=== PATIENT | female | born 1965 | race Caucasian/White ===

== ENCOUNTER 2019-07-21 16:19 | Emergency (ER) | payer OTHER, SELFPAY ==
[2019-07-21] VITALS (9 sets, daily range): BP systolic 136–174; BP diastolic 80–106; PULSE 54–82; RESP 11–20; TEMP 36.3–36.8; O2SAT 97–100
--- NOTE | ~2019-07-21 | XR_ITS ---
EXAMINATION: XR chest 2V DATE: 07/21/2019 17:07 INDICATION: Upper chest pain TECHNIQUE: PA and lateral views of the chest are obtained. COMPARISON: None available FINDINGS: The lungs are free of acute opacities. There is no pleural effusion or pneumothorax. The ca rdiomediastinal silhouette is normal. There is moderate thoracic spondylosis. IMPRESSION: 1. No acute cardiopulmonary abnormality. Reviewed, dictated and finalized at location A. 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
--- NOTE | 2019-07-21 16:31 | ECG_ITS ---
Measurements Intervals [place] Rate: 53 P: 49 IA: 144 QRS: 45 QRSD: 102 T: 66 QT: 411 QTc: 389 Interpretive Statements SINUS BRADYCARDIA WITH SINUS ARRHYTHMIA BASELINE ARTIFACT- I, II, III, AVR BORDERLINE ECG Electronically Signed On 07-21-2019 16:32:15 INDEPENDENT VIDEO PRODUCER by Colt Alvarez D.O.
--- NOTE | 2019-07-21 16:57 | ED.CHESTPAIN ---
HPI - Chest Pain General Chief Complaint: Chest Pain Stated Complaint: Chest pain, bilateral arm pain Time Seen by Provider: 07/21/19 16:26 Source: patient and RN notes reviewed Mode of arrival: ambulatory Limitations: no limitations History of Present Illness HPI narrative: Pt is a 54 y/o female who presents to the ED with c/o constant chest pain which began 2 weeks ago. Pt reports the pain feels like a pressure. She states her pain is aggravated after exertion. She states she has tried using her inhaler without relief of her symptoms. Pt reports BUE pain which began today which prompted her to come to the ED to be evaluated. She reports a productive cough and RLE edema, but denies diaphoresis, chills, or nausea. She reports she has been producing a black phlegm when she coughs. She denies a PMHx of an [place]. complaint: chest pain Onset (ago): week(s) (2 weeks ago) Timing of current episode: constant Prior episodes: No Pain location: other (diffuse) Pain radiation: none Quality: other (pressure) Relieving factors: nothing Exacerbating factors: exertion Associated symptoms: cough (productive), leg swelling (RLE) and other (BUE pain) Related Data Home Medications Medication Instructions Recorded Confirmed aripiprazole [Abilify] 5 mg PO DAILY 07/21/19 bupropion HCl 300 mg PO QAM 07/21/19 clonazepam 1 mg PO TID 07/21/19 hydroxyzine HCl 25 mg PO TID 07/21/19 losartan 25 mg PO DAILY 07/21/19 mirtazapine 45 mg PO DAILY 07/21/19 oxybutynin chloride 5 mg PO BID 07/21/19 Allergies Allergy/AdvReac Type Severity Reaction Status Date / Time Sulfa (Sulfonamide Allergy Hives Verified 07/21/19 16:32 Antibiotics) Review of Systems Review of Systems: All systems reviewed & are unremarkable except as noted in HPI and below Constitutional: Constitutional: Denies chills and Denies fever(s) Cardiovascular: Cardiovascular: Reports chest pain and Reports leg edema (RLE edema) Respiratory: Respiratory: Reports cough (productive) Gastrointestinal: Gastrointestinal: Denies nausea Musculoskeletal: Musculoskeletal: Reports other (BUE pain) [facility] Past Medical History Medical History (Updated 07/21/19 @ 19:12 by Humble Sharma MD) Anxiety Surgical History Surgical History (Updated 07/21/19 @ 17:02 by Mariana Stiles) Hx of cholecystectomy Social History Social History (Updated 07/21/19 @ 17:02 by Mariana Stiles) Smoking status: Former smoker Tobacco type: cigarettes Exam Narrative: Exam Narrative: GENERAL: Anxious-appearing, well-nourished, and in no acute distress. HEAD: Normocephalic, atraumatic. ENT: Mucous membranes moist. CHEST: Clear to auscultation. No respiratory distress. Very tender to palpation to anterior chest wall with light palpation. HEART: Regular rate and rhythm. Normal peripheral pulses. ABDOMEN: Soft, nontender, nondistended. EXTREMITIES: Normal range of motion. No edema. SKIN: Warm, dry, no rash. NEURO: Alert and oriented x3. Course Course Emergency Course: Patient informed of results. Pain improved with Toradol. Discharge home. Vital Signs Vital signs: Vital Signs Temperature 97.4 F L 07/21/19 16:27 Pulse Rate 62 07/21/19 16:27 Respiratory Rate 18 07/21/19 16:27 Blood Pressure 168/100 H 07/21/19 16:27 Pulse Oximetry 100 07/21/19 16:27 Temperature 97.4 F L 07/21/19 16:27 Pulse Rate 72 07/21/19 17:02 Respiratory Rate 12 07/21/19 17:02 Blood Pressure 146/106 H 07/21/19 17:01 Pulse Oximetry 97 07/21/19 17:02 MDM - Chest Pain Lab Data Result diagrams: 07/21/19 16:54 07/21/19 16:54 Labs: Lab Results 07/21/19 07/21/19 07/21/19 Range/Units 16:54 16:54 16:54 WBC 4.7 (4.5-10.0) K/mm3 RBC 4.67 (4.2-5.4) M/mm3 Hgb 11.4 L (12.0-15.0) g/dL Hct 36.8 L (37.0-47.0) % MCV 78.8 L (80-100) fl MCH 24.4 L (26-34) pg MCHC 31.0 L (32-36) g/dl RDW 16.8 H (11.5-14.
[2019-07-21 16:59] LABS: Basophils Absolute Auto 0.1 K/mm3 (0.0-0.1); Basophils Percent Auto 1.3 % (0.2-1.2); Eosinophils Absolute Auto 0.2 K/mm3 (0-0.3); Eosinophils Percent Auto 3.7 % (0-4.4); Hematocrit 36.8 % (37.0-47.0); Hemoglobin 11.4 g/dL (12.0-15.0); Immature Granulocyte Absolute 0.02 K/mm3 (0.00-0.031); Immature Granulocyte Percent A 0.4 % (0-0.5); Lymphocytes Absolute Auto 1.13 K/mm3 (0.9-3.2); Lymphocytes Percent Auto 24.3 % (18.3-44.2); Mean Corpuscular Hemoglobin 24.4 pg (26-34); Mean Corpuscular Volume 78.8 fl (80-100); Mean Platelet Volume 10.8 fl (7.4-10.4); Monocytes Absolute Auto 0.4 K/mm3 (0.1-0.6); Monocytes Percent Auto 8.8 % (2.6-8.5); Neutrophils Absolute Auto 2.9 K/mm3 (1.3-6.7); Neutrophils Percent Auto 61.5 % (45.5-73.1); Platelet Count Result 164 k/mm3 (150-375); Red Blood Count 4.67 M/mm3 (4.2-5.4); Red Cell Distribution Width 16.8 % (11.5-14.5); White Blood Count 4.7 K/mm3 (4.5-10.0)
[2019-07-21 17:11] LABS: Blood Urea Nitrogen 9 mg/dL (7-17); Calcium 9.4 mg/dL (8.4-10.2); Carbon Dioxide 24 mmol/L (22-30); Chloride 110 mmol/L (98-107); Estimated CRCL calculation 64 ml/min; Estimated Glomerular Filt Rate > 60; Glucose 90 mg/dL (65-105); INR 0.9; Potassium 3.8 mmol/L (3.4-5.0); Prothrombin Time 12.2 Seconds (11.1-14.7); Sodium 141 mmol/L (137-145)
[2019-07-21] MEDS: ASPIRIN 81 MG CHEWABLE TABLET 324 MG PO (17:11)
[2019-07-21 17:12] LABS: Partial Thromboplastin Time 35.7 SECONDS (22.3-36.8)
[2019-07-21 17:22] LABS: Troponin I < 0.012 ng/mL (0.000-0.034)
[2019-07-21] MEDS: KETOROLAC 30 MG/ML VIAL (*BKC) IV PUSH (18:50)
== END 2019-07-21 20:17 | disposition home or self-care (01) ==
PROVIDERS: Emergency Provider Emergency Medicine; PCP Emergency Medicine
DX: R07.89 Other chest pain (principal); F41.9 Anxiety disorder, unspecified; Z87.891 Personal history of nicotine dependence; R00.1 Bradycardia, unspecified
CPT/HCPCS: 36415; 71046; 80048; 84484; 85025; 85610; 85730; 93005; 96374; 99284; A9270; J1885

== ENCOUNTER 2020-08-11 09:12 | Outpatient (CLI) | payer OTHER, SELFPAY ==
--- NOTE | 2020-08-11 09:36 | EST_ITS ---
Patient Info Name: Radha Latham Age: 55 years : 1965 Gender: Female Ht: 63 in Wt: 141 lbs BSA: 1.70 m2 Exam Date: 08/11/2020 9:44 AM Exam Location: [facility] Stress Patient Status: Outpatient Admit Date: 08/11/2020 Staff Ordering Physician: Colt Alvarez DO Attending Provider: Colt Alvarez DO Exercise Technologist: Gayla Owusu RDCS Exercise Physician: Colt Alvarez DO Exam Type: CA stress test treadmill Study Info Indications R06.00 - Dyspnea, unspecified A treadmill exercise stress test was performed. Summary 1. 1. Negative Greg exercise stress test for ischemic ST changes by ECG criteria. 2. 2. Poor functional capacity, achieving 4 METs of workload. 3. 3. Baseline hypertension. 4. 4. Rapid HR response to exercise. 5. 5. Appropriate HR recovery at 1 minute post exercise. 6. 6. No imaging with stress testing. 7. 7. Patient informed of the above results. Protocol: Greg Stress ECG Details Stage: REST Duration (min): 5 min : 55 sec Speed (mph): 0.0 Grade (%): 0 HR (bpm): 69 SBP (mmHg): 170 DBP (mmHg): 105 METS: --- Stage: REST Duration (min): 16 min : 6 sec Speed (mph): 0.0 Grade (%): 0 HR (bpm): 68 SBP (mmHg): 161 DBP (mmHg): 93 METS: --- Stage: STAGE 1 Duration (min): 1 min : 0 sec Speed (mph): 1.7 Grade (%): 10 HR (bpm): 106 SBP (mmHg): 161 DBP (mmHg): 93 METS: --- Stage: STAGE 1 Duration (min): 2 min : 0 sec Speed (mph): 1.7 Grade (%): 10 HR (bpm): 126 SBP (mmHg): 161 DBP (mmHg): 93 METS: --- Stage: STAGE 1 Duration (min): 2 min : 24 sec Speed (mph): 1.7 Grade (%): 10 HR (bpm): 138 SBP (mmHg): 161 DBP (mmHg): 93 METS: --- Stage: RECOVERY Duration (min): 0 min : 35 sec Speed (mph): 0.0 Grade (%): 0 HR (bpm): 137 SBP (mmHg): 202 DBP (mmHg): 120 METS: --- Stage: RECOVERY Duration (min): 1 min : 35 sec Speed (mph): 0.0 Grade (%): 0 HR (bpm): 111 SBP (mmHg): 202 DBP (mmHg): 120 METS: --- Stage: RECOVERY Duration (min): 2 min : 35 sec Speed (mph): 0.0 Grade (%): 0 HR (bpm): 88 SBP (mmHg): 202 DBP (mmHg): 120 METS: --- Stage: RECOVERY Duration (min): 3 min : 35 sec Speed (mph): 0.0 Grade (%): 0 HR (bpm): 83 SBP (mmHg): 200 DBP (mmHg): 117 METS: --- Stage: RECOVERY Duration (min): 4 min : 35 sec Speed (mph): 0.0 Grade (%): 0 HR (bpm): 81 SBP (mmHg): 200 DBP (mmHg): 117 METS: --- Stage: RECOVERY Duration (min): 5 min : 35 sec Speed (mph): 0.0 Grade (%): 0 HR (bpm): 77 SBP (mmHg): 168 DBP (mmHg): 110 METS: --- Stage: RECOVERY Duration (min): 6 min : 35 sec Speed (mph): 0.0 Grade (%): 0 HR (bpm): 75 SBP (mmHg): 168 DBP (mmHg): 110 METS: --- Stage: RECOVERY Duration (min):
== END 2020-08-11 09:13 | disposition home or self-care (01) ==
PROVIDERS: PCP Emergency Medicine; Visit Provider Internal Medicine Cardiovascular Disease
DX: R06.00 Dyspnea, unspecified (principal)
CPT/HCPCS: 93017

== ENCOUNTER 2021-02-20 10:30 | Outpatient (CLI) | payer OTHER, SELFPAY ==
--- NOTE | 2021-02-20 10:41 | ECHO_ITS ---
Patient Info Name: Radha Latham Age: 55 years : 1965 Gender: Female Ht: 64 in Wt: 126 lbs BSA: 1.61 m2 BP: 128 / 91 mmHg Heart Rhythm: Sinus Rhythm Exam Date: 02/20/2021 10:54 AM Exam Location: [facility] Pulmonary Patient Status: Outpatient Admit Date: 02/20/2021 Staff Ordering Physician: Colt Alvarez DO Resource Analyst: Susan Marley CT Attending Provider: Colt Alvarez DO Referring Physician: Antonio GORMAN; Exam Type: CA echo doppler color flow Study Info Indications R06.00 - Dyspnea, unspecified Complete two-dimensional, color flow and Doppler transthoracic echocardiogram is performed. Summary 1. Complete two-dimensional, color flow and Doppler transthoracic echocardiogram is performed. 2. Left ventricular chamber dimension is normal. 3. Left ventricular systolic function is normal, estimated at 60-65%. 4. The left ventricular diastolic function is grade I diastolic dysfunction. 5. E/e' 10 is mildly elevated. 6. Global longitudinal strain is normal at -18.0%. Left Ventricle E/e' 10 is mildly elevated. Global longitudinal strain is normal at -18.0%. Left ventricular chamber dimension is normal. Left ventricular systolic function is normal, estimated at 60-65%. The left ventricular diastolic function is grade I diastolic dysfunction. Right Ventricle Right ventricular chamber dimension is normal. Right ventricular systolic function is normal. Left Atria Left atrial chamber dimension is normal. Right Atria Right atrial chamber dimension is normal. Aortic Valve The aortic valve is trileaflet. There is no aortic valve stenosis. There is no aortic valve regurgitation. Pulmonic Valve There is no pulmonic regurgitation. Mitral Valve There is no mitral valve stenosis. There is no mitral valve regurgitation. Tricuspid Valve There is no tricuspid valve regurgitation. Pericardium/Pleural There is no pericardial effusion. Inferior Vena Cava Normal inferior vena cava with >50% collapse upon inspiration consistent with normal right atrial pressure, 5 mmHg. Aorta The aortic root size at the sinus of Valsalva is normal. Left Ventricular Outflow Tract Name Value Normal LVOT 2D LVOT Diameter 2.2 cm LVOT Doppler LVOT Peak Gradient 3 mmHg LVOT Mean Gradient 2 mmHg LVOT VTI 18 cm LVOT VTI/AV VTI Ratio 0.8 LVOT Stroke Volume 69 ml LVOT CO 13.9 l/min LVOT CI 8.7 l/min/m2 Mitral Valve Name Value Normal MV Doppler MV Decel [place] 312 cm/s2 MV PHT 58 ms MV Area (PHT) 3.8 cm2 4.0-5.0 MV Diastolic Function
== END 2021-02-20 10:31 | disposition home or self-care (01) ==
PROVIDERS: PCP Emergency Medicine; Visit Provider Internal Medicine Cardiovascular Disease
DX: R06.00 Dyspnea, unspecified (principal)
CPT/HCPCS: 93306

== ENCOUNTER 2021-03-23 09:27 | Outpatient (CLI) | payer OTHER, SELFPAY ==
--- NOTE | ~2021-03-23 | CT_ITS ---
EXAMINATION: CT abdomen pelvis w con DATE: 03/23/2021 10:02 INDICATION: Abnormal weight loss. TECHNIQUE: Computed tomography (CT) of the abdomen and pelvis was performed with 100 mL Omnipaque 350 intravenous contrast. Automated exposure control and iterative reconstruction technique were employe d. The dose-length product was 222.48 mGy-cm. COMPARISON: CT abdomen and pelvis 07/13/2018 FINDINGS: The visualized portions of the lung bases demonstrate mild atelectasis. No pleural effusion . The heart size is normal. No pericardial effusion. There are cysts in the liver measuring up to 14 mm. There are changes of cholecystectomy. The spleen, pancreas, adrenal glands, and right kidney are normal. There is cortical thinning of left kidney. There is diverticulosis of the colon without evide nce of diverticulitis. There are no dilated loops of bowel. The appendix is normal. There are no path ologically enlarged lymph nodes. There is no free intraperitoneal fluid. There is moderate thoracic s pondylosis and mild lumbar spondylosis. IMPRESSION: 1. No etiology for weight loss. Reviewed, dictated and finalized at location A.
[2021-03-23 09:57] LABS: Estimated Glomerular Filt Rate > 60
== END 2021-03-23 09:28 | disposition home or self-care (01) ==
LOC: ANHIMG 09:32
PROVIDERS: PCP Emergency Medicine; Visit Provider Emergency Medicine
DX: R63.4 Abnormal weight loss (principal)
CPT/HCPCS: 74177; Q9967

== ENCOUNTER 2021-11-22 07:25 | Outpatient (CLI) | payer OTHER, SELFPAY ==
--- NOTE | ~2021-11-22 | XR_ITS ---
EXAMINATION: XR_ENEMABAC_CR DATE: 11/22/2021 08:19 INDICATION: Abdominal pain and bloating. Diarrhea. TECHNIQUE: A [employer] scout radiograph was obtained. A catheter was inserted into the patient's rectum. Contra st was infused by gravity. Fluoroscopic spot images and conventional radiographs were obtained. Fluor oscopy exposure time was 0.7 minutes. The total number of images was 32. COMPARISON: CT abdomen and pelvis 03/23/2021 FINDINGS: There is no mass or stricture. There are scattered diverticula in the colon. Stool in the p roximal colon decreases sensitivity and specificity. IMPRESSION: 1. Diverticulosis of the colon. Reviewed, dictated and finalized at location A.
== END 2021-11-22 07:26 | disposition home or self-care (01) ==
LOC: ANHIMG 07:30
PROVIDERS: PCP Emergency Medicine; Visit Provider Internal Medicine Gastroenterology
DX: R10.84 Generalized abdominal pain (principal); K57.30 Diverticulosis of large intestine without perforation or abscess without bleeding
CPT/HCPCS: 74280

== ENCOUNTER 2024-02-21 09:58 | Outpatient (CLI) | payer OTHER, SELFPAY ==
--- NOTE | ~2024-02-21 | CT_ITS ---
EXAMINATION: CT diagnostic chest wo con DATE: 02/21/2024 10:22 INDICATION: Pulmonary nodule TECHNIQUE: Computed tomography (CT) of the chest was performed without intravenous contrast. Automate d exposure control and iterative reconstruction technique were employed. Exam dose: 93.81 mGy-cm tot al exam DLP. COMPARISON: 07/21/2021 view chest 03/23/2021 CT abdomen pelvis FINDINGS: There is mild atelectasis at the bases of the lower lobes. No pulmonary infiltrate or consolidation. Peripheral 2.6 mm middle lobe pulmonary nodule (series 4 image 70). No suspicious pulmonary mass lesi on is noted. Normal heart size. No pericardial or pleural effusion. No thoracic aortic aneurysm. No hilar or mediastinal mass lesion or lymphadenopathy. Small sliding hiatal hernia. Probable cholecystectomy, gallbladder fossa surgical clips partially included in the lower most axial image. Normal morphology of the adrenal glands. 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 Degenerative spurring of the thoracic and included upper lumbar spine. No suspicious osteolytic or osteoblastic lesion. IMPRESSION: Mild discoid atelectasis/or scarring at the bases of the lower lobes 2.6 mm peripheral middle lobe nodular opacity, not likely of clinical significance. If there are any risk factors for lung cancer, consider [address] chest follow-up Reviewed, dictated and finalized at Location A. Reviewed, dictated and finalized at location A. IMPRESSION: Mild discoid atelectasis/or scarring at the bases of the lower lob es 2.6 mm peripheral middle lobe nodular opacity, not likely of clinical significa nce. If there are any risk factors for lung cancer, consider [address] chest follow-up
== END 2024-02-21 09:59 | disposition home or self-care (01) ==
PROVIDERS: PCP Emergency Medicine; Visit Provider Emergency Medicine
DX: R91.8 Other nonspecific abnormal finding of lung field (principal); R91.1 Solitary pulmonary nodule
CPT/HCPCS: 71250

== ENCOUNTER 2024-08-06 02:42 | Day surgery (SDC) | payer OTHER, SELFPAY ==
[2024-07-26 14:09] VITALS: BMI 28.3
--- OUTSIDE RECORDS SUMMARY | 2024-08-06 02:44 | XMS_ITS | Referral Summary ---
Author Organization [facility] Address [address] [place] [address] Care Team Providers Care First Leveler Name Role Phone Santos Montenegro MD Primary Care Provider [phone] Source Comments [facility],non-owned Affiliates and Associated Physician Practices is amultiple site organization consisting of ambulatory clinics and hospital sitesin [place], [place], [place]. This disclosure is being madepursuant to the Care Everywhere program and may not contain all information available regarding this patient. Last updated 18.[facility] [employer] Allergies Active Allergy Reactions Criticality Noted Date Comments Penicillins Urticaria,Swelling,Unknown Medium 07/26/19 17 Sulfa Drugs Unknown 07/26/2016 Medications * Be aware that medications may not be up to date on this document. Alwaysverify current medications with the patient. Medication Sig Dispensed Refills Start Date End Date Status WIXELA INHUB 250-50 MCG/DOSE inhaler Take 2 puffs by mouth 2 times daily 08/07/2019 Active buPROPion XL 24hr (WELLBUTRIN-XL) 300 MG tablet Take 1 tablet by mouth once daily 07/26/2016 Active ARIPiprazole (ABILIFY) 10 MG tablet Take 1 tablet by mouth once daily 12/01/2019 Active aspirin EC (Ecotrin) 81 MG tablet Take 1 tablet by mouth once daily Active famotidine (PEPCID) 40 MG tablet Take 1 (one) tablet by mouth once daily 09/09/2019 Active clonazePAM (KLONOPIN) 1 MG tablet Take 1 (one) tablet by mouth 2 times daily 07/26/2016 Active mirtazapine (REMERON) 45 MG tablet Take 1 tablet by mouth once daily 07/26/2016 Active DULERA 200-5 MCG/ACT inhaler Take 2 puffs by mouth once daily 12/05/2019 Active Multiple Vitamins-Minerals (WOMENS MULTIVITAMIN PLUS PO) Take 2 capsules by mouth once daily Active buPROPion XL 24hr (WELLBUTRIN-XL) 150 MG tablet 200 mg 01/03/2020 Active albuterol HFA (PROVENTIL;VENTOLIN ;PROAIR) 108 (90 Base) MCG/ACT inhaler INL 2 PFS PO Q 4 TO 6 H PRN 03/24/2020 Active hydrOXYzine HCl (Atarax) 25 MG tablet TAKE 1 TABLET BY MOUTH THREE TIMES DAILY 270 tablet 2 01/09/2022 Active Spiriva HandiHaler 18 MCG inhalation capsule INHALE THE CONTENTS OF 1 CAPSULE VIA INHALATION DEVICE EVERY DAY DIRECTED 12/31/2021 Active sertraline (Zoloft) 100 MG tablet 2 (two) tablets 07/04/2022 Active Rexulti 3 MG tablet 4 mg 07/04/2022 Activ e oxyBUTYnin CR 24hr (Ditropan XL) 15 MG tablet TAKE 1 TABLET BY MOUTH EVERY DAY 90 tablet 2 01/13/2023 Active amitriptyline (Elavil) 25 MG tablet TAKE 1 TABLET BY MOUTH EVERY DAY FOR CHRONIC BLADDER WALL INFLAMMATION 90 tablet 5 12/05/2023 Active Social History Tobacco Use Types Packs/Day Years Used Date Smoking Tobacco: Former Cigarettes Smokeless Tobacco: Never Comments:Occ. still working towardsquitting Alcohol Use Standard Drinks/Week Comments Never 0 (1 standard drink = 0.6 oz pur e alcohol) AUDIT-C Answer Date Recorded Q1: How often do you have a drink containing alc ohol? Never 12/17/2019 Average Number of Drinks Not on file 020 Frequency of Binge Drinking Not on file 11/30 Sex and Gender Information Value Date Recorded Sex Assigned at Not on file Gender Identity Not on file Sexual Orientation Not on file Last Filed Vital Signs Vital Sign Reading Time Taken Comments Blood Pressure 124/75 08/31/2020 9:22 AM CDT Pulse 78 08/31/2020 9:22 AM CDT Temperature 36.2 C (97.1 F) 08/31/2020 9:22 AM CDT Respiratory Rate 20 08/31/2020 9:22 AM CDT Oxygen Saturation 95% 08/31/2020 9:22 AM CDT Inhaled Oxygen Concentration - - Weight 62.3 kg (137 lb 4.8 oz) 08/31/2020 9:22 A M CDT Height 160 cm (5' 3 ) 08/31/2020 9:22 AM CDT Body Mass Index 24.32 08/31/2020 9:22 AM CDT Plan of Treatment Not on file Care Teams First Leveler Relationship Specialty Start Date End Date Santos Montenegro MD PCP - General 11/29/19
--- OUTSIDE RECORDS SUMMARY | 2024-08-06 02:44 | XMS_ITS | Patient Health Summary ---
Author Organization [facility] Address [address] [place] [address] Care Team Providers Care Heel Shaper Name Role Phone Santos Montenegro MD Primary Care Provider [phone] Note from [facility][note 3],non-owned Affiliates and Associated Physician Practices is amultiple site organization consisting of ambulatory clinics and hospital sitesin [place], [place], [place] and [place]. This disclosure is being madepursuant to the Care Everywhere program and may not contain all information available regarding this patient. Last updated 18.[facility] Allergies * Penicillins(Urticaria,Swelling,Unknown) -Medium Criticality * Sulfa Drugs(Unknown) Medications * Be aware that medications may not be up to date on this document. Alwaysverify current medications with the patient. * WIXELA INHUB 250-50 MCG/DOSE inhaler(Started 08/07/2019) Take 2 puffs by mouth 2 times daily * buPROPion XL 24hr (WELLBUTRIN-XL) 300 MG tablet(Started 07/26/2016) Take 1 tablet by mouth once daily * ARIPiprazole (ABILIFY) 10 MG tablet(Started 12/01/2019) Take 1 tablet by mouth once daily * aspirin EC (Ecotrin) 81 MG tablet Take 1 tablet by mouth once daily * famotidine (PEPCID) 40 MG tablet(Started 09/09/2019) Take 1 (one) tablet by mouth once daily * clonazePAM (KLONOPIN) 1 MG tablet(Started 07/26/2016) Take 1 (one) tablet by mouth 2 times daily * mirtazapine (REMERON) 45 MG tablet(Started 07/26/2016) Take 1 tablet by mouth once daily * DULERA 200-5 MCG/ACT inhaler(Started 12/05/2019) Take 2 puffs by mouth once daily * Multiple Vitamins-Minerals (WOMENS MULTIVITAMIN PLUS PO) Take 2 capsules by mouth once daily * buPROPion XL 24hr (WELLBUTRIN-XL) 150 MG tablet(Started 01/03/2020) 200 mg * albuterol HFA (PROVENTIL;VENTOLIN;PROAIR) 108 (90 Base) MCG/ACT inhaler (Started 03/24/2020) INL 2 PFS PO Q 4 TO 6 H PRN * hydrOXYzine HCl (Atarax) 25 MG tablet(Started 01/09/2022) TAKE 1 TABLET BY MOUTH THREE TIMES DAILY 2 refills by 01/09/2023 * Spiriva HandiHaler 18 MCG inhalation capsule(Started 12/31/2021) INHALE THE CONTENTS OF 1 CAPSULE VIA INHALATION DEVICE EVERY DAY DIRECTED * sertraline (Zoloft) 100 MG tablet(Started 07/04/2022) 2 (two) tablets * Rexulti 3 MG tablet(Started 07/04/2022) 4 mg * oxyBUTYnin CR 24hr (Ditropan XL) 15 MG tablet(Started 01/13/2023) TAKE 1 TABLET BY MOUTH EVERY DAY 2 refills by 01/13/2024 * amitriptyline (Elavil) 25 MG tablet(Started 12/05/2023) TAKE 1 TABLET BY MOUTH EVERY DAY FOR CHRONIC BLADDER WALL INFLAMMATION 5 refills by 12/04/2024 Social History Tobacco Use Types Packs/Day Years [...] Mass Index 24.32 08/31/2020 9:22 AM CDT Procedures * SARS-COV-2 (COVID-19) IN HOUSE(Performed 08/31/2020) Performed for Chronic interstitial cystitis, Pre-op testing * CBC W/O DIFFERENTIAL(Performed 08/31/2020) Performed for Iron deficiency anemia, unspecified iron deficiency anemia type * EKG 12-LEAD(Performed 08/31/2020) Performed for Iron deficiency anemia, unspecified iron deficiency anemia type * URINALYSIS NO MICROSCOPIC NO CULTURE(Performed 08/21/2020) * CULTURE URINE(Performed 08/21/2020) * TX MSR PVR U&/BLADD CAPCTY US NON(Performed 05/05/2020) Performed for Urinary frequency * URINALYSIS AUTO - POINT OF CARE (AMB) [facility](Performed 05/05/2020) Performed for Urinary frequency * TX CYSTOSCOPY,REMV CALCULUS,SIMPLE(Performed 01/11/2020) Performed for Chronic interstitial cystitis * URINALYSIS AUTO - POINT OF CARE (AMB) [facility](Performed 01/11/2020) Performed for Chronic interstitial cystitis * CULTURE URINE(Performed 12/17/2019) Performed for Urinary frequency * TX MSR PVR U&/BLADD CAPCTY US NON(Performed 12/17/2019) Performed for Urinary frequency, Chronic interstitial cystitis * URINALYSIS AUTO - POINT OF CARE (AMB) [facility](Performed 12/17/2019) Performed for Urinary frequency, Chronic interstitial cystitis Results * SARS-COV-2 (COVID-19) PRE-SURICAL/PROCEDURE (08/31/2020 12:15 PM CDT) COVID-19 PCR Not detected Not detected 08/31/2020 4:[address] [facility] Microbiology SPECIMEN FROM NASOPHARYNGEAL STRUCTURE / Unknown Collection / Unknown 08/31/2020 12:15 PM CDT 08/31/2020 12:15 PM CDT Narrative [facility] - 08/31/2020 4:51 PM CDT This nucleic acid amplification assay performance was validated by [facility]. This test has been authorized by the Food and Drug administration (FDA)under an Emergency Use Authorization (EUA). This test has been validated in accordance with the FDA's guidance document Policy for Diagnostic Testing in Laboratories Certified to perform High Complexity Testing under CLIA prior to Emergency Use Authorization for Coronavirus Disease-2019 during the Public Health Emergency issued on July 31, 2019. FDA independent review of this validation is pending. This test is only authorized for the duration of time the declaration that circumstances exist justifying the authorization of emergency use of in vitro diagnostic tests for detection of SARS-CoV-2 virus and/or diagnosis of COVID-19 infection under section 564(b)(1) of the Act, 21 U.S.C 360bbb-3 (b)(1), unless the authorization is terminated or revoked sooner. Fact Sheets for this EUA assay are available upon request. Derrick Gallego MD LAB - MICROBIOLOGY ORDERABLES [facility] [address] [place] [address], [facility] [phone] * (ABNORMAL) CBC W/O DIFFERENTIAL (08/31/2020 10:35 AM CDT) WBC 5.0 3.5 - 10.5 10 3/uL 08/31/2020 11:26 AM CDT [facility] RBC 5.12(H) 3.90 - 5.00 10 6/uL 08/31/2020 11:26 AM [facility] Hemoglobin 11.7(L) 12.0 - 15.5 g/dL 08/31/2020 11:26 AM T [facility] Hematocrit 39.0 35.0 - 45.0 % 08/31/2020 11:26 AM [facility] MCV 76.2(L) 81.0 - 97.0 fL 08/31/2020 11:26 AM [facility] MCH 22.9(L) 28.0 - 34.0 pg 08/31/2020 11:26 AM [facility] MCHC 30.0(L) 32.0 - 36.0 g/dL 08/31/2020 11:26 AM [facility] Platelet Count 200 150 - 400 10 3/uL 08/31/2020 11:26 AM [facility] RDW-SD 64.7(H) 36.0 - 50.0 fL 08/31/2020 11:26 AM [facility] RDW-CV 24.2(H) 11.2 - 14.8 % 08/31/2020 11:26 AM [facility] MPV 10.1 9.3 - 12.8 fL 08/31/2020 11:26 AM [facility] nRBC Absolute 0.00 0 10 3/uL 08/31/2020 11:26 AM [facility] nRBC Auto 0.0 0 /100 WBC 08/31/2020 11:26 AM [facility] Blood BLOOD SPECIMEN / Unknown Lab Venipuncture / Unknown 08/31/2020 10:35 AM CDT 08/31/2020 11:20 AM CDT Derrick Gallego MD LAB - HEMATOLOGY O RDERABLES Performing Organization Address City/State/[facility] Co de Phone Number [facility] [address] [place] [phone], [facility] [phone] * EKG 12-LEAD (08/31/2020 10:13 AM CDT) Ventricular Rate 61 BPM [facility] Atrial Rate 61 BPM [facility] P-R Interval 158 ms [facility] QRS Duration ms 92 ms [facility] Q-T Interval ms 406 ms [facility] QTC Calculation (Bezet) 408 ms [facility] Calculated P [place] 65 degrees [facility] Calculated R [place] 68 degrees [facility] Calculated T [place] 76 degrees [facility] Interpretation EKG NORMAL SINUS RHYTHM NORMAL ECG NO PREVIOUS ECGS AVAILABLE Confirmed by Tone Briceño ([id number]) on 09/01/2020 3:50:33 PM [facility] 08/31/2020 10:1 3 AM CDT 09/01/2020 3:50 PM CDT Derrick Gallego MD ECG ORDERABLES Performing Organization Address [facility] Co de Phone Number [facility] * (ABNORMAL) URINALYSIS NO MICROSCOPIC NO CULTURE (08/21/2020 1:40 PM CDT) Color UA DARK YELLOW YELLOW [facility] Appearance CLOUDY(A) CLEAR [facility] Specific [place] UA 1.021 1.001 - 1.035 [facility] pH UA 5.5 5.0 - 8.0 [facility] Glucose UA NEGATIVE NEGATIVE [facility] Bilirubin UA NEGATIVE NEGATIVE [facility] Ketone UA NEGATIVE NEGATIVE [facility] Blood UA NEGATIVE NEGATIVE [facility] Protein UA NEGATIVE NEGATIVE [facility] Nitrite UA NEGATIVE NEGATIVE [facility] Leukocyte UA 1+(A) NEGATIVE [facility] Comment: Test Performed at: [facility] [address] [place] [address] JOHN GUTIERREZ DO,MPH 08/21/2020 1:40 PM CDT 08/21/2020 1:41 PM CDT Derrick Gallego MD LAB - URINALYSIS O RDERABLES Performing Organization Address [facility] Co de Phone Number [facility] [address] [place] [phone] * CULTURE URINE (08/21/2020 1:40 PM CDT) Only the most recent of2 resultswithin the time period is included. Culture [facility] Comment: CULTURE, URINE, ROUTINE Micro Number: [id number] Test Status: Final Specimen Source: URINE Specimen Quality: Adequate Result: No Growth REPORT COMMENT: FASTING:NO Test Performed at: [facility] [id number] DARLIN SZYMANSKI MD 08/21/2020 1:40 PM CDT 08/21/2020 1:41 PM CDT Derrick Gallego MD LAB - MICROBIOLOGY ORDERABLES [facility] [id number] [place] [address] * TX MSR PVR U&/BLADD CAPCTY US NON (05/05/2020 9:12 AM HEMATOLOGY TECHNOLOGIST) Narrative Andree Cha LPN - 05/05/2020 9:12 AM HEMATOLOGY TECHNOLOGIST Andree Cha LPN 05/07/2020 12:52 PM Bladder scan performed PVR, 27mL Natalya SIMMONS PROCEDURE/MIN OR SURGICAL ORDERABLES * URINALYSIS AUTO - POINT OF CARE (AMB) [facility] (05/05/2020) Only the most recent of3 resultswithin the time period is included. Glucose UA neg Bilirubin UA POCT neg Ketones UA POCT neg Specific [place] UA 1.005 Blood Urine POCT neg pH UA 6.5 Protein UA neg Urobilinogen UA 0.2mg/dl Nitrite UA neg WBC UA neg Urine URINE / Unknown 05/05/2020 Natalya SIMMONS LAB - POINT O F CARE ORDERABLES * TX CYSTOSCOPY,REMV CALCULUS,SIMPLE (01/11/2020 12:46 PM CDT) Narrative Natalya Kemp APRN-CNP - 01/11/2020 12:46 PM CDT Natalya Kemp APRN-CNP 01/11/2020 12:55 PM Cystoscopy procedure note Indication for Procedure: chronic bladder pain Description: Pt placed on the procedure table in the supine/lithotomy position. she was prepped/draped in standard fashion. Pt correctly identified and time out performed. A flexible cystoscope was introduced per urethra with the following findings. Urethra: Normal caliber, no stricture. No masses. Urethral sphincter with good coaptation Bladder neck patent without contracture Trigone - UO's orthotopic bilaterally. Clear efflux seen from both ureteral orifices. Mucosa normal without lesion Bladder - normal mucosa without tumor/stone/erythema. No FB present. No trabeculation. No cellules or diverticula. No fistula. Scope was retroflexed to assess entire surface of bladder. IMPRESSION: Normal exam of the bladder PLAN: follow up 3 months, check on coverage of [place] Natalya M Justo, COIN BOX INSPECTOR-YARDER OPERATOR Natalya Kemp COIN BOX INSPECTOR-YARDER OPERATOR PROCEDURE/MIN OR SURGICAL ORDERABLES * TX MSR PVR U&/BLADD CAPCTY US NON (12/17/2019 9:01 AM CDT) Narrative Kala Strauss LPN - 12/17/2019 9:01 AM CDT Kala Strauss LPN 12/19/2019 4:20 PM Bladder scan completed PVR 111 ml noted Natalya Kemp APRN-YARDER OPERATOR PROCEDURE/MIN OR SURGICAL ORDERABLES Care Teams Heel Shaper Relationship Specialty Start Date End Date Santos Montenegro MD PCP - General 11/29/19
--- OUTSIDE RECORDS SUMMARY | 2024-08-06 02:44 | XMS_ITS | Data Portability ---
Author Organization [facility], [place] Address [address] [place] [address] Assessment Encounter Date Assessment Date Assessment LastModified by Organization Details LastModified Time 07/28/2020 07/28/2020 Annual gynecological exam performed. Patient will come back in a year unless there are new symptoms. Not available 07/27/2020 17:30:28 Plan of Treatment Reminders Order Date Submit Date Provider Last Modified By Organization Details Last Modified Time Details Appointments None recorded. Lab None recorded. Referral None recorded. Procedures None recorded. Surgeries None recorded. Imaging None recorded. Medication Orders Flagyl 500 mg tablet 2020 021 [id number], [address] [place], [place], [id number], 3 09:26:16 Diflucan 200 mg tablet 2020 021 [facility] #[id number], [address], [place], [phone], 1 11:57:33 Patient TargetsNo targets recorded. Patient InstructionsNo instructions recorded. Reason for Referral None Reported. Results Created Date Observation Date Name Description Value Unit Range Abnormal Flag Note LastModifiedBy Organization Detail LastModifiedTime Result Notes None recorded. Problems Name Problem SNOMED Code Status Onset Date Resolution Date Notes Provider Name and Address Organization Details Recorded Time Screening for malignant neoplasm of cervix Active 2016 Screening for cervical cancer;Rec orded Elsewhere: No Locatio n: [facility]: EHR Chroni c: N Practice ID: [id number] Billa ble Time: 08:30:00 AM Not Available [facility] 0 21:32:[address] Concept Active 2016 Encntr for gizzard peeler exam (general) (routine) w/o abn findings;R ecorded Elsewhere: No Locatio n: [facility] rce: EHR Chroni c: N Practice ID: [id number] Billa ble Time: 08:30:00 AM Not Available [facility] 0 21:32:56 Pelvic and perineal pain 075986756 Active 2018 Pelvic and perineal pain;Recor ded Elsewhere: No Locatio n: [facility] rce: EHR Chroni c: N Practice ID: 0001 Billa ble Time: 03:30:00 PM Not Available [facility] 0 21:32:57 Micturiti on finding Active 2018 Unspecifie d urinary incontinen ce;Recorde d Elsewhere: No Locatio n: [facility] rce: EHR Chroni c: N Practice ID: 0001 Billa ble Time: 03:30:00 PM Not Available [facility] 0 21:32:57 Syphilis test finding 483786986 Active 2016 Encntr screen for infections w sexl mode of transmiss; Recorded Elsewhere: No Locatio n: [facility] rce: EHR Chroni c: N Practice ID: 0001 Billa ble Time: 08:30:00 AM Not Available [facility] 0 21:32:[address] Concept Active 2018 Encntr for general adult medical exam w/o abnormal findings;R ecorded Elsewhere: No Locatio n: [facility] rce: EHR Chroni c: N Practice ID: 0001 Billa ble Time: 10:45:00 AM Not Available [facility] 0 21:32:57 Infection screening Active 2016 Encounter for screening for oth infec/para stc diseases;R ecorded Elsewhere: No Locatio n: [facility] rce: EHR Chroni c: N Practice ID: [id number] Billa ble Time: 08:30:00 AM Not Available [facility] 0 21:32:57 Urinary tract infectiou s disease 43760792 Active 2016 Urinary tract infection, site not specified; Recorded Elsewhere: No Locatio n: [facility] rce: EHR Chroni c: N Practice ID: 0001 Billa ble Time: 08:30:00 AM Not Available [facility] 0 21:32:57 Screening for malignant neoplasm of rectum Active 2018 Screening for malignant neoplasms of the rectum;Rec orded Elsewhere: No Locatio n: [facility] rce: EHR Chroni c: N Practice ID: 0001 Billa ble Time: 10:45:00 AM Not Available [facility] 0 21:32:57 Finding of urine substance level Active 2018 Proteinuri a, unspecifie d;Practice ID: 0001 Not Available [facility] 0 21:32:[address] Concept Active 2018 Encounter for general adult medical exam w abnormal findings;P ractice ID: 0001 Not Available [facility] 0 21:32:58 Problem Notes None recorded. Procedures Surgical History Date Name Laterality Status Provider Name and Address Organization Details Recorded Time 07/28/19 21 Date of Last Pap Smear completed Aminata Altman [facility] 08/01/2022 09:25:47 Cholecystectomy completed Noa Perez [facility] 07/27/2020 17:32:19 Imaging Results None recorded. Procedure Notes None recorded. Medical Equipment None Reported. Allergies Allergen ID Allergen Name Allergen Category Reaction Reaction Severity Criticality Documentation Date Start Date Code Code System Note Provider Name and Address Organization Details Recorded Time 9713 Product containin g penicilli n (product) medicatio n Not available Not available Not available 05/19/2020 40840 8001 SNOMED Comme nt: [facility]; Not Available [facility] 0 14:14:43 9717 Substance with sulfonami de structure and antibacte rial mechanism of action (substanc e) medicatio n Not available Not available Not available 05/19/2020 95416 8003 SNOMED Comme nt: [facility]at [facility]: [facility]; Not Available [facility] 0 14:14:43 Medications Name Sig Start Date Stop Date Status Note LastModified by Organization Details LastModified Time losartan 50 mg tablet take 1 tablet by oral route every day active Prescrib ed Elsewher e: Yes Loca tion: Melisa vern [facility] odify By: [email or web address] Encount er DateTime : 07/03/19 19 10:45:00 AM Not Available Not Available Not Available cyclobenz aprine 10 mg tablet TAKE 1 TABLET BY MOUTH TWICE DAILY NEEDED active Not Available Not Available No t Available oxybutyni n chloride ER 15 mg tablet,ex tended release 24 hr TAKE 1 TABLET BY MOUTH EVERY DAY active Not Available Not Available No t Available trazodone 50 mg tablet take 1 tablet by oral route 3 times every day after meals 07/03 completed Prescrib ed Elsewher e: Yes Loca tion: [facility] odify By: [email or web address] Encount er DateTime : 03/27/20 17 08:30:00 AM Not Available Not Available Not Available ibuprofen 800 mg tablet active Not Available Not Available Not Available famotidin e 40 mg tablet TAKE 1 TABLET BY MOUTH EVERY DAY active Not Available Not Available No t Available sertralin e 100 mg tablet active Not Available Not Available Not Available quetiapin e 200 mg tablet take 1 tablet by oral route 2 times every day 07/28 completed Prescrib ed Elsewher e: Yes Loca tion: [facility] odify By: Encount er DateTime : 07/03/19 19 10:45:00 AM Not Available Not Available Not Available clonazepa m 1 mg tablet active Not Available Not Available Not Available diphenoxy late-atro pine 2.5 mg-0.025 mg tablet active Not Available Not Available No t Available Advair Diskus 100 mcg-50 mcg/dose powder for inhalatio n inhale 1 puff by inhalati on route 2 times every day in the morning and evening approxim ately 12 hours apart 07/03 completed Prescrib ed Elsewher e: Yes Loca tion: [facility] odify By: [email or web address] Encount er DateTime : 03/27/20 17 08:30:00 AM Not Available Not Available Not Available amlodipin e 2.5 mg tablet take 1 tablet by oral route every day 07/03 completed Prescrib ed Elsewher e: Yes Loca tion: [facility] odify By: [email or web address] Encount er DateTime : 03/27/20 17 08:30:00 AM Not Available Not Available Not Available ciproflox acin 500 mg tablet TAKE 1 TABLET BY MOUTH EVERY 12 HOURS active Not Available Not Available No t Available peg-elect rolyte solution 420 gram oral solution TAKE DIRECTED BY OFFICE active Not Available Not Available No t Available omeprazol e 40 mg capsule,d elayed release TAKE 1 CAPSULE BY MOUTH EVERY DAY BEFORE A MEAL active Not Available Not Available No t Available lamotrigi ne 25 mg tablet take 2 tablet by oral route 2 times every day 07/03 completed Prescrib ed Elsewher e: Yes Loca tion: [facility] odify By: [email or web address] Encount er DateTime : 03/27/20 17 08:30:00 AM Not Available Not Available Not Available pantopraz ole 20 mg tablet,de layed release take 2 tablet by oral route every day 07/28 completed Prescrib ed Elsewher e: Yes Loca tion: [facility] odify By: [email or web address] Encount er DateTime : 07/03/19 19 10:45:00 AM Not Available Not Available Not Available bupropion HCl 100 mg tablet active Not Available Not Available No t Available amitripty line 25 mg tablet TAKE 1 TABLET BY MOUTH EVERY DAY FOR CHRONIC BLADDER WALL INFLAMMA TION active Not Available Not Available No t Available Flagyl 500 mg tablet Take 1 tablet twice a day by oral route for 7 days. 08/01 completed Not Available Not Available Not Available pantopraz ole 40 mg tablet,de layed release active Not Available Not Available Not Available clonazepa m 2 mg tablet take 1 tablet by oral route 3 times every day active Prescrib ed Elsewher e: Yes Loca tion: [facility] odify By: [email or web address] Encount er DateTime : 07/03/19 19 10:45:00 AM Not Available Not Available Not Available promethaz ine 25 mg tablet TAKE 1/2 TABLET BY MOUTH EVERY 6 HOURS NEEDED active Not Available Not Available No t Available Advair Diskus 250 mcg-50 mcg/dose powder for inhalatio n inhale 1 puff by inhalati on route 2 times every day in the morning and evening approxim ately 12 hours apart 07/28 completed Prescrib ed Elsewher e: Yes Loca tion: All salgado [facility] odify By: [email or web address] Encount er DateTime : 07/03/19 19 10:45:00 AM Not Available Not Available Not Available bupropion HCl 75 mg tablet take 1 tablet by oral route 3 times every day active Prescrib ed Elsewher e: Yes [facility]: Encount er DateTime : 07/03/19 19 10:45:00 AM Not Available Not Available Not Available omeprazol e 20 mg capsule,d elayed release TAKE 1 CAPSULE BY MOUTH EVERY DAY BEFORE A MEAL active Not Available Not Available No t Available hydroxyzi ne HCl 25 mg tablet TAKE 1 TABLET BY MOUTH THREE TIMES DAILY active Not Available Not Available No t Available irbesarta n 150 mg tablet TAKE 1 TABLET BY MOUTH EVERY DAY active Not Available Not Available No t Available lorazepam 1 mg tablet take 1 tablet by oral route 3 times every day as needed 07/03 completed Prescrib ed Elsewher e: Yes Loca tion: Melisa vern [facility] odify By: [email or web address] Encount er DateTime : 03/27/20 17 08:30:00 AM Not Available Not Available Not Available Aspir-81 mg tablet,de layed release take 1 tablet by oral route every day active Prescrib ed Elsewher e: Yes Loca tion: [facility] odify By: [email or web address] Encoun ter DateTime : 03/27/20 17 08:30:00 AM Not Available Not Available Not Available oxybutyni n chloride 5 mg tablet take 1 tablet by oral route 2 times every day active Prescrib ed Elsewher e: Yes [facility]oca [facility]ion: [facility]ify By: [email or web address] Encount er DateTime : 07/03/19 19 10:45:00 AM Not Available Not Available Not Available ondansetr on 4 mg disintegr ating tablet DISSOLVE ONE TABLET ON TOP OF THE TONGUE FOUR TIMES DAILY NEEDED FOR NAUSEA active Not Available Not Available No t Available Diflucan 200 mg tablet Take 1 tablet every day by oral route for 1 day. 2020 active Not Available Not Available Not Avai lable dicyclomi ne 10 mg capsule active Not Available Not Available Not Available irbesarta n 300 mg tablet active Not Available Not Available Not Available Ventolin HFA 90 mcg/actua tion aerosol inhaler inhale 2 puff by inhalati on route every 4 - 6 hours as needed 07/28 completed Prescrib ed Elsewher e: Yes Loca tion: [facility] odify By: [email or web address] Encount er DateTime : 07/03/19 19 10:45:00 AM Not Available Not Available Not Available aripipraz ole 10 mg tablet active Not Available Not Available Not Available cyclobenz aprine 5 mg tablet take 1 tablet by oral route 3 times every day active Prescrib ed Elsewher e: Yes Loca tion: [facility] odify By: [email or web address] Encount er DateTime : 07/03/19 19 10:45:00 AM Not Available Not Available Not Available aripipraz ole 5 mg tablet take 1 tablet by oral route every day active Prescrib ed Elsewher e: Yes Loca tion: [facility] odify By: [email or web address] Encount er DateTime : 07/03/19 19 10:45:00 AM Not Available Not Available Not Available Spiriva with [employer] r 18 mcg and inhalatio n capsules INHALE THE CONTENTS OF 1 CAPSULE VIA INHALATI ON DEVICE EVERY DAY DIRECTED active Not Available Not Available No t Available mirtazapi ne 7.5 mg tablet take 2 tablet by oral route every day at bedtime active Prescrib ed Elsewher e: Yes Loca tion: [facility] odify By: [email or web address] Encoun ter DateTime : 03/27/20 17 08:30:00 AM Not Available Not Available Not Available hydroxyzi ne HCl 08/01 completed Not Available Not Available Not Available peg 3350-elec trolytes 236 gram-22.7 4 gram-6.74 gram-5.86 gram solution TAKE BY MOUTH DIRECTED BY OFFICE active Not Available Not Available No t Available diclofena c 1 % topical gel active Not Available Not Available Not Available inhaler, assist devices, accessori es active Not Available Not Available Not Available Rexulti 3 mg tablet active Not Available Not Available No t Available Rexulti 1 mg tablet active Not Available Not Available No t Available Rexulti 2 mg tablet active Not Available Not Available No t Available Vitals Date Recorded Body height Body mass index (BMI) Body weight Systolic blood pressure Diastolic blood pressure Provider Name and Address Organization Details Last Updated DateTime 07/28/2020 160.02 cm 24.6 kg/m2 50540.34 g 140 mm[Hg] 82 mm[Hg] Noa Perez [facility] 11:25:32 Social History None recorded. Functional Status None recorded. Mental Status None recorded. Family History Relationship Description Onset Age of this Age Resolved Age Notes LastModified by Organization Details LastModified Time Mother Heart disease [email or web address] Not available 2020 17:31:38 Mother Tuberculosis Not availa ble 07/27/2020 17:31:46 Father Diabetes mellitus [email or web address] Not available 2020 17:31:54 Father Carcinoma in situ of lung [email or web address] Not available 17:32:02 Sister Carcinoma in situ of breast [email or web address] Not available 2020 17:32:12 Notes:Father: Diabetes melli tus, Cancer, lung Mother: Tuberculosis, Heart disease Sister: Cancer, breast Medical History Condition Response Anxiety Disorder Y Asthma Y Depression/ depression Y Hypertension Y Gynecological History Statement/Question Response Date of Last Pap Smear 07/28/2020 Current Control Method None Desired Control Method Unknown Obstetrics History GPAL:G 2 P 2 0 0 0 Type Value Full Term 2 Total 2 Past Encounters Encounter ID Performer Location Encounter Start Date Encounter Closed Date Diagnosis/Indication Diagnosis SNOMED-CT Code Diagnosis ICD10 Code Diagnosis Note [id number] Josefa Snow , [facility] [address] [address] 07/28/2020 11:09:01 07/28/2020 12:47:22 Gynecologic examination 97899443 Z01.419 Take Calcium with Vitamin D 12-1500mg daily. Do monthly self breast exams. It is advised to get annual flu shot in the fall and she could obtain at [facility] or [facility] clinic. If you haven't received the Tdap vaccine in the last 10 years you should obtain one as well. Have mammogram yearly, bone density every 2-3 years and colonoscop y every 5-10 years depending on findings and history. Engage in daily exercise of low impact aerobic exercise 45-60 minutes 4-5 times weekly. Avoid tobacco and illicit drugs as well as using moderation with alcohol intake less than 1-2 8 oz beverages daily. This lifestyle behavior pattern will lead to less health conditions and longer life span. If BMI greater than 25 weight watchers or dietary consult advised. Questions have been answered. Patient appears to understand instructio ns, but if you have any further questions call or respond to this email Not SA x 5yrs Colon PCP managed Menopause x 5yrs Vaginitis [id number] N76.0 Suspect BV. Sent yeast prevention AGreed to flagyl/dif janie Elevated blood-pressure reading without diagnosis of hypertension [id number] R03.0 going to see PCP next week for updated visit & BP check Patient is to contact office or go to nearest ED/Urgent care if fever >/= 100.1, pain, excessive bleeding, unusual drainage or swelling in area of concern; or experienci ng worsening sx's or new onset of concerning sx's. Understand ing verbalized . All questions answered to patient satisfacti on. Health Concerns Section Related Observation LastModified by Organization Detai ls LastModified Time None Recorded Concern Status LastModified by Organization Details LastModified Time None Recorded Advance Directives Directive None Recorded Payers Encounter Date Sequence Insurance Name Policy Number Policy Toro Covered Member ID Toro Member ID Guarantor Name 07/28/2020 1 [facility] (MEDICAID HMO) [id number] Radha Latham [id number] Radha Latham Notes Date Note Type Note Provider Name and Address Organization Details Recorded Time 07/28/2020 text/html Annual GYNReport ed bypatient.Menstrua l cycle:postmenpause Urinary symptoms:No hematuria; No incontinence Vulva:No genital lesion Vagina:Normal vaginal discharge Breast:No breast pain; No breast lump; No nipple discharge Current Contraception:Not sexually active Sexual complaints:No sexual complaints; No pain during intercourse; Normal libido Menopausal Symptoms:No menopausal symptoms; Normal vaginal lubrication Psychological symptoms:No depression; No anxiety; No PMDD Preventive measures:Encourage self breast examination; Encourage regular exercise; Encourage no tobacco use; Encourage regular mammograms starting age 40; Followed with Q3 year pap smear and high risk HPV typing; Needs to schedule mammogram; Up to date on colonoscopy screening Josefa Snow [facility]- [address], [place], [address], [facility] 07/28/2020 11:59:34 OBGyn Episode Ob Episode Information Episode Created Date Number of Fetuses Patient Bloodtype Patient rh Status Prepregnancy Weight lbs Domestic Partner Domestic Partner Phone Father Name Science Analyst Status 07/27/19 21 1 CLOSED Fetus Data First Name Last Name Admitted to NICU Weight (g) Sex Living Outcome Pediatric Complications Fetus ID Race Codes Race Delivery Type Full Term [id number] Vaginal Delivery Ramesh Calculation Initial Ramesh Date Initial Exam Date Initial Exam Provider Initial Ultrasound Date Last Menstrual Period Date Ultra Sound Weeks Gestation 0 Eighteen To Twenty Week Ramesh Update Ultra Sound Date Fundal Height At Umbil Quickening Date Ultra Sound Latest Weeks Gestation Final Ramesh Confirmed By Final Ramesh Confirmed Date Final Ramesh Date Ultra Sound Latest Days Gestation 0 0 Menstrual History Last Menstrual Date Menses Monthly On Bcp Conception Prior Menses Frequency Hcg Plus Date Menarche Onset Age Delivery Information Delivery Date Delivery Type Labor Anesthesia Weeks Gestation Incision Type Labor Labor Length Hrs Delivered By Post Complications Tubal Sterilization Discharge Date Comments 8 Discharge Information Feeding Method Contraceptive Method Maternal HG B and HCT Levels Ob Episode Information Episode Created Date Number of Fetuses Patient Bloodtype Patient rh Status Prepregnancy Weight lbs Domestic Partner Domestic Partner Phone Father Name Science Analyst Status 07/27/19 21 1 CLOSED Fetus Data First Name Last Name Admitted to NICU Weight (g) Sex Living Outcome Pediatric Complications Fetus ID Race Codes Race Delivery Type Full Term 8144 Primary Ramesh Calculation Initial Ramesh Date Initial Exam Date Initial Exam Provider Initial Ultrasound Date Last Menstrual Period Date Ultra Sound Weeks Gestation 0 Eighteen To Twenty Week Ramesh Update Ultra Sound Date Fundal Height At Umbil Quickening Date Ultra Sound Latest Weeks Gestation Final Ramesh Confirmed By Final Ramesh Confirmed Date Final Ramesh Date Ultra Sound Latest Days Gestation 0 0 Menstrual History Last Menstrual Date Menses Monthly On Bcp Conception Prior Menses Frequency Hcg Plus Date Menarche Onset Age Delivery Information Delivery Date Delivery Type Labor Anesthesia Weeks Gestation Incision Type Labor Labor Length Hrs Delivered By Post Complications Tubal Sterilization Discharge Date Comments 8 Discharge Information Feeding Method Contraceptive Method Maternal HG B and HCT Levels
--- OUTSIDE RECORDS SUMMARY | 2024-08-06 02:44 | XMS_ITS | Clinical Summary ---
Author Organization [facility] Address [address] [place] [id number] Care Team Providers Care Process Control Programmer Name Role Phone Aminta Sorto MD Unavailable [phone] Santos Montenegro MD Primary Care Provider [phone] Social History Tobacco Use Types Packs/Day Years Used Date Smoking Tobacco: Never Assessed Comments Unknown Sex and Gender Information Value Date Recorded Sex Assigned at Not on file Legal Sex Female 8:12 PM CDT Gender Identity Not on file Sexual Orientation Not on file Last Filed Vital Signs Vital Sign Reading Time Taken Comments Blood Pressure 134/84 11/03/2017 10:24 AM CDT Pulse 75 03/18/2017 9:09 AM CDT Temperature - - Respiratory Rate - - Oxygen Saturation - - Inhaled Oxygen Concentration - - Weight 61.7 kg (136 lb) 11/03/2017 10:24 AM CDT Height 165.1 cm (5' 5 ) 11/03/2017 10:24 AM CDT Body Mass Index 22.63 11/03/2017 10:24 AM CDT Plan of Treatment Health Maintenance Due Date Last Done Comments Cervical Cancer Screening Pa p Smear (Age 30 to 64) Every 3 Years 1963 Annual Physical 1966 DTaP, Tdap and Td Vaccines ( 1 - Tdap) 1982 Cervical Cancer Screening Pa p with HPV Testing (Age 30 to 64) Every 5 Years 1993 Cervical Cancer Screening wi th HPV 1993 Mammogram Screening 2003 Colorectal Cancer Screening Colonoscopy (10 Years) 04/07/2012 04/07/2002 Zoster Vaccines (1 of 2) 2013 COVID-19 Vaccine (2023-2 5 season) 2024 Influenza Adult (#1) 2024 RSV Immunization or 60+ Years (1 - 1-dose 75+ series) 2038 Hepatitis C Completed 10/16/2017, 10/02/2017 Meningococcal B Vaccine Aged Out No l onger eligible based on patient's age to complete this topic Meningococcal Vaccine Aged Out No lion nellie eligible based on patient's age to complete this topic Pneumococcal Vaccine: Pediatrics (0 to 5 Years) and At-Risk Patients (6 to 64 Years) Aged Out No longer eligible b ased on patient's age to complete this topic RSV Immunizations Under 20 Months Aged Out No longer eligible b ased on patient's age to complete this topic Procedures Procedure Name Priority Date/Time Associated Diagnosis Comments COLONOSCOPY GENERIC (SCAN ORDER) 04/07/2002 from Last 3 Months or Most Recently Relevant to Health Maintenance Results * COLONOSCOPY GENERIC (04/07/2002) 04/07/2002 [facility] Scanned SCANNING Final Resu lt from Last 3 Months or Most Recently Relevant to Health Maintenance Insurance [employer] Care Teams Process Control Programmer Relationship Specialty Start Date End Date Santos Montenegro MD [address] [place] [id number] PCP - General 10/07/23 Aminta Sorto MD [facility] [address] [place] [address] [employer] CARDIOVASCULAR DISEASE 03/20/17
--- OUTSIDE RECORDS SUMMARY | 2024-08-06 02:44 | XMS_ITS | Clinical Summary ---
Author Organization [facility] Address [address] [place] [address] Care Team Providers Care Urology Physician Name Role Phone Santos Montenegro MD Primary Care Provider [phone] Source Comments [facility],non-owned Affiliates and Associated Physician Practices is amultiple site organization consisting of ambulatory clinics and hospital sitesin [place], [place], [place] and [place]. This disclosure is being madepursuant to the Care Everywhere program and may not contain all information available regarding this patient. Last updated 18.[facility] Allergies Active Allergy Reactions Criticality Noted Date [...] WALL INFLAMMATION 90 tablet 5 12/05/2023 Active Family History Medical History Relation Name Comments Arthritis - Rheumatoid Father Diabetes - Type 2 Father Hypertension Father Osteoporosis Father Alcohol abuse Mother Anxiety Disorder Mother Arthritis - Rheumatoid Mother CAD (Coronary Artery Disease) Mother Relation Name Status Comments Father Mother Social History Tobacco Use Types Packs/Day Years [...] 08/31/2020 9:22 AM CDT Plan of Treatment Health Maintenance Due Date Last Done Comments COLOGUARD (AGES 45-75) - COL ON CA SCREENING 1963 COLON MONITORING 1963 COLONOSCOPY - COLON CA SCREENING 1963 CT COLONOGRAPHY - COLON CA SCREENING 1963 Colorectal Cancer Screening 1963 FIT - COLON CA SCREENING 1963 FLEX SIG - COLON CA SCREENING 1963 LIPID TESTING 1963 MAMMOGRAM 1963 PAP SMEAR 1963 HIV SCREENING 1978 HEPATITIS C SCREENING 03/15/1981 DTAP/TDAP/TD VACCINES (1 - Tdap) 1982 PNEUMOCOCCAL VACCINE 50+ (1 of 1 - PCV) 2013 ZOSTER VACCINE (1 of 2) 2013 COVID-19 VACCINE ( - 2023-2 5 season) 2024 INFLUENZA VACCINE (#1) 2024 03/08/2019 DEPRESSION SCREENING 06/02/2024 Respiratory Syncytial Virus (RSV) Vaccine Pt: or over 60 yrs (1 - 1-dose 75+ series) 2038 HEPATITIS B VACCINE Aged Out No longe r eligible based on patient's age to complete this topic HIB VACCINE Aged Out No longer eligi ble based on patient's age to complete this topic HPV VACCINE Aged Out No longer eligi ble based on patient's age to complete this topic MENINGOCOCCAL (Group B) VACCINE Aged Out No longer eligible based on patient's age to complete this topic MENINGOCOCCAL VACCINE Aged Out No lion nellie eligible based on patient's age to complete this topic PNEUMOCOCCAL VACCINE Aged Out No long er eligible based on patient's age to complete this topic Care Teams Urology Physician Relationship Specialty Start Date End Date Santos Montenegro MD PCP - General 11/29/19
--- OUTSIDE RECORDS SUMMARY | 2024-08-06 02:44 | XMS_ITS | Continuity of Care Document ---
Author Organization [facility] Address [address] [place] [address] [place] [address] Phone Care Team Providers Care [employer] Name Role Phone Santos Montenegro MD Unavailable Unavailable Allergies, Adverse Reactions, Alerts Substance Reaction Status Criticality Sulfa (Sulfonamide Antibiotics) Active No Information Penicillins Active No Information Medications Medication Instructions Dosage Effective Dates (start - stop) Status Comments cyclobenzaprine 10 mg tablet take 1 tablet by oral route 3 times every day as needed 10 MG - Active PRN for pain , avoid driving or operate machines irbesartan 300 mg tablet take 1 tablet by oral route every day 300 MG - Active Lyrica 75 mg capsule take 1 capsule by oral route 2 times every day 75 MG - Active avoid driving or operate machines Pepcid 40 mg tablet take 1 tablet by oral route every day 40 MG - Active omeprazole 20 mg capsule,delayed release take 1 capsule by oral route every day before a meal 20 MG - Active oxybutynin chloride ER 15 mg tablet,extended release 24 hr take 1 tablet by oral route every day 15 MG - Active aspirin 81 mg chewable tablet chew 1 tablet by oral route every day 81 MG - Active hydroxyzine HCl 25 mg tablet take 1 tablet by oral route 3 times every day 25 MG - Active amitriptyline 25 mg tablet take 1 tablet by oral route every day at bedtime 25 MG - Active Abilify 5 mg tablet take 1 tablet by oral route every day 5 MG - Active Ventolin HFA 90 mcg/actuation aerosol inhaler inhale 2 puff by inhalation route every 4 - 6 hours as needed - Active Remeron 45 mg tablet take 1 tablet by oral route every day before bedtime - Active Wellbutrin XL 300 mg 24 hr tablet, extended release take 1 tablet by oral route every morning 300 MG - Active Klonopin 1 mg tablet take 1 tablet by oral route 3 times every day 1 MG - Active Procedures Procedure Date OFFICE/OUTPATIENT VISIT, EST OFFICE/OUTPATIENT VISIT, EST OFFICE/OUTPATIENT VISIT, EST OFFICE/OUTPATIENT VISIT, EST OFFICE/OUTPATIENT VISIT, EST OFFICE/OUTPATIENT VISIT, EST OFFICE/OUTPATIENT VISIT, EST OFFICE/OUTPATIENT VISIT, EST OFFICE/OUTPATIENT VISIT, EST OFFICE/OUTPATIENT VISIT, EST OFFICE/OUTPATIENT VISIT, EST PREV VISIT, EST, AGE 40-64 OFFICE/OUTPATIENT VISIT, EST OFFICE/OUTPATIENT VISIT, EST OFFICE/OUTPATIENT VISIT, EST OFFICE/OUTPATIENT VISIT, EST OFFICE/OUTPATIENT VISIT, EST OFFICE/OUTPATIENT VISIT, EST OFFICE/OUTPATIENT VISIT, EST OFFICE/OUTPATIENT VISIT, EST PREV VISIT, EST, AGE 40-64 OFFICE/OUTPATIENT VISIT, EST OFFICE/OUTPATIENT VISIT, EST OFFICE/OUTPATIENT VISIT, EST OFFICE/OUTPATIENT VISIT, EST OFFICE/OUTPATIENT VISIT, EST OFFICE/OUTPATIENT VISIT, EST OFFICE/OUTPATIENT VISIT, EST PREV VISIT, EST, AGE 40-64 OFFICE/OUTPATIENT VISIT, EST OFFICE/OUTPATIENT VISIT, EST PREV VISIT, EST, AGE 40-64 OFFICE/OUTPATIENT VISIT, EST OFFICE/OUTPATIENT VISIT, EST OFFICE/OUTPATIENT VISIT, EST OFFICE/OUTPATIENT VISIT, EST OFFICE/OUTPATIENT VISIT, EST OFFICE/OUTPATIENT VISIT, EST OFFICE/OUTPATIENT VISIT, EST PREV VISIT, EST, AGE 40-64 OFFICE/OUTPATIENT VISIT, EST OFFICE/OUTPATIENT VISIT, EST OFFICE/OUTPATIENT VISIT, EST OFFICE/OUTPATIENT VISIT, EST OFFICE/OUTPATIENT VISIT, EST PREV VISIT, NEW, AGE 40-64 Advance Directives Directive Yes / No Effective Date File Name No Information Encounters Encounter Description Practice Location Reason(s) For Visit Diagnoses Date Provider Providers Copied on Encounter OFFICE/OUTPA TIENT VISIT, [facility], [address] [place], [address], tel:[phone] pain1 (chief complaint) GERD1 (chief complaint) GERD w/o esophagitisFibromya lgia 5 Lan Rodriguez [address] [place], [address] , [place]. [phone] OFFICE/OUTPA TIENT VISIT, [facility], [address] [place], [address], [place] tel:[phone] [facility] GERD1 (chief complaint) fibromyalg ia1 (chief complaint) HTN (chief complaint) FibromyalgiaEssenti al (primary) hypertensionGERD w/o esophagitis 4 Lan Rodriguez [address] [place], [address] , [place]. tel:[phone] OFFICE/OUTPA TIENT VISIT, [facility], [address] [place], [address], [place] tel:[phone] fibromyalg ia` (chief complaint) cough1 (chief complaint) Acute bronchitisFibromyal jeffery 4 Lan Santos. [address], [place], [place], [address] , [place]. tel:[phone] OFFICE/OUTPA TIENT VISIT, [facility], [address], [place], [place], [address], [place] tel:[phone] lung nodule1 (chief complaint) GERD1 (chief complaint) IC (chief complaint) pain (chief complaint) Solitary lung noduleFibromyalgiaG ERD w/o esophagitisIntersti tial cystitis (chronic) with hematuria 4 Lan Santos. [address], [place], [place], [address] , [place]. [phone] OFFICE/OUTPA TIENT VISIT, [facility], [address], [place], [place], [address], [place] tel:[phone] osteopenia 1 (chief complaint) IC (chief complaint) iron deficiency 1 (chief complaint) pain (chief complaint) GERD1 (chief complaint) Encntr screen mammogram for malignant neoplasm of breastIron deficiency anemia, unspecifiedIntersti tial cystitis (chronic) with hematuriaOther specified disorder of bone densitySolitary lung noduleFibromyalgiaG ERD w/o esophagitis 4 Lan Santos. [address], [place], [place], [address] , [place]. tel:[phone] OFFICE/OUTPA TIENT VISIT, [facility], [address], [place], [place], [address], [place] tel:[phone] pain (chief complaint) tobacco (chief complaint) bone1 (chief complaint) Solitary lung nodulePain in left kneeOther specified disorder of bone density 4 Lan Santos. [address], [place], [place], [address] , [place]. tel:[phone] OFFICE/OUTPA TIENT VISIT, [facility], [address], [place], [place], [address], [place] tel:[phone] toothache1 (chief complaint) Atypical facial painSolitary lung nodule 4 Lan Graham. [address], [place], [place], [address] , [place]. tel:[phone] OFFICE/OUTPA TIENT VISIT, [facility], [address], [place], [place], [address], [place] tel:[phone] pain (chief complaint) Chronic pain syndrome 4 Lan Graham. [address], [address], [place], [place], [address] , [place]. tel:[phone] OFFICE/OUTPA TIENT VISIT, [facility], [address], [place], [place], [address], [place] tel:[phone] pain (chief complaint) Chronic pain syndrome 4 Lan Graham. [address], [place], [place], [address] , [place]. tel:[phone] OFFICE/OUTPA TIENT VISIT, [facility], [address], [place], [place], [address], [place] tel:[phone] pain (chief complaint) HTN (chief complaint) COPD1 (chief complaint) sleep apnea1 (chief complaint) Solitary lung noduleOther specified disorder of bone densityObstructive sleep apnea (adult) (pediatric)Centrilo bular emphysemaChronic pain syndromeEssential (primary) hypertension 4 Lan Graham. [address], [place], [place], [address] , [place]. tel:[phone] OFFICE/OUTPA TIENT VISIT, [facility], [address], [place], [place], [address], [place] tel:[phone] knee pain1 (chief complaint) Chronic pain syndrome 3 Lan Graham. [address], [place], [place], [address] , [place]. [phone] PREV VISIT, EST, AGE 40-64 [facility], [address], [place], [place], [address], [place] tel:[phone] physical (chief complaint) Encounter for general adult medical examination without abnormal findings 3 Lan Graham. [address], [place], [place], [address] , [place]. [phone] OFFICE/OUTPA TIENT VISIT, [facility], [address], [place], [place], [address], [place] tel:[phone] mammo (chief complaint) Inconclusive mammogram 3 Lan Graham. [address], [place], [place], [address] , [place]. tel:[phone] OFFICE/OUTPA TIENT VISIT, [facility], [address], [place], [place], [address], [place] tel:[phone] thyroid1 (chief complaint) knee pain1 (chief complaint) HTN (chief complaint) mammo (chief complaint) Disorder of thyroid, unspecifiedInconclu sive mammogramEssential (primary) hypertensionPain in left kneeOther specified disorder of bone density 3 Lan Graham. [address], [place], [place], [address] , [place]. tel:[phone] OFFICE/OUTPA TIENT VISIT, EST [facility], [address], [place], [place], [address], [place] tel:[phone] HLP (chief complaint) glucose1 (chief complaint) thyroid1 (chief complaint) low D1 (chief complaint) Other specified disorder of bone densityHyperglycemi aMixed hyperlipidemiaDisor melvin of thyroid, unspecifiedSolitary lung nodulePain in unspecified joint 3 Lan Graham. [address], [place], [place], [address] , [place]. tel:[phone] OFFICE/OUTPA TIENT VISIT, [facility], [address], [place], [place], [address], [place] tel:[phone] toothache1 (chief complaint) pain (chief complaint) Pain in unspecified jointAtypical facial pain 3 Montenegro Santos. [address], [place], [place], [address] , [place]. [phone] OFFICE/OUTPA TIENT VISIT, [facility], [address], [place], [place], [address], [place] tel:[phone] HTN (chief complaint) joint pain1 (chief complaint) IBSD (chief complaint) Pain in jointIrritable bowel syndrome with diarrheaEssential (primary) hypertension 3 Montenegro Santos. [address], [place], [place], [address] , [place]. [phone] OFFICE/OUTPA TIENT VISIT, [facility], [address], [place], [place], [address], [place] tel:[phone] GI (chief complaint) HTN (chief complaint) OAB (chief complaint) Essential (primary) hypertensionIrritab le bowel syndrome with diarrheaOveractive bladder 3 Montenegro Santos. [address], [place], [place], [address] , [place]. [phone] OFFICE/OUTPA TIENT VISIT, [facility], [address], [place], [place], [address], [place] tel:[phone] HTN (chief complaint) left knee 1 (chief complaint) colon polyp1 (chief complaint) toothache1 (chief complaint) Essential (primary) hypertensionPain in left kneePolyp of colonAtypical facial pain 2 Montenegro Santos. [address], [place], [place], [address] , [place]. [phone] OFFICE/OUTPA TIENT VISIT, [facility], [address], [place], [place], [address], [place] tel:[phone] knee pain1 (chief complaint) lung nodule1 (chief complaint) iron deficiency 1 (chief complaint) HTN (chief complaint) Essential (primary) hypertensionIron deficiency anemiaPain in left kneeSolitary lung nodule 2 Lan Graham. [address], [place], [place], [address] , [place]. tel:[phone] PREV VISIT, EST, AGE 40-64 [facility], [address], [place], [place], [address], [place] tel:[phone] physical (chief complaint) Encounter for general adult medical examination without abnormal findings 2 Lan Graham. [address], [place], [place], [address] , [place]. tel:[phone] OFFICE/OUTPA TIENT VISIT, [facility], [address], [place], [place], [address], [place] tel:[phone] HTN (chief complaint) IC (chief complaint) shoulder pain1 (chief complaint) anemia1 (chief complaint) Essential (primary) hypertensionPain in right shoulderIron deficiency anemiaInterstitial cystitis without hematuria 2 Lan Graham. [address], [place], [place], [address] , [place]. tel:[phone] OFFICE/OUTPA TIENT VISIT, [facility], [address], [place], [place], [address], [place] tel:[phone] GERD1 (chief complaint) anxitey1 (chief complaint) weight loss1 (chief complaint) Abnormal weight lossGERD w/o esophagitisGenerali zed Anxiety DisorderIron deficiency anemia 1 Lan Graham. [address], [place], [place], [address] , [place]. tel:[phone] OFFICE/OUTPA TIENT VISIT, [facility], [address], [place], [place], [address], [place] tel:[phone] HTN (chief complaint) anemia1 (chief complaint) weight loss1 (chief complaint) GERD w/o esophagitisEssentia l (primary) hypertensionAnemiaA bnormal weight loss Sep-2 1 Lan Rodriguez [address], [place], [place], [address] , [place]. tel:[phone] OFFICE/OUTPA TIENT VISIT, [facility], [address], [place], [place], [address], [place] tel:[phone] GERD (chief complaint) GERD1 (chief complaint) HTN (chief complaint) OAB (chief complaint) anemia1 (chief complaint) Overactive bladderIron deficiency anemiaEssential (primary) hypertensionGERD w/o esophagitis Nov- 1 Lan Rodriguez [address], [place], [place], [address] , [place]. tel:[phone] OFFICE/OUTPA TIENT VISIT, [facility], [address], [place], [place], [address], [place] tel:[phone] HTN (chief complaint) anemia1 (chief complaint) OAB1 (chief complaint) Essential (primary) hypertensionIron deficiency anemiaOveractive bladder Aug- 1 Lan Rodriguez [address], [place], [place], [address] , [place]. tel:[phone] OFFICE/OUTPA TIENT VISIT, [facility], [address], [place], [place], [address], [place] tel:[phone] anemia1 (chief complaint) Iron deficiency anemiaFatigue 1 Lan Rodriguez [address], [place], [place], [address] , [place]. tel:[phone] OFFICE/OUTPA TIENT VISIT, [facility], [address], [place], [place], [address], [place] tel:[phone] HLP (chief complaint) anemia1 (chief complaint) vitamin D1 (chief complaint) GERD1 (chief complaint) AnemiaHyperlipidemi aVitamin D deficiency, unspecifiedGERD w/o esophagitis 1 Lan Rodriguez [address], [place], [place], [address] , [place]. tel: [phone] PREV VISIT, EST, AGE 40-62 [facility], [address], [place], [place], [address], [place] tel:[phone] [facility] physical (chief complaint) Encounter for general adult medical examination without abnormal findings Oct-2 0- 0 Lan Rodriguez [address], [place], [place], [address] , [place]. tel: [phone] OFFICE/OUTPA TIENT VISIT, EST [facility], [address], [place], [place], [address], [place] tel:[phone] IC1 (chief complaint) GERD1 (chief complaint) Interstitial cystitis without hematuriaGERD w/o esophagitis Apr-3 0- 0 Lan Rodriguez [address], [place], [place], [address] , [place]. tel: [phone] OFFICE/OUTPA TIENT VISIT, EST [facility], [address] [place] [place], [address], [place] tel:[phone] chest pain1 (chief complaint) IC (chief complaint) anemia1 (chief complaint) Chest painGERD w/o esophagitisAnemiaIn terstitial cystitis without hematuria Apr-0 9-202 0 Lan Rodriguez [address], [place], [place], [address] , [place]. tel: [phone] PREV VISIT, EST, AGE 40-62 [facility], [address], [place], [place], [address], [place] tel:[phone] [facility] physical (chief complaint) Encntr for general adult medical exam w/o abnormal findings Jan- 9 Lan Graham. [address], [place], [place], [address] , [place]. [phone] Referring Provider: Haider Leslie [address], [place], [place], [address]. tel:[phone] OFFICE/OUTPA TIENT VISIT, [facility], [address], [place], [place], [address], [place] tel:[phone] hematuria1 (chief complaint) weight loss1 (chief complaint) neck pain1 (chief complaint) HTN (chief complaint) HematuriaOveractive bladderEmphysemaEss ential (primary) hypertensionOther spondylosis, cervical regionAbnormal weight loss 9 Lan Rodriguez [address], [place], [place], [address] , [place]. [phone] Referring Provider: Haider [address], [place], [place], [address]. tel:[phone] OFFICE/OUTPA TIENT VISIT, [facility], [address], [place], [place], [address], [place] tel:[phone] HTN (chief complaint) OAB (chief complaint) neck pain1 (chief complaint) Essential (primary) hypertensionOther spondylosis, cervical regionOveractive bladderEmphysema 8 Lan Mal[address], [place], [place], [address] , [place]. tel:[phone] OFFICE/OUTPA TIENT VISIT, [facility], [address], [place], [place], [address], [place] tel:[phone] UTI1 (chief complaint) neck pain1 (chief complaint) HTn (chief complaint) Essential (primary) hypertensionOveract reyes bladderOther spondylosis, cervical region Dec-0 9 8 Lan Rodriguez [address], [place], [place], [address] , [place]. [phone] Referring Provider: [address], [place], [place], [address]. tel:[phone] OFFICE/OUTPA TIENT VISIT, [facility], [address], [place], [place], [address], [place] tel:[phone] GERD1 (chief complaint) neck pain1 (chief complaint) emphysema1 (chief complaint) UTI1 (chief complaint) knee pain1 (chief complaint) Other spondylosis, cervical regionEmphysemaGERD w/o esophagitisUrinary tract infectionPain in right knee 8 Lan Rodriguez [address], [place], [place], [address] , [place]. tel:[phone] Referring Provider: Haider Leslie [address], [place], [place], [address]. tel:[phone] OFFICE/OUTPA TIENT VISIT, [facility], [address], [place], [place], [address], [place] tel:[phone] neck pain1 (chief complaint) knee pain1 (chief complaint) COPD1 (chief complaint) GERD1 (chief complaint) EmphysemaOther spondylosis, cervical regionPain in right kneeGERD w/o esophagitis 8 Lan Mal[address], [place], [place], [address] , [place]. tel:[phone] Referring Provider: Haider Leslie [address], [place], [place], [address]. tel:[phone] OFFICE/OUTPA TIENT VISIT, [facility], [address], [place], [place], [address], [place] tel:[phone] Hep c (chief complaint) bone1 (chief complaint) pain1 (chief complaint) nausea1 (chief complaint) Hepatitis CChronic pain syndromeGERD w/o esophagitisUnspecif ied lump in right breast, subareolar 8 Lan Mal[address], [place], [place], [address] , [place]. tel:[phone] Referring Provider: Santos Montenegro, [address], [place], [place], [address]. tel:[phone] OFFICE/OUTPA TIENT VISIT, [facility], [address], [place], [place], [address], [place] [phone] chronic pain1 (chief complaint) hep C (chief complaint) Chronic pain syndromeHepatitis C 8 Lan Graham. [address], [place], [place], [address] , [place]. tel:[phone] Referring Provider: Haider Leslie [address], [place], [place], [address]. tel:[phone] PREV VISIT, EST, AGE [age] [facility], [address], [place], [place], [address], [place] tel:[phone] PHysical (chief complaint) Encntr for general adult medical exam w/o abnormal findings 8 Lan Graham. [address], [place], [place], [address] , [place]. [phone] Referring Provider: Haider Leslie [address], [place], [place], [address]. tel:[phone] OFFICE/OUTPA TIENT VISIT, [facility], [address], [place], [place], [address], [place] tel:[phone] joint pain1 (chief complaint) UTi1 (chief complaint) COPD1 (chief complaint) HTN (chief complaint) Urinary tract infectionHepatitis CEmphysemaEssential (primary) hypertension 8 Lan Graham. [address], [place], [place], [address] , [place]. [phone] Referring Provider: Haider Leslie [address], [place], [place], [address]. tel:[phone], [address], [place], [place], [address], [place] tel:[phone] Mastodynia 8 Lan Graham. [address], [place], [place], [address] , [place]. [phone] OFFICE/OUTPA TIENT VISIT, [facility], [address], [place], [place], [address], [place] tel:[phone] joint pain1 (chief complaint) low D (chief complaint) low iron1 (chief complaint) hep C (chief complaint) Vitamin D deficiency, unspecifiedDisorder of iron metabolism, unspecifiedHepatiti s CPain in unspecified joint 7 Lan Rodriguez [address], [place], [place], [address] , [place]. [phone] OFFICE/OUTPA TIENT VISIT, [facility], [address], [place], [place], [address], [place] tel:[phone] emphysema1 (chief complaint) breast nodule1 (chief complaint) diffuse pain1 (chief complaint) EmphysemaChronic pain syndromeUnspecified lump in right breast, subareolar 7 Lan Rodriguez [address], [place], [place], [address] , [place]. [phone] Referring Provider: Santos Montenegro [address], [place], [place], [address]. tel:[phone] OFFICE/OUTPA TIENT VISIT, [facility], [address], [place], [place], [address], [place] tel:[phone] HTN (chief complaint) COPD1 (chief complaint) polycyther mia1 (chief complaint) breast pain1 (chief complaint) EmphysemaEssential (primary) hypertensionUnspeci fied lump in right breast, subareolarSecondary polycythemia 7 Lan Rodriguez [address], [place], [place], [address] , [place]. tel:[phone] Referring Provider: Haider Leslie [facility] [address], [place], [place], [address]. tel:[phone] OFFICE/OUTPA TIENT VISIT, EST [facility], [address], [place], [place], [address], [place] tel:[phone] HTN (chief complaint) polycyther mia1 (chief complaint) chronic pain1 (chief complaint) COPD1 (chief complaint) Essential (primary) hypertensionSeconda ry polycythemiaCOPDChr onic pain syndrome 7 Lan Graham. [address] [facility] [address], [place], [place], [address] , [place]. tel:[phone] Referring Provider: Haider Leslie [facility], [place], [place], [address]. tel:[phone] PREV VISIT, NEW, AGE [age] [facility], [address] [place], [place] [address], [place], [place], [id number], [place] tel:[phone] [facility] PHysical (chief complaint) Encntr for general adult medical exam w/o abnormal findings [address] [facility] [address], [place], [place], [id number] , [place]. [phone] Referring Provider: Haider Leslie [facility], [place], [place], [id number]. tel:[phone] Family History Family Member Type Diagnosis Age At Onset Mother Problem (finding) lung CA Brother Problem (finding) Alive and well Problem (finding) Family history of of unknown CA of age 70 Mother Problem (finding) Father Problem (finding) Payers Payer name Insurance type Covered alliance party ID Latasha urban(s) [facility] [id number] Social History Type Description Quantity Date Captured Comments Alcohol Use Details No Caffeine Use Details Unknown Tobacco Use Status Ex-cigarette smoker 025 Smoking Status Former smoker Sex Female Vital Signs Date / Time: Height Weight BMI Pulse Rate Blood Pressure Temperature Respiratory Rate Body Surface Area Head Circumference BMI percentile Pulse Ox Inhaled Ox 5:47 PM 63.00 in 154.80 lbs 27.4 2 kg/m eter (2) 85 /min 126/86 mm[Hg] 98.0 F 16 /min Chief Complaint And Reason For Visit From encounter dated '07/19/2024 17:27'. pain1 (chief complaint). Description: Pt has diffuse joint pain and back pain due to fibromyalgia. Pt takes flexeril and lyrica and doing ok. Pt needs flexeril refilled . GERD1 (chief complaint). Description: Pt has chronic GERD. Pt doing ok with omeprazole and pepcid pt is seeing GI and will do egd soon Plan Of Treatment Date Type Action Status Goal Tobacco cessation counseling completed Referral Ordered: Naeem Ray -[facility] : Internal Medicine : Gastroenterology (related to GERD w/o esophagitis) ordered Referral Ordered: MATT MERAZ -[facility] : Obstetrics & Gynecology (related to Encounter for general adult medical examination without abnormal findings) ordered Referral Ordered: CT THORAX W/O DYE ordered Referral Referred To: MATT MERAZ [address] [place], [place], [id number] Ordered: Referrals: [facility] : Obstetrics & Gynecology. MATT MERAZ. Evaluate and treat ordered Referral Ordered: Naeem Ray -[facility] : Internal Medicine : Gastroenterology (related to Irritable bowel syndrome with diarrhea) ordered Referral Referred To: Naeem Ray [address], [place], [phone] Ordered: Referrals: [facility] : Internal Medicine : Gastroenterology. Naeem Ray. Evaluate and treat ordered Referral Referred To: Parisa GARCIA, Dung Dillard [address] [facility]
[facility] [address] [place], [place], [id number] Ordered: Referrals: Dung Mccauley MD. Evaluate and treat ordered Referral Ordered: UPPER GI AIR CONTRASTW/ SMALL BOWEL SERIES ordered Referral Ordered: Hematology (related to Iron deficiency anemia) ordered Referral Ordered: Referrals: Hematology. Evaluate and treat ordered Referral Ordered: Desmond De Paz -[facility] : Urology (related to Interstitial cystitis without hematuria) ordered Referral Referred To: Desmond De Paz [address] [facility]
[place] [address] [place], [place], [phone] Ordered: Referrals: [facility] : Urology. Desmond De Paz. Evaluate and treat ordered Referral Ordered: Cardiology (related to Chest pain) ordered Referral Ordered: Referrals: Cardiology. Evaluate and treat ordered Referral Ordered: CT ABDOMEN&PELVIS W/CONTRAST ordered Referral Ordered: Roque Rose -[facility] : Neurological Surgery (related to Other spondylosis, cervical region) ordered Referral Ordered: ROSETTE NICHOLSON -[facility] : Surgery (related to Overactive bladder) ordered Referral Referred To: ROSETTE NICHOLSON [address] [place], [place], [phone] Ordered: Referrals: [facility] : Surgery. ROSETTE NICHOLSON. Evaluate and treat ordered Referral Ordered: SENSE NERVE CONDUCTION TEST ordered Referral Ordered: Roque Rose -[facility] : Neurological Surgery (related to Other spondylosis, cervical region) ordered Referral Referred To: Roque Rose [address] [place], [phone] Ordered: Referrals: [facility] Phys[facility] : Neurological Surgery. Roque Rose. Evaluate and treat ordered Referral Ordered: Emil Gutierrez -[facility] : Orthopaedic Surgery (related to Pain in right knee) ordered Referral Ordered: Pulmonology (related to Emphysema) ordered Referral Referred To: Emil Gutierrez [address] [facility] [address] [place] [address] [facility] [address] [place], [place] [id number] Ordered: Referrals: [facility]opathic Physicians : Orthopaedic Surgery. Emil Gutierrez. Evaluate and treat ordered Referral Referred To: [address] [place] [address] [address] [place] [address] [facility] [address] [place], [place] [id number] Ordered: Referrals: Pulmonology. Evaluate and treat ordered Referral Ordered: US EXAM, ABDOM, COMPLETE ordered Referral Ordered: Physical Therapy (related to Encntr for general adult medical exam w/o abnormal findings) ordered Referral Referred To: Physical Therapy Ordered: Referrals: Physical Therapy. Evaluate and treat ordered Referral Ordered: DXA BONE DENSITY, AXIAL ordered Referral Ordered: MAMMOGRAM, SCREENING ordered Referral Ordered: MRI NECK SPINE W/O DYE ordered Referral Ordered: MAMMOGRAM, BOTH BREASTS ordered Referral Ordered: Sondra York MD (related to Pain in unspecified joint) ordered Referral Referred To: Sondra York MD [address] [facility]
[address] [place], [place], [id number] Ordered: Referrals: Sondra York MD. Evaluate and treat ordered Referral Ordered: LUMBAR XRAY AP AND LAT ONLY ordered Referral Ordered: Cindy Traylor (related to Emphysema) ordered Referral Referred To: Cindy Traylor [address] [place] [address] [place], [place], [phone] Ordered: Referrals: Cindy Traylor. Evaluate and treat ordered Referral Ordered: MAMMOGRAM, ONE BREAST ordered History Of Present Illness Encounter Date Complaint History Of Prese nt Illness pain1 Pt has diffuse j oint pain and back pain due to fibromyalgia. Pt takes flexeril and lyrica and doing ok. Pt needs flexeril refilled . GERD1 Pt has chronic G ERD. Pt doing ok with omeprazole and pepcid pt is seeing GI and will do egd soon GERD1 Pt has chronic G ERd Pt is on pepcid .Pt is seeing GI and she will do EGD soon fibromyalgia1 Pt has diffuse j oint pain and back pain due to fibromyalgia. Pt states that flexeril is not helping much anymore. Pt states that lyrica is helping her pain very much HTN Pt has HTN Pt ta kes irbesartan and her bp is ok pt denies any chest pain or headache fibromyalgia` Pt has diffuse j oint pain and back pain due to fibromyalgia. Pt states that flexeril is not helping much anymore. Pt states that lyrica is helping her pain very much cough1 Pt c/o acute ons et of productive cough with green phlegm for two days Pt denies any sinus or sore throat or sob or fever, chills lung nodule1 Pt has history o f lung nodule Pt had another CT of chest done which showed benign nodule GERD1 Pt has chronic G ERD Pt is on pepcid Pt saw GI doctor and she will do EGD soon. Pt also will do chest, abdominal and pelvic CT. Pt denies any abd pain IC Pt has IC Pt is seeing urology and she told me she had another treatment with cysto recently pt doing better . pain Pt has diffuse j oint pain and back pain due to fibromyalgia. Pt states that flexeril is not helping much anymore. osteopenia1 Pt had bone dens ity done recently which showed osteopenia IC Pt has interstit ial cystitis with hematuria. Pt is seeing urology at [facility] and she will do cystoscope soon. iron deficiency1 Pt has iron def iciency anemia and she sees hematology and she received iron infusion recently Pt denies any blood loss. pain Pt has diffuse j oint pain and back pain due to fibromyalgia Pt is on flexeril which does help Pt denies any worsening pain GERD1 Pt has chronic G ERD mixed IBS symptoms Pt had negative EGD and colonoscopy 2021. pt states that her GI doctor no longer takes her insurance and she needs referral to new GI doctor pain Pt c/o chronic l eft knee pain Pt needs refill of flexeril. Pt denies any knee redness or warmth Pt denies any knee swelling Pt denies any injury. Pt states that her ortho told her that her knee pain is due to underlying issue but she is not sure what the underlying issue is. Pt wants referral to different ortho. tobacco Pt has 30 pack y ear tobacco history with lung nodule Pt still has not done lung CT yet Pt denies any hemoptysis, cough bone1 Pt takes calcium and vitamin d Pt still has not done bone density yet toothache1 Pt c/o right upp er and lower toothache and she also has some left side toothache for several months Pt notice some right facial swelling sometimes Pt denies any fever, chill Pt has yodit with dentist but not until November. pain Pt c/o chronic l eft knee pain She saw ortho who recommended a knee injection and PT for now. She started the PT but she has not started the injection yet. Pt needs refill of flexeril. Pt denies any knee redness or warmth Pt denies any knee swelling Pt denies any injury pain Pt c/o chronic l eft knee pain She saw ortho who recommended a knee injection and PT for now. She started the PT but she has not started the injection yet. Pt needs refill of flexeril. Pt denies any knee redness or warmth Pt denies any knee swelling Pt denies any injury COPD1 Pt has COPD. Pt has not seen pulmonary for more than one year Pt is off spiriva Pt states that she only feels sob 1-2 per months Pt denies any hemoptysis. pt has not done chest CT yet. She only uses albuterol PRn now. 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 Pt t akes irbesartan and her bp is ok Pt needs irbesartan refilled pain Pt c/o chronic l eft knee pain She saw ortho who recommended a knee injection and PT for now. She started the PT but she has not started the injection yet. Pt needs refill of flexeril knee pain1 Pt c/o chronic l eft knee pain She saw ortho who recommended a knee injection and PT for now. She started the PT but she has not started the injection yet. She wants MRI of left knee. Pt also wants refill of flexeril. She denies any knee redness or warmth. Pt has normal ROM left knee physical Pt needs annual physical. Pt has anxiety and depression and she takes wellbutrin, remeron and abilify and hydroxyzine and klonopin PRn. Pt sees psychiatrist. Pt denies any suicidal or homicidal thought. Pt denies any crying spells. Pt has COPD Pt uses spiriva, and she uses albuterol several times per month Pt denies any hemoptysis, worsening sob or cough. Pt sees pulmonary. Pt has HTn. she takes irbesartan and her bp is stable. Pt has chronic GERD Pt takes pepcid and doing ok. mammo Pt had mammo don e and she wants a diagnostic mammo with ultrasound. Pt denies any breast issue. her mammo was actually normal. Pt denies any palpable breast nodule or mass. Pt denies any breast discoloration or any nipple discharge. thyroid1 Pt has history o f high thyroid. Pt denies any dysphagia or neck pain .Pt had repeat thyroid done which were all normal knee pain1 Pt has chronic l eft knee pain. Pt denies any knee swelling or redness or warmth Pt just saw ortho for left knee pain and she was told that she has some underlying condition but she does not know exactly what it means. HTN Pt has HTN Pt ta kes irbesartan and her bp is borderline high Pt denies any chest pain or headache Pt states that she is in pain mammo Pt denies any br east issue Pt told me she had mammo done and she think it is abnormal HLP Pt has HLP, Pt i s working on diet glucose1 Pt has mildly hi gh glucose Pt denies any polyuria, polydipsia . thyroid1 Pt has slightly suppressed TSH. her T4 is normal. Pt denies any dysphagia or neck pain. low D1 Pt has low D Pt denies any fracture toothache1 Pt c/o recurrent wisdom teeth infection and pain Pt has yodit with dentist soon. she started to have toothache since one month ago Pt denies any facial swelling, redness or warmth. Pt currently has left side lower wisdom tooth pain for several days Pt denies any fever, or headache. pain Pt has diffuse j oint pain including knee and hip Pt is seeing ortho She wants flexeril refilled . HTN Pt has HTN pt ta kes irbesartan 300 mg and her bp is ok Pt denies any chest pain or headache joint pain1 Pt has diffuse j oint pain including knee, hip, shoulder, elbow, etc. Pt sees ortho for knee pain. Pt IBSD Pt has IBS-D Pt was referred to Dr. Jacobs but he does not take patient for 2nd opinion Pt denies any abd pain OAB Pt has OAB ,Pt i s on oxybutynin but not working Pt has urinary urgency and frequency. Pt sees urology GI Pt has chronic G ERD and nausea, poor appetite, early satiety. pt also has incomplete bowel emptying. Pt had multiple normal EGD and colonoscopy. her last normal EGD and colonoscopy was last year .Pt has intermittent non-bloody diarrhea. Pt takes pepcid. Pt also takes dicyclomine as well but none helps. Pt wants 2nd opinion from another GI. Pt also intermittent left side abdominal pain as well HTN Pt has HTN, ,Pt takes irbesartan and her bp is still high Pt is in a lot of stress Pt denies any chest pain or headache. HTN Pt has HTN Pt ta kes irbesartan and her bp is borderline high today Pt denies any chest pain or headache Pt feels stressed today . left knee 1 Pt has chronic l eft knee pain. Pt is seeing ortho and was referred to PT but she could not find a PT place that takes her insurance Pt tried to call her ortho without any answer colon polyp1 Pt had colonosco py early this year and she had to do several times due to poor cleaning and she was told that she has polyp by GI doctor but when she followed up with [employer], she was told no polyps. pt is very concerned about it. Pt denies any GI bleeding. Pt has chronic IBS_D toothache1 Pt has right upp er molar toothache with broken tooth for several weeks. Pt has yodit with dentist next week Pt c/o pain and mild swelling around the tooth Pt denies any fever, chill. knee pain1 Pt c/o chronic l eft knee pain with intermittent swelling. Pt denies any injury. Pt denies any redness or warmth. Pt has been using diclofenac topical PRn which helps. Pt wants to see ortho lung nodule1 Pt has lung nodu le. Pt denies any hemoptysis, or cough.. Pt had chest Ct done by pulmonary recently which was normal per patient. Pt no longer smoking iron deficiency1 Pt has iron def iciency anemia. Pt denies any GI bleeding Pt denies any vaginal bleeding .Pt denies any dizziness, sob or chest pain .Pt had benign EGD and she will do colonoscopy next week HTN Pt has HTN. Pt t akes irbesartan and her bp is stable. physical Pt needs annual physical. Pt has anxiety and depression and she takes wellbutrin, remeron and abilify and hydroxyzine and klonopin PRn. Pt sees psychiatrist. Pt denies any suicidal or homicidal thought. Pt denies any crying spells. Pt has COPD Pt uses spiriva, and she uses albuterol several times per month Pt denies any hemoptysis, worsening sob or cough. Pt sees pulmonary. Pt has history of iron deficiency anemia. Pt denies any bleeding Pt is seeing hematology for iron infusion. Pt has chronic right shoulder pain. Pt has been using diclofenac topical which helps .Pt wants a script for it. IC Pt has interstit ial cystitis. Pt has frequent dysuria and frequency. pt is seeing urology. Pt is on oxybutynin and hydroxyzine as well as amitriptyline. Pt states that her symptoms are doing ok currently. shoulder pain1 Pt c/o chronic r ight shoulder pain for several years. Pt denies any injury Pt denies any swelling or deformity or redness or warmth Pt denies any radiculopathy or right arm weakness or numbness. Pt states that movement of the shoulder seems make the pain worse. Pt tried diclofenac topical from her daughter which did help anemia1 Pt has iron defi ciency anemia and she gets iron infusion from hematology regularly. 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 Pt needs irbesartan refilled. Pt denies any headache or chest pain GERD1 Pt has chronic G ERD Pt had EGD done recently which showed HH. Pt denies any abd pain .Pt doing ok with pepcid. Pt is off omeprazole. Pt needs pepcid refilled. Pt did not do gastric empty study anxitey1 Pt has chronic a nxiety and depression Pt sees psychiatrist .Pt states that her previous psychiatrist left and new psychiatrist wants to wean her off klonopin. pt is on remeron, abilify and also wellbutrin. Pt denies any suicidal or homicidal thought Pt denies any crying spells. Pt states that she has been taking klonopin for long time and she does not want to stop klonopin .Pt wants me to prescribe klonopin for her. 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 Pt notices midepigastric abdominal pain all the time regardless of eating or not. Pt denies any type of food causing Gi issue Pt notices occasional vomiting after food. Pt has been losing weight due to above. pt also feels less appetite. weight loss1 Pt has been losi ng weight .Pt states that she has poor appetite and she feels nausea with vomiting after food. Pt does not have gallbladder. Pt will do EGD soon pt takes pepcid which helps but she still feels GERD with nausea, vomiting, lashell HTN Pt has HTN. pt h as not been taking irbesartan and his bp is ok today. Pt never checks his bp at home Pt denies any chest pain or headache GERD GERD1 Pt has chronic G ERD. Pt takes pepcid which works well. Pt denies any GERD or abd pain while on pepcid Pt denies any GI bleeding HTN Pt has been taki ng irbesartan and her bp is around 130/70 at home per pt. She denies any dry cough or any urinary symptoms Pt denies any dizziness. OAB Pt has OAB pt se es urology and she is on oxybutynin 15 mg ER daily now and doing ok. Pt did not do cysto yet. Pt denies any UTI symptoms or blood in urine anemia1 Pt has iron defi ciency anemia. Pt got iron infusion and she feels much more energy and overall better. Pt has not set up colonoscopy yet. Pt denies any vaginal bleeding OAB1 Pt has OAB and i ntersitial cystitis. Pt is on oxybutynin and amitriptyline and she is seeing urology. Pt supposes to do cysto with bladder wash bt she has not done that yet. Pt denies any blood in urine. Pt has urinary frequency and urgency HTN Pt has HTN pt de nies any chest pain or headache. pt used to take losartan but she stopped taking it on her own. Her BP was 158/85 recently at hematology office . anemia1 Pt is seeing hem atology and she got iron infusions Pt was referred to colonoscopy again by hematology but she has not heard from GI yet. Pt denies any lower GI issue or bleeding anemia1 Pt has anemia wi th low MCV and also low iron Pt wil any blood loss Pt denies any GI blood loss. Pt wil any vaginal bleeding Pt feels weakness in general. Pt denies any worsening sob HLP Pt has borderlin e HLP Pt is not on any diet anemia1 Pt has mild anem ia with low MCV. Pt denies any blood loss Pt denies any fatigue vitamin D1 Pt has low vitam in D Pt takes multivitamins / GERD1 Pt has mild GERD . Pt had benign EGD. pt takes pepcid and doing ok physical Pt needs annual physical, Pt has COPD. Pt takes Wixela and dulera and albuterol PRN ,Pt sees pulmonary PT denies any hemoptysis ,Pt has chronic GERD. Pt takes pepcid and doing ok Pt denies any abd pain. Pt has OAB with IC ,Pt is seeing urology at [facility] Pt is on oxybutynin. Pt will do cysto soon PT denies any active urinary symptoms. Pt has anxiety and depression Pt sees psychiatrist ,Pt takes remeron and wellbutrin and Klonopin PRN. Pt denies any suicidal or homicidal thought, PT denies any other complaints IC1 Pt has chronic I C. Pt states that she feels like chronic UTI with dysuria, urgency and frequency. Pt denies any flank pain Pt notices mild low pelvic pain sometimes Pt takes amitriptyline, hydroxyzine and oxybutynin and doing ok, Pt never had cystoscope pt denies any blood in urine. Her urologist quit GERD1 Pt has chronic G ERD Pt takes pepcid an doing ok. pt denies any nausea, vomiting chest pain1 Pt went to ER re cently due to chest pain. Pt c/o acute onset of diffuse chest pressure with radiation to both arm since early July but got worse on 07/21/19. Pt states that she has chronic chest pain but not as bad which promoted her to ER on 07/21/19. Pt does have COPD Pt thinks that she has some exertional chest pain which she thinks is due to COPD. Pt had negative EKG and benign lab. Pt currently still has some chest pain but without radiation to her arms. Pt states that she feels chest pain when she pushes her chest wall area. Pt feels dull pain. Pt denies any acute chest pain now. Pt also had some lab done which showed anemia and low MCV. Pt denies any active bleeding Pt denies any blood in stool. Pt does feel fatigue chronically. Pt denies any trigger factor. Pt denies any diaphoresis IC Pt has IC Pt is on oxybutynin Pt sees urology. Pt denies any urinary symptoms now anemia1 Pt has mild anem ic. pt has low MCV. Pt does have chronic GERD. Pt had benign EGD and colonoscopy with negative double contrast barium study recently Pt denies any abd pain physical pt needs annual physical. pt has anxiety and depression and bipolar pt takes abilify, wellbutrin, remeron and klonopin Pt sees psychiatrist pt doing ok tp denies any suicidal ro homicidal thought. pt tovar chronic hematuria .Pt just was diagnosed with IC by urology. Pt was prescribed meds but she is not sure the name of the pill. Pt is off oxybutynin. pt has HTn, Pt takes losartan PRn? Not sure what she means. Her bp is ok today. Pt has not taken losartan for several days. hematuria1 Pt c/o acute hem aturia since last night. pt denies any vaginal bleeding. pt has OAB Pt states that she is having worsening urgency and frequency and she canot hold her urine. Pt denies any flank pain Pt denies any fever, chill. weight loss1 Pt has lost 20 p ounds recently Pt has chronic nausea, without vomiting. Pt has chronic GERD. pt is on omeprazole Pt told me she had EGD last year but not sure what it showed Pt was told that she has stomach infection neck pain1 Pt has chronic n choco pain Pt has radiculopathy. Pt still has not see neurosurgery yet. Pt supposes to do NCS but she never did. HTN Pt has HTn. Pt s tates that losartan 50 mg makes he dizzy. pt has been cutting it to half and taking 25 mg daily. Her BP is ok today HTN Pt has HTN. Pt s tates that norvasc gave her headache Pt stopped norvasc and her headache resolved. Her BP is high today. Pt denies any chest pain OAB Pt has urinary u rgency and frequency. Pt denies any dysuria. Pt had normal UA. Pt denies any flank pian Pt states that oxybutynin really helped her. Pt went to see urology but she did not like dr. Parker Pt states that he smells of alcohol and he wants to do surgery which she is not ready for. Pt also told me urology started her on imipramine but insurance does not cover it. Pt is content with oxybutynin. Pt denies any incontinence. neck pain1 Pt has chronic n choco pain Pt has bilateral radiculopathy and some hand weakness, [facility] will not see her unless she has NCS done. Pt does have neck pain daily UTI1 Pt c/o urinary b urning, bladder pain, frequency and urgency for several months. Pt denies any flank pain pt denies any fever, chill Pt took abx last month but did not help Pt actually had UA done before abx which was negative for any UTI neck pain1 Pt has chronic n choco pain. pt has rather severe DDD with bilateral radiculopathy and also bilateral arm and hand numbness and tingling and weakness, worse on right side. Pt sometimes wakes up at night with the symptoms. pt needs to see neurosurgery but neurosurgery wants her to have NCS before they will schedule her for appointment Pt denies any neck injury Pt takes flexeril PRN for pain HTn Pt takes norvasc for HTN and her BP is stable. UTI1 Pt c/o burning, dysuria, frequency, urgency for 2 weeks. Pt denies any acute flank pain. Pt denies any fever, chill. Pt has some low pelvic pressure GERD1 Pt has GERD. Pt has EGD done which showed mild gastritis Pt was told to continue omeprazole Pt does have GERD daily. Pt denies any GERD symptoms while on omeprazole neck pain1 Pt has chronic n choco pain with bilateral radiculopathy and she feels bilateral arm weakness sometimes. Pt feels some numbness on both hand as well chronically. Her MRi showed disc disease with stenosis. emphysema1 Pt has COPD Pt i s on advair and proair PRn. Pt has yodit with pulmonary next week. Pt denies any acute sob knee pain1 PT has chronic r ight knee pain. Pt seen ortho recently and was told she has arthritis and told to take glucosamine. neck pain1 Pt has chronic n choco pain with radiculopathy to both arm. Pt has above symptoms for years Pt had MRi done which showed C5-6 herniation and also DDD. Pt does not want physical therapy. Pt states that she suffers from daily pain her MRI just got approved from insurance knee pain1 Pt c/o chronic b ilateral knee pain, which is getting worse Pt c/o right knee pain with swelling. Pt denies any injury. Pt took some OTC NSAID but not helping. Pt denies any redness or warmth. Pt c/o 7/10 pain right knee COPD1 Pt has COPD. Pt uses oxygen at night Pt uses advair and albuterol PRN Pt uses albuterol multiple times per day. pt denies any acute sob. Pt still smoking GERD1 Pt has GERD. Pt just had EGD. result pending. Pt is on omeprazole and doing ok Hep c Pt has history o f hep c but is not active. pt had benign ultrasound. pt denies any abd pain bone1 Pt has normal [place] density. Pt denies any history of fracture pain1 Pt has chronic n choco and back and knee pain. Pt has arthritis Pt states that her pain is severe and she is applying disability now nausea1 pt has frequent nausea and she feels GERD sometimes. Pt denies any abd pain chronic pain1 Pt has chronic l ow back, neck, hip and knee pain due to arthritis Pt needs something for pain. Pt failed NSAID. Pt states that she could not get out of bed in the morning. Pt has not started PT yet. hep C Pt has history o f exposure to hep C. pt denies any abd pain. Pt draper not have active hep C PHysical Pt needs annual physical. pt has mild COPD on chest Ct.. Pt does not have any lung nodule. Pt sees lung specialist. Pt is on oxygen. Pt uses advair, ventolin PRN. Pt has chronic neck pain and low back and hip pain. Pt has mild right radiculopathy with right hand numbness and tingling Pt does have DDD on C spine xray with possible nerve impingement. Pt denies any other complaints joint pain1 Pt has low back and neck and hip pain. pt has not done xray yet pt takes flexeril PRN and doing ok UTi1 Pt c/o urinary f requency and urgency and burning for 2-3 days. Pt denie any flank pain, fever, chilll COPD1 Pt is seeing pul carmenza. Pt told me she just had another chest CT recently. Pt uses advair, albuterol and she uses oxygen at night only Pt kai doing ok HTN Pt has HTN. Pt t lauren membreno. Her BP is borderline today. Pt denies any chest pain or headche joint pain1 Pt has diffuse j oint pain all over body. Pt has diffuse muscle pain. Pt has knee, ankle, arm and just all over joint. pt had lab done which showed no active CTD Pt states that she has diffuse pain without any injury Pt has constant sharp pain all over joint. low D Pt has low D. low iron1 Pt has low iron but she is not anemic. Pt denies any GI bleedig. hep C Pt has positive hep C exposure but she does not have active hep C. Pt never used IV drug. Pt never had blood transfusion emphysema1 Pt has emphysema . Pt sees pulmonary. Pt takes advair and she uses venotlin PRN. Pt has pulmonary nodule and she had another chest CT with contrast per pt from pulmonary and was told the nodule is smaller and benign per patient breast nodule1 Pt feels subject reyes right breast nodule. Pt denies any breast pain. Pt had benign breast exam. Ptalso seen [employer] and had normal manual breast exam last month. Pt never did the mammogram from her last visit. Pt denies any change in her breast diffuse pain1 Pt states that s he has diffuse pain all over her body including every single bone and every single muscle. Pt not sure why she hurts. Pt denies any injury. Pt states that she has pain for years. HTN Pt has HTn. Pt t [facility] and her BP is stable COPD1 Pt has COPD. Pt recenlty had CT done which showed emphysema. Pt has some ateletctasis and need to rule out neoplastic processs. Pt is seeing pulmaorny`. Pt told me she supposes to do bronchoscopy but insurance denied it. Pt is very upset and she does not know what to do. Pt even wrote letter to her insurance company about the denial. Pt is on advair now. Pt uses venotlin daily polycythermia1 Pt has polycther sonia. Pt is seeing hematology and was told it is due to hypoxemia. pt is noncompliant with nocturnal oxygen. breast pain1 Pt c/o vague rig ht breast pain for several weeks. Pt denies any nipple discharge or any breast discoloration. Pt denies any breast nodule chronic pain1 Pt has diffuse m uscle pain all over body. Pt needs flexeril refilled. Pt states that she has arthritis COPD1 Pt has COPD and she uses advair and venotlin PRN. Pt uses oxygen at night only. Pt had sleep study done recenty and also chest CT by pulmonary but she does not know the results yet. Pt denies any acute SOB .Pt took two rounds of abx including levaquin for bronchitis but she still c/o mild dry cough. Pt denies any fever NO chest pain HTN Pt has HTN. Pt i s out of [facility] for a while. Pt states that she has been having chornic tension headache from posteior neck radiating to rest of scalp Pt denies any worsening hedache. Pt denies any head injury Pt denies waking up at night with headache polycythermia1 Pt has pocytyerh sonia. Pt just seen pumonary. Pt told me she had sleep study done but she does not know the result Pt is on adviair and venotlin for COPD. Pt also had chest CT done recenlty per [facility]. pt states that she has chronic coughing and she just had a round of levaquin but she ist still coughing up phlegm, etc PHysical Pt needs annual physical. Pt has COPD and she is on 2 L oxygen at night and she takes advair and proair Pt sees lung specialist in [place]. PT has HTN. Pt takes norvasc and her BP is stable. Pt has manic depressive and she takes klonpin, lamictal, wellbutrin, trazodone and remeron and she sees psychiatrist. Pt also told me she has polycythermia?? Pt takes ASA daily. Pt was told she was diagnosed with hemochromotosis back in [place] last year but she never seen a town clerk here. Instructions Date Instruction Additional Infor magali Perform monthly self breast examinations. Related to Encntr for general adult medical exam w/o abnormal findings Increase activity. Related to En cntr for general adult medical exam w/o abnormal findings Stop smoking. Related to Essen tial (primary) hypertension Increase activity. Related to Es sential (primary) hypertension Stop smoking. Related to Essen tial (primary) hypertension Follow a low sodium diet. Relate d to Essential (primary) hypertension Stop smoking. Related to Essen tial (primary) hypertension Quit smoking Related to Other spondylosis, cervical region Quit smoking Related to Emphy sema Quit smoking Related to Hepat itis C Quit smoking Related to Chron ic pain syndrome Quit smoking. Related to Encnt r for general adult medical exam w/o abnormal findings Prescribed Activity and Exercise Education Related to Dietary Surveillance and Counseling Prescribed Diet Educ ation/Lifestyle Education Regarding Diet Related to Dietary Surveillance and Counseling Quit smoking Related to Urina ry tract infection Quit smoking Related to Vitam in D deficiency, unspecified Increase physical activity Relat ed to Emphysema Quit smoking Related to Emphy sema Increase physical activity Relat ed to Emphysema Quit smoking Related to Emphy sema Assessments Type Assessment Date assessment GERD w/o esophagitis assessment Fibromyalgia Mental Status Date Cognitive Assessment Orientation - Notrees ed to time, place, person, situation.
--- OUTSIDE RECORDS SUMMARY | 2024-08-06 02:45 | XMS_ITS ---
Author Organization Formerly [facility] Address [address] [place] [address] Care Team Providers Care Social Welfare Clerk Name Role Phone Jonas Tello Primary Care Provider [phone] Hortensia RUDOLPH Unavailable Unavailable Allergies Allergen (clinical drug ingredient) Drug/Non Drug Allergy documented on EMR Reaction Allergy Type Onset Date Status Penicillin Unknown Drug Allergy Active Substance with sulfonamide structure and antibacterial mechanism of action (substance) Sulfa Antibiotics Unknown Drug Allergy Active REASON FOR VISIT 4 week F/U Medications Medication SIG (Take, Route, Frequency, Duration) Notes Start Date End Date Status traZODone HCl 300 MG 0.5 - 1 tablet at bedtime as needed Orally Once a day for 30 days 10/15/2023 Active Ondansetron 4 MG 1 tablet on the tong ue and allow to dissolve Orally Once a day for 30 day(s) Active buPROPion HCl ER (XL) 300 MG 1 tablet in the morning Orally Once a day for 30 days Active Spiriva HandiHaler 18 MCG 1 capsule by i nhaling the contents of the capsule using the HandiHaler device Inhalation Once a day Active Diphenoxylate-Atropine 2.5-0.025 MG 1 tablet as needed Orally Four times a day Active Zoloft 100 MG two tablets Orally a t night for 30 days Active KlonoPIN 1 MG 0.5 tablet Orally Th ree times a day as needed for severe anxiety. for 30 days 06/09/2024 Active Rexulti 4 MG 1 tablet Orally at n ight for 30 days Active Pantoprazole Sodium 40 MG 1 tablet Orall y Once a day GI 04/02/2023 Active Hyoscyamine Sulfate 0.125 MG 1 tablet as needed Orally every 4 hrs GI Active Irbesartan 300 MG 1 tablet Orally Once a day Active Famotidine 40 MG 1 tablet at bedtime Orally Once a day for 30 day(s) Active hydrOXYzine HCl 25 MG 1 tablet as needed Orally every 8 hrs for 30 day(s) Active Amitriptyline HCl 25 MG 1 tablet at bedt teagan Orally Once a day for 30 day(s) Active oxyBUTYnin Chloride 15 MG 1 tablet Orall y Once a day Active Dicyclomine HCl 10 MG 1 capsule Orally F our times a day Active Social History Sex Assigned At : Social History Observation Description Sex Assigned At Female Encounters Encounter Location Date Provider Diagnosis [address] [place] [address] 06/09/2024 Jonas Tello Major depression with psychotic features F32.3 ; Generalized anxiety disorder F41.1 and Chronic post-traumatic stress disorder (PTSD) F43.12 Assessments Encounter Date Diagnosis (ICD Code) Assessment Notes Treatment Notes Treatment Clinical Notes Section Notes 06/09/2024 Major depression with psychotic features (ICD-10 - F32.3) r/o dysthymic disorder versus bipolar disorder with psychotic features. Past history of visual hallucinations BSDS score 23 correlating with high probability for bipolar disorder. 06/09/2024 Generalized anxiety disorder (ICD-10 - F41.1) 06/09/2024 Chronic post-traumatic stress disorder (PTSD) (ICD-10 - F43.12) PCL-5 66 10/25/20 06[place] issues noted. Client is on pregabalin for recently dx fibromyaglia via Dr. Santos Montenegro and flexeril for pain control. Has been advised to stagger dosing times with clonazepam for safety to limit respiratory depression risk. Client verbalizes understanding. Discussed sleep hygiene and caffeine intake with encouragement to limit electronic devices an hour before bed and to limit caffeine after 3:00pm. Exercise benefits for mood and health discussed. Psychoeducation regarding psychiatric illness provided. Client was educated about risks and benefits of medication, alternatives to medication, off label uses of medication, suicidal ideation with SSRIs, self-administration and compliance with medication along with how to safely store medication. Verbal informed consent obtained. Client agrees to return sooner if symptoms worsen or if suicidal or homicidal ideations occur. Client has the phone number to the 24-hour crisis line at [facility]. Questions addressed. Client verbalized understanding of all information and is agreeable to treatment plan. Plan Of Treatment Medication Medication Name Sig Start Date Stop Date Notes traZODone HCl 300 MG 0.5 - 1 tablet at b edtime as needed Orally Once a day for 30 days 10/15/2023 buPROPion HCl ER (XL) 300 MG 1 tablet in the morning Orally Once a day for 30 days Zoloft 100 MG two tablets Orally a t night for 30 days KlonoPIN 1 MG 0.5 tablet Orally Th ree times a day as needed for severe anxiety. for 30 days 06/09/2024 Rexulti 4 MG 1 tablet Orally at n ight for 30 days Treatment Notes Assessment Notes [place] issues noted. Client is on pregabalin for recently dx fibromyaglia via Dr. Santos Montenegro and flexeril for pain control. Has been advised to stagger dosing times with clonazepam for safety to limit respiratory depression risk. Client verbalizes understanding. Discussed sleep hygiene and caffeine intake with encouragement to limit electronic devices an hour before bed and to limit caffeine after 3:00pm. Exercise benefits for mood and health discussed. Psychoeducation regarding psychiatric illness provided. Client was educated about risks and benefits of medication, alternatives to medication, off label uses of medication, suicidal ideation with SSRIs, self-administration and compliance with medication along with how to safely store medication. Verbal informed consent obtained. Client agrees to return sooner if symptoms worsen or if suicidal or homicidal ideations occur. Client has the phone number to the 24-hour crisis line at [facility]. Questions addressed. Client verbalized understanding of all information and is agreeable to treatment plan. Next Appt Details Follow Up: 4 Weeks, Reason: Medication management - can be telehealth appt. or in office appt. Provider Name:Jonas montes, 08/09/2024 11:00:00 AM, [address] [facility] [address] [address], [place], [address], Progress Notes * Radha FAIRDOB: 3 (59 yo F)Acc No.[id number]:06/09/2024 Patient: Radha OMER Provider: Hortensia Tello DNP, PMHNP-BC :1965 A ge:59 Y S ex:Female Date:06/09/2024 Address:[address] Subjective: * Chief Complaints: * 4 week F/U * HPI: D epression Screening: PHQ-9 L ittle interest or pleasure in doing things S everal days, F eeling down, depressed, or hopeless M ore than half the days, T rouble falling or staying asleep, or sleeping too much N ot at all, F eeling tired or having little energy S everal days, P oor appetite or overeating S everal , F eeling bad about yourself or that you are a failure, or have let yourself or your family down S everal , T rouble concentrating on things, such as reading the newspaper or watching television S ever, M oving or speaking so slowly that other people could have noticed; or the opposite, being so fidgety or restless that you have been moving around a lot more than usual S everal days, T houghts that you would be better off or of hurting yourself in some way N ot at all, T otal Score 8 , I nterpretation M ild Depression. I ntervention D epression Screening Findings P ositive, F ollow-Up for Depression N o Referral necessary, patient involved in behavioral health treatment .. D o Not Use CSSRS Interpretation and Follow Up Plan: CSSRS Interpretation and Follow Up Plan. CSSRS Interpretation and Follow Up Plan M oderate or High risk requires selection of a follow up plan C SSRS No/Low: intervention not needed at this time.? S creening: [place] Suicide Severity Rating Scale (LF) D o you want to initiate with S creener form, 1 . Wish to be : Have you wished you were or wished you could go to sleep and not wake up? N o, 2 . Suicidal Thoughts: Have you actually had any thoughts of killing yourself? N o, 6 . Suicide Behaviour: Have you ever done anything,started to do anything, or prepared to end your life? N o, I nterpretation: L ow Risk. S laya: Session conducted telephonically with client's consent. Client is pleasant and conversational. Client states she has had a good Ken a s she was able to continue contact with her son and granddaughters. That she was able to watch them open their gifts Ken morning. That she is trying to think of low cost activities for them to do. She continues to have issues with swallowing due to a growth (goiter she states she thinks her doctor told her) and has upcoming endoscopy to tx this. Her dog Kaylee has been biting ppl and she is trying to deal with her behaviors. Client states she is sleeping really well at night, but does not feel groggy in am (on 300 mg trazodone). States she misses her sister but knows this is normal given the time of year. Feels her treatment plan is effective currently. Less paranoia than in past on 4 mg of Rexulti. The client has reconnected with her estranged son and granddaughters and this has brought great messi. S he has been considering joining a group or finding a hobby to help cope with her feelings of sadness and isolation. She takes her dog Kaylee out for walks when the grief gets overwhelming. She has lost over half of her siblings and is the yougest of the remaining siblings. She has two brothers left out of the original 11 siblings. Daughter doesn't have children, son has 3 girls. HISTORICAL BACKGROUND: States she can't see her granddaughters now because her son is mad at her for not paying his electric bill 6 months. (7 and 9 yo granddaughters) Strained relationship with son. States talks to daughter daily. Prior PSYCHOTROPIC Trials: Abilify, Wellbutrin XL- hallucinations, lamictal, Remeron, abiliy, Seroquel. LABWORK: Per PCP, October 2022 - lipids slightly high, TSH showed some evidence of slight hyperthyroidism. Goals: Feel better and get my health problems taken care of. Coping strategies: Has emotional support dog. She is a feisty, non-stop barking dog and I have to use a special collar for her. I love her very much. She is rescue. She is part terrier and Australian gunderson. 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 Takes Kaylee for walks all throughout the day. Likes to do crafts and used to do crafts with granddaughters. Likes to swim at [facility]. Has let membership lapse due to injury when walking dog. Caffeine use: 4 cups of coffee per day I drink it when I'm bored. I'm trying to not drink it after 3pm now after we talked about it at the last appointment. Drugs/ETOH: Denies current drug use, denies current alcohol use. Cig/Vape use: Denies. Quit smoking 3 years. Smoked heavily for 30 years. (was dx with COPD then quit). LMP/BC: Menopausal Therapy: Amrita kept pushing me into therapy, but I don't have time. Medications effective: Yes Medications adherence: Good per self-report Medication side effects: Denies Sleep: Good - improved after starting trazodone Appetite: decreased lately due to swallowing issues Depression: Fair Anxiety: Fair Anger/Irritability: Fair Hallucinations/Paranoia: In the past, not currently. I would see something move sometimes. Suicidal ideation: Denies Homicidal ideation: Denies Medical concerns or hospitalizations: Multiple ongoing chronic issues (see HPI) Any new medications from other providers: Denies Doctors: Santos Montenegro MD in [place]. * ROS: A ll Other Systems: Review of Systems (ROS) A ll others negative except those mentioned in HPI. * PSYCH ROS2: Elevated mood symptoms D enies. m ood swings D enies. T houghts of self harm D enies. D enies H omicidal thoughts. D ifficulty concentrating A dmits. A dmits A nxiety. D enies A uditory/visual hallucinations. Denies D elusions. A dmits D epressed mood. D enies D ifficulty sleeping.?Loss of appetite A dmits. A dmits S tressors, h ealth,relationships , financial.?Denies S ubstance abuse. D enies S uicidal thoughts. * Medical History: * Surgical History: c holecystectomy 01/2016 * Hospitalization/Major Diagno stic Procedure: S I and depression 2015 * Family History: D mook(s): alive, daughter- diabetic. F ather: , father- age 71 cancer. M other: , mother- age 59 cancer, alcoholic. S iblings: sister- bipolar, anxiety. 2 brother(s) , 1 sister(s) . 1 son(s) , 1 daughter(s) . . Brother-old age. * Social History: P rimary Social History: L iving Arrangement L iving Arrangement: D ependent Living, L iving with: Indy navarrete. A lcohol Use A lcohol Use Frequency: N ever. I llicit Substance Usage I llicit Substance Usage: N o. E mployment Status E mployment Status: O n Disability. * Medications: T akingHyoscyamine Sulfate 0.125 MG Tablet 1 tablet as needed Orally every 4 hrs , Notes to Pharmacist: GIPantoprazole Sodium 40 MG Tablet Delayed Release 1 tablet Orally Once a day , Notes to Pharmacist: GIDiphenoxylate-Atropine 2.5-0.025 MG Tablet 1 tablet as needed Orally Four times a day Spiriva HandiHaler 18 MCG Capsule 1 capsule by inhaling the contents of the capsule using the HandiHaler device Inhalation Once a day Ondansetron 4 MG Tablet Disintegrating 1 tablet on the tongue and allow to dissolve Orally Once a day Dicyclomine HCl 10 MG Capsule 1 capsule Orally Four times a day Irbesartan 300 MG Tablet 1 tablet Orally Once a day oxyBUTYnin Chloride 15 MG Tablet Extended Release 1 tablet Orally Once a day Amitriptyline HCl 25 MG Tablet 1 tablet at bedtime Orally Once a day hydrOXYzine HCl 25 MG Tablet 1 tablet as needed Orally every 8 hrs Famotidine 40 MG Tablet 1 tablet at bedtime Orally Once a day Rexulti 4 MG Tablet 1 tablet Orally at night KlonoPIN 1 MG Tablet 0.5 tablet Orally Three times a day as needed for severe anxiety. Zoloft 100 MG Tablet two tablets Orally at night traZODone HCl 300 MG Tablet 0.5 - 1 tablet at bedtime as needed Orally Once a day buPROPion HCl ER (XL) 300 MG Tablet Extended Release 24 Hour 1 tablet in the morning Orally Once a day Taking Hyoscyamine Sulfate 0.125 MG Tablet 1 tablet as needed Orally every 4 hrs , Notes to Pharmacist: GITaking Pantoprazole Sodium 40 MG Tablet Delayed Release 1 tablet Orally Once a day , Notes to Pharmacist: GITaking Diphenoxylate-Atropine 2.5-0.025 MG Tablet 1 tablet as needed Orally Four times a day Taking Spiriva HandiHaler 18 MCG Capsule 1 capsule by inhaling the contents of the capsule using the HandiHaler device Inhalation Once a day Taking Ondansetron 4 MG Tablet Disintegrating 1 tablet on the tongue and allow to dissolve Orally Once a day Taking Dicyclomine HCl 10 MG Capsule 1 capsule Orally Four times a day Taking Irbesartan 300 MG Tablet 1 tablet Orally Once a day Taking oxyBUTYnin Chloride 15 MG Tablet Extended Release 1 tablet Orally Once a day Taking Amitriptyline HCl 25 MG Tablet 1 tablet at bedtime Orally Once a day Taking hydrOXYzine HCl 25 MG Tablet 1 tablet as needed Orally every 8 hrs Taking Famotidine 40 MG Tablet 1 tablet at bedtime Orally Once a day Taking Rexulti 4 MG Tablet 1 tablet Orally at night Taking KlonoPIN 1 MG Tablet 0.5 tablet Orally Three times a day as needed for severe anxiety. Taking Zoloft 100 MG Tablet two tablets Orally at night Taking traZODone HCl 300 MG Tablet 0.5 - 1 tablet at bedtime as needed Orally Once a day Taking buPROPion HCl ER (XL) 300 MG Tablet Extended Release 24 Hour 1 tablet in the morning Orally Once a day * Allergies: P enicillin: AllergySulfa Antibiotics: Allergyno[Allergies Verified] Objective: * Vitals: * Examination: P sychiatry: APPEARANCE: U TA due to telephone encounter. ATTENTION: g ood. ORIENTATION: y es , person, place and time. ATTITUDE: c ooperative , pleasant . AFFECT: a ppropriate, full range. MOOD: d epressed, anxious (varying). SPEECH: c lear , normal/R/V/R. PSYCHOMOTOR ACTIVITY: U TA. ABNORMAL BODY MOVEMENTS: U TA. CURRENT HOMICIDALITY: n one. CURRENT SUICIDALITY: n ot presently. THOUGHT PROCESS: i ntact. THOUGHT CONTENT: u nremarkable. PERCEPTUAL DISORDERS: n o perceptual disorder noted (hx of VH/AH in past). INSIGHT: f air. JUDGEMENT: f air. Assessment: * Assessment: 1. M ajor depression with psychotic features - F32.3 (Primary) N otes :r/o dysthymic disorder versus bipolar disorder with psychotic features. Past history of visual hallucinationsBSDS score 23 correlating with high probability for bipolar disorder. 2 . G eneralized anxiety disorder - F41.1 3 . C hronic post-traumatic stress disorder (PTSD) - F43.12 N otes :PCL-5 66 10/25/20 Plan: * Treatment: 2. G eneralized anxiety disorder Refill Zoloft Tablet, 100 MG, two tablets, Orally, at night, 30 days, 60, Refills 1. 3. C hronic post-traumatic stress disorder (PTSD) Refill KlonoPIN Tablet, 1 MG, 0.5 tablet, Orally, Three times a day as needed for severe anxiety., 30 days, 45, Refills 1. 4. O thers Notes: [place]. Client is on pregabalin for recently dx fibromyaglia via Dr. Santos Montenegro and flexeril for pain control. Has been advised to stagger dosing times with clonazepam for safety to limit respiratory depression risk. Client verbalizes understanding. Discussed sleep hygiene and caffeine intake with encouragement to limit electronic devices an hour before bed and to limit caffeine after 3:00pm. Exercise benefits for mood and health discussed. Psychoeducation regarding psychiatric illness provided. Client was educated about risks and benefits of medication, alternatives to medication, off label uses of medication, suicidal ideation with SSRIs, self-administration and compliance with medication along with how to safely store medication. Verbal informed consent obtained. Client agrees to return sooner if symptoms worsen or if suicidal or homicidal ideations occur. Client has the phone number to the 24-hour crisis line at [facility]. Questions addressed. Client verbalized understanding of all information and is agreeable to treatment plan. * Procedure Codes: * Follow Up: 4 Weeks (Reason: Medication management - can be telehealth appt. or in office appt.) * * NER AND TRIMMER Sign off status: Completed true * Provider: Hortensia Tello DNP, PMHNP- Date: 0 06/09/2024 Generated for Marquita garrido/Alicia/Carmel on: 0 08/06/2024 02:44 AM CLEANER [employer] TRIMMER History and Physical Notes * HPI (History of Present Illness) Category Sub-Category Detail Notes Category Not es Depression Screening PHQ-9 Little inte rest or pleasure in doing things: Several days Feeling down, depressed, or hopeless: Mo re than half the days Trouble falling or staying asleep, or sl eeping too much: Not at all Feeling tired or having little energy: S everal days Poor appetite or overeating: Several day s Feeling bad about yourself o r that you are a failure, or have let yourself or your family down: Several days Trouble concentrating on thi ngs, such as reading the newspaper or watching television: Several days Moving or speaking so slowly that other people could have noticed; or the opposite, being so fidgety or restless that you have been moving around a lot more than usual: Several days Thoughts that you would be b aracely off or of hurting yourself in some way: Not at all Total Score: 8 Interpretation: Mild Depression Intervention Depression Screening Findings: P ositive Follow-Up for Depression: No Referral necessary, patient involved in behavioral health treatment . Screening [place] Suicide Sev erity Rating Scale (LF) Do you want to initiate with: Screener form 1. Wish to be : Have you wished you were or wished you could go to sleep and not wake up?: No 2. Suicidal Thoughts: Have you actually had any thoughts of killing yourself?: No 6. Suicide Behavior Question: Have you ever done anything,started to do anything, or prepared to end your life?: No Interpretation:: Low Risk Do Not Use CSSRS Interpretation and Follow Up Plan CSSRS Interpretation and Follow Up Plan Moderate or High risk requires selection of a follow up plan: CSSRS No/Low: intervention not needed at this time Examination Category Sub-Category Detail Notes Category Not es Psychiatry APPEARANCE: ELIN due to telephone encount er ATTITUDE: cooperative , pleasa nt PSYCHOMOTOR ACTIVITY: ELIN ABNORMAL BODY MOVEMENTS: ELIN ATTENTION: good ORIENTATION: yes , person, place and time AFFECT: appropriate, full ra nge MOOD: depressed, anxious ( varying) SPEECH: clear , normal/R/V/R INSIGHT: fair JUDGEMENT: fair THOUGHT PROCESS: intact THOUGHT CONTENT: unremarkable PERCEPTUAL DISORDERS: no perceptual diso rder noted (hx of VH/AH in past) CURRENT SUICIDALITY: not presently CURRENT HOMICIDALITY: none
--- OUTSIDE RECORDS SUMMARY | 2024-08-06 02:45 | XMS_ITS | Data Portability ---
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 Plan of Treatment Reminders Order Date Submit Date Provider Last Modified By Organization Details Last Modified Time Details Appointments None recorded. Lab bacterial vaginosis + vaginitis panel, vaginal 2023 024 [facility], [address] [place], [address], 4 10:37:07 HPV E6+E7 mRNA, qualitative PCR, cervix 2023 024 [facility], [address] [place], [address], 4 17:25:03 pap, LB 2023 024 [facility], [address] [facility], [place], [address], 4 09:58:59 Referral urologist referral 2023 024 [facility] [place], [address], [place], [address], 4 15:16:[address] referral 2023 024 [facility], [address], [place], [address], 15:15:08 Procedures None recorded. Surgeries None recorded. Imaging None recorded. Medication Orders estradiol 0.01% (0.1 mg/gram) vaginal cream 2023 [facility], [address], [place], [id number], 14:35:05 amitriptyli ne 50 mg tablet 2023 [facility] #82124, [address], [place], [id number], 14:35:09 oxybutynin chloride ER 15 mg tablet,exte nded release 24 hr 2023 [facility]32773, [address], [place], [id number], 14:35:04 Patient TargetsNo targets recorded. 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 Referral for M elanocytic nevus of skin Referring Physician: Santana Flores, DIET CONSULTANT, Encounter Date: 07/09/2023 Urologist Referral for Chron ic interstitial cystitis Referring Physician: Santana Flores DIET CONSULTANT, Encounter Date: 07/09/2023 Results Created Date Observation Date Name Description Value Unit Range Abnormal Flag Note LastModifiedBy Organization Detail LastModifiedTime 07/09/19 24 07/10/2023 HPV HIGH RISK HPV high risk Negati ve negati ve normal The HPV High Risk assay is inten ded for use as co-te sting with cytol ogy and not as a subst itute for regul ar cervi arleen cytol ogy scree chavo. This assay is not inten ded for use as a scree chavo devic e for women under age 30 with deena l cervi arleen cytol ogy. Not Available [facility] [address] [place] [address], [address], 07/10/2023 17:25:03 07/09/19 24 07/10/2023 VAGIN ITIS PANEL bacterial vaginosis BV neg negati ve normal Not Available [address], [address], 07/11/2023 10:37:07 07/09/19 24 07/10/2023 VAGIN ITIS PANEL kathy species C. spp neg negati ve normal Not Available [facility] [address] [place] [address], [address], 07/11/2023 10:37:07 07/09/19 24 07/10/2023 VAGIN ITIS PANEL kathy glabrata C. gla neg negati ve normal Not Available [facility] [address] [place] [address], [address], 07/11/2023 10:37:07 07/09/19 24 07/10/2023 VAGIN ITIS PANEL trichomonas vaginalis CV/TV TRICH neg negati ve normal Not Available [facility] [employer] [address] [place] [address], [address], 07/11/2023 10:37:07 07/09/19 24 07/12/2023 THINP REP TIS PAP clinical information: normal None given Not Available [facility] [address] [place], [address], 07/12/2023 09:58:59 02/07/20 24 07/12/2023 THINP REP TIS PAP LMP: normal NONE GIVEN Not Available [address], [address], 07/12/2023 09:58:59 07/09/19 24 07/12/2023 THINP REP TIS PAP prev. Pap: normal NONE GIVEN Not Available [address], [address], 07/12/2023 09:58:59 07/09/19 24 07/12/2023 THINP REP TIS PAP prev. BX: normal NONE GIVEN Not Available [address], [address], 07/12/2023 09:58:59 07/09/19 24 07/12/2023 THINP REP TIS PAP source: normal Cervi x ON BOTTL E Not Available [address] [place], [address], 07/12/2023 09:58:59 07/09/19 24 07/12/2023 THINP REP TIS PAP statement of adequacy: normal Satis facto ry for evalu ation . Endoc ervic al/tr ansfo rmati on zone compo nent prese nt. Not Available [address], [address], 07/12/2023 09:58:59 07/09/19 24 07/12/2023 THINP REP TIS PAP interpretati on/result: normal Cytol ogy Resul ts: Negat reyes for intra epith elial lesio n or malig todd . Not Available [address], [address], 07/12/2023 09:58:59 07/09/19 24 07/12/2023 THINP REP TIS PAP comment: normal This Pap test has been evalu ated with compu ter patrice celina techn ology . Not Available [address] [place], [address], 07/12/2023 09:58:59 07/09/19 24 07/12/2023 THINP REP TIS PAP cytotechnolo gist: normal LMT, CT( CP) CT scree chavo locat ion: [place] [address] [place] [address] Not Available [place] [address] [place], [address], 07/12/2023 09:58:59 07/09/19 24 07/12/2023 THINP REP TIS PAP comment EXPLA NATOR Y NOTE: The Pap is a scree chavo test for cervi arleen cance r. It is not a diagn ostic test and is subje ct to false negat reyes and false posit reyes resul ts. It is most relia ble when a satis facto ry sampl e, regul tunde obtai gracy, is submi tted with relev ant clini arleen findi ngs and histo ry, and when the Pap resul t is evalu ated along with histo vaishnavi and curre nt clini arleen infor matio n. Not Available [place] [address] [place], [address], 07/12/2023 09:58:59 Result Notes None recorded. Problems Name Problem SNOMED Code Status Onset Date Resolution Date Notes Provider Name and Address Organization Details Recorded Time Vaginal odor 393535384 Active 2023 DAVIN Salazar [address] [place], [address], [facility] 4 14:28:33 Mixed urinary incontinence 271902582 Active 2023 DAVIN Salazar [address] [place], [address], [facility] [employer] [facility] 4 14:28:49 Atrophic vaginitis 06968067 Active 2023 DAVIN Salazar [address] [place], [address], [facility] [employer] [facility] 4 14:29:08 Chronic interstitial cystitis 406011274 Active 2023 Santana Flores [place] [address] [place], [address], [facility] [employer] [facility] 4 14:30:38 Melanocytic nevus of skin 726344835 Active 2023 Santana Flores [place] [address] [place], [address], [facility] [employer] [facility] 4 13:57:40 Problem Notes None recorded. Procedures Surgical History Date Name Laterality Status Provider Name and Address Organization Details Recorded Time 3 Most Recent Mammogram completed [facility] 07/09/2023 13:24:02 1 Date of Last Pap Smear completed [facility] 07/09/2023 13:24:02 1 Most Recent Bone Density completed [facility] 07/09/2023 13:30:46 1 Date of Last Colonoscopy completed [facility] 07/09/2023 13:33:45 Colonoscopy completed [facility] 07/09/2023 13:24:03 Gall bladder completed [facility] 07/09/2023 13:24:03 C Section completed [facility] 07/09/2023 13:24:03 Imaging Results None recorded. Procedure Notes None recorded. Medical Equipment None Reported. Allergies Allergen ID Allergen Name Allergen Category Reaction Reaction Severity Criticality Documentation Date Start Date Code Code System Note Provider Name and Address Organization Details Recorded Time 997352 Product containin g penicilli n (product) medicatio n Not available Not available Not available 07/09/2023 16562 8001 SNOMED Not Available Not Available Not Available 844670 Substance with sulfonami de structure and antibacte rial mechanism of action (substanc e) medicatio n Not available Not available Not available 07/09/2023 80812 8003 SNOMED Not Available Not Available Not Available 298109 house dust allergeni c extract environme nt,medica tion Not available Not available Not available 07/09/2023 65827 9 RxNorm Not Available Not Available Not Available 431251 mold extract environme nt Not available Not available Not available 07/09/2023 78769 8 RxNorm Not Available Not Available Not Available 071553 cigarette smoke environme nt Not available Not available Not available 07/09/2023 74308 UNK Not Available Not Available Not Available Medications Name Sig Start Date Stop Date Status Note LastModified by Organization Details LastModified Time cyclobenzap rine 10 mg tablet TAKE 1 TABLET BY MOUTH THREE TIMES DAILY NEEDED active Not Available Not Available No t Available oxybutynin chloride ER 15 mg tablet,exte nded release 24 hr TAKE 2 TABLETS BY MOUTH EVERY DAY active Not Available Not Available No t Available trazodone 50 mg tablet active Not Available Not Available Not Available oxybutynin chloride ER 10 mg tablet,exte nded release 24 hr active Not Available Not Available Not Available ibuprofen 800 mg tablet active Not Available Not Available Not Available fluconazole 150 mg tablet TAKE 1 TABLET BY MOUTH EVERY DAY active Not Available Not Available No t Available hydrocodone 5 mg-acetamin ophen 325 mg tablet TAKE 1 TABLET BY MOUTH EVERY 6 HOURS NEEDED FOR PAIN active Not Available Not Available No t Available famotidine 40 mg tablet active Not Available Not Available Not Available sertraline 100 mg tablet active Not Available Not Available Not Available clonazepam 1 mg tablet active Not Available Not Available Not Available ciprofloxac in 500 mg tablet TAKE 1 TABLET BY MOUTH EVERY 12 HOURS active Not Available Not Available No t Available omeprazole 40 mg capsule,del ayed release TAKE 1 CAPSULE BY MOUTH DAILY active Not Available Not Available No t Available amitriptyli ne 50 mg tablet TAKE 1 TABLET BY MOUTH EVERY DAY active Not Available Not Available No t Available bupropion HCl 100 mg tablet 07/09 completed Not Available Not Available Not Available amitriptyli ne 25 mg tablet TAKE 1 TABLET BY MOUTH EVERY DAY FOR CHRONIC BLADDER WALL INFLAMMAT ION active Not Available Not Available No t Available pantoprazol e 40 mg tablet,paris yed release active Not Available Not Available Not Available hyoscyamine sulfate 0.125 mg tablet active Not Available Not Available Not Available trazodone 150 mg tablet active Not Available Not Available Not Available promethazin e 25 mg tablet 07/09 completed Not Available Not Available Not Available ibuprofen 200 mg tablet 07/09 completed Not Available Not Available Not Available buspirone 7.5 mg tablet 07/09 completed Not Available Not Available Not Available hydroxyzine HCl 25 mg tablet TAKE 1 TABLET BY MOUTH THREE TIMES DAILY active Not Available Not Available No t Available estradiol 0.01% (0.1 mg/gram) vaginal cream INSERT 1 GRAM VAGINALLY 2 TIMES A WEEK active Not Available Not Available No t Available ondansetron 4 mg disintegrat ing tablet active Not Available Not Available N ot Available dicyclomine 10 mg capsule TAKE ONE CAPSULE BY MOUTH FOUR TIMES DAILY NEEDED FOR ABDOMINAL PAIN active Not Available Not Available No t Available irbesartan 300 mg tablet TAKE 1 TABLET BY MOUTH EVERY DAY active Not Available Not Available No t Available bupropion HCl XL 300 mg 24 hr tablet, extended release active Not Available Not Available Not Available pregabalin 75 mg capsule TAKE 1 CAPSULE BY MOUTH TWICE DAILY active Not Available Not Available No t Available GaviLyte-G 236 gram-22.74 gram-6.74 gram-5.86 gram oral solution 07/09 completed Not Available Not Available Not Available Anoro Ellipta 62.5 mcg-25 mcg/actuati on powder for inhalation INHALE 1 PUFF BY MOUTH EVERY DAY DIRECTED 07/09 completed Not Available Not Available Not Available Rexulti 3 mg tablet 07/09 completed Not Available Not Available Not Available Rexulti 4 mg tablet active Not Available Not Available No t Available Rexulti 1 mg tablet 07/09 completed Not Available Not Available Not Available Vitals Date Recorded Body weight Body mass index (BMI) Body height Body temperature Systolic blood pressure Diastolic blood pressure Provider Name and Address Organization Details Last Updated DateTime 4 20420.1 1 g 26.3 kg/m2 160.02 cm 97.4 [degF] 136 mm[Hg] 86 mm[Hg] Gabrielle [facility] 13:38:16 Social History Question Answer Notes LastModified by Organizat ion Details LastModified Time Tobacco Smoking Status Never Smoker Gabrielle nash, [facility] 07/09/2023 13:31:41 Are You Blind Or Do You Have Difficulty Seeing? Yes Information not available 07/09/2023 Are You Currently Employed? No Information not available 07/09/2023 Are You Deaf Or Do You Have Serious Difficulty Hearing? No Information not available 07/09/2023 What Type Of Diet Are You Following? REGULAR Information not available 07/09/2023 How Many Children Do You Have? 2 Information not available 07/09/2023 What Is Your Relationship Status? Single Information not available 07/09/2023 Are You Sexually Active? No Information not available 07/09/2023 Do You Use Any Illicit Or Recreational Drugs? No Information not available 07/09/2023 Do You Or Have You Ever Used Any Other Forms Of Tobacco Or Nicotine? No Information not available 07/09/2023 Sex: Unknown Functional Status Question Answer Note LastModified by [employer] Details LastModified Time What is your exercise level? Occasional Information not available 07/09/2023 Mental Status None recorded. Family History Relationship Description Onset Age of this Age Resolved Age Notes LastModified by Organization Details LastModified Time Mother Depressive disorder [email or web address] Not available 2023 13:24:02 Mother Malignant neoplastic disease kbritsch Not available 2023 13:24:02 Brother Malignant neoplastic disease kbritsch Not available 2023 13:24:02 Brother Malignant tumor of lung kbritsch Not available 2023 13:24:02 Sister Malignant tumor of breast kbritsch Not available 2023 13:24:02 Sister Depressive disorder kbritsch Not available 2023 13:24:02 Sister Malignant neoplastic disease kbritsch Not available 2023 13:24:02 Sister Hypertensive disorder kbritsch Not available 2023 13:24:02 Sister Osteoporosis kbritsch Not avail able 07/09/2023 13:24:02 Father Malignant neoplastic disease kbritsch Not available 2023 13:24:02 Father Malignant tumor of lung kbritsch Not available 2023 13:24:02 Father Hypertensive disorder kbritsch Not available 2023 13:24:02 Father Osteoporosis kbritsch Not avail able 07/09/2023 13:24:02 Medical History Condition Response Anxiety Disorder Y High Blood Pressure Y Arthritis Y Asthma Y Depression Y COPD/Emphysema Y Blood Clotting Disorder Y Anemia Y IBS (Irritable Bowel Syndrome) Y Bipolar Disorder Y Osteoporosis Y Gynecological History Statement/Question Response Flow Heavy Date of last HPV 2021 Date of LMP HPV Vaccine N Duration of Flow (days) 10 Most Recent Mammogram 2023 Current Control Method Menopause Age at Menarche 10 Date of Last Colonoscopy 06/02/2020 Most Recent Bone Density 06/02/2020 Frequency of Cycle (Q days) 28 Date of Last Pap Smear 2021 Obstetrics History GPAL:G 3 P 2 0 1 2 Type Value Full Term 2 Spontaneous 1 Living 2 Total 3 Past Encounters Encounter ID Performer Location Encounter Start Date Encounter Closed Date Diagnosis/Indication Diagnosis SNOMED-CT Code Diagnosis ICD10 Code Diagnosis Note [id number] DAVIN Salazar [facility] [address] [place] [address] 07/09/2023 13:02:21 07/09/2023 19:05:29 Gynecologic examination 02926430 Z01.419 WWE completedP ap with HPV obtained. Cervical cancer screening guidelines reviewedCB E nml. Breast self-aware ness and screening guidelines reviewedCa rdiovascul mn health: discussed healthy diet and regular exercise. Routine labs by [facility]- recommend daily Ca++ with Vitamin D. Screening for malignant neoplasm of cervix 416922388 Z12.4 Cervical cancer screening is used to find abnormal changes in the cells of the cervix that could lead to cancer. Screening includes the Pap test and, for some women, testing for a virus called human papillomav irus (HPV). The main cause of cervical cancer is infection with HPV. Screening for malignant neoplasm of breast 618805343 Z12.31 Depression screening 171 970098 Z13.31 Score: 6 Vaginal odor 011073122 N 89.8 Mixed urin eli incontinence 660001320 N39.46 Discussed bulkamid for ARI; pamphlet givenincre asing oxybutynin to 30 mg Atrophic vaginitis 79816 000 N95.2 Discussed vaginal moisturize rs, lubricants during intercours e, and vaginal estrogen as most effectivet x.Explaine d minimal systemic absorption and available data shows no increased risks for uterine orbreast cancer, coronary heart disease, stroke, or DVT.decide d for vaginal estrogen therapy.Rx sent. Chronic in terstitial cystitis 630902790 N30.10 increasing dosage of amitriptyl ineBridget requests a referral to urology Melanocyti c nevus of skin 971086759 D22.9 Health Concerns Section Related Observation LastModified by Organization Detai ls LastModified Time None Recorded Concern Status LastModified by Organization Details LastModified Time None Recorded Advance Directives Directive None Recorded Payers Encounter Date Sequence Insurance Name Policy Number Policy Toro Covered Member ID Toro Member ID Guarantor Name 07/09/2023 1 [facility] (MEDICAID HMO) [id number] Radha Latham [id number] Radha Latham Notes Date Note Type Note Provider Name and Address Organization Details Recorded Time 07/09/2023 text/html Annual GYNReport ed bypatient.Urinary symptoms:No hematuria;Stress incontinence;Urge incontinence Vulva:No genital lesion Vagina:Normal vaginal discharge Breast:No breast pain; No breast lump; No nipple discharge Sexual complaints:No sexual complaints Menopausal Symptoms:No menopausal symptoms Psychological symptoms:No depression; No anxiety; No PMDD Radha presents for her annual WWE.She explains that she was diagnosed with IC. She is taking amitriptyline; states symptoms have returned. She has been taking 25 mg for two years. She is taking oxybutynin for OAB and needs refills. Reports a vaginal odor that is fishy, denies discharge.Last pap 2020 and normal per patient. DAVIN Salazar [address] [facility], [place], [address], [facility] 07/10/2023 14:03:30 OBGyn Episode No OBEpisode recorded.
--- OUTSIDE RECORDS SUMMARY | 2024-08-06 02:45 | XMS_ITS | CONTINUITY OF CARE DOCUMENT ---
Author Name candido rey Address Unknown Organization [facility] Address [address] [facility] [address] [place] [address] Phone [phone] Care Team Providers Care Apple Turner Name Role Phone michelle reyeucameron Unavailable Unavailable INSURANCE PROVIDERS Payer name Policy type / Coverage type [place] red constitution party ID [facility] PL[facility] Medicaid [id number]
--- OUTSIDE RECORDS SUMMARY | 2024-08-06 02:45 | XMS_ITS ---
Author Organization [facility] Address [address] [place] [address] Care Team Providers Care Apprentice Cook Name Role Phone Jonas Tello Primary Care Provider Hortensia RUDOLPH Unavailable Unavailable Allergies Allergen (clinical drug ingredient) Drug/Non Drug Allergy documented on EMR Reaction Allergy Type Onset Date Status Penicillin Unknown Drug Allergy Active Substance with sulfonamide structure and antibacterial mechanism of action (substance) Sulfa Antibiotics Unknown Drug Allergy Active REASON FOR VISIT 1 Month Psych F/U & Med Refill Medications Medication SIG (Take, Route, Frequency, Duration) Notes Start Date End Date Status hydrOXYzine HCl 25 MG 1 tablet as needed Orally every 8 hrs for 30 day(s) Active Famotidine 40 MG 1 tablet at bedtime Orally Once a day for 30 day(s) Active Irbesartan 300 MG 1 tablet Orally Once a day Active oxyBUTYnin Chloride 15 MG 1 tablet Orall y Once a day Active Amitriptyline HCl 25 MG 1 tablet at bedt teagan Orally Once a day for 30 day(s) Active Diphenoxylate-Atropine 2.5-0.025 MG 1 tablet as needed Orally Four times a day Active Spiriva HandiHaler 18 MCG 1 capsule by i nhaling the contents of the capsule using the HandiHaler device Inhalation Once a day Active Ondansetron 4 MG 1 tablet on the tong ue and allow to dissolve Orally Once a day for 30 day(s) Active Dicyclomine HCl 10 MG 1 capsule Orally F our times a day Active Rexulti 4 MG 1 tablet Orally at n ight for 30 days Active Zoloft 100 MG two tablets Orally a t night for 30 days Active Hyoscyamine Sulfate 0.125 MG 1 tablet as needed Orally every 4 hrs GI Active Pantoprazole Sodium 40 MG 1 tablet Orall y Once a day GI 04/02/2023 Active traZODone HCl 300 MG 0.5 - 1 tablet at bedtime as needed Orally Once a day for 30 days 10/15/2023 Active buPROPion HCl ER (XL) 300 MG 1 tablet in the morning Orally Once a day for 30 days Active KlonoPIN 1 MG 0.5 tablet Orally Th ree times a day as needed for severe anxiety. for 30 days 07/13/2024 Active Social History Sex Assigned At : Social History Observation Description Sex Assigned At Female Encounters Encounter Location Date Provider Diagnosis [address] [address] 07/13/2024 Jonas Tello Major depression with psychotic features F32.3 ; Generalized anxiety disorder F41.1 and Chronic post-traumatic stress disorder (PTSD) F43.12 Assessments Encounter Date Diagnosis (ICD Code) Assessment Notes Treatment Notes Treatment Clinical Notes Section Notes 07/13/2024 Major depression with psychotic features (ICD-10 - F32.3) r/o dysthymic disorder versus bipolar disorder with psychotic features. Past history of visual hallucinations BSDS score 23 correlating with high probability for bipolar disorder. 07/13/2024 Generalized anxiety disorder (ICD-10 - F41.1) 07/13/2024 Chronic post-traumatic stress disorder (PTSD) (ICD-10 - F43.12) PCL-5 66 10/25/20 [place]. Discussed sleep hygiene and caffeine intake with [...] to the 24-hour crisis line at [facility]. Questions addressed. Client verbalized understanding of all information and is agreeable to treatment plan. Plan Of Treatment Medication Medication Name Sig Start Date Stop Date Notes Rexulti 4 MG 1 tablet Orally at n ight for 30 days Zoloft 100 MG two tablets Orally a t night for 30 days traZODone HCl 300 MG 0.5 - 1 tablet at b edtime as needed Orally Once a day for 30 days 10/15/2023 buPROPion HCl ER (XL) 300 MG 1 tablet in the morning Orally Once a day for 30 days KlonoPIN 1 MG 0.5 tablet Orally Th ree times a day as needed for severe anxiety. for 30 days 07/13/2024 Treatment Notes Assessment Notes [place] issues [place]. Discussed sleep hygiene and caffeine intake with [...] to the 24-hour crisis line at [facility]. Questions addressed. Client verbalized understanding of all information and is agreeable to treatment plan. Next Appt Details Follow Up: 4 Weeks, Reason: Medication management - can be telehealth appt. or in office appt. Provider Name:Jonas Damon , 08/09/2024 11:00:00 AM, [address] [facility], [place], [address], Progress Notes * Radha FAIRDOB: 3 (59 yo F)Acc No.[id number]:07/13/2024 Patient: Radha OMER Provider: Hortensia Tello DNP, PMHNP- :1965 A ge:59 Y S ex:Female Date:07/13/2024 Address:[address] [place], [place] [id number] Subjective: * Chief Complaints: * 1 Month Psych F/U & Med Refill * HPI: D epression Screening: PHQ-9 L ittle interest or pleasure in doing things M ore than half the days, F eeling down, depressed, or hopeless M ore than half the days, T rouble falling or staying asleep, or sleeping too much N ot at all, F eeling tired or having little energy S everal days, P oor appetite or overeating S everal days, F eeling bad about yourself or that you are a failure, or have let yourself or your family down S everal days, T rouble concentrating on things, such as reading the newspaper or watching television S everal , M oving or speaking so slowly that other people could have noticed; or the opposite, being so fidgety or restless that you have been moving around a lot more than usual S everal , T houghts that you would be better off or of hurting yourself in some way N ot at all, T otal Score 9 , I nterpretation M ild Depression. I [...] not needed at this time.? S creening: [place] Suicide Severity Rating Scale (LF) D o you want to initiate with S creener form, 1 . Wish to be : Have you wished you were or wished you could go to sleep and not wake up? N o, 2 . Suicidal Thoughts: Have you actually had any thoughts of killing yourself? N o, 6 . Suicide Behavior Question: Have you ever done anything,started to do anything, or prepared to end your life? N o, I nterpretation: L ow Risk. S ummary: Session conducted telephonically with client's consent. Client is pleasant and conversational. Radha Fair is a 59-year-old female who reports chronic back pain due to arthritis in her spine. She uses a heating pad for relief, especially by the end of the day when her knees and back hurt the most. Radha has been trying to manage her weight, which she believes may help alleviate some of her symptoms. She is scheduled for a procedure with her can line examiner on August 06 and a bladder treatment on August 19. Radha mentioned a previous appointment she missed due to dental issues, which has now been rescheduled. Radha also discussed her history of polycythemia, a blood condition that has caused her issues related to her lungs, and low iron levels. She has been on iron supplements. Radha expressed frustration with the process of obtaining her iron levels and the need for stronger supplements due to her low iron count. Additionally, Radha shared concerns about her family dynamics. She mentioned that her son and daughter have not been in contact with her, which has been distressing. Her daughter, who has type 1 diabetes and uses an insulin pump, is reportedly struggling with alcohol use. Radha is worried about her family's well-being and her ability to see her grandchildren. She is spending time with her dog Kaylee to cope. She has lost over half of her [...] is rescue. 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 Takes Kaylee for walks all throughout the day. Likes to do crafts and used to do crafts with granddaughters. Likes to swim at [facility]. Has let membership lapse due to [...] providers: Denies Doctors: Santos Montenegro MD in [place]. * ROS: A ll Other Systems: Review [...] and depression 2015 * Family History: D aughter(s): alive, daughter- diabetic. F ather: , father- age 71 cancer. M other: , mother- age 59 cancer, alcoholic. S iblings: sister- bipolar, anxiety. 2 brother(s) , 1 sister(s) . 1 son(s) , 1 daughter(s) . . Brother-old age. * Social History: [facility] Social History: L iving Arrangement L iving Arrangement: D ependent Living, L iving with: Indy navarrete. Inez lcohol Use A lcohol Use Frequency: N [...] Notes[place]. Discussed sleep hygiene and caffeine intake with [...] to the 24-hour crisis line at [facility]. Questions addressed. Client verbalized understanding of all information and is agreeable to treatment plan. * Procedure Codes: * Follow Up: 4 Weeks (Reason: Medication management - can be telehealth appt. or in office appt.) * * [employer] MANAGER Sign off status: Completed true * Provider: Hortensia Tello DNP, PMHNP- Date: 0 07/13/2024 Generated for Marquita garrido/Alicia/Carmel on: 0 08/06/2024 02:45 AM [employer] MANAGER History and Physical Notes * HPI (History of Present Illness) Category Sub-Category Detail Notes Category Not es Depression Screening PHQ-9 Little inte rest or pleasure in doing things: More than half the days Feeling down, depressed, or hopeless: Mo [...] some way: Not at all Total Score: 9 Interpretation: Mild Depression Intervention Depression Screening Findings: P ositive Follow-Up for Depression: No Referral necessary, patient involved in behavioral health treatment . Screening [place] Suicide Sev erity Rating Scale (LF) Do [...]
--- OUTSIDE RECORDS SUMMARY | 2024-08-06 02:45 | XMS_ITS | Referral Summary ---
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 Name Role Phone Santos Montenegro MD Primary Care Provider Encounters Date Type Department Care Team Description 06/11/2024 Telephone [facility] Surgery [address] [place] [address] Claudia Khan 06/09/2024 Telephone [facility] - [facility] Urology [address] [facility] [address] [place] [address] [place] [address] Meghna Valerio from Last 3 Months Allergies Active Allergy Reactions Criticality Noted Date Comments Penicillins Unknown,Hives,Swelli ng,Urticaria Medium 07/26/2016 Other reaction(s): Unknown, Unknown, Urticaria Sulfa Hives,Swelling Medium 09/20/2016 Sulfa (Sulfonamide Antibiotics) Unknown 07/26/2016 Other reaction(s): Unknown Other reaction(s): Unknown Sulfur Dioxide Rash Medium 10/15/2022 Sulfur Iodide Hives,Swelling Medium 09/20/2016 Medications acetaminophen-cod eine (TYLENOL with CODEINE #3) 300-30 mg per tablet TK ONE T PO Q SIX H PRN 0 10/22/19 18 Active aspirin 81 mg chewable tablet Take 1 tablet by mouth daily. 05/08/20 17 Active clonazePAM (KlonoPIN) 1 mg tablet 0 12/03/19 18 Active cyclobenzaprine (FLEXERIL) 10 mg tablet Take 1 tablet by mouth every 12 hours. 09/13/19 18 Active lamoTRIgine (LaMICtal) 100 mg tablet Take 1 tablet by mouth every 12 hours. 07/26/19 17 Active amLODIPine (NORVASC) 10 mg tablet Take 1 tablet by mouth daily. 03/14/20 17 Active mirtazapine (REMERON) 45 mg tablet Take 1 tablet by mouth daily. 07/26/19 17 Active traZODone (DESYREL) 50 mg tablet Take 1 tablet by mouth. 07/26/19 17 Active buPROPion XL (WELLBUTRIN XL) 300 mg 24 hr tablet Take 1 tablet by mouth. 07/26/19 17 Active VENTOLIN HFA 90 mcg/actuation inhaler 12/02/19 18 Active ARIPiprazole (ABILIFY) 5 mg tablet 12/11/19 18 Active ARIPiprazole (ABILIFY) 2 mg tablet 09/06/19 18 Active fluticasone-salme terol 232-14 mcg/actuation aerosol powdr breath activated 12/02/[address] (PROTONIX) 40 mg EC tablet 12/02/19 18 Active QUEtiapine (SEROquel) 25 mg tablet 12/11/19 18 Active traZODone (DESYREL) 100 mg tablet 10/02/19 18 Active nicotine (NICODERM CQ) [address] on the skin. 11/22/19 17 Active cilostazol (PLETAL) 100 mg tabletIndications :Intermittent Claudication Take 100 mg by mouth. Active oxygenIndications :Dyspnea by Does not apply route. Use as directed Indications: 2 L at night only Active multivitamin with minerals (Multiple Vitamin-Minerals) tablet Take 2 capsules by mouth daily Active cyclobenzap-irrit ant cntr irr2 10 mg kit cyclobenzaprine Acti ve multivit with minerals/lutein (MULTIVITAMIN 50 PLUS ORAL) Multivitamin Active buPROPion SR (Wellbutrin SR) 100 mg 12 hr tablet every 12 hours Activ e tiotropium (Spiriva with HandiHaler) 18 mcg per inhalation capsule Spiriva HandiHaler A ctive beclomethasone dipropionate (Qvar RediHaler) 80 mcg/actuation inhaler 1 puff every 12 hours Active albuterol (Proair Digihaler) 90 mcg/actuation inhaler every 4 hours Active amitriptyline (ELAVIL) 25 mg tablet daily 05/05/20 20 Active brexpiprazole (Rexulti) 2 mg tablet Take 1.5 tablets (3 mg total) by mouth Active diclofenac sodium (VOLTAREN) 1 % gel 03/26/20 22 Active dicyclomine (BENTYL) 20 mg tablet Take 1 tablet (20 mg total) by mouth Active diphenoxylate-atr opine (LOMOTIL) 2.5-0.025 mg per tablet every 6 hours Active famotidine (PEPCID) 40 mg tablet 09/26/19 23 Active hydrOXYzine (ATARAX) 25 mg tablet every 8 hours 11/13/19 19 Active imipramine (TOFRANIL) 25 mg tablet every 12 hours 11/13/19 19 Active irbesartan (AVAPRO) 150 mg tablet Take 1 tablet (150 mg total) by mouth daily 09/27/19 21 Active LORazepam (ATIVAN) 1 mg tablet lorazepam 1 mg tablet Active mometasone-formot hari (Dulera) 200-5 mcg/actuation inhaler every 12 hours 12/05/19 20 Active omeprazole (PriLOSEC) 20 mg capsule Take by mouth daily before breakfast 02/23/20 21 Active ondansetron ODT (ZOFRAN-ODT) 4 mg disintegrating tablet daily Active promethazine (PHENERGAN) 25 mg tablet TAKE 1/2 TABLET BY MOUTH EVERY 6 HOURS NEEDED 03/18/20 22 Active sertraline (Zoloft) 100 mg tablet two tablets Orally at night for 30 days 07/04/19 23 Active tiotropium (Spiriva with HandiHaler) 18 mcg per inhalation capsule daily 12/28/19 21 Active Anoro Ellipta 62.5-25 mcg/actuation blister with device 10/04/19 23 Active ibuprofen (ADVIL,MOTRIN) 800 mg tabletIndications :Primary osteoarthritis of left knee TAKE 1 TABLET BY MOUTH EVERY SIX HOURS NEEDED FOR PAIN 60 tablet 02/05/20 23 Active solifenacin (VESIcare) 10 mg tabletIndications :Urinary frequency,Urgency of urination,Mixed incontinence urge and stress Take 1 tablet (10 mg total) by mouth daily 30 tablet 5 02/09/20 24 025 Active trospium XR (SANCTURA XR) 60 mg capsule,extended release 24hrIndications:O AB (overactive bladder) Take 1 capsule (60 mg total) by mouth daily 30 capsule 2 02/19/20 24 Active oxyBUTYnin XL (DITROPAN-XL) 10 mg 24 hr tabletIndications :OAB (overactive bladder) Take 1 tablet (10 mg total) by mouth daily 30 tablet 11 07/02/19 25 026 Active Active Problems Problem Noted Date Diagnosed Date Abnormal finding on mammography 10/15/2022 10/15/2022 Menopause 10/15/2022 10/15/2022 Asthma 10/15/2022 10/15/2022 Chronic obstructive pulmonary disease 10/15/2022 10/15/2022 Pulmonary emphysema 10/15/2022 10/15/2022 Pulmonary emphysema 10/15/2022 10/15/2022 Chronic pain syndrome 10/15/2022 10/15/2022 Depressive disorder 10/15/2022 10/15/2022 Disorder of gallbladder 10/15/2022 10/16/19 Encntr for general adult medical exam w/o abnorm al findings 10/15/2022 10/15/2022 Enlarged uterus 10/15/2022 10/15/2022 Gastro-esophageal reflux disease without esophag itis 10/15/2022 10/15/2022 Hepatitis C 10/15/2022 10/15/2022 Mastodynia 10/15/2022 10/15/2022 Osteoporosis 10/15/2022 10/15/2022 Other spondylosis, cervical region 10/15/2022 10/15/2022 Pain in right knee 10/15/2022 10/15/2022 Pain in unspecified joint 10/15/20222022 Tobacco dependence syndrome 10/15/202209/30 Unspecified lump in right breast, subareolar 10/15/2022 Urinary tract infection 10/15/2022 10/16/19 23 Venous stasis 10/15/2022 10/15/2022 Vitamin D deficiency, unspecified 10/15/2022 10/15/2022 Primary osteoarthritis of left knee 04/23/2022 Chronic obstructive pulmonary disease, unspecifi ed 04/03/2022 10/15/2022 Overview (10/15/2022): Last Assessment & Plan: Condition: stable Reviewed trigger avoidance and reviewed proper use of inhalers and rescue medications. Reviewed concerning signs/symptoms and ER precautions. Follow up in: three months Generalized anxiety disorder 04/03/2022 Overview (10/15/2022): Last Assessment & Plan: Condition: stable Radha encouraged on medication compliance, routine exercise, and low caffeine intake. Follow up: tomorrow 04/04/22 w/ [facility] T[facility]OR as scheduled Left knee pain 04/03/2022 10/15/2022 Overview (10/15/2022): Last Assessment & Plan: Condition: stable Member recently referred to Ortho for further management. Follow up in: one month Sedative, hypnotic or anxiolytic dependence, unc omplicated 04/03/2022 10/15/2022 Overview (10/15/2022): Last Assessment & Plan: Condition: Stable Education: Treatment usually includes medicines, group therapy, one or more types of counseling, and education. Medicines may be used to help you quit. They may help to control cravings, ease withdrawal symptoms, and prevent relapse. This treatment is called medication-assisted treatment, or MAT. Treatment focuses on more than substance use. It helps you cope with the feelings that often happen when people try to stop using substances. Reason for use: Anxiety (member not interested in stopping Clonazepam - mental health provider is encouraging member to wean). Duration of use: [facility] Narcan Available: Narcan Yes/No: N/A (non-opioid use) Previous interventions: Interventions: None Are you ready to quit? No Resources reviewed: Provider Online Directory - counseling/rehab/mental health Follow up Provider: Other Follow up: tomorrow 04/04/22 w/ [facility] T[facility]OR as scheduled GERD (gastroesophageal reflux disease) 10/15/2022 Overview (10/15/2022): Last Assessment & Plan: Condition: stable Reviewed use of antacid medication and/or diet modifications of decreasing caffeine, spicy foods, chocolate, and avoiding alcohol, tobacco, NSAIDs, and reducing citrus acids. Follow up in: three months PTSD (post-traumatic stress disorder) 10/05/2020 10/15/2022 Overview (10/15/2022): Last Assessment & Plan: Condition: stable Follow up: tomorrow 04/04/22 w/ [facility] T[facility]OR as scheduled Hypertension 10/05/2020 10/15/2022 Overview (10/15/2022): Last Assessment & Plan: Condition: stable Radha educated on behavior modifications to include DASH diet, increasing intake of vegetables, water and whole foods as well as increasing level of exercise weekly to 3- 4 times after medical clearance from your PCP. Discussed with member, the need to reduce intake of foods high in salt, sugar, fat and preservatives. Member encouraged to stay compliant with medication regimen and behavior modification recommendations in order to achieve a healthier lifestyle and reduce their risks and advised to keep all scheduled appointments. Follow up in: three months Major depressive disorder, recurrent 10/05/2020 10/15/2022 Overview (10/15/2022): Last Assessment & Plan: Condition: stable Last mental health visit six weeks ago Medications: Taking medications as prescribed If taking medications, do not stop treatment without consulting healthcare provider. If symptoms worsen or do not improve/stabilize, notify health care provider right away. If thoughts of harming self or others notify health care provider immediately &/or seek urgent/emergent care including calling Suicide Hotline (694 or ) or 251. Follow up: tomorrow 04/04/22 w/ [facility] T[facility]OR as scheduled Iron deficiency anemia 08/10/2020 Overview (10/15/2022): Last Assessment & Plan: Condition: stable Continue with infusions as scheduled. Follow up in: three months Interstitial cystitis (chronic) without hematuri a 11/16/2018 10/15/2022 Overview (10/15/2022): Last Assessment & Plan: Condition: stable Take related medication as prescribed, alert MD to increase in symptoms or overall worsening of condition. Follow up in: three months Polycythemia 09/20/2016 10/15/2022 Social History Tobacco Use Types Packs/Day Years Used Date Smoking Tobacco: Every Day Smokeless Tobacco: Never Tobacco Cessation:Ready to Q uit: Not Asked; Counseling Given: Not Answered Alcohol Use Standard Drinks/Week Comments No 0 (1 standard drink = 0.6 oz pur e alcohol) Personal Safety Answer Date Recorded Getting School Help Needed Not on file 06/13 Comments Unknown Sex and Gender Information Value Date Recorded Sex Assigned at Not on file Legal Sex Female 2:46 PM CDT Gender Identity Not on file Sexual Orientation Not on file Last Filed Vital Signs Vital Sign Reading Time Taken Comments Blood Pressure 141/90 12/11/2017 10:52 AM CDT Pulse 63 12/11/2017 10:52 AM CDT Temperature - - Respiratory Rate - - Oxygen Saturation - - Inhaled Oxygen Concentration - - Weight 62.6 kg (138 lb) 10/15/2022 2:18 PM CDT Height 157.5 cm (5' 2 ) 10/15/2022 2:18 PM CDT Body Mass Index 25.24 10/15/2022 2:18 PM CDT Plan of Treatment Not on file Insurance [facility] MEDICAID [facility] Care Teams Hot Plate [employer]wood Press 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
--- OUTSIDE RECORDS SUMMARY | 2024-08-06 02:45 | XMS_ITS | Clinical Summary ---
Author Organization [facility] Address [address], [address] [place] [address] Phone Care Team Providers Care Heel Boom Operator Name Role Phone Lna Santos Primary Care Provider [phone] Bernadine Gill MD Unavailable [phone] Buddy Franz MD Unavailable [phone] Allergies Active Allergy Reactions Criticality Noted Date Comments Elemental Sulfur Hives,Swelling 09/20/2016 Penicillins Hives,Swelling 09/20/2016 Sulfa Antibiotics Rash 07/26/2016 Medications buPROPion (WELLBUTRIN) 300 MG TABLET SR 24 HR XL tablet Take 300 mg by mouth every morning. Active albuterol 108 (90 Base) MCG/ACT Aerosol Solution take 2 Puffs by inhalation every 4 hours as needed for Wheezing. Active hydrOXYzine (ATARAX) 25 MG Tablet hydroxyzine HCl 25 mg tablet 1 Active clonazePAM (KlonoPIN) 1 MG Tablet Take 1 mg by mouth 3 times daily. Active sertraline (ZOLOFT) 100 MG Tablet Take 200 mg by mouth daily. Active cyclobenzaprine (FLEXERIL) 10 MG Tablet TAKE 1 TABLET BY MOUTH TWICE DAILY NEEDED 2 Active Diclofenac Sodium (VOLTAREN) 1 % Gel 2 Active dicyclomine (BENTYL) 10 MG Capsule 1 capsule Active Multivitamin-Mi nerals Tablet Take 2 Capsules by mouth. Active promethazine (PHENERGAN) 25 MG Tablet 2 Active Brexpiprazole (Rexulti) 4 MG Tablet 1 tablet Orally at night for 30 days Active irbesartan (AVAPRO) 300 MG Tablet Take 300 mg by mouth daily. 3 Active ibuprofen (MOTRIN) 800 MG Tablet Take 800 mg by mouth. 3 Active oxybutynin (DITROPAN XL) 15 MG TABLET SR 24 HR Take 1 Tablet by mouth daily. 1 Active PEG-3350/Electr olytes (polyethylene glycol) 236 g Recon Soln TAKE BY MOUTH DIRECTED BY OFFICE Active ondansetron (ZOFRAN-ODT) 4 MG TABLET DISPERSIBLE 3 Active hyoscyamine (ANASPAZ, LEVSIN) 0.125 MG Tablet 1 tablet as needed Orally every 4 hrs Active famotidine (PEPCID) 40 MG Tablet Take 1 Tablet by mouth daily. Active pregabalin (LYRICA) 75 MG Capsule Take 75 mg by mouth 2 times daily. 4 Active amitriptyline (ELAVIL) 75 MG Tablet Take 50 mg by mouth daily. Active tiotropium (SPIRIVA) 18 MCG Capsule take 1 Puff by inhalation daily. 4 Active omeprazole (PriLOSEC) 40 MG CAPSULE DELAYED RELEASE 5 Active traZODone (DESYREL) 150 MG Tablet 5 Active omeprazole (PriLOSEC) 20 MG CAPSULE DELAYED RELEASEIndicati ons:Iron deficiency anemia, unspecified iron deficiency anemia type,Polycythem ia TAKE 1 CAPSULE BY MOUTH EVERY DAY BEFORE A MEAL 1 025 Discontin ued(Med List Clean Up) pantoprazole (PROTONIX) 40 MG Tablet Delayed Response 1 tablet Orally Once a day 3 025 Discontin ued(Med List Clean Up) traZODone HCl 300 MG Tablet Take 150 mg by mouth nightly. 4 025 Discontin ued(Med List Clean Up) Active Problems Problem Noted Date Diagnosed Date Nicotine dependence with nicotine-induced disord er 10/30/2022 Pulmonary nodules 10/30/2022 Vitamin D deficiency 10/21/2022 Screening mammogram, encounter for 10/21/2022 Weakness 10/21/2022 Iron deficiency anemia 08/10/2020 Polycythemia 09/20/2016 Hypertension Encounters Date Type Department Care Team Description 07/28/2024 9:30 AM [employer] Office Visit [facility] [address] [phone] Rosa Miranda, EARLY CHILDHOOD DIRECTOR, EYEWEAR MANUFACTURING TECH Iron deficiency anemia, unspecified iron deficiency anemia type (Primary Dx); Secondary polycythemia; Weakness 07/28/2024 9:15 AM [employer] Lab [facility] [address] [phone] [facility] Iron deficiency anemia, unspecified iron deficiency anemia type; Polycythemia; Weakness 07/28/2024 Travel from Last 3 Months Family History Medical History Relation Name Comments Cancer Brother lung Clotting Disorder Brother Cancer Father lung Diabetes Father Osteoarthritis Father Cancer Mother lung Tuberculosis Mother Cancer Sister uterine Clotting Disorder Sister Heart Disease Sister Osteoarthritis Sister Relation Name Status Comments Brother Father Mother Sister Social History Tobacco Use Types Packs/Day Years Used Date Smoking Tobacco: Former Cigarettes 1 43.2 S tarted: 1982 Smokeless Tobacco: Never Tobacco Cessation:Counseling Given: Not Answered Alcohol Use Standard Drinks/Week Comments No 0 (1 standard drink = 0.6 oz pur e alcohol) PHQ-2 Answer Date Recorded Total Score - Questions 1-9 0 09/30 Comments No Sex and Gender Information Value Date Recorded Sex Assigned at Not on file Legal Sex Female 3:39 PM CDT Gender Identity Not on file Sexual Orientation Not on file Last Filed Vital Signs Vital Sign Reading Time Taken Comments Blood Pressure 144/98 07/28/2024 9:28 AM [employer] Pulse 80 07/28/2024 9:28 AM [employer] Temperature 36.7 C (98 F) 07/28/2024 9:28 AM [employer] Respiratory Rate 18 07/28/2024 9:28 AM [employer] Oxygen Saturation 95% 07/28/2024 9:28 AM [employer] Inhaled Oxygen Concentration - - Weight 69.4 kg (153 lb) 07/28/2024 9:28 AM [employer] Height 157.5 cm (5' 2 ) 07/28/2024 9:28 AM [employer] Body Mass Index 27.98 07/28/2024 9:28 AM [employer] Plan of Treatment Upcoming Encounters Date Type Department Care Team (Late st Contact Info) Description 11/24/2024 9:15 AM CDT Lab [facility] [address] [phone] Lab, Cc [facility] 11/24/2024 9:30 AM CDT Office Visit [facility] [address] [address] Buddy Franz MD [address] [place] [phone] Health Maintenance Due Date Last Done Comments Hepatitis C Virus (HCV) Screening 1965 Mammogram 1963 Pap Smear 1984 Cervical Cancer Screening (CCS) 1993 HPV/Cotest 1993 Colonoscopy 2008 Colorectal Cancer Screening 2008 Cologuard 2013 Immunochemical Fecal Occult Blood 2013 Pneumococcal Immunization (5 0+ years) (1 of 1 - PCV) 2013 Zoster Immunization (1 of 2) 2013 Influenza Immunization (#1) 2024 SARS-COV-2 Immunization ( - season) 2024 Respiratory Syncytial Virus (RSV) Immunization (Adult) (1 - 1-dose 75+ series) 2038 DTaP/Tdap/Td Immunization Discontinued 02/22/2016 TdaP Immunization Completed 02/22/2016 Hepatitis B Immunization Aged Out No longer eligible based on patient's age to complete this topic Meningococcal Immunization (ACWY) Aged Out No longer eligible based on patient's age to complete this topic Rotavirus Immunization Aged Out No lo nger eligible based on patient's age to complete this topic Procedures Procedure Name Priority Date/Time Associated Diagnosis Comments CBC WITH AUTO DIFF [place] Routine 07/28/2024 9:01 AM [employer] VITAMIN B12 [id number] [place] Routine 07/28/2024 9:01 AM [employer] IRON AND TIBC [id number] [place] Routine 07/28/2024 9:01 AM [employer] FOLATE [id number] [place] Routine 07/28/2024 9:01 AM [employer] FERRITIN [id number] [place] Routine 07/28/2024 9: 01 AM [employer] CMP (COMPREHENSIVE METABOLIC PANEL) Routine 07/28/2024 9:01 AM [employer] Iron deficiency anemia, unspecified iron deficiency anemia type Polycythemia Weakness from Last 3 Months Results * VITAMIN B12 [id number] [place] (07/28/2024 9:01 AM [employer]) VITAMIN B12 481 232 - 1,245 pg/mL [facility] 07/28/2024 9:01 AM [employer] Narrative [facility] - 07/29/2024 7:08 AM [employer] Testing performed at: [] [facility] [address], [address], , Body Recall Instructor: Claudy Orourke, PhD Chayo Loza APRN, CNP LAB SEND OUTS Fin al Result [facility] [place] [address], * (ABNORMAL) IRON AND TIBC [id number] [place] (07/28/2024 9:01 AM [employer]) Iron Bind.Cap.(TIBC) 243(L) 250 - 450 ug/dL [facility] UIBC 187 118 - 369 ug/dL [facility] Iron, Serum 56 27 - 139 ug/dL [facility] Iron Saturation 23 15 - 55 % [facility] 07/28/2024 9:01 AM [employer] Narrative [facility] - 07/29/2024 7:08 AM [employer] Testing performed at: [] [facility], [address] [place], [address], , Body Recall Instructor: Claudy Orourke, PhD Chayo Loza APRN, GRACE LAB SEND OUTS Fin al Result Performing Organization Address [facility] Co de Phone Number [facility] [address] [place] [address], * FOLATE [id number] [place] (07/28/2024 9:01 AM [employer]) Folate (Folic Acid), Serum 9.9 >3.0 ng/mL [facility] Comment: A serum folate concentration of less than 3.1 ng/mL is considered to represent clinical deficiency. 07/28/2024 9:01 AM [place] Kam [facility] - 07/29/2024 7:08 AM [employer] Testing performed at: [] [facility], [address] [place] [address], [phone], , Body Recall Instructor: Claudy rOourke, PhD Chayo Loza APRN, EYEWEAR MANUFACTURING TECH LAB SEND OUTS Fin al Result Performing Organization Address [facility] Co de Phone Number [facility] [address] [place] [address], * FERRITIN [id number] [place] (07/28/2024 9:01 AM [employer]) Ferritin, Serum 83 15 - 150 ng/mL [facility] 07/28/2024 9:01 AM [employer] [facility] - 07/29/2024 1:08 PM [employer] Testing performed at: [] [facility], [address] [place] [address], [id number], , Body Recall Instructor: Vincent Ricchiuti, PhD us Chayo Loza EARLY CHILDHOOD DIRECTOR, EYEWEAR MANUFACTURING TECH LAB SEND OUTS Fin al Result [facility] D[facility] [address], [place] [phone] * (ABNORMAL) CBC WITH AUTO DIFF [place] (07/28/2024 9:01 AM [employer]) WBC 4.5 4.0 - 10.0 10*3/uL [facility] HGB 14.2 11.2 - 15.7 g/dL [facility] HCT 42.9 34.1 - 44.9 % [facility] PLT 156(L) 163 - 369 10*3/uL [facility] MPV 9.2(L) 9.4 - 12.4 fL [facility] RBC 4.89 3.93 - 5.22 10*6/uL [facility] MCV 88 79 - 95 fL [facility] MCH 29.0 25.6 - 32.2 pg [facility] MCHC 33.1 32.2 - 36.5 g/dL [facility] RDW 13.0 11.6 - 14.4 % [facility] Neutrophils % 58.0 36.0 - 66.0 % [facility] Lymphocytes % 30.7 19.0 - 40.0 % [facility] Monocytes % 7.8 4.1 - 12.1 % [facility] Eosinophils % 2.2 0.0 - 3.5 % [facility] Basophils % 1.1(H) 0.0 - 1.0 % [facility] Absolute Neutrophils 2.6 1.4 - 6.6 10*3/uL [facility] Absolute Lymphocytes 1.4 0.8 - 4.0 10*3/uL [facility] Absolute Monocytes 0.4 0.2 - 1.2 10*3/uL [facility] Absolute Eosinophils 0.1 0.0 - 0.4 10*3/uL [facility] Absolute Basophils 0.1 0.0 - 0.1 10*3/uL [facility] 07/28/2024 9:01 AM [employer] Chayo Loza APRN, EYEWEAR MANUFACTURING TECH LAB SEND OUTS Fin al Result [facility] [address] [place] [address], * (ABNORMAL) CMP (COMPREHENSIVE METABOLIC PANEL) (07/28/2024 9:01 AM [employer]) Glucose 101 70 - 105 mg/dL [facility] Blood Urea Nitrogen 9 7 - 25 mg/dL [facility] Creatinine 1.0 0.6 - 1.2 mg/dL [facility] Sodium 139 136 - 145 mEq/L [facility] Potassium 3.6 3.5 - 5.1 mEq/L [facility] Chloride 102 98 - 107 mEq/L [facility] Bicarbonate 28 21 - 31 mEq/L [facility] Total Bilirubin 0.6 0.3 - 1.0 mg/dL [facility] Alk. Phosphatase 70 34 - 104 U/L [facility] Aspartate Aminotransferase 16 13 - 39 U/L [facility] Alanine Aminotransferase 15 7 - 52 U/L [facility] Total Protein 6.4 6.4 - 8.9 g/dL [facility] Albumin 4.5 3.5 - 5.7 g/dL [facility] Calcium 9.4 8.6 - 10.3 mg/dL [facility] Anion Gap 12.6 7.0 - 15.0 mEq/L [facility] Globulin 1.9(L) 2.0 - 3.5 g/dL [facility] EGFR 64 >60 ml/min/1. 73m2 [facility] Comment: This eGFR is calculated using 2020 CKD-EPI Creatinine equation without race modifier based on the NKF-ASN task force recommendations Blood 07/28/2024 9:01 AM [employer] Narrative [facility] - 07/28/2024 9:58 AM [employer] Release to patient->Immediate IS THE PATIENT REQUIRED TO BE FASTING FOR 8 HOURS?->No Chayo Loza APRN, GRACE CHEMISTRY ORDERABLE S Final Result [facility] [place] [address], from Last 3 Months Insurance MEDICAID [place] Care Teams Heel Boom Operator Relationship Specialty Start Date End Date Santos Montenegro [address] [place] [address] PCP - General Family Medicine 09/20/16 Bernadine Gill MD [address] [place] [address] Internal Medicine 09/20/16 Buddy Franz MD [address] [place] [address] Consulting Physician Oncology 07/28/24
--- OUTSIDE RECORDS SUMMARY | 2024-08-06 02:45 | XMS_ITS | Encounter Summary ---
Author Organization [facility] Address [address] [place] [address] Phone Care Team Providers Care Molding Utility Worker Name Role Phone Santos Montenegro Primary Care Provider Bernadine Gill MD Unavailable [phone] Uriah Florentino MD Unavailable Buddy Franz MD Unavailable [phone] Encounter Details Date Type Department Care Team (Late st Contact Info) Description 04/16/2022 Telephone [facility] [place] [address] [place] [address] Buddy Franz MD [address] [place] [address] Social History Tobacco Use Types Packs/Day Years Used Date Smoking Tobacco: Every Day Cigarettes 0.5 32.9 Started: 09/21/1991 Smokeless Tobacco: Never Alcohol Use Standard Drinks/Week Comments No 0 (1 standard drink = 0.6 oz pur e alcohol) PHQ-2 Answer Date Recorded Total Score - Questions 1-9 0 09/30 Comments No Sex and Gender Information Value Date Recorded Sex Assigned at Not on file Legal Sex Female 3:39 PM CDT Gender Identity Not on file Sexual Orientation Not on file documented as of this encounter Miscellaneous Notes * Telephone Encounter - Cheri Hinojosa - 04/16/2022 8:51 AM CST PT CALLED TO YURIDIA HER NO SHOW APPT FROM 04/15. PT HAS NO SHOW, OR CANCEL MOST OF HER APPT R HELPER documented in this encounter Plan of Treatment Upcoming Encounters Date Type Department Care Team (Late st Contact Info) Description 11/24/2024 9:15 AM CDT Lab [facility] [address] [phone] Lab, Cc [facility] 11/24/2024 9:30 AM CDT Office Visit [facility] [address] [phone] Buddy Franz MD [address] [place] [phone] documented as of this encounter Visit Diagnoses Not on filedocumented in this encounter Additional Health Concerns Assessment Noted Time PHQ-9 Depression Total Score: 1 02/27/20 21 1:19 PM CDT documented as of this encounter Care Teams Molding Utility Worker Relationship Specialty Start Date End Date Santos Montenegro [address] [place] [address] PCP - General Family Medicine 09/20/16 Bernadine Gill MD [address] [place] [address] Internal Medicine 09/20/16 Uriah Florentino MD [address] [place] [phone] Consulting Physician Oncology 12/05/23 07/27/24 Buddy Franz MD [address] [place] [phone] Consulting Physician Oncology 07/28/24 documented as of this encounter
--- OUTSIDE RECORDS SUMMARY | 2024-08-06 02:45 | XMS_ITS | Clinical Summary ---
Author Organization [facility] Address [address] [place] [address] Care Team Providers Care Strategic Planning Specialist Name Role Phone Santos Montenegro MD Primary Care Provider Allergies Active Allergy Reactions Criticality Noted Date [...] 10/15/2022 10/15/2022 Disorder of gallbladder 10/15/2022 10/16/19 23 Encntr for general adult medical exam w/o [...] caffeine intake. Follow up: tomorrow 04/04/22 w/ ANIMAL CARE SERVICE WORKER as scheduled Left knee pain 04/03/2022 10/15/2022 [...] encouraging member to wean). 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 No Resources reviewed: Provider Online Directory - counseling/rehab/mental health Follow up Provider: Other Follow up: tomorrow 04/04/22 w/ ANIMAL CARE SERVICE WORKER as scheduled GERD (gastroesophageal reflux disease) 10/15/2022 Overview (10/15/2022): Last Assessment & Plan: Condition: stable Reviewed use of antacid medication and/or diet modifications of decreasing caffeine, spicy foods, chocolate, and avoiding alcohol, tobacco, NSAIDs, and reducing citrus acids. Follow up in: three months PTSD (post-traumatic stress disorder) 10/05/2020 10/15/2022 Overview (10/15/2022): Last Assessment & Plan: Condition: stable Follow up: tomorrow 04/04/22 w/ ANIMAL CARE SERVICE WORKER as scheduled Hypertension 10/05/2020 10/15/2022 Overview (10/15/2022): [...] seek urgent/emergent care including calling Suicide Hotline (056 or ) or 923. Follow up: tomorrow 04/04/22 w/ ANIMAL CARE SERVICE WORKER as scheduled Iron deficiency anemia 08/10/2020 Overview [...] up in: three months Polycythemia 09/20/2016 10/15/2022 Encounters Date Type Department Care Team Description 06/11/2024 Telephone [facility] Surgery [address] [place] [address] Claudia Khan 06/09/2024 [address] [facility] Urology [address] [facility] 11[address] [place] [address] [place] [address] Meghna Valerio from Last 3 Months Surgical History Surgery Date Site/Laterality Comments CHOLECYSTECTOMY 01/02/2016 Medical History Medical History Date Comments Hypertension Poor circulation Asthma Emphysema of lung (HCC) Osteoporosis Infectious viral hepatitis Bleeding disorder Depression Family History Medical History Relation Name Comments Alcohol abuse Other Arthritis Other Cancer Other Heart disease Other Hypertension Other Lung disease Other Relation Name Status Comments Other Social History Tobacco Use Types Packs/Day Years [...] on file Sexual Orientation Not on file Obstetrics History Last Filed Vital Signs Vital Sign Reading [...] 10/15/2022 2:18 PM CDT Plan of Treatment Health Maintenance Due Date Last Done Comments Breast Cancer Screening-Mammogram 1965 Cervical Cancer Screening 1963 Colon Cancer Screening-Colonoscopy 1963 Depression Screening 1963 Hepatitis B Screening 1981 Regular Well Visit/Exam 18-64 1981 Pneumococcal vaccine <65 (1 of 2 - PCV) 1982 Zoster Vaccine (1 of 2) 2013 Influenza Vaccine (#1) 2024 DTaP/Tdap/Td Vaccine (2 - Td or Tdap) 02/21/2026 Hepatitis C Screening Completed 10/15/2022 Insurance [facility] MEDICAID [facility] Care Teams Strategic Planning Specialist Relationship Specialty Start Date End Date Santos Montenegro MD [address] [place] [address] PCP - General Family Medicine 04/23/22
--- OUTSIDE RECORDS SUMMARY | 2024-08-06 02:46 | XMS_ITS | Encounter Summary ---
Author Organization [facility] Address [address] [place] [address] Phone Care Team Providers Care Tool And Die Repair Name Role Phone Santos Montenegro Primary Care Provider Bernadine Gill MD Unavailable Uriah Florentino MD Unavailable [phone] Buddy Franz MD Unavailable Encounter Details Date Type Department Care Team (Late st Contact Info) Description 11/13/2020 Telephone [facility] [address] [place] [address] Buddy Franz MD [address] [place] [address] Social History Tobacco Use Types Packs/Day Years Used Date Smoking Tobacco: Every Day Cigarettes 0.5 32.9 Started: 09/21/1991 Smokeless Tobacco: Never Alcohol Use Standard Drinks/Week Comments No 0 (1 standard drink = 0.6 oz pur e alcohol) PHQ-2 Answer Date Recorded Total Score - Questions 1-9 1 10/31 Comments No Sex and Gender Information Value Date Recorded Sex Assigned at Not on file Legal Sex Female 3:39 PM CDT Gender Identity Not on file Sexual Orientation Not on file documented as of this encounter Miscellaneous Notes * Telephone Encounter - Angela Iverson - 11/13/2020 8:18 AM CDT PATIENT CALLED AND HAD FORGOTTEN ABOUT HER APPT THIS WED SO SHE MADE ANOTHER APPT AT THAT TIME. PT RESCHEDULED TO Friday MORNING. documented in this encounter Plan of Treatment Upcoming Encounters Date Type Department Care Team (Late st Contact Info) Description 11/24/2024 9:15 AM CDT Lab [facility] [address] [address] Lab, [facility] 11/24/2024 9:30 AM CDT Office Visit [facility] [address] [phone] Buddy Franz MD [address] [place] [phone] documented as of this encounter Visit Diagnoses Not on filedocumented in this encounter Additional Health Concerns Assessment Noted Time PHQ-9 Depression Total Score: 0 09/26/19 21 2:05 PM CDT documented as of this encounter Care Teams Tool And Die Repair Relationship Specialty Start Date End Date Santos Montenegro [address] [place] [place] [address] PCP - General Family Medicine 09/20/16 Bernadine Gill MD [address] [facility] [address] Internal Medicine 09/20/16 Uriah Florentino MD [address] [place] [phone] Consulting Physician Oncology 12/05/23 07/27/24 Buddy Franz MD [address] [place] [phone] Consulting Physician Oncology 07/28/24 documented as of this encounter
--- OUTSIDE RECORDS SUMMARY | 2024-08-06 02:46 | XMS_ITS | Encounter Summary ---
Author Organization [facility] Address [address] [place] [address] Phone Care Team Providers Care Frame Maker Name Role Phone Santos Montenegro Primary Care Provider [phone] Bernadine Gill MD Unavailable Uriah Florentino MD Unavailable [phone] Buddy Franz MD Unavailable [phone] Encounter Details Date Type Department Care Team (Late st Contact Info) Description 11/06/2020 Telephone [facility] [address] [place] [address] Buddy Franz MD [address] [place] [address] Social History Tobacco Use Types Packs/Day Years Used Date Smoking Tobacco: Every Day Cigarettes 0.5 32.9 Started: 09/21/1991 Smokeless Tobacco: Never Alcohol Use Standard Drinks/Week Comments No 0 (1 standard drink = 0.6 oz pur e alcohol) PHQ-2 Answer Date Recorded Total Score - Questions 1-9 0 09/01 Comments No Sex and Gender Information Value Date Recorded Sex Assigned at Not on file Legal Sex Female 3:39 PM CDT Gender Identity Not on file Sexual Orientation Not on file documented as of this encounter Miscellaneous Notes * Telephone Encounter - Radha Gomez RMA - 11/07/2020 8:12 AM CDT Images from the original note were not included. Buddy Franz MD Fieker, Elizabeth A; [facility] 16 hours ago (4:06 PM) MW Call when she is able not much I can do thanks Message text * Telephone Encounter - Angela Iverson - 11/06/2020 3:49 PM CDT I CALLED AND SPOKE TO THE PT AND SHE SAYS THE REASON SHE HAS NOT MAKE AN APPT WITH DR CHEUNG IS BC SHE HAS NO ONE THAT CAN GIVE HER A RIDE THERE. THE PATIENT SAYS SHE RELYS ON HER DAUGHTER AND SHE JUST GOT A NEW JOB AND CAN NOT TAKE OFF RIGHT NOW TO TAKE HER PLACES. WHAT WOULD YOU RECOMMEND? documented in this encounter Plan of Treatment Upcoming Encounters Date Type Department Care Team (Late st Contact Info) Description 11/24/2024 9:15 AM CDT Lab [facility] [address] [phone] Lab, Gaby [facility] 11/24/2024 9:30 AM CDT Office Visit [facility] [address] [phone] Buddy Franz MD [address] [place] [phone] documented as of this encounter Visit Diagnoses Not on filedocumented in this encounter Additional Health Concerns Assessment Noted Time PHQ-9 Depression Total Score: 0 09/26/19 2:05 PM CDT documented as of this encounter Care Teams Frame Maker Relationship Specialty Start Date End Date Santos Montenegro [address] [place] [address] PCP - General Family Medicine 09/20/16 Bernadine Gill MD [address] [place] [address] Internal Medicine 09/20/16 Uriah Florentino MD [address] [place] [address] Consulting Physician Oncology 12/05/23 07/27/24 Buddy Franz MD [address] [place] [address] Consulting Physician Oncology 07/28/24 documented as of this encounter
--- OUTSIDE RECORDS SUMMARY | 2024-08-06 02:46 | XMS_ITS | Encounter Summary ---
Author Organization [facility] Address [address] [place] [address] Phone Care Team Providers Care Personnel Representative Name Role Phone Santos Montenegro Primary Care Provider [phone] Bernadine Gill MD Unavailable Uriah Florentino MD Unavailable [phone] Buddy Franz MD Unavailable Encounter Details Date Type Department Care Team (Late st Contact Info) Description 10/17/2020 Telephone [facility] [address] [place] [address] Buddy Franz MD [address] [place] [phone] Social History Tobacco Use Types [...] on file Sexual Orientation Not on file COVID-19 Exposure Response Date Recorded In the last month, have you been in contact with someone who was confirmed or suspected to have Coronavirus / COVID-19? No / Unsure 09/25/2020 1:41 PM CDT documented as of this encounter Miscellaneous Notes * Telephone Encounter - Angela Iverson - 10/17/2020 3:29 PM CDT SHIN FROM DR CONNORS OFFICE CALLED AND THEY HAVE TRIED MULTIPLE TIMES TO REACH THE PT AND NO RETURNCALL HAS BEEN RECEIVED FROM THE PT. THEY HAVE ALSO MAILED A LETTER TO THE PATIENT WITH NO RESPONSE.WHAT WOULD YOU LIKE TO DO WITH THIS REFERRAL? documented in this encounter Plan of Treatment Upcoming Encounters Date Type Department Care Team (Late st Contact Info) Description 11/24/2024 9:15 AM CDT Lab [facility] [address] [phone] Lab, [facility] 11/24/2024 9:30 AM CDT Office Visit [facility] [address] [phone] Buddy Franz MD [address] [place] [phone] documented as of this encounter Visit Diagnoses Not on filedocumented in this encounter Additional Health Concerns Assessment Noted Time PHQ-9 Depression Total Score: 0 09/26/19 21 2:05 PM CDT documented as of this encounter Care Teams Personnel Representative Relationship Specialty Start Date End Date Santos Montenegro [address] [place] [address] PCP - General Family Medicine 09/20/16 Bernadine Gill MD [address] [place] [address] Internal Medicine 09/20/16 Uriah Florentino MD [address] [place] [phone] Consulting Physician Oncology 12/05/23 07/27/24 Buddy Franz MD [address] [place] [phone] Consulting Physician Oncology 07/28/24 documented as of this encounter
--- OUTSIDE RECORDS SUMMARY | 2024-08-06 02:46 | XMS_ITS | Data Portability ---
Author Organization [facility] Address [address] [facility] [place] [address] Care Team Providers Care Security And Compliance Analyst Name Role Phone ЕКАТЕРИНА GILL Computer Systems Hardware Analyst Assessment Encounter Date Assessment Date Assessment LastModified by Organization Details LastModified Time 12/27/2015 12/27/2015 Petra Latham is a 50 y/o postmenopausal female who presents for annual well woman exam. Patient complains of right breast tenderness with h/o abnormal mammogram in July 2014. No breast masses appreciated on physical exam, although patient endorsed tenderness of right breast. Bimanual exam revealed enlarged uterus with tenderness. 1. Annual Voice Over Announcer exam: pelvic exam, pap smear performed 2. Right breast tenderness, abnormal mammogram: Mammogram ordered. Refer to breast surgeon 3. Enlarged Uterus: US transabdominal, transvaginal ordered 4. H/o Osteoporosis: Bone Density scan ordered Not available 12/27/2015 11:54:09 04/12/2016 04/12/2016 Discussed result s of ultrasound of the pelvis and screening bone densty test. Both negative. Not available 04/12/2016 11:43:26 Plan of Treatment Reminders Order Date Submit Date Provider Last Modified By Organization Details Last Modified Time Details Appointments None recorded. Lab urinalysis, dipstick 2015 016 In-Office Order, Internal Use Only DO Not Attach Compendium DO Not Attach Compendium, Do Not Delete/merge, [id number] 6 11:54:09 pap, IG + HPV, cervical 2015 016 [facility], [address] [place] [address], [address], [place], [address], 6 06:05:48 Referral vascular surgeon referral 2015 016 [email or web address] Jos eA Velásquez MD, [address] [facility], [facility] [address], [place], [address], 7 09:27:[address] referral - Please contact patient to schedule 2015 016 NURIS Gill MD, [address] [place], [address], 6 13:12:12 Procedures None recorded. Surgeries None recorded. Imaging bone density 2015 016 [facility] ([facility]), [address] [place], [address], 6 15:54:23 US, doppler, venous 2015 016 [facility] ([facility]), [address] [place], [address], 6 13:27:40 MAMMO, diagnostic, digital, bilateral 2015 [facility]16 [facility] ([facility]), [address] [place], [address], 6 14:04:27 US, pelvis, transabdomi nal + transvagina l 2015 016 [facility] ([facility]), [address] [place], [address], 6 11:54:08 MAMMO, diagnostic, digital, bilateral 2015 016 [email or web address] Not available 6 09:47:41 US, pelvis, transabdomi nal + transvagina l 2015 016 [facility] (Im[facility]), [address] [facility] [address] [place] [address], [address], 6 12:32:10 Medication Orders amlodipine 10 mg tablet 2015 016 [facility], [address] [place] [address] , [address], [place], [place], [id number], 6 04:29:32 aspirin 81 mg tablet,paris yed release 2015 016 [facility], [address] [place] [address] , [address], [place], [place], [id number], 6 04:29:29 Patient TargetsNo targets recorded. Patient Instructions Encounter Date Encounter Id Patient Instructions Last Modified By Organization Details Last Modified Time 12/27/2015 [id number] mammogram: about this test Not available 12/27/2015 11:54:09 02/20/2016 [id number] Patient declined flu vaccine Will give patient orders for mammogram and pelvic US to be completed at [facility] and then will send to Dr. Mejia Discussed with patient that she needs to let us know when she is having issues - that we cannot help her when she does not tell us that her feet feel heavy and she is having issues walking - patient v/u Will send for pulmonology notes Once patient has imaging completed and see vascular surgery she will RTC eewig Not available 02/20/2016 18:45:09 03/19/2016 [id number] Patient states that she never received the Tdap vaccine at the last visit - however it is in her chart [email or web address] Not available 03/19/2016 14:10:34 Reason for Referral Computer Systems Hardware Analyst Referral for P ulmonary emphysema Please contact patient to schedule Referring Physician: [facility], Encounter Date: 12/29/2015 Vascular Surgeon Referral fo r Venous stasis Referring Physician: [facility], Encounter Date: 02/20/2016 Results Created Date Observation Date Name Description Value Unit Range Abnormal Flag Note LastModifiedBy Organization Detail LastModifiedTime 12/27/19 16 12/27/2015 urina lysis , dipst ick Leukocytes Not Available In-Offi ce Order Internal Use Only DO Not Attach Compendium DO Not Attach Compendium, Do Not Delete/merge, 12/27/2015 10:34:12/27/19 16 12/27/2015 urina lysis , dipst ick Leukocytes Negati ve Not Available In-Office Order Internal Use Only DO Not Attach Compendium DO Not Attach Compendium, Do Not Delete/merge, 12/27/2015 10:34:12/27/19 16 12/27/2015 urina lysis , dipst ick Nitrite Not Available In-Office Order Internal Use Only DO Not Attach Compendium DO Not Attach Compendium, Do Not Delete/merge, 12/27/2015 10:34:12/27/1912/27/2015 urina lysis , dipst ick Nitrite negati ve Not Available In-Office Order Internal Use Only DO Not Attach Compendium DO Not Attach Compendium, Do Not Delete/merge, 12/27/2015 10:34:12/27/1912/27/2015 urina lysis , dipst ick Urobilinogen Not Available In-Of fice Order Internal Use Only DO Not Attach Compendium DO Not Attach Compendium, Do Not Delete/merge, 12/27/2015 10:34:12/27/1912/27/2015 urina lysis , dipst ick Urobilinogen .2 Not Available In-Of fice Order Internal Use Only DO Not Attach Compendium DO Not Attach Compendium, Do Not Delete/merge, 12/27/2015 10:34:12/27/1912/27/2015 urina lysis , dipst ick Protein Not Available In-Office Order Internal Use Only DO Not Attach Compendium DO Not Attach Compendium, Do Not Delete/merge, 12/27/2015 10:34:12/27/1912/27/2015 urina lysis , dipst ick Protein Negati ve Not Available In-Office Order Internal Use Only DO Not Attach Compendium DO Not Attach Compendium, Do Not Delete/merge, 12/27/2015 10:34:12/27/1912/27/2015 urina lysis , dipst ick pH Not Available In-Office Order Internal Use Only DO Not Attach Compendium DO Not Attach Compendium, Do Not Delete/merge, 12/27/2015 10:34:12/27/19 16 12/27/2015 urina lysis , dipst ick pH 6.5 Not Available In-Office Order Internal Use Only DO Not Attach Compendium DO Not Attach Compendium, Do Not Delete/merge, 12/27/2015 10:34:12/27/1912/27/2015 urina lysis , dipst ick Blood Not Available In-Office Order Internal Use Only DO Not Attach Compendium DO Not Attach Compendium, Do Not Delete/merge, 12/27/2015 10:34:12/27/19 16 12/27/2015 urina lysis , dipst ick Blood Negati ve Not Available In-Office Order Internal Use Only DO Not Attach Compendium DO Not Attach Compendium, Do Not Delete/merge, 12/27/2015 10:34:12/27/1912/27/2015 urina lysis , dipst ick Specific [place] Not Available In-Off ice Order Internal Use Only DO Not Attach Compendium DO Not Attach Compendium, Do Not Delete/merge, 12/27/2015 10:34:12/27/1912/27/2015 urina lysis , dipst ick Specific [place] 1.010 Not Available In-Off ice Order Internal Use Only DO Not Attach Compendium DO Not Attach Compendium, Do Not Delete/merge, 12/27/2015 10:34:12/27/1912/27/2015 urina lysis , dipst ick Ketone Not Available In-Office Order Internal Use Only DO Not Attach Compendium DO Not Attach Compendium, Do Not Delete/merge, 12/27/2015 10:34:12/27/19 16 12/27/2015 urina lysis , dipst ick Ketone Negati ve Not Available In-Office Order Internal Use Only DO Not Attach Compendium DO Not Attach Compendium, Do Not Delete/merge, 12/27/2015 10:34:19 12/27/19 16 12/27/2015 urina lysis , dipst ick Bilirubin Not Available In-Offic e Order Internal Use Only DO Not Attach Compendium DO Not Attach Compendium, Do Not Delete/merge, 12/27/2015 10:34:19 12/27/19 16 12/27/2015 urina lysis , dipst ick Bilirubin Negati ve Not Available In-Office Order Internal Use Only DO Not Attach Compendium DO Not Attach Compendium, Do Not Delete/merge, 12/27/2015 10:34:19 12/27/19 16 12/27/2015 urina lysis , dipst ick Glucose Not Available In-Office Order Internal Use Only DO Not Attach Compendium DO Not Attach Compendium, Do Not Delete/merge, 12/27/2015 10:34:19 12/27/19 16 12/27/2015 urina lysis , dipst ick Glucose Negati ve Not Available In-Office Order Internal Use Only DO Not Attach Compendium DO Not Attach Compendium, Do Not Delete/merge, 12/27/2015 10:34:19 12/27/19 16 12/27/2015 urina lysis , dipst ick Appearance Not Available In-Offi ce Order Internal Use Only DO Not Attach Compendium DO Not Attach Compendium, Do Not Delete/merge, 12/27/2015 10:34:19 12/27/19 16 12/27/2015 urina lysis , dipst ick Color Not Available In-Office Order Internal Use Only DO Not Attach Compendium DO Not Attach Compendium, Do Not Delete/merge, 12/27/2015 10:34:19 12/05/19 16 12/06/2015 CBC WBC 6.7 x10e3 /uL 3.4-10 .8 Not Available [facility] ([facility]) [address] [place], [address], 12/06/2015 06:13:05 12/05/19 16 12/06/2015 CBC RBC 4.51 x10e6 /uL 3.77-5 .28 Not Available [facility] ([facility]) [address] [facility] [place], [id number], 12/06/2015 06:13:05 12/05/19 16 12/06/2015 CBC hemoglobin 12.9 g/dL 11.1-1 5.9 Not Available [facility] ([facility]) [address] [place], [address], 12/06/2015 06:13:05 12/05/19 16 12/06/2015 CBC hematocrit 39.7 % 34.0-4 6.6 Not Available [facility] ([facility]) [address] [place], [address], 12/06/2015 06:13:05 12/05/19 16 12/06/2015 CBC MCV 88 fL 79-97 Not Available [facility] ([facility]) [address] [facility] [place], [id number], 12/06/2015 06:13:05 12/05/19 16 12/06/2015 CBC MCH 28.6 pg 26.6-3 3.0 Not Available [facility] ([facility]) [address] [place], [address], 12/06/2015 06:13:05 12/05/19 16 12/06/2015 CBC MCHC 32.5 g/dL 31.5-3 5.7 Not Available [facility] ([facility]) [address] [place], [address], 12/06/2015 06:13:05 12/05/19 16 12/06/2015 CBC RDW 16.1 % 12.3-1 5.4 above high normal Not Available [facility] ([facility]) [address] [place], [id number], 12/06/2015 06:13:05 12/05/19 16 12/06/2015 CBC platelets 233 x10e3 /uL 150-37 9 Not Available [facility] ([facility]) [address] [place], [id number], 12/06/2015 06:13:05 12/05/19 16 12/06/2015 CBC neutrophils 52 % Not Avai lable [facility] ([facility]) [address] [place], [address], 12/06/2015 06:13:05 12/05/19 16 12/06/2015 CBC lymphs 35 % Not Available [facility] ([facility]) [address] [place], [address], 12/06/2015 06:13:05 12/05/19 16 12/06/2015 CBC monocytes 7 % Not Availa ble [facility] ([facility]) [address] [place], [address], 12/06/2015 06:13:05 12/05/19 16 12/06/2015 CBC eos 5 % Not Available [facility] ([facility]) [address] [place], [address], 12/06/2015 06:13:05 12/05/19 16 12/06/2015 CBC basos 1 % Not Available [facility] ([facility]) [address] [place], [address], 12/06/2015 06:13:05 12/05/19 16 12/06/2015 CBC immature cells HEATER HELPER FORGE Not Available [facility] ([facility]) [address] [place], [address], 12/06/2015 06:13:05 12/05/19 16 12/06/2015 CBC neutrophils (absolute) 3.4 x10e3 /uL 1.4-7. 0 Not Available [facility] ([facility]) [address] [place], [address], 12/06/2015 06:13:05 12/05/19 16 12/06/2015 CBC lymphs (absolute) 2.3 x10e3 /uL 0.7-3. 1 Not Available [facility] ([facility]) [address] [facility], [place], [id number], 12/06/2015 06:13:05 12/05/19 16 12/06/2015 CBC monocytes(ab solute) 0.5 x10e3 /uL 0.1-0. 9 Not Available [facility] ([facility]) [address] [facility], [place], [address], 12/06/2015 06:13:05 12/05/19 16 12/06/2015 CBC eos (absolute) 0.3 x10e3 /uL 0.0-0. 4 Not Available [facility] ([facility]) [address] [facility], [place], [address], 12/06/2015 06:13:05 12/05/19 16 12/06/2015 CBC baso (absolute) 0.1 x10e3 /uL 0.0-0. 2 Not Available [facility] ([facility]) [address] [facility], [place], [address], 12/06/2015 06:13:05 12/05/19 16 12/06/2015 CBC immature granulocytes 0 % Not Available [facility] ([facility]) [address] [facility], [place], [address], 12/06/2015 06:13:05 12/05/19 16 12/06/2015 CBC immature grans (abs) 0.0 x10e3 /uL 0.0-0. 1 Not Available [facility] ([facility]) [address] [facility], [place], [address], 12/06/2015 06:13:05 12/05/19 16 12/06/2015 CBC NRBC HEATER HELPER FORGE Not Available [facility] ([facility]) [address] [facility], [place], [address], 12/06/2015 06:13:05 12/05/19 16 12/06/2015 CBC hematology comments: HEATER HELPER FORGE Not Available [facility] ([facility]) [address] [facility] [place], [address], 12/06/2015 06:13:05 12/05/19 16 12/06/2015 CMP, serum or plasm a glucose, serum 86 mg/dL 65-99 Not Available [facility] ([facility]) [address] [facility] [place], [address], 12/06/2015 06:13:06 12/05/19 16 12/06/2015 CMP, serum or plasm a BUN 12 mg/dL 6-24 Not Available [facility] ([facility]) [address] [facility] [place], [address], 12/06/2015 06:13:06 12/05/1912/06/2015 CMP, serum or plasm a creatinine, serum 0.67 mg/dL 0.57-1 .00 Not Available [facility] ([facility]) [address] [place], [address], 12/06/2015 06:13:06 12/05/19 16 12/06/2015 CMP, serum or plasm a eGFR if nonafricn AM 101 mL/mi n/1.7 3 >59 Not Available [facility] ([facility]) [address] [place], [address], 12/06/2015 06:13:06 12/05/19 16 12/06/2015 CMP, serum or plasm a eGFR if africn AM 117 mL/mi n/1.7 3 >59 Not Available [facility] ([facility]) [address] [place], [address], 12/06/2015 06:13:06 12/05/19 16 12/06/2015 CMP, serum or plasm a BUN/creatini ne ratio 18 9-23 Not Available [facility] ([facility]) [address] [place] [address] [place], [address], 12/06/2015 06:13:06 12/05/19 16 12/06/2015 CMP, serum or plasm a sodium, serum 147 mmol/ L 134-14 4 above high normal Not Available [facility] ([facility]) [address] [place], [address], 12/06/2015 06:13:06 12/05/19 16 12/06/2015 CMP, serum or plasm a potassium, serum 4.6 mmol/ L 3.5-5. 2 Not Available [facility] ([facility]) [address] [place], [address], 12/06/2015 06:13:06 12/05/19 16 12/06/2015 CMP, serum or plasm a chloride, serum 107 mmol/ L 97-108 Not Available [facility] ([facility]) [address] [place], [address], 12/06/2015 06:13:06 12/05/1912/06/2015 CMP, serum or plasm a carbon dioxide, total 23 mmol/ L 18-29 Not Available [facility] ([facility]) [address] [place] [address], [address], 12/06/2015 06:13:12/05/1912/06/2015 CMP, serum or plasm a calcium, serum 9.5 mg/dL 8.7-10 .2 Not Available [facility] ([facility]) [address] [place] [address], [address], 12/06/2015 06:13:06 12/05/1912/06/2015 CMP, serum or plasm a protein, total, serum 7.1 g/dL 6.0-8. 5 Not Available [facility] ([facility]) [address] [place], [address], 12/06/2015 06:13:06 12/05/1912/06/2015 CMP, serum or plasm a albumin, serum 4.4 g/dL 3.5-5. 5 Not Available [facility] ([facility]) [address] [place], [address], 12/06/2015 06:13:06 12/05/19 16 12/06/2015 CMP, serum or plasm a globulin, total 2.7 g/dL 1.5-4. 5 Not Available [facility] ([facility]) [address] [place], [address], 12/06/2015 06:13:06 12/05/19 16 12/06/2015 CMP, serum or plasm a A/G ratio 1.6 1.1-2. 5 Not Available [facility] ([facility]) [address] [place], [address], 12/06/2015 06:13:06 12/05/19 16 12/06/2015 CMP, serum or plasm a bilirubin, total <0.2 mg/dL 0.0-1. 2 Not Available [facility] ([facility]) [address] [place], [address], 12/06/2015 06:13:06 12/05/19 16 12/06/2015 CMP, serum or plasm a alkaline phosphatase, S 89 IU/L 39-117 Not Available [facility] ([facility]) [address] [place], [address], 12/06/2015 06:13:06 12/05/19 16 12/06/2015 CMP, serum or plasm a AST (SGOT) 19 IU/L 0-40 Not Available [facility] ([facility]) [address] [place], [address], 12/06/2015 06:13:06 12/05/19 16 12/06/2015 CMP, serum or plasm a ALT (SGPT) 18 IU/L 0-32 Not Available [facility] ([facility]) [address] [place], [address], 12/06/2015 06:13:06 12/05/19 16 12/06/2015 lipid panel , serum cholesterol, total 180 mg/dL 100-19 9 Not Available [facility] ([facility]) [address] [facility], [place], [address], 12/06/2015 06:13:06 12/05/19 16 12/06/2015 lipid panel , serum triglyceride s 78 mg/dL 0-149 Not Available [facility] ([facility]) [address] [facility], [place], [address], 12/06/2015 06:13:06 12/05/19 16 12/06/2015 lipid panel , serum HDL cholesterol 63 mg/dL >39 ACCOR DING TO ATP-I II GUIDE LINES , HDL-C >59 MG/DL IS CONSI DERED A NEGAT MONSERRAT RISK FACTO R FOR CHD. Not Available [facility] ([facility]) [address] [facility], [place], [address], 12/06/2015 06:13:06 12/05/19 16 12/06/2015 lipid panel , serum VLDL cholesterol arleen 16 mg/dL 5-40 Not Available [facility] ([facility]) [address] [facility], [place], [address], 12/06/2015 06:13:06 12/05/19 16 12/06/2015 lipid panel , serum LDL cholesterol calc 101 mg/dL 0-99 above high normal Not Available [facility] ([facility]) [address] [place], [address], 12/06/2015 06:13:06 12/05/19 16 12/06/2015 lipid panel , serum comment: HEATER HELPER FORGE Not Available [facility] ([facility]) [address] [facility], [place], [address], 12/06/2015 06:13:06 12/05/19 16 12/06/2015 lipid panel , serum T. chol/HDL ratio 2.9 ratio _unit s 0.0-4. 4 T. CHOL/ HDL RATIO MEN WOMEN 1/2 AVG.R ISK 3.4 3.3 AVG.R ISK 5.0 4.4 2X AVG.R ISK 9.6 7.1 3X AVG.R ISK 23.4 11.0 Not Available [facility] ([facility]) [address] [place], [address], 12/06/2015 06:13:06 12/05/19 16 12/06/2015 TSH, serum or plasm a TSH 1.300 uIU/m L 0.450- 4.500 Not Available [facility] ([facility]) [address] [place], [address], 12/06/2015 06:13:06 12/27/19 16 12/28/2015 pap, IG + HPV, cervi arleen diagnosis: SHILOH GERMAN FOR INTRA EPITH ELIAL LESIO N AND JANA DELGADO . CELLU LAR ALLRED ES ASSOC IATED WITH ATROP HY ARE PRESE NT. Not Available [facility] ([facility]) [address] [place], [address], 12/30/2015 06:05:48 12/27/19 16 12/28/2015 pap, IG + HPV, cervi arleen specimen adequacy: SHILOH Santiago SATIS FACTClari RY FOR EVALU ATION . ENDOC ERVIC AL COMPO NENT MAY NOT BE DISTI NGUIS HED IN CASES OF ATROP HY. Not Available [facility] ([facility]) [address] [place], [address], 12/30/2015 06:05:48 12/27/19 16 12/28/2015 pap, IG + HPV, cervi arleen clinician provided ICD10: SHILOH Santiago Z01.4 19 Z11.5 1 Not Available [facility] ([facility]) [address] [place], [address], 12/30/2015 06:05:48 12/27/19 16 12/28/2015 pap, IG + HPV, cervi arleen performed by: SHILOH ALVAREZ ON, CYTOT ONEYDA LEROY T (ASCP ) Not Available [facility] ([facility]) [address] [place], [address], 12/30/2015 06:05:48 12/27/19 16 12/28/2015 pap, IG + HPV, cervi arleen . . Not Available [facility] ([facility]) [address] [facility], [place], [address], 12/30/2015 06:05:48 12/27/19 16 12/28/2015 pap, IG + HPV, cervi arleen note: COMMEN T THE PAP SMEAR IS A SCREE CHAVO TEST DESIG KAYLEE TO AID IN THE DETEC TION OF KEVIN LIGNA NT AND MALIG NANT CONDI TIONS OF THE UTERI NE CERVI X. IT IS NOT A DIAGN OSTIC PROCE DURE AND SHOUL D NOT BE USED THE SOLE MEANS OF DETEC TING CERVI ARLEEN CANCE R. BOTH FALSE -POSI TIVE AND FALSE -NEGA TIVE REPOR TS DO OCCUR . Not Available [facility] ([facility]) [address] [place], [address], 12/30/2015 06:05:48 12/27/19 16 12/28/2015 pap, IG + HPV, cervi arleen test methodology: SHILOH T THIS LIQUI D BASED THINP REP(R ) PAP TEST WAS SCREE KAYLEE WITH THE USE OF AN IMAGE GUIDE Bertrand Maher. Not Available [facility] ([facility]) [address] [place], [address], 12/30/2015 06:05:48 12/27/19 16 12/30/2015 pap, IG + HPV, cervi arleen HPV aptima NEGATI VE negati ve THIS TEST DETEC TS FOURT EEN HIGH- RISK HPV TYPES (16/1 8/31/ 33/35 /39/4 5/ 51/52 /56/5 8/59/ 66/68 ) WITHO UT DIFFE RENTI ATION . Not Available [facility] ([facility]) [address] [place], [address], 12/30/2015 06:05:48 02/27/20 16 02/27/2016 MAMMO , scree chavo, digit al, bilat eral No observ ation record ed. [facility] (Imaging) [address] [place], [address], 03/19/2016 14:02:14 03/06/20 16 03/06/2016 US, doppl er, venou s No observ ation record ed. [facility] (Imaging) [address] [place], [address], 03/19/2016 14:02:12 03/19/20 16 02/26/2016 US, pelvi s, trans abdom inal + trans vagin al No observ ation record ed. [facility] [address] [place], [address], 03/19/2016 14:02:16 03/19/20 16 03/06/2016 US, doppl er, venou s No observ ation record ed. [facility] (Imaging) [address] [place], [address], 03/19/2016 16:35:59 03/25/20 16 03/25/2016 bone densi ty No observ ation record ed. [address] (Imaging) [address] [place], [address], 03/26/2016 15:59:09 Result Notes None recorded. Problems Name Problem SNOMED Code Status Onset Date Resolution Date Notes Provider Name and Address Organization Details Recorded Time Chronic interstit ial cystitis 392989233 Active [address] Barker in [place], [place]. C/w hydroxyzin e 25 mg TID and imipramine 50 mg qd. AYLIN LITTLE Attn: Accounting ,[address] [facility], [place], [address] , [place] [facility] [address] 9 08:52:36 Disorder of gallbladd er 49724598 Active Ainsley Rene MA null, [place] - [facility] 6 10:29:44 Mammograp hy abnormal 747540242 Active Ainsley Rene MA null, [place] - [facility] 6 10:29:44 Tobacco dependenc e syndrome 28203511 Active Angela Isidro PA-C Attn: Accounting ,[address] [facility], [place], [place], [address] [place] [address] , [facility] 6 10:23:33 Pulmonary emphysema 75170284 Active 1/2ppd smoker Angela Isidro PA-C Attn: Accounting ,[address] [facility], [place], [place], [address] [place] [address] , [facility] - [facility] 6 18:45:08 Depressiv e disorder 10291492 Active Angela Isidro PA-C Attn: Accounting ,[address] [facility], [place], [place], [address] [place] [address] , [facility] 6 18:45:08 Hypertens monserrat disorder 22222873 Active Angela Isidro PA-C Attn: Accounting ,[address] [facility], [place], [address] [place] [address] , [facility] - [facility] 6 10:42:43 Osteoporo sis 93805975 Active needs bone density scan Angela Isidro PA-C Attn: Accounting ,[address] [facility], [place], [place], [address] [place] [address] , [facility] 6 18:45:08 Asthma 994900657 Active Ainsley Rene MA null, [place] - [facility] 6 10:29:44 Enlarged uterus 560514261 Active Angela Isidro PA-C Attn: Accounting ,[address] [facility] [facility], [place], [place], [address] [place] [address] , [place] - [facility] 6 18:45:08 Venous stasis 26003117 Active Angela Isidro PA-C Attn: Accounting ,[address] [facility], [place], [place], [address] [place] [address] , [facility] - [facility] 6 18:45:08 Menopause Active Angela Isidro PA-C Attn: Accounting ,[address] [facility], [place], [address] , [place] - [facility] 6 10:23:33 Problem Notes None recorded. Procedures Surgical History Date Name Laterality Status Provider Name and Address Organization Details Recorded Time 02/27/20 16 Most Recent Mammogram completed Angi Villalobos MA [facility] 04/12/2016 10:47:54 12/27/19 16 Date of Last Pap Smear completed Angi Villalobos MA [facility] 04/12/2016 10:46:32 09/02/18 88 Caesarean Section completed Ainsley Rene MA [facility] 12/27/2015 10:00:23 Tubal Ligation completed Ainsley Rene MA [facility] 12/27/2015 10:26:10 Cholecystectomy completed Pallavi Deluna MA [facility] 12/29/2015 10:19:48 Imaging Results Imaging Date Name Status LastModified by Organization Details LastModified Time 02/27/2016 MAMMO, screening, digital, bilateral completed [facility] (Imaging) [address] [place], [address], 03/19/2016 14:02:14 03/06/2016 US, doppler, venous completed [facility] (Imaging) [address] [place], [address], 03/19/2016 14:02:12 02/26/2016 US, pelvis, transabdominal + transvaginal completed [facility] [address] [place], [address], 03/19/2016 14:02:16 03/06/2016 US, doppler, venous completed [facility] (Imaging) [address] [place], [address], 03/19/2016 16:35:59 03/25/2016 bone density completed [address] (Imaging) [address] [place], [address], 03/26/2016 15:59:09 Procedure Notes None recorded. Medical Equipment None Reported. Allergies Allergen ID Allergen Name Allergen Category Reaction Reaction Severity Criticality Documentation Date Start Date Code Code System Note Provider Name and Address Organization Details Recorded Time 67577 sulfur dioxide medicatio n rash Not available Not available 11/16/2015 82149 79 RxNorm sick Not Available Not Available Not Available 03139 Product containin g penicilli n (product) medicatio n hives Not available Not available 12/27/2015 08800 8001 SNOMED rash, makes her sick Not Available Not Available Not Available Medications Name Sig Start Date Stop Date Status Note LastModified by Organization Details LastModified Time cyclobenz aprine 10 mg tablet Take 1 tablet twice a day by oral route. 03/19 completed Not Available Not Available Not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
--- OUTSIDE RECORDS SUMMARY | 2024-08-06 02:46 | XMS_ITS | Encounter Summary ---
Author Organization [facility] Address [address] [place] [address] Phone Care Team Providers Care Passport Support Associate Name Role Phone Santos Montenegro Primary Care Provider Bernadine Gill MD Unavailable [phone] Uriah Florentino MD Unavailable [phone] Buddy Franz MD Unavailable Encounter Details Date Type Department Care Team (Late st Contact Info) Description 02/19/2021 Telephone [facility] [address] [place] [address] Buddy Franz MD [address] [place] [address] Social History Tobacco Use Types [...] encounter Miscellaneous Notes * Telephone Encounter - Marguerite Hung - 02/19/2021 10:18 AM CDT Patient called to reschedule he 02/23 appt because she does not feel well. documented in this encounter Plan of Treatment Upcoming Encounters Date Type Department Care Team (Late st Contact Info) Description 11/24/2024 9:15 AM CDT Lab [facility] [address] [address] Lab, [facility] 11/24/2024 9:30 AM CDT Office Visit [facility] [address] [address] Buddy Franz MD [address] [place] [phone] documented as of this encounter Visit Diagnoses Not on filedocumented in this encounter Additional Health Concerns Assessment Noted Time PHQ-9 Depression Total Score: 1 11/18/19 21 8:32 AM CDT documented as of this encounter Care Teams Passport Support Associate Relationship Specialty Start Date End Date Santos Montenegro [address] [place] [address] PCP - General Family Medicine 09/20/16 Bernadine Gill MD [address] [place] [address] Internal Medicine 09/20/16 Uriah Florentino MD [address] [place] [phone] Consulting Physician Oncology 12/05/23 07/27/24 Buddy Franz MD [address] [place] [phone] Consulting Physician Oncology 07/28/24 documented as of this encounter
[2024-08-06 10:27] VITALS: BP 153/99; PULSE 71; RESP 18; TEMP 36.3; O2SAT 96
[2024-08-06 10:29] VITALS: BMI 23.9
[2024-08-06] MEDS: LACTATED RINGERS 1,000 ML 150 ML IV CONT (10:37)
--- NOTE | 2024-08-06 10:39 | P.PNAN_ITS ---
Anes - Initial Pre Proc Eval Procedure: Operation Date: 08/06/24 14:00 Proposed Procedures p Esophagogastroduodenoscopy - Naeem Ray MD Date/Time: 08/06/24 10:39 Surgeon: Naeem Ray MD Pre Op Diagnosis: epigastric pain,dysphagia Patient Data Age: 59 Gender: F Height: 1.57 m Weight: 59.4 kg Last Vital Signs Temp 97.4 F L 08/06/24 10:27 Pulse 71 08/06/24 10:27 Resp 18 08/06/24 10:27 BP 153/99 H 08/06/24 10:27 Pulse Ox 96 08/06/24 10:27 O2 Del Method Room Air 08/06/24 10:27 Allergies Allergy/AdvReac Type Severity Reaction Status Date / Time Penicillins Allergy Itching Verified 08/06/24 10:25 Sulfa (Sulfonamide Allergy Hives Verified 08/06/24 10:25 Antibiotics) Home Medications ?Medication ?Instructions ?Recorded ?Confirmed ?Type bupropion HCl 300 mg 24 hr tablet, 300 mg PO QAM 07/21/19 08/06/24 History extended release (Wellbutrin XL) oxybutynin chloride 5 mg tablet 10 mg PO DAILY 01/13/20 08/06/24 History clonazepam 1 mg tablet 0.5 mg PO TID 07/27/20 08/06/24 History amitriptyline 50 mg tablet 75 mg PO DAILY 03/26/24 08/06/24 History brexpiprazole 4 mg tablet (Rexulti) 4 mg PO DAILY 03/26/24 08/06/24 History dicyclomine 10 mg capsule 10 mg PO DAILY 03/26/24 08/06/24 History irbesartan 300 mg tablet 300 mg PO DAILY 03/26/24 08/06/24 History ondansetron 4 mg disintegrating 4 mg translingual PRN PRN Nausea 03/26/2408/06 History tablet And Vomiting pregabalin 75 mg capsule 75 mg PO DAILY 03/26/24 08/06/24 History sertraline 100 mg tablet 100 mg PO DAILY 03/26/24 08/06/24 History trazodone 150 mg tablet 150 mg PO DAILY 03/26/24 08/06/24 History famotidine 40 mg tablet 40 mg PO BID #60 tabs 06/15/24 08/06/24 Rx omeprazole 40 mg capsule,delayed 40 mg PO BID #60 caps 06/15/24 08/06/24 Rx release cyclobenzaprine 10 mg tablet 10 mg PO TID PRN muscle spasm 07/26/24 08/06/24 History Patient hx anesthesia problems: none Family hx anesthesia problems: none Results Review: All pre-operative results and documents have been reviewed as part of the pre- operative evaluation. [facility] Past Medical History Medical History Anxiety Surgical History Surgical History Hx of cholecystectomy Social History Social History Smoking packs per day: 1 Smoking cigarettes per day: 20.0 Smoking status: Former smoker Tobacco type: cigarettes Additional smoking assessment comments: occasionally vapes Substance use: former Substance use type: marijuana Other substance usage details: smokes MJ 5x week Last use: 03/02/2025 Living arrangements: alone Spiritual care concerns: No Anes - Eval Final PreProcedure Day of Procedure 08/06/24 10:39 Patient weight: overweight Lungs: normal air movement Airway: Mallampati scale and special considerations (Missing upper R teeth. ) Neurological: alert and oriented Last oral intake: >/= 8 hours ASA classification: III Emergent: no Anesthetic plan: proceed Anesthesia type and monitoring: general GIVS and standard monitoring Results Review: All pre-operative results and documents have been reviewed as part of the pre- operative evaluation. HTN, COPD, ex smoker, quit 2018. Anxiety. Informed Consent: The patient's anesthetic plan and its attendant risks and benefits were discussed with the patient/family/POA. Questions were solicited and answers provided to the satisfaction of the patient/family/POA.
--- NOTE | 2024-08-06 10:56 | PM.HPGS ---
History of Present Illness History of Present Illness Consent: Risks, benefits, and alternatives have been discussed and questions answered. Patient agrees to proceed with procedure. Chief complaint: epigastric pain,dysphagia Narrative: Radha Latham is a 59 year old female here for egd, h/o bloating and sensation of food getting stuck, had EGD 2022 Review of Systems Review of Systems: All systems reviewed & are unremarkable except as noted in HPI and below PMFSH Past Medical History Medical History Anxiety Surgical History Surgical History Hx of cholecystectomy Social History Social History Smoking packs per day: 1 Smoking cigarettes per day: 20.0 Smoking status: Former smoker Tobacco type: cigarettes Additional smoking assessment comments: occasionally vapes Substance use: former Substance use type: marijuana Other substance usage details: smokes MJ 5x week Last use: 03/02/2025 Living arrangements: alone Spiritual care concerns: No Meds Home Medications and Allergies Home Medications ?Medication ?Instructions ?Recorded ?Confirmed ?Type bupropion HCl 300 mg 24 hr tablet, 300 mg PO QAM 07/21/19 08/06/24 History extended release (Wellbutrin XL) oxybutynin chloride 5 mg tablet 10 mg PO DAILY 01/13/20 08/06/24 History clonazepam 1 mg tablet 0.5 mg PO TID 07/27/20 08/06/24 History amitriptyline 50 mg tablet 75 mg PO DAILY 03/26/24 08/06/24 History brexpiprazole 4 mg tablet (Rexulti) 4 mg PO DAILY 03/26/24 08/06/24 History dicyclomine 10 mg capsule 10 mg PO DAILY 03/26/24 08/06/24 History irbesartan 300 mg tablet 300 mg PO DAILY 03/26/24 08/06/24 History ondansetron 4 mg disintegrating 4 mg translingual PRN PRN Nausea 03/26/24 08/06/24 History tablet And Vomiting pregabalin 75 mg capsule 75 mg PO DAILY 03/26/24 08/06/24 History sertraline 100 mg tablet 100 mg PO DAILY 03/26/24 08/06/24 History trazodone 150 mg tablet 150 mg PO DAILY 03/26/24 08/06/24 History famotidine 40 mg tablet 40 mg PO BID #60 tabs 06/15/24 08/06/24 Rx omeprazole 40 mg capsule,delayed 40 mg PO BID #60 caps 06/15/24 08/06/24 Rx release cyclobenzaprine 10 mg tablet 10 mg PO TID PRN muscle spasm 07/26/24 08/06/24 History Allergies Allergy/AdvReac Type Severity Reaction Status Date / Time Penicillins Allergy Itching Verified 08/06/24 10:25 Sulfa (Sulfonamide Allergy Hives Verified 08/06/24 10:25 Antibiotics) Vital Signs Vital Signs - 24 hr 08/06/24 10:27 Temperature 97.4 F L Pulse Rate 71 Respiratory Rate 18 Blood Pressure 153/99 H Pulse Oximetry 96 Oxygen Delivery Room Air Exam Const: General: comfortable and no acute distress HENMT: Face/Nose/Sinus: Normal nares present Eyes: General: appearance normal, both eyes and all related structures Neck: Neck: no JVD Resp: Auscultation: clear to auscultation bilaterally Cardio: Rate: regular rate Rhythm: regular rhythm GI: Inspection: non-distended GI Palp: Yes Soft to palpation Skin: General skin exam: normal color Neuro: Speech: normal speech Extrem: General: normal to inspection Psych: Mental Status: mental status grossly normal Assessment and Plan Assessment and plan (1) Epigastric pain: Code(s): R10.13 - Epigastric pain Status: Acute Assessment and Plan: egd with bx (2) Dysphagia: Qualifiers: Dysphagia type: esophageal phase Qualified Code(s): R13.19 - Other dysphagia Code(s): R13.10 - Dysphagia, unspecified Status: Acute
[2024-08-06 11:03] VITALS: BP 156/97; PULSE 67; RESP 24; O2SAT 92
[2024-08-06 11:13] VITALS: BP 145/91; PULSE 66; RESP 23; O2SAT 92
[2024-08-06 11:23] VITALS: BP 158/94; PULSE 67; RESP 23; O2SAT 92
== END 2024-08-06 11:31 | disposition home or self-care (01) ==
PROVIDERS: PCP Emergency Medicine; Referring Provider Nurse Practitioner Family; Visit Provider Internal Medicine Gastroenterology
PROC: 0DJ08ZZ Inspection of Upper Intestinal Tract, Via Natural or Artificial Opening Endoscopic (ICD-10-PCS; CPT 43239; principal; 2024-08-06 14:00)
DX: R13.19 Other dysphagia (principal); K44.9 Diaphragmatic hernia without obstruction or gangrene; F41.9 Anxiety disorder, unspecified; F12.90 Cannabis use, unspecified, uncomplicated; Z98.890 Other specified postprocedural states; Z90.49 Acquired absence of other specified parts of digestive tract; Z87.891 Personal history of nicotine dependence
CPT/HCPCS: 43239; 88305; J2704; J7120

== ENCOUNTER 2024-11-09 10:01 | Outpatient (CLI) | payer OTHER, SELFPAY ==
--- NOTE | ~2024-11-09 | XR_ITS ---
MODIFIED ESOPHAGRAM HISTORY: Dysphagia. TECHNIQUE: Modified barium esophagram was performed on 11/09/2024. I administered fluoroscopy and perf ormed the exam with speech pathologist. Patient was seated for lateral fluoroscopic imaging for narinder stion of thin liquids, pudding, solids and quantified amounts, followed by thin liquids in uncontroll ed amounts. This was recorded on tape. A single fluoroscopic spot image was also recorded. The DAP fo r this procedure was 1.234 Gycm2. The amount of fluoroscopy time used during this procedure was 1.9 m inutes. FINDINGS: Oral stage: Adequate function. Pharyngeal stage: Adequate function. Cervical/esophageal stage: Adequate function. There are prominent anterior osteophytes at C4-C5, C5-C 6 and C6-C7. There is trace residue in the upper esophagus which cleared with a dry swallow. IMPRESSION: Patient tolerated regular consistency oral feedings in the upright position. Please jocelyn elate with speech pathologist findings and specific feeding recommendations. Reviewed, dictated and finalized at location A. IMPRESSION: Patient tolerated regular consistency oral feedings in the upright position. Please correlate with speech pathologist findings and specific feedi ng recommendations.
--- OUTSIDE RECORDS SUMMARY | 2024-11-09 10:56 | XMS_ITS | Encounter Summary ---
Author Organization [facility] Address [address] [place] [address] Phone Care Team Providers Care Lumber Material Handler Name Role Phone Santos Montenegro Primary Care Provider Bernadine Gill MD Unavailable [phone] Uriah Florentino MD Unavailable Buddy Franz MD Unavailable Encounter Details Date Type Department Care Team (Late st Contact Info) Description 04/16/2022 Telephone [facility] [address] [place] [address] Buddy Franz MD [address] [place] [address] Social History Tobacco Use Types Packs/Day Years Used Date Smoking Tobacco: Every Day Cigarettes 0.5 33.1 Started: 09/21/1991 Smokeless Tobacco: Never Alcohol Use [...] 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, 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 documented in this encounter Plan of Treatment Upcoming Encounters Date Type Department Care Team (Late st Contact Info) Description 11/24/2024 9:15 AM CDT Lab [facility] [address] [phone] Buddy Franz MD [address] [place] [phone] [facility] 11/24/2024 9:30 AM CDT Office Visit [facility] [address] [phone] Buddy Franz MD [address] [place] [phone] documented as of this encounter Visit Diagnoses Not on filedocumented in this encounter Additional Health Concerns Assessment Noted Time PHQ-9 Depression Total Score: 1 02/27/20 21 1:19 PM CDT documented as of this encounter Care Teams Lumber Material Handler Relationship Specialty Start Date End Date Santos Montenegro [address] [place] [address] PCP - General Family Medicine 09/20/16 Bernadine Gill MD [address] [place] [address] Internal Medicine 09/20/16 Uriah Florentino MD [address] [place] [phone] Consulting Physician Oncology 12/05/23 07/27/24 Buddy Franz MD [address] [place] [phone] Consulting Physician Oncology 07/28/24 documented as of this encounter
--- OUTSIDE RECORDS SUMMARY | 2024-11-09 10:56 | XMS_ITS | Data Portability ---
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 Patient complains of right breast tenderness with h/o abnormal mammogram in July 2014. No breast masses appreciated on physical exam, although patient endorsed tenderness of right breast.Bimanual exam revealed enlarged uterus with tenderness. 1. 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 exam: pelvic exam, pap smear performed 2. [...] DO Not Attach Compendium, Do Not Delete/merge, [address] 6 11:54:09 pap, IG + HPV, cervical 2015 016 [facility], [address] [place] [address], [address], [place], [address], 6 06:05:48 Referral vascular surgeon referral 2015 016 [email or web address] Jose A Velásquez MD, [address] [facility], [facility] [address], [place], [address], 7 09:27:[address] referral - Please contact patient to schedule 2015 016 NURIS Gill MD, [address] [place], [address], 6 13:12:12 Procedures None recorded. Surgeries None recorded. Imaging bone density [address] [facility] ([facility]), [address] [place], [address], 6 15:54:23 US, doppler, venous [address] [facility] ([facility]), [address] [place], [address], 6 13:27:40 MAMMO, diagnostic, digital, bilateral [email or web address] ([facility]), [address] [place], [address], 6 14:04:27 US, pelvis, transabdomi nal + transvagina l [address] [facility] ([facility]), [address] [place], [address], 6 11:54:08 MAMMO, diagnostic, digital, bilateral 2015 016 [email or web address] Not available 6 09:47:41 US, pelvis, transabdomi nal + transvagina l 2015 016 [facility] (Imaging), [address] [facility] [address] [place] [address], [address], 6 12:32:10 Medication Orders amlodipine 10 mg tablet 2015 016 [facility], [address] [place] [address] , [address], [place], [place], [id number], 6 04:29:32 aspirin 81 mg tablet,paris yed release 2015 016 [facility], [address] [place] [address] , [address], [place], [place], [id number], 6 04:29:29 Patient TargetsNo targets recorded. Patient Instructions Encounter Date Encounter Id Patient Instructions Last Modified By Organization Details Last Modified Time 12/27/2015 [id number] mammogram: about this test Not available 12/27/2015 11:54:09 02/20/2016 [id number] Patient declined flu vaccine Will give patient orders for mammogram and pelvic US to be completed at [facility] and then will send to Dr. Mejia [...] RTC eewig Not available 02/20/2016 18:45:09 03/19/2016 [id number] Patient states that she never received the Tdap vaccine at the last visit - however it is in her chart [email or web address] Not available 03/19/2016 14:10:34 Reason for Referral Sword Swallower Referral for P ulmonary emphysema Please contact [...] 10:34:12/27/1912/27/2015 urina lysis , dipst ick Specific [place] Not Available In-Off ice Order Internal Use Only DO Not Attach Compendium DO Not Attach Compendium, Do Not Delete/merge, 12/27/2015 10:34:12/27/1912/27/2015 urina lysis , dipst ick Specific [place] 1.010 Not Available In-Off ice Order Internal [...] x10e3 /uL 3.4-10 .8 Not Available [facility] ([facility]) [address] [place], [address], 12/06/2015 06:13:05 12/05/19 16 12/06/2015 CBC RBC 4.51 x10e6 /uL 3.77-5 .28 Not Available [facility] ([facility]) [address] [place], [address], 12/06/2015 06:13:05 12/05/19 16 12/06/2015 CBC hemoglobin 12.9 g/dL 11.1-1 5.9 Not Available [facility] ([facility]) [address] [place], [address], 12/06/2015 06:13:05 12/05/19 16 12/06/2015 CBC hematocrit 39.7 % 34.0-4 6.6 Not Available [facility] ([facility]) [address] [place], [address], 12/06/2015 06:13:05 12/05/19 16 12/06/2015 CBC MCV 88 fL 79-97 Not Available [facility] ([facility]) [address] [place], [address], 12/06/2015 06:13:05 12/05/19 16 12/06/2015 CBC MCH 28.6 pg 26.6-3 3.0 Not Available [facility] ([facility]) [address] [place], [address], 12/06/2015 06:13:05 12/05/19 16 12/06/2015 CBC MCHC 32.5 g/dL 31.5-3 5.7 Not Available [facility] ([facility]) [address] [place], [address], 12/06/2015 06:13:05 12/05/19 16 12/06/2015 CBC RDW 16.1 % 12.3-1 5.4 above high normal Not Available [facility] ([facility]) [address] [place], [address], 12/06/2015 06:13:05 12/05/19 16 12/06/2015 CBC platelets 233 x10e3 /uL 150-37 9 Not Available [facility] ([facility]) [address] [place], [address], 12/06/2015 06:13:05 12/05/19 16 12/06/2015 CBC neutrophils 52 % Not Avai lable [facility] ([facility]) [address] [place], [address], 12/06/2015 06:13:05 12/05/19 16 12/06/2015 CBC lymphs 35 % Not Available [facility] ([facility]) [address] [place], [address], 12/06/2015 06:13:05 12/05/19 16 12/06/2015 CBC monocytes 7 % Not Availa ble [facility] ([facility]) [address] [place], [address], 12/06/2015 06:13:05 12/05/19 16 12/06/2015 CBC eos 5 % Not Available [facility] ([facility]) [address] [place], [address], 12/06/2015 06:13:05 12/05/19 16 12/06/2015 CBC basos 1 % Not Available [facility] ([facility]) [address] [place], [address], 12/06/2015 06:13:05 12/05/19 16 12/06/2015 CBC immature cells PAINT MIXER Not Available [facility] ([facility]) [address] [place], [address], 12/06/2015 06:13:05 12/05/19 16 12/06/2015 CBC neutrophils (absolute) 3.4 x10e3 /uL 1.4-7. 0 Not Available [facility] ([facility]) [address] [place], [address], 12/06/2015 06:13:05 12/05/19 16 12/06/2015 CBC lymphs (absolute) 2.3 x10e3 /uL 0.7-3. 1 Not Available [facility] ([facility]) [address] [facility], [place], [address], 12/06/2015 06:13:05 12/05/19 16 12/06/2015 CBC monocytes(ab solute) 0.5 x10e3 /uL 0.1-0. 9 Not Available [facility] ([facility]) [address] [facility], [place], [address], 12/06/2015 06:13:05 12/05/19 16 12/06/2015 CBC eos (absolute) 0.3 x10e3 /uL 0.0-0. 4 Not Available [facility] ([facility]) [address] [facility], [place], [address], 12/06/2015 06:13:05 12/05/19 16 12/06/2015 CBC baso (absolute) 0.1 x10e3 /uL 0.0-0. 2 Not Available [facility] ([facility]) [address] [facility], [place], [address], 12/06/2015 06:13:05 12/05/19 16 12/06/2015 CBC immature granulocytes 0 % Not Available [facility] ([facility]) [address] [facility], [place], [address], 12/06/2015 06:13:05 12/05/19 16 12/06/2015 CBC immature grans (abs) 0.0 x10e3 /uL 0.0-0. 1 Not Available [facility] ([facility]) [address] [facility], [place], [address], 12/06/2015 06:13:05 12/05/19 16 12/06/2015 CBC NRBC PAINT MIXER Not Available [facility] ([facility]) [address] [facility], [place], [address], 12/06/2015 06:13:05 12/05/19 16 12/06/2015 CBC hematology comments: PAINT MIXER Not Available [facility] ([facility]) [address] [facility] [place], [address], 12/06/2015 06:13:05 12/05/19 16 12/06/2015 CMP, serum or plasm a glucose, serum 86 mg/dL 65-99 Not Available [facility] ([facility]) [address] [facility] [place], [address], 12/06/2015 06:13:06 12/05/19 16 12/06/2015 CMP, serum or plasm a BUN 12 mg/dL 6-24 Not Available [facility] ([facility]) [address] [facility] [place], [address], 12/06/2015 06:13:06 12/05/1912/06/2015 CMP, serum or plasm a creatinine, serum 0.67 mg/dL 0.57-1 .00 Not Available [facility] ([facility]) [address] [place], [address], 12/06/2015 06:13:06 12/05/19 16 12/06/2015 CMP, serum or plasm a eGFR if nonafricn AM 101 mL/mi n/1.7 3 >59 Not Available [facility] ([facility]) [address] [place], [address], 12/06/2015 06:13:06 12/05/19 16 12/06/2015 CMP, serum or plasm a eGFR if africn AM 117 mL/mi n/1.7 3 >59 Not Available [facility] ([facility]) [address] [place], [address], 12/06/2015 06:13:06 12/05/19 16 12/06/2015 CMP, serum or plasm a BUN/creatini ne ratio 18 9-23 Not Available [facility] ([facility]) [address] [place] [address] [place], [address], 12/06/2015 06:13:06 12/05/19 16 12/06/2015 CMP, serum or plasm a sodium, serum 147 mmol/ L 134-14 4 above high normal Not Available [facility] ([facility]) [address] [place], [address], 12/06/2015 06:13:06 12/05/19 16 12/06/2015 CMP, serum or plasm a potassium, serum 4.6 mmol/ L 3.5-5. 2 Not Available [facility] ([facility]) [address] [place], [address], 12/06/2015 06:13:06 12/05/19 16 12/06/2015 CMP, serum or plasm a chloride, serum 107 mmol/ L 97-108 Not Available [facility] ([facility]) [address] [place], [address], 12/06/2015 06:13:06 12/05/1912/06/2015 CMP, serum or plasm a carbon dioxide, total 23 mmol/ L 18-29 Not Available [facility] ([facility]) [address] [place] [address], [address], 12/06/2015 06:13:12/05/1912/06/2015 CMP, serum or plasm a calcium, serum 9.5 mg/dL 8.7-10 .2 Not Available [facility] ([facility]) [address] [place] [address], [address], 12/06/2015 06:13:06 12/05/1912/06/2015 CMP, serum or plasm a protein, total, serum 7.1 g/dL 6.0-8. 5 Not Available [facility] ([facility]) [address] [place], [address], 12/06/2015 06:13:06 12/05/1912/06/2015 CMP, serum or plasm a albumin, serum 4.4 g/dL 3.5-5. 5 Not Available [facility] ([facility]) [address] [place], [address], 12/06/2015 06:13:06 12/05/19 16 12/06/2015 CMP, serum or plasm a globulin, total 2.7 g/dL 1.5-4. 5 Not Available [facility] ([facility]) [address] [place], [address], 12/06/2015 06:13:06 12/05/19 16 12/06/2015 CMP, serum or plasm a A/G ratio 1.6 1.1-2. 5 Not Available [facility] ([facility]) [address] [place], [address], 12/06/2015 06:13:06 12/05/19 16 12/06/2015 CMP, serum or plasm a bilirubin, total <0.2 mg/dL 0.0-1. 2 Not Available [facility] ([facility]) [address] [place], [address], 12/06/2015 06:13:06 12/05/19 16 12/06/2015 CMP, serum or plasm a alkaline phosphatase, S 89 IU/L 39-117 Not Available [facility] ([facility]) [address] [place], [address], 12/06/2015 06:13:06 12/05/19 16 12/06/2015 CMP, serum or plasm a AST (SGOT) 19 IU/L 0-40 Not Available [facility] ([facility]) [address] [place], [address], 12/06/2015 06:13:06 12/05/19 16 12/06/2015 CMP, serum or plasm a ALT (SGPT) 18 IU/L 0-32 Not Available [facility] ([facility]) [address] [place], [address], 12/06/2015 06:13:06 12/05/19 16 12/06/2015 lipid panel , serum cholesterol, total 180 mg/dL 100-19 9 Not Available [facility] ([facility]) [address] [facility], [place], [address], 12/06/2015 06:13:06 12/05/19 16 12/06/2015 lipid panel , serum triglyceride s 78 mg/dL 0-149 Not Available [facility] ([facility]) [address] [facility], [place], [address], 12/06/2015 06:13:06 12/05/19 16 12/06/2015 lipid panel , serum HDL cholesterol 63 mg/dL >39 ACCOR DING TO ATP-I II GUIDE LINES , HDL-C >59 MG/DL IS CONSI DERED A NEGAT MONSERRAT RISK FACTO R FOR CHD. 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 chol/HDL ratio 2.9 ratio _unit s 0.0-4. 4 T. CHOL/ HDL RATIO MEN WOMEN 1/2 AVG.R ISK 3.4 3.3 AVG.R ISK 5.0 4.4 2X AVG.R ISK 9.6 7.1 3X AVG.R ISK 23.4 11.0 Not Available [facility] ([facility]) [address] [place], [address], 12/06/2015 06:13:06 12/05/19 16 12/06/2015 TSH, serum or plasm a TSH 1.300 uIU/m L 0.450- 4.500 Not Available [facility] ([facility]) [address] [place], [address], 12/06/2015 06:13:06 12/27/19 16 12/28/2015 pap, IG + HPV, cervi arleen diagnosis: SHILOH GERMAN FOR INTRA EPITH ELIAL LESIO N AND JANA DELGADO . CELLU LAR ALLRED ES ASSOC IATED WITH ATROP HY ARE PRESE NT. Not Available [facility] ([facility]) [address] [place], [address], 12/30/2015 06:05:48 12/27/19 16 12/28/2015 pap, IG + HPV, cervi arleen specimen adequacy: SHILOH Santiago SATIS FACTClari RY FOR EVALU ATION . ENDOC ERVIC AL COMPO NENT MAY NOT BE DISTI NGUIS HED IN CASES OF ATROP HY. Not Available [facility] ([facility]) [address] [place], [address], 12/30/2015 06:05:48 12/27/19 16 12/28/2015 pap, IG + HPV, cervi arleen clinician provided ICD10: SHILOH Santiago Z01.4 19 Z11.5 1 Not Available [facility] ([facility]) [address] [place], [address], 12/30/2015 06:05:48 12/27/19 16 12/28/2015 pap, IG + HPV, cervi arleen performed by: SHILOH ALVAREZ ON, CYTOT ONEYDA LEROY T (ASCP ) Not Available [facility] ([facility]) [address] [place], [address], 12/30/2015 06:05:48 12/27/19 16 12/28/2015 pap, IG + HPV, cervi arleen . . Not Available [facility] ([facility]) [address] [facility], [place], [address], 12/30/2015 06:05:48 12/27/19 16 12/28/2015 pap, IG [...] TS DO OCCUR . Not Available [facility] ([facility]) [address] [place], [address], 12/30/2015 06:05:48 12/27/19 16 12/28/2015 pap, IG + HPV, cervi arleen test methodology: SHILOH T THIS LIQUI D BASED THINP REP(R ) PAP TEST WAS SCREE KAYLEE WITH THE USE OF AN IMAGE GUIDE Bertrand Maher. Not Available [facility] ([facility]) [address] [place], [address], 12/30/2015 06:05:48 12/27/19 16 12/30/2015 pap, IG + HPV, cervi arleen HPV aptima NEGATI VE negati ve THIS TEST DETEC TS FOURT EEN HIGH- RISK HPV TYPES (16/1 8/31/ 33/35 /39/4 5/ 51/52 /56/5 8/59/ 66/68 ) WITHO UT DIFFE RENTI ATION . Not Available [facility] ([facility]) [address] [place], [address], 12/30/2015 06:05:48 02/27/20 16 02/27/2016 MAMMO , scree chavo, digit al, bilat eral No observ ation record ed. [facility] (Imaging) [address] [place], [address], 03/19/2016 14:02:14 03/06/20 16 03/06/2016 US, doppl er, venou s No observ ation record ed. [facility] (Imaging) [address] [place], [address], 03/19/2016 14:02:12 03/19/20 16 02/26/2016 US, pelvi s, trans abdom inal + trans vagin al No observ ation record ed. [facility] [address] [place], [address], 03/19/2016 14:02:16 03/19/20 16 03/06/2016 US, doppl er, venou s No observ ation record ed. [facility] (Imaging) [address] [place], [address], 03/19/2016 16:35:59 03/25/20 16 03/25/2016 bone densi ty No observ ation record ed. [address] (Imaging) [address] [place], [address], 03/26/2016 15:59:09 Result Notes None recorded. Problems Name Problem SNOMED Code Status Onset Date Resolution Date Notes Provider Name and Address Organization Details Recorded Time Chronic interstit ial cystitis 539251255 Active [address] Barker in [place], [place]. C/w hydroxyzin e 25 mg TID and imipramine 50 mg qd. AYLIN LITTLE Attn: Accounting ,[address] [facility], [place], [address] , [place] [facility] 9 08:52:36 Disorder of gallbladd er 48497940 Active Ainsley Rene [place] null, [place] - [place] 6 10:29:44 Mammograp hy abnormal 266303083 Active Ainsley Rene [place], [place] - [facility] 6 10:29:44 Tobacco dependenc e syndrome 25428191 Active Angela Isidro PA-C Attn: Accounting ,[address] [facility], [place], [place], [address] [place] [address] , [facility] 6 10:23:33 Pulmonary emphysema 83562026 Active 1/2ppd smoker Angela Isidro PA-C Attn: Accounting ,[address] [facility], [place], [place], [address] [place] [address] , [facility] - [facility] 6 18:45:08 Depressiv e disorder 26134210 Active Angela Isidro PA-C Attn: Accounting ,[address] [facility], [place], [place], [address] [place] [address] , [facility] - [facility] 6 18:45:08 Hypertens monserrat disorder 77840200 Active Angela Isidro PA-C Attn: Accounting ,[address] [facility], [place], [place], [address] [place] [address] , [facility] - [facility] 6 10:42:43 Osteoporo sis 54932906 Active needs bone density scan Angela Isidro PA-C Attn: Accounting ,[address] [facility], [place], [place], [address] [place] [address] , [facility] - [facility] 6 18:45:08 Asthma 325919542 Active Ainsley Rene [place], [place] - [facility] 6 10:29:44 Enlarged uterus 986308518 Active Angela Isidro PA-C Attn: Accounting ,[address] [facility], [place], [place], [address] [place] [address] , [place] - [facility] 6 18:45:08 Venous stasis 72296504 Active Angela Isidro PA-C Attn: Accounting ,[address] [facility], [place], [place], [address] [place] [address] , [facility] - [facility] 6 18:45:08 Menopause Active Angela Isidro PA-C Attn: Accounting ,[address] [facility], [place], [address] , [facility] - [facility] 6 10:23:33 Problem Notes None recorded. Procedures Surgical History Date Name Laterality Status Provider Name and Address Organization Details Recorded Time 02/27/20 16 Most Recent Mammogram completed Angi Villalobos MA [facility] 04/12/2016 10:47:54 12/27/19 16 Date of Last Pap Smear completed Angi Villalobos MA [facility] 04/12/2016 10:46:32 09/02/18 88 Caesarean Section completed Ainsley ReneMUNA [facility] 12/27/2015 10:00:23 Tubal Ligation completed Ainsley Rene MA [facility] 12/27/2015 10:26:10 Cholecystectomy completed Pallavi Deluna MA [facility] 12/29/2015 10:19:48 Imaging Results None recorded. Procedure Notes None recorded. Medical Equipment None Reported. Allergies Allergen ID Allergen Name Allergen Category Reaction Reaction Severity Criticality Documentation Date Start Date Code Code System Note Provider Name and Address Organization Details Recorded Time 35082 sulfur dioxide medicatio n rash Not available Not available 11/16/2015 41335 79 RxNorm sick MUNA Dubois, [facility] 6 10:25:37 53442 Product containin g penicilli n (product) medicatio n hives Not available Not available 12/27/2015 72342 8001 SNOMED rash, makes her sick MUNA Dubois, [facility] 6 10:04:27 Medications Name Sig Start Date Stop Date [...] Details Last Updated DateTime 12/27/2015 160.02 cm 36128.78 521 g 23.6 kg/m2 140 mm[Hg] 88 mm[Hg] Ainsley Rene MA [place] - [facility] 6 10:26:21 Date Recorded Body mass index (BMI) Respiratory rate Heart rate Body weight Body temperature Body height Systolic blood pressure Diastolic blood pressure Provider Name and Address Organization Details Last Updated DateTime 6 24.1 kg/m2 18 /min 79 /min 66382.9 49479 g 98.3 [degF] 160.02 cm 130 mm[Hg] 90 mm[Hg] Pallavi Deluna MA [facility] 6 10:19:48 Date Recorded Body mass index (BMI) Heart rate Body temperature Body weight Oxygen saturation Oxygen saturation in Arterial blood by Pulse oximetry Body height Systolic blood pressure Diastolic blood pressure Provider Name and Address Organization Details Last Updated DateTime 6 24.9 kg/m2 80 /min 98 [degF] 02232.1 50764 g 96 % 96 % 160.02 cm 138 mm[Hg] 84 mm[Hg] Peg Banegas MA [facility] 6 12:33:57 Date Recorded Body height Body weight Body mass index (BMI) Heart rate Respiratory rate Body temperature Oxygen saturation Oxygen saturation in Arterial blood by Pulse oximetry Systolic blood pressure Diastolic blood pressure Provider Name and Address Organization Details Last Updated DateTime 6 158.12 cm 49110.9 3 g 25.4 kg/m2 87 /min 18 /min 97.9 [degF] 96 % 96 % 110 mm[Hg] 88 mm[Hg] Pallavi Deluna MA [facility] 6 09:38:23 Date Recorded Body height Body weight Body mass index (BMI) Systolic blood pressure Diastolic blood pressure Provider Name and Address Organization Details Last Updated DateTime 04/12/2016 158.12 cm 52877.75 g 25 kg/m2 148 mm[Hg] 94 mm[Hg] Angi Villalobos MA [facility] 6 10:49:44 Social History Question Answer Notes LastModified by Organizat ion Details LastModified Time Tobacco Smoking Status Current Every Day Smoker Yadira Kelly RN [facility], [facility] 11/16/2015 15:57:47 Do You Have An Advance Directive? No Organ Donor [email or web address] Information not available 12/27/2015 Is Blood Transfusion Acceptable In An Emergency? Yes [email or web address] Information not available 12/27/2015 What Is Your Level Of Caffeine Consumption? Moderate Information not available 11/16/2015 How Much Tobacco Do You Chew? None Information not available 12/27/2015 What Type Of Diet Are You Following? REGULAR Information not available 11/16/2015 Which Illicit Or Recreational Drugs Have You Used? 0 Pt Denies [email or web address] Information not available 12/27/2015 Education 11 Information [...] available 11/16/2015 Performs Monthly Self-breast Exam? Yes [email or web address] Information not available 12/27/2015 Do You Use Protection During Sex? No [email or web address] Information not available 12/27/2015 What Is Your Relationship Status? Single [email or web address] Information not available 12/27/2015 Seat Belts Used Routinely Yes [email or web address] Information not available 12/27/2015 Are You Sexually Active? No [email or web address] Information not available 12/27/2015 At What Age Did You Start Smoking Tobacco? 19 Information not available 11/16/2015 Are You Passively Exposed To Smoke? No Information not available 11/16/2015 How Much Tobacco Do You Smoke? 0.5 PPD [email or web address] Information not available 11/16/2015 General Stress Level High Information not available 11/16/2015 Do You Use Sunscreen Routinely? Yes [email or web address] Information not available 12/27/2015 How Many Years Have You Smoked Tobacco? 25 [email or web address] Information not available 11/16/2015 Sex: Unknown Functional Status Question Answer Note LastModified by Organizat ion Details LastModified Time What is your level of alcohol consumption? None [email or web address] Information not available 11/16/2015 Are you currently employed? No Information not available 11/16/2015 What is your occupation? none [email or web address] Information not available 12/27/2015 What is your exercise level? Occasional Information not available 11/16/2015 Mental Status None recorded. Family History Relationship Description Onset Age of this Age Resolved Age Notes LastModified by Organization Details LastModified Time Mother Harmful pattern of use of alcohol Not available 2015 10:19:48 Mother Depressive disorder Not available 2015 10:19:48 Mother Heart disease Not available 2015 10:19:48 Mother Hypertensive disorder Not available 2015 10:19:48 Mother Osteoporosis Not avai lable 12/29/2015 10:19:48 Father Harmful pattern of use of alcohol Not available 2015 10:19:48 Father Diabetes mellitus Not available 2015 10:19:48 Father Hypertensive disorder Not available 2015 10:19:48 Father Osteoporosis Not avai lable 12/29/2015 10:19:48 Sister Harmful pattern of use of alcohol Not available 2015 10:19:48 Sister Malignant tumor of breast Not available 2015 10:19:48 Sister Depressive disorder Not available 2015 10:19:48 Sister Hypertensive disorder Not available 2015 10:19:48 Sister Osteoporosis Not avai lable 12/29/2015 10:19:48 Brother Harmful pattern of use of alcohol Not available 2015 10:19:48 Brother Depressive disorder Not available 2015 10:19:48 Brother Hypertensive disorder Not available 2015 10:19:48 Brother Osteoporosis Not meenu ilable 12/29/2015 10:19:48 Medical History Condition Response Coronary Artery Disease N Kidney Cyst N Blood Diseases N Hyperthyroidism N Blood disorders N Blood Transfusion N MRSA N Emphysema N Depression Y COPD N Blood Clots N Pneumonia Y Premature N Peripheral Arterial Disease N Edema N TIA N Headaches/Migraines Y Anxiety Disorder N Obesity N Polyps N Infertility N Acid Reflux (GERD) N Hematuria N Stroke N Neck Injury N Polio N Hospital Admission other than N Neurologic Disorder N Other Sleep Disorders N Rheumatoid Arthritis N Fibromyalgia N Abdominal Aortic Aneurysm Repair N Kidney Disease N Heart Conditions N Heart Disease/Heart Problems N Hospitalizations N Brain Tumors N Acne N Skin Problems N Eating Disorder Y Meningitis N Constipation N Tuberculosis N Cerebral Palsy N Myocardial Infarction N Asthma Y Substance Abuse N Peripheral Vascular Disease N Vertigo N Sleep Disorder N Cirrhosis N Pulmonary Embolism N Chicken Pox Y Hematologic Disease N Flomax Use Past or Present N Anxiety/Depression Y Thyroid Disease N Colon Cancer N Lung Disease N Glaucoma N Developmental or Behavioral Disorders N Bipolar N Pacemaker N Diverticulitis/Diverticulosis N Orthopedic Problems N Anesthesia Complications N Orthotics N Head Injury/Concussion Y Congenital Anomalies N Woodard Bite N Chronic Kidney Disease N Endometriosis N Liver Disease N Schizophrenia N Dialysis N Speech Delay N Chronic Obstructive Pulmonary Disease N Parkinson's Disease N Thyroid Problems N GI Problems N Developmental Delay N Anemia N Multiple Sclerosis N Immune System Disorder N Colon Polyps N Heart Attack (DE) N Diabetes N Cardiomyopathy N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
--- OUTSIDE RECORDS SUMMARY | 2024-11-09 10:56 | XMS_ITS | Clinical Summary ---
Author Organization [facility] Medical Office Building [address] Address [address] [place] [address] Care Team Providers Care Plate Filler Name Role Phone Santos Montenegro MD Primary Care Provider [phone] Allergies Active Allergy Reactions Criticality Noted Date [...] mouth daily 30 tablet 5 02/09/20 24 Active trospium XR (SANCTURA XR) 60 mg capsule,extended release 24hrIndications:O AB (overactive bladder) Take 1 capsule (60 mg total) by mouth daily 30 capsule 2 02/19/20 24 Active oxyBUTYnin XL (DITROPAN-XL) 10 mg 24 hr tabletIndications :OAB (overactive bladder) Take 1 tablet (10 mg total) by mouth daily 30 tablet 11 07/02/19 25 026 Active amitriptyline (ELAVIL) 25 mg tabletIndications :Interstitial cystitis Take 1 tablet (25 mg total) by mouth nightly 30 tablet 2 09/04/19 25 025 Active Active Problems Problem Noted Date Diagnosed [...] in unspecified joint 10/15/20222022 Tobacco dependence syndrome 10/15/2022 0510/2022 Unspecified lump in right breast, subareolar 10/15/2022 [...] in: three months Generalized anxiety disorder 04/03/2022 05/ Overview (10/15/2022): Last Assessment & Plan: Condition: stable Radha encouraged on medication compliance, routine exercise, and low caffeine intake. Follow up: tomorrow 04/04/22 w/ CLIENT SERVICE COORDINATOR as scheduled Left knee pain 04/03/2022 10/15/2022 [...] encouraging member to wean). 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 No Resources reviewed: Provider Online Directory - counseling/rehab/mental health Follow up Provider: Other Follow up: tomorrow 04/04/22 w/ CLIENT SERVICE COORDINATOR as scheduled GERD (gastroesophageal reflux disease) 10/15/2022 Overview (10/15/2022): Last Assessment & Plan: Condition: stable Reviewed use of antacid medication and/or diet modifications of decreasing caffeine, spicy foods, chocolate, and avoiding alcohol, tobacco, NSAIDs, and reducing citrus acids. Follow up in: three months PTSD (post-traumatic stress disorder) 10/05/2020 10/15/2022 Overview (10/15/2022): Last Assessment & Plan: Condition: stable Follow up: tomorrow 04/04/22 w/ CLIENT SERVICE COORDINATOR as scheduled Hypertension 10/05/2020 10/15/2022 Overview (10/15/2022): [...] seek urgent/emergent care including calling Suicide Hotline (000 or ) or 541. Follow up: tomorrow 04/04/22 w/ CLIENT SERVICE COORDINATOR as scheduled Iron deficiency anemia 08/10/2020 Overview [...] Encounters Date Type Department Care Team Description 11/03/2024 Telephone [facility] [address] [place] [address] Bettina Garcia CMA 11/01/[address] [facility] [address] [place] [address] Office [facility] [address] [place] [phone] Cheri Ibarra LPN 10/29/[address] [facility] [address] [place] [address] [place] [phone] Cheri Ibarra LPN 10/18/2024 Telephone [facility] [address] [place] [address] Sada Allan 09/03/[address] [facility] [address] [place] [address] [place] [phone] Ed Ortega MD Interstitial cystitis (Primary Dx) 09/03/[address] [facility] [address] [place] [address] [place] [phone] Cheri Ibarra LPN from Last 3 Months Surgical History Surgery [...] 2:18 PM CDT Height 157.5 cm (5' 2) 10/15/2022 2:18 PM CDT Body Mass Index 25.24 10/15/2022 2:18 PM CDT Plan of Treatment Health Maintenance Due Date Last Done Comments Breast Cancer Screening-Mammogram 1965 Cervical Cancer Screening 1963 Colon Cancer Screening-Colonoscopy 1963 Depression Screening 1963 Hepatitis B Screening 1981 Regular Well Visit/Exam 18-64 1981 Pneumococcal vaccine <65 (1 of 2 - PCV) 1982 Zoster Vaccine (1 of 2) 2013 Influenza Vaccine (Season Ended) 2025 DTaP/Tdap/Td Vaccine (2 - Td or Tdap) 02/21/2026 Hepatitis C Screening Completed 10/15/2022 Insurance [facility] MEDICAID [facility] Care Teams Plate Filler Relationship Specialty Start Date End Date Santos Montenegro MD [address] [place] [address] PCP - General Family Medicine 04/23/22
--- OUTSIDE RECORDS SUMMARY | 2024-11-09 10:57 | XMS_ITS | Patient Health Record ---
Author Organization [facility] Address [address] [place] [address] Care Team Providers Care Flight Engineer Name Role Phone Jonas Tello Primary Care Provider [phone] Hortensia RUDOLPH Unavailable Unavailable Cheri Morris Unavailable [phone] Allergies Allergen (clinical drug ingredient) Drug/Non Drug Allergy documented on EMR Reaction Allergy Type Onset Date Status Penicillin Unknown Drug Allergy Active Substance with sulfonamide structure and antibacterial mechanism of action (substance) Sulfa Antibiotics Unknown Drug Allergy Active Reason For Referral Reason Group therapy - clscott nt interested in group therapy. Is currently estranged from both her kids, daughter has alcoholism and son struggling with untx mental health issues. Diagnosis 1 Major depression wit h psychotic features (F32.3) Diagnosis 2 Generalized anxiety disorder (F41.1) Diagnosis 3 Chronic post-traumat ic stress disorder (PTSD) (F43.12) Referral Organization [facility] Referring Provider First Name Jonas Referring Provider Last Name Omer Referring Provider Speciality Psychiatry Referred Provider Specialty [facility]al [facility] Clinical Notes Cheri Morris 01:11:34 PM >Referral addressed. PN included. Referral Priority Routine Medications Medication SIG (Take, Route, Frequency, Duration) Notes Start Date End Date Status Pantoprazole Sodium 40 MG 1 tablet Orall y Once a day GI 04/02/2023 Active oxyBUTYnin Chloride 15 MG 1 tablet Orall y Once a day Active Irbesartan 300 MG 1 tablet Orally Once a day Active Dicyclomine HCl 10 MG 1 capsule Orally F our times a day Active Ondansetron 4 MG 1 tablet on the tong ue and allow to dissolve Orally Once a day for 30 day(s) Active Amitriptyline HCl 25 MG Oral for 30 Days Active Hyoscyamine Sulfate 0.125 MG 1 tablet as needed Orally every 4 hrs GI Active Famotidine 40 MG 1 tablet at bedtime Orally Once a day for 30 day(s) Active Pregabalin 150 MG Oral for 30 Days Active hydrOXYzine HCl 25 MG 1 tablet as needed Orally every 8 hrs for 30 day(s) Active Amitriptyline HCl 25 MG 1 tablet at bedt teagan Orally Once a day for 30 day(s) Active Rexulti 4 MG 1 tablet Orally at night for 30 days Active KlonoPIN 1 MG 0.5 tablet Orally Th ree times a day as needed for severe anxiety. for 30 days 11/08/2024 Active Spiriva HandiHaler 18 MCG 1 capsule by i nhaling the contents of the capsule using the HandiHaler device Inhalation Once a day Active traZODone HCl 300 MG 0.5 - 1 tablet at bedtime as needed Orally Once a day for 30 days 10/15/2023 Active Diphenoxylate-Atropine 2.5-0.025 MG 1 tablet as needed Orally Four times a day Active buPROPion HCl ER (XL) 300 MG 1 tablet in the morning Orally Once a day for 30 days Active Famotidine 40 MG TAKE 1 TABLET BY BATLAZAR TH TWICE DAILY Oral for 30 Days Active Zoloft 100 MG two tablets Orally a t night for 30 days Active Cyclobenzaprine HCl 10 MG Oral for 30 Days Active Social History Sex Assigned At : Social History Observation Description Sex Assigned At Female Dont use, Tobacco Use/Smoking Question Answer Notes Are you a former smoker How long has it been since you last smoked? 1-5 years Tobacco Control (Standard) Question Answer Notes Additional Findings: Tobacco non-user Nonsmoker for medical reasons Additional Findings: Tobacco user e-cigarette Section Notes: [id number] 03/07/2021 02/13/2021 clonazePAM 45 30 1 MG NA Amrita Rudolph L, Msn, Staffing Consultant[employer] - [id number] [employer] [facility] 1 [id number] 02/07/2021 01/16/2021 clonazePAM 45 30 1 MG NA Amrita Rudolph L, Msn, Staffing Consultant[employer] - [id number] [employer] [place], [place] [id number] 01/10/2021 12/19/2020 clonazePAM 50 30 1 MG NA Amrita Rudolph L, Msn, [facility] [id number] [employer] [place], [place] [id number] 12/11/2020 11/21/2020 clonazePAM 50 30 1 MG NA Amrita Rudolph L, Msn, [facility] [id number] [place] [id number] 11/13/2020 10/25/2020 clonazePAM 50 30 1 MG NA Amrita Rudolph L, Msn, [facility] [id number] [employer] [place], [place] [id number] 10/16/2020 09/28/2020 clonazePAM 50 30 1 MG NA Amrita Rudolph L, Msn, [facility] - [id number] [employer] [place], [place] [id number] 09/18/2020 09/06/2020 clonazePAM 60 30 1 MG NA Amrita Rudolph L, Msn, [facility] [id number] [employer] [place], [place] [id number] 08/21/2020 08/21/2020 clonazePAM 60 30 1 MG NA Amrita Rudolph L, Msn, [facility] [id number] [employer] [place], [place] [id number] 07/24/2020 07/24/2020 clonazePAM 60 30 1 MG NA Amrita Rudolph L, Msn, [facility] [id number] [employer] [place], [place] [id number] 06/26/2020 06/26/2020 clonazePAM 60 30 1 MG NA [place]alle Problems Problem Type SNOMED Code ICD Code Onset Dates Problem Status W/U Status Risk Notes Problem 38668477 Generalized anxiety disorder (F41.1) Active confirmed Problem 56992371 Tobacco dependency (F17.200) Active confirmed Problem Moderate recurrent major depression (20203760) Major depressive disorder, recurrent episode, moderate (F33.1) Active confirmed MDD with pyschotic features Problem Posttraumatic stress disorder (22461520) Chronic post-traumatic stress disorder (PTSD) (F43.12) 021 Active confirmed PCL-5 66 10/25/20 Problem Benzodiazepine dependence (294887279) Benzodiazepine dependence (F13.20) Active confirmed Problem Major depression with psychotic features (778548992) Major depression with psychotic features (F32.3) Active confirmed r/o dysthymic disorder versus bipolar disorder with psychotic features. Past history of visual hallucinatio ns BSDS score 23 correlating with high probability for bipolar disorder. Encounters Encounter Location Date Provider Diagnosis [address] [address] 03/11/2024 Jonas Tello [address] [address] 10/22/2024 Jonas Tello [address] [address] 11/11/2023 Jonas Tello Major depression wit h psychotic features F32.3 ; Generalized anxiety disorder F41.1 and Chronic post-traumatic stress disorder (PTSD) F43.[address] [address] 12/08/2023 Jonas Tello Major depression wit h psychotic features F32.3 ; Chronic post-traumatic stress disorder (PTSD) F43.12 and Generalized anxiety disorder F41.[address] [address] 01/07/2024 Jonas Tello Major depression wit h psychotic features F32.3 ; Chronic post-traumatic stress disorder (PTSD) F43.12 and Generalized anxiety disorder F41.[address] [address] 01/28/2024 Jonas Tello Major depression wit h psychotic features F32.3 ; Chronic post-traumatic stress disorder (PTSD) F43.12 and Generalized anxiety disorder F41.[address] [address] 02/16/2024 Jonas Tello Major depression wit h psychotic features F32.3 ; Chronic post-traumatic stress disorder (PTSD) F43.12 and Generalized anxiety disorder F41.[address] [address] 03/17/2024 Jonas Tello Major depression wit h psychotic features F32.3 ; Generalized anxiety disorder F41.1 ; Chronic post-traumatic stress disorder (PTSD) F43.12 and Benzodiazepine dependence F13.[address] [address] 04/12/2024 Jonas Tello Major depression wit h psychotic features F32.3 ; Chronic post-traumatic stress disorder (PTSD) F43.12 and Generalized anxiety disorder F41.[address] [address] 05/12/2024 Jonas Tello Major depression wit h psychotic features F32.3 ; Generalized anxiety disorder F41.1 and Chronic post-traumatic stress disorder (PTSD) F43.[address] [address] 06/09/2024 Jonas Tello Major depression wit h psychotic features F32.3 ; Generalized anxiety disorder F41.1 and Chronic post-traumatic stress disorder (PTSD) F43.[address] [address] 07/13/2024 Jonas Tello Major depression wit h psychotic features F32.3 ; Generalized anxiety disorder F41.1 and Chronic post-traumatic stress disorder (PTSD) F43.[address] [address] 08/09/2024 Jonas Tello Major depression wit h psychotic features F32.3 ; Generalized anxiety disorder F41.1 and Chronic post-traumatic stress disorder (PTSD) F43.[address] [address] 09/07/2024 Jonas Tello Major depression wit h psychotic features F32.3 ; Chronic post-traumatic stress disorder (PTSD) F43.12 ; Generalized anxiety disorder F41.1 and Benzodiazepine dependence F13.[address] [address] 10/05/2024 Jonas Tello Major depression wit h psychotic features F32.3 ; Generalized anxiety disorder F41.1 ; Chronic post-traumatic stress disorder (PTSD) F43.12 and Benzodiazepine dependence F13.[address] [place] [address] 11/08/2024 Jonas Tello Major depression wit h psychotic features F32.3 ; Chronic post-traumatic stress disorder (PTSD) F43.12 ; Generalized anxiety disorder F41.1 and Benzodiazepine dependence F13.[address] [place] [address] 10/20/2024 Cheri Morris Generalized anxiety disorder F41.1 Assessments Encounter Date Diagnosis (ICD Code) Assessment Notes Treatment Notes Treatment Clinical Notes Section Notes 01/07/2024 Major depression with psychotic features (ICD-10 - F32.3) r/o dysthymic disorder versus bipolar disorder with psychotic features. Past history of visual hallucination s BSDS score 23 correlating with high probability for bipolar disorder. 03/17/2024 Major depression with psychotic features (ICD-10 - F32.3) r/o dysthymic disorder versus bipolar disorder with psychotic features. Past history of visual hallucination s BSDS score 23 correlating with high probability for bipolar disorder. Client has to have repeat mammogram and is having nodule watched in her lung. Is becoming hyperfixated on acquiring cancer. Is relating her fears to current treatment plan rather than her risks of history of smoking. Discussed this with client. Discussed with client to discuss any fears about medications with pharmacist or prescribing provider rather than not take them. That benefit of Rexulti outweighs any risk for client at this point in time and recommend client continue with treatment. Client currently agreeable. 08/09/2024 Major depression with psychotic features (ICD-10 - F32.3) r/o dysthymic disorder versus bipolar disorder with psychotic features. Past history of visual hallucination s BSDS score 23 correlating with high probability for bipolar disorder. 10/05/2024 Major depression with psychotic features (ICD-10 - F32.3) r/o dysthymic disorder versus bipolar disorder with psychotic features. Past history of visual hallucination s BSDS score 23 correlating with high probability for bipolar disorder. Client struggling due to isolation from her son and daughter who both struggle with mental illness/addicti on. Discussed group therapy as an idea for more support. Client is open to this idea. Referral to [facility] behavorial sent. No medication changes to tx this month. Client has comorbid health issues she struggles with. 10/20/2024 Generalized anxiety disorder (ICD-10 - F41.1) 04/12/2024 Major depression with psychotic features (ICD-10 - F32.3) r/o dysthymic disorder versus bipolar disorder with psychotic features. Past history of visual hallucination s BSDS score 23 correlating with high probability for bipolar disorder. Encouraged client to take 0.5 tablet of trazodone to limit excessive sleep and will look at cutting dose at next appointment (client getting 10 + hours a night) likely using sleep as escape from grief. Encouraged client to limit isolation. No changes to treatment plan at this time. 11/08/2024 Major depression with psychotic features (ICD-10 - F32.3) r/o dysthymic disorder versus bipolar disorder with psychotic features. Past history of visual hallucination s BSDS score 23 correlating with high probability for bipolar disorder. Client continues to struggle with depression due to health issues and family dynamics/isolat ion. Continue to encourage client to engage in therapy, she continues to lack follow up. She is already dealing with polypharmacy due to comorbid health issues and has been fairly stable on current tx plan. No changes at this time but encourage client to consider therapy, CRU stay if needed. She verbalizes understanding and agreeable. 09/07/2024 Major depression with psychotic features (ICD-10 - F32.3) r/o dysthymic disorder versus bipolar disorder with psychotic features. Past history of visual hallucination s BSDS score 23 correlating with high probability for bipolar disorder. 07/13/2024 Major depression with psychotic features (ICD-10 - F32.3) r/o dysthymic disorder versus bipolar disorder with psychotic features. Past history of visual hallucination s BSDS score 23 correlating with high probability for bipolar disorder. 06/09/2024 Major depression with psychotic features (ICD-10 - F32.3) r/o dysthymic disorder versus bipolar disorder with psychotic features. Past history of visual hallucination s BSDS score 23 correlating with high probability for bipolar disorder. 05/12/2024 Major depression with psychotic features (ICD-10 - F32.3) r/o dysthymic disorder versus bipolar disorder with psychotic features. Past history of visual hallucination s BSDS score 23 correlating with high probability for bipolar disorder. 02/16/2024 Major depression with psychotic features (ICD-10 - F32.3) r/o dysthymic disorder versus bipolar disorder with psychotic features. Past history of visual hallucination s BSDS score 23 correlating with high probability for bipolar disorder. Client more hopeful and less depressed from last session. No changes to treatment plan at this time. 01/28/2024 Major depression with psychotic features (ICD-10 - F32.3) r/o dysthymic disorder versus bipolar disorder with psychotic features. Past history of visual hallucination s BSDS score 23 correlating with high probability for bipolar disorder. Encourage client to increase social interaction and limit isolation. Therapy has been offered, but client declines. 12/08/2023 Major depression with psychotic features (ICD-10 - F32.3) r/o dysthymic disorder versus bipolar disorder with psychotic features. Past history of visual hallucination s BSDS score 23 correlating with high probability for bipolar disorder. 11/11/2023 Major depression with psychotic features (ICD-10 - F32.3) r/o dysthymic disorder versus bipolar disorder with psychotic features. Past history of visual hallucination s BSDS score 23 correlating with high probability for bipolar disorder. 11/11/2023 Generalized anxiety disorder (ICD-10 - F41.1) 01/28/2024 Chronic post-traumatic stress disorder (PTSD) (ICD-10 - F43.12) PCL-5 66 10/25/20 Encourage client to increase social interaction and limit isolation. Therapy has been offered, but client declines. 12/08/2023 Chronic post-traumatic stress disorder (PTSD) (ICD-10 - F43.12) PCL-5 66 10/25/20 02/16/2024 Chronic post-traumatic stress disorder (PTSD) (ICD-10 - F43.12) PCL-5 66 10/25/20 Client more hopeful and less depressed from last session. No changes to treatment plan at this time. 05/12/2024 Generalized anxiety disorder (ICD-10 - F41.1) 06/09/2024 Generalized anxiety disorder (ICD-10 - F41.1) 07/13/2024 Generalized anxiety disorder (ICD-10 - F41.1) 09/07/2024 Chronic post-traumatic stress disorder (PTSD) (ICD-10 - F43.12) PCL-5 66 10/25/20 11/08/2024 Chronic post-traumatic stress disorder (PTSD) (ICD-10 - F43.12) PCL-5 66 10/25/20 Client continues to struggle with depression due to health issues and family dynamics/isolat ion. Continue to encourage client to engage in therapy, she continues to lack follow up. She is already dealing with polypharmacy due to comorbid health issues and has been fairly stable on current tx plan. No changes at this time but encourage client to consider therapy, CRU stay if needed. She verbalizes understanding and agreeable. 08/09/2024 Generalized anxiety disorder (ICD-10 - F41.1) 10/05/2024 Generalized anxiety disorder (ICD-10 - F41.1) Client struggling due to isolation from her son and daughter who both struggle with mental illness/addicti on. Discussed group therapy as an idea for more support. Client is open to this idea. Referral to [facility] behavorial sent. No medication changes to tx this month. Client has comorbid health issues she struggles with. 01/07/2024 Chronic post-traumatic stress disorder (PTSD) (ICD-10 - F43.12) PCL-5 66 10/25/20 04/12/2024 Chronic post-traumatic stress disorder (PTSD) (ICD-10 - F43.12) PCL-5 66 10/25/20 Encouraged client to take 0.5 tablet of trazodone to limit excessive sleep and will look at cutting dose at next appointment (client getting 10 + hours a night) likely using sleep as escape from grief. Encouraged client to limit isolation. No changes to treatment plan at this time. 03/17/2024 Generalized anxiety disorder (ICD-10 - F41.1) Client has to have repeat mammogram and is having nodule watched in her lung. Is becoming hyperfixated on acquiring cancer. Is relating her fears to current treatment plan rather than her risks of history of smoking. Discussed this with client. Discussed with client to discuss any fears about medications with pharmacist or prescribing provider rather than not take them. That benefit of Rexulti outweighs any risk for client at this point in time and recommend client continue with treatment. Client currently agreeable. 01/07/2024 Generalized anxiety disorder (ICD-10 - F41.1) 03/17/2024 Chronic post-traumatic stress disorder (PTSD) (ICD-10 - F43.12) PCL-5 66 10/25/20 Client has to have repeat mammogram and is having nodule watched in her lung. Is becoming hyperfixated on acquiring cancer. Is relating her fears to current treatment plan rather than her risks of history of smoking. Discussed this with client. Discussed with client to discuss any fears about medications with pharmacist or prescribing provider rather than not take them. That benefit of Rexulti outweighs any risk for client at this point in time and recommend client continue with treatment. Client currently agreeable. 04/12/2024 Generalized anxiety disorder (ICD-10 - F41.1) Encouraged client to take 0.5 tablet of trazodone to limit excessive sleep and will look at cutting dose at next appointment (client getting 10 + hours a night) likely using sleep as escape from grief. Encouraged client to limit isolation. No changes to treatment plan at this time. 10/05/2024 Chronic post-traumatic stress disorder (PTSD) (ICD-10 - F43.12) PCL-5 66 10/25/20 Client struggling due to isolation from her son and daughter who both struggle with mental illness/addicti on. Discussed group therapy as an idea for more support. Client is open to this idea. Referral to [facility] behavorial sent. No medication changes to tx this month. Client has comorbid health issues she struggles with. 08/09/2024 Chronic post-traumatic stress disorder (PTSD) (ICD-10 - F43.12) PCL-5 66 10/25/20 11/08/2024 Generalized anxiety disorder (ICD-10 - F41.1) Client continues to struggle with depression due to health issues and family dynamics/isolat ion. Continue to encourage client to engage in therapy, she continues to lack follow up. She is already dealing with polypharmacy due to comorbid health issues and has been fairly stable on current tx plan. No changes at this time but encourage client to consider therapy, CRU stay if needed. She verbalizes understanding and agreeable. 09/07/2024 Generalized anxiety disorder (ICD-10 - F41.1) 07/13/2024 Chronic post-traumatic stress disorder (PTSD) (ICD-10 - F43.12) PCL-5 66 10/25/20 06/09/2024 Chronic post-traumatic stress disorder (PTSD) (ICD-10 - F43.12) PCL-5 66 10/25/20 05/12/2024 Chronic post-traumatic stress disorder (PTSD) (ICD-10 - F43.12) PCL-5 66 10/25/20 02/16/2024 Generalized anxiety disorder (ICD-10 - F41.1) Client more hopeful and less depressed from last session. No changes to treatment plan at this time. 12/08/2023 Generalized anxiety disorder (ICD-10 - F41.1) 01/28/2024 Generalized anxiety disorder (ICD-10 - F41.1) Encourage client to increase social interaction and limit isolation. Therapy has been offered, but client declines. 11/11/2023 Chronic post-traumatic stress disorder (PTSD) (ICD-10 - F43.12) PCL-5 66 10/25/20 09/07/2024 Benzodiazepine dependence (ICD-10 - F13.20) 11/08/2024 Benzodiazepine dependence (ICD-10 - F13.20) Client continues to struggle with depression due to health issues and family dynamics/isolat ion. Continue to encourage client to engage in therapy, she continues to lack follow up. She is already dealing with polypharmacy due to comorbid health issues and has been fairly stable on current tx plan. No changes at this time but encourage client to consider therapy, CRU stay if needed. She verbalizes understanding and agreeable. 10/05/2024 Benzodiazepine dependence (ICD-10 - F13.20) Client struggling due to isolation from her son and daughter who both struggle with mental illness/addicti on. Discussed group therapy as an idea for more support. Client is open to this idea. Referral to [facility] behavorial sent. No medication changes to tx this month. Client has comorbid health issues she struggles with. 03/17/2024 Benzodiazepine dependence (ICD-10 - F13.20) Client has to have repeat mammogram and is having nodule watched in her lung. Is becoming hyperfixated on acquiring cancer. Is relating her fears to current treatment plan rather than her risks of history of smoking. Discussed this with client. Discussed with client to discuss any fears about medications with pharmacist or prescribing provider rather than not take them. That benefit of Rexulti outweighs any risk for client at this point in time and recommend client continue with treatment. Client currently agreeable. [place]24 [place]. Discussed sleep hygiene and caffeine intake with encouragement to limit electronic devices an hour before bed and to limit caffeine after 3:00pm. Exercise benefits for mood and health discussed. Psychoeducation regarding psychiatric illness provided. Client was educated about risks and benefits of medication, alternatives to medication, off label uses of medication, suicidal ideation with SSRIs, self-administrati on and compliance with medication along with how to safely store medication. Verbal informed consent obtained. Client agrees to return sooner if symptoms worsen or if suicidal or homicidal ideations occur. Client has the phone number to the 24-hour crisis line at [facility]. Questions addressed. Client verbalized understanding of all information and is agreeable to treatment plan. 10/05/[place]24 [place]. Discussed sleep hygiene and caffeine intake with encouragement to limit electronic devices an hour before bed and to limit caffeine after 3:00pm. Exercise benefits for mood and health discussed. Psychoeducation regarding psychiatric illness provided. Client was educated about risks and benefits of medication, alternatives to medication, off label uses of medication, suicidal ideation with SSRIs, self-administrati on and compliance with medication along with how to safely store medication. Verbal informed consent obtained. Client agrees to return sooner if symptoms worsen or if suicidal or homicidal ideations occur. Client has the phone number to the 24-hour crisis line at [facility]. Questions addressed. Client verbalized understanding of all information and is agreeable to treatment plan. Client struggling due to isolation from her son and daughter who both struggle with mental illness/addicti on. Discussed group therapy as an idea for more support. Client is open to this idea. Referral to [facility] behavorial sent. No medication changes to tx this month. Client has comorbid health issues she struggles with. 08/09/2024 Other Discussed sleep hygiene and caffeine intake with encouragement to limit electronic devices an hour before bed and to limit caffeine after 3:00pm. Exercise benefits for mood and health discussed. Psychoeducation regarding psychiatric illness provided. Client was educated about risks and benefits of medication, alternatives to medication, off label uses of medication, suicidal ideation with SSRIs, self-administrati on and compliance with medication along with how to safely store medication. Verbal informed consent obtained. Client agrees to return sooner if symptoms worsen or if suicidal or homicidal ideations occur. Client has the phone number to the 24-hour crisis line at [facility]. Questions addressed. Client verbalized understanding of all information and is agreeable to treatment plan. [place]24 [place]. Discussed sleep hygiene and caffeine intake with encouragement to limit electronic devices an hour before bed and to limit caffeine after 3:00pm. Exercise benefits for mood and health discussed. Psychoeducation regarding psychiatric illness provided. Client was educated about risks and benefits of medication, alternatives to medication, off label uses of medication, suicidal ideation with SSRIs, self-administrati on and compliance with medication along with how to safely store medication. Verbal informed consent obtained. Client agrees to return sooner if symptoms worsen or if suicidal or homicidal ideations occur. Client has the phone number to the 24-hour crisis line at [facility]. Questions addressed. Client verbalized understanding of all information and is agreeable to treatment plan. Client continues to struggle with depression due to health issues and family dynamics/isolat ion. Continue to encourage client to engage in therapy, she continues to lack follow up. She is already dealing with polypharmacy due to comorbid health issues and has been fairly stable on current tx plan. No changes at this time but encourage client to consider therapy, CRU stay if needed. She verbalizes understanding and agreeable. 05/12/2024 [place]. Discussed sleep hygiene and caffeine intake with encouragement to limit electronic devices an hour before bed and to limit caffeine after 3:00pm. Exercise benefits for mood and health discussed. Psychoeducation regarding psychiatric illness provided. Client was educated about risks and benefits of medication, alternatives to medication, off label uses of medication, suicidal ideation with SSRIs, self-administrati on and compliance with medication along with how to safely store medication. Verbal informed consent obtained. Client agrees to return sooner if symptoms worsen or if suicidal or homicidal ideations occur. Client has the phone number to the 24-hour crisis line at [facility]. Questions addressed. Client verbalized understanding of all information and is agreeable to treatment plan. 12/08/2023 [place]. Discussed sleep hygiene and caffeine intake with encouragement to limit electronic devices an hour before bed and to limit caffeine after 3:00pm. Exercise benefits for mood and health discussed. Psychoeducation regarding psychiatric illness provided. Client was educated about risks and benefits of medication, alternatives to medication, off label uses of medication, suicidal ideation with SSRIs, self-administrati on and compliance with medication along with how to safely store medication. Verbal informed consent obtained. Client agrees to return sooner if symptoms worsen or if suicidal or homicidal ideations occur. Client has the phone number to the 24-hour crisis line at [facility]. Questions addressed. Client verbalized understanding of all information and is agreeable to treatment plan. 11/11/2023 [place]. Discussed sleep hygiene and caffeine intake with encouragement to limit electronic devices an hour before bed and to limit caffeine after 3:00pm. Exercise benefits for mood and health discussed. Psychoeducation regarding psychiatric illness provided. Client was educated about risks and benefits of medication, alternatives to medication, off label uses of medication, suicidal ideation with SSRIs, self-administrati on and compliance with medication along with how to safely store medication. Verbal informed consent obtained. Client agrees to return sooner if symptoms worsen or if suicidal or homicidal ideations occur. Client has the phone number to the 24-hour crisis line at [facility]. Questions addressed. Client verbalized understanding of all information and is agreeable to treatment plan. 02/16/2024 [place]. Discussed sleep hygiene and caffeine intake with encouragement to limit electronic devices an hour before bed and to limit caffeine after 3:00pm. Exercise benefits for mood and health discussed. Psychoeducation regarding psychiatric illness provided. Client was educated about risks and benefits of medication, alternatives to medication, off label uses of medication, suicidal ideation with SSRIs, self-administrati on and compliance with medication along with how to safely store medication. Verbal informed consent obtained. Client agrees to return sooner if symptoms worsen or if suicidal or homicidal ideations occur. Client has the phone number to the 24-hour crisis line at [facility]. Questions addressed. Client verbalized understanding of all information and is agreeable to treatment plan. Client more hopeful and less depressed from last session. No changes to treatment plan at this time. 10/20/2024 Other Clinician met with client to assess needs and preferences for services. Clinician explored therapy goals, history of engagement, psychiatric history and diagnosis. Clinician provided education on same day call in therapy, traditional therapy and dance coach services. Referrals for preferred methods will be sent following appointment. 01/07/2024 [place]. Discussed sleep hygiene and caffeine intake with encouragement to limit electronic devices an hour before bed and to limit caffeine after 3:00pm. Exercise benefits for mood and health discussed. Psychoeducation regarding psychiatric illness provided. Client was educated about risks and benefits of medication, alternatives to medication, off label uses of medication, suicidal ideation with SSRIs, self-administrati on and compliance with medication along with how to safely store medication. Verbal informed consent obtained. Client agrees to return sooner if symptoms worsen or if suicidal or homicidal ideations occur. Client has the phone number to the 24-hour crisis line at [facility]. Questions addressed. Client verbalized understanding of all information and is agreeable to treatment plan. 03/17/2024 [place]. Discussed sleep hygiene and caffeine intake with encouragement to limit electronic devices an hour before bed and to limit caffeine after 3:00pm. Exercise benefits for mood and health discussed. Psychoeducation regarding psychiatric illness provided. Client was educated about risks and benefits of medication, alternatives to medication, off label uses of medication, suicidal ideation with SSRIs, self-administrati on and compliance with medication along with how to safely store medication. Verbal informed consent obtained. Client agrees to return sooner if symptoms worsen or if suicidal or homicidal ideations occur. Client has the phone number to the 24-hour crisis line at [facility]. Questions addressed. Client verbalized understanding of all information and is agreeable to treatment plan. Client has to have repeat mammogram and is having nodule watched in her lung. Is becoming hyperfixated on acquiring cancer. Is relating her fears to current treatment plan rather than her risks of history of smoking. Discussed this with client. Discussed with client to discuss any fears about medications with pharmacist or prescribing provider rather than not take them. That benefit of Rexulti outweighs any risk for client at this point in time and recommend client continue with treatment. Client currently agreeable. 01/28/2024 [place]. Discussed sleep hygiene and caffeine intake with encouragement to limit electronic devices an hour before bed and to limit caffeine after 3:00pm. Exercise benefits for mood and health discussed. Psychoeducation regarding psychiatric illness provided. Client was educated about risks and benefits of medication, alternatives to medication, off label uses of medication, suicidal ideation with SSRIs, self-administrati on and compliance with medication along with how to safely store medication. Verbal informed consent obtained. Client agrees to return sooner if symptoms worsen or if suicidal or homicidal ideations occur. Client has the phone number to the 24-hour crisis line at [facility]. Questions addressed. Client verbalized understanding of all information and is agreeable to treatment plan. Encourage client to increase social interaction and limit isolation. Therapy has been offered, but client declines. 04/12/2024 Other Discussed sleep hygiene and caffeine intake with encouragement to limit electronic devices an hour before bed and to limit caffeine after 3:00pm. Exercise benefits for mood and health discussed. Psychoeducation regarding psychiatric illness provided. Client was educated about risks and benefits of medication, alternatives to medication, off label uses of medication, suicidal ideation with SSRIs, self-administrati on and compliance with medication along with how to safely store medication. Verbal informed consent obtained. Client agrees to return sooner if symptoms worsen or if suicidal or homicidal ideations occur. Client has the phone number to the 24-hour crisis line at [facility]. Questions addressed. Client verbalized understanding of all information and is agreeable to treatment plan. Encouraged client to take 0.5 tablet of trazodone to limit excessive sleep and will look at cutting dose at next appointment (client getting 10 + hours a night) likely using sleep as escape from grief. Encouraged client to limit isolation. No changes to treatment plan at this time. 06/09/2024 [place]. Client [...] uses of medication, suicidal ideation with SSRIs, self-administrati on and compliance with medication along with how to safely store medication. Verbal informed consent obtained. Client agrees to return sooner if symptoms worsen or if suicidal or homicidal ideations occur. Client has the phone number to the 24-hour crisis line at [facility]. Questions addressed. Client verbalized understanding of all information and is agreeable to treatment plan. 07/13/2024 [place]. Discussed sleep hygiene and caffeine intake with encouragement to limit electronic devices an hour before bed and to limit caffeine after 3:00pm. Exercise benefits for mood and health discussed. Psychoeducation regarding psychiatric illness provided. Client was educated about risks and benefits of medication, alternatives to medication, off label uses of medication, suicidal ideation with SSRIs, self-administrati on and compliance with medication along with how to safely store medication. Verbal informed consent obtained. Client agrees to return sooner if symptoms worsen or if suicidal or homicidal ideations occur. Client has the phone number to the 24-hour crisis line at [facility]. Questions addressed. Client verbalized understanding of all information and is agreeable to treatment plan. Plan Of Treatment Pending Test Test Name Order Date Urinalysis, Routine 05/06/2016 Vitamin D, 25-Hydroxy* 05/06/2016 CMP14+LP+CBC/D/Plt+T4+TSH 05/06/2016 Insurance Providers Payer Name Payer Address Payer Phone Subscriber Number Group Number Insured Name Patient Relationship to Insured Coverage Start Date Coverage End Date [employer] [address] [place] [address] [id number] Radha Latham Self - patient is the insured 0 [employer] [address] [place] [address] [id number] Radha Latham Self - patient is the insured 0 [employer] Telehealth [address] [place] [address] [id number] Radha Latham Self - patient is the insured 5 Medical (General) History Medical History History ICD Code Anxiety disorder chronic interstial cystitis polycythemia Surgical History Surgery Date(Month/Year) cholecystectomy 01/2016 Hospitalization History Reason Date(Month/Year) SI and depression 2015
--- OUTSIDE RECORDS SUMMARY | 2024-11-09 10:57 | XMS_ITS | Referral Summary ---
Author Organization [facility] Building [facility] Address [address] [place] [address] Care Team Providers Care Roadway Technician Name Role Phone Santos Montenegro MD Primary Care Provider Encounters Date Type Department Care Team Description 11/03/2024 Telephone [facility] [address] [place] [address] Bettina Garcia CMA 11/01/2024 Telephone [facility] Urology [address] [place] [address] Office [facility] [address] [place] [address] Cheri Ibarra LPN 10/29/2024 Telephone [facility]rology [address] [place] [address] Office [facility] [address] [place] [phone] Cheri Ibarra LPN 10/18/2024 Telephone [facility] [place] [address] Sada Allan 09/03/2024 Orders Only [facility]rology [address] [place] [address] Office [facility] [address] [place] [address] Ed Ortega MD Interstitial cystitis (Primary Dx) 09/03/2024 Telephone [facility]rology [address] [place] [address] Office [facility] [address] [place] [address] Cheri Ibarra LPN from Last 3 Months Allergies Active Allergy [...] caffeine intake. Follow up: tomorrow 04/04/22 w/ LOCKER OPERATOR as scheduled Left knee pain 04/03/2022 10/15/2022 [...] encouraging member to wean). 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 No Resources reviewed: Provider Online Directory - counseling/rehab/mental health Follow up Provider: Other Follow up: tomorrow 04/04/22 w/ LOCKER OPERATOR as scheduled GERD (gastroesophageal reflux disease) 10/15/2022 Overview (10/15/2022): Last Assessment & Plan: Condition: stable Reviewed use of antacid medication and/or diet modifications of decreasing caffeine, spicy foods, chocolate, and avoiding alcohol, tobacco, NSAIDs, and reducing citrus acids. Follow up in: three months PTSD (post-traumatic stress disorder) 10/05/2020 10/15/2022 Overview (10/15/2022): Last Assessment & Plan: Condition: stable Follow up: tomorrow 04/04/22 w/ LOCKER OPERATOR as scheduled Hypertension 10/05/2020 10/15/2022 Overview (10/15/2022): [...] seek urgent/emergent care including calling Suicide Hotline (454 or ) or 581. Follow up: tomorrow 04/04/22 w/ LOCKER OPERATOR as scheduled Iron deficiency anemia 08/10/2020 Overview [...] Plan of Treatment Not on file Insurance [facility] MEDICAID [facility] Care Teams Roadway Technician Relationship Specialty Start Date End Date Santos Montenegro MD [facility] [place] [address] PCP - General Family Medicine 04/23/22
--- OUTSIDE RECORDS SUMMARY | 2024-11-09 10:57 | XMS_ITS | Encounter Summary ---
Author Organization [facility] Address [address] [place] [address] Phone Care Team Providers Care Leather Scraper Name Role Phone Santos Montenegro Primary Care Provider [phone] Bernadine Gill MD Unavailable Uriah Florentino MD Unavailable Buddy Franz MD Unavailable Encounter Details Date Type Department Care Team (Late st Contact Info) Description 02/19/2021 Telephone [facility] [address] [place] [address] Bdudy Franz MD [address] [place] [address] Social History Tobacco Use Types [...] 9:15 AM CDT Lab [facility] [address] [address] Buddy Franz MD [address] [place] [phone] Gaby Ayala [facility] 11/24/2024 9:30 AM CDT Office Visit [facility] [address] [address] Buddy Franz MD [address] [place] [phone] documented as of this encounter Visit Diagnoses Not on filedocumented in this encounter Additional Health Concerns Assessment Noted Time PHQ-9 Depression Total Score: 1 11/18/19 21 8:32 AM CDT documented as of this encounter Care Teams Leather Scraper Relationship Specialty Start Date End Date Santos Montenegro [address] [place] [address] PCP - General Family Medicine 09/20/16 Bernadine Gill MD [address] [place] [address] Internal Medicine 09/20/16 Uriah Florentino MD [address] [place] [phone] Consulting Physician Oncology 12/05/23 07/27/24 Buddy Franz MD [address] [place] [phone] Consulting Physician Oncology 07/28/24 documented as of this encounter
--- OUTSIDE RECORDS SUMMARY | 2024-11-09 10:57 | XMS_ITS | Encounter Summary ---
Author Organization [facility] Address [address] [place] [address] Phone Care Team Providers Care Radiographer Technologist Name Role Phone Santos Montenegro Primary Care Provider [phone] Bernadine Gill MD Unavailable [phone] Uriah Florentino MD Unavailable Buddy Franz MD Unavailable [phone] Encounter Details Date Type Department Care Team (Late st Contact Info) Description 11/13/2020 Telephone [facility] [address] [place] [address] Buddy Franz MD [address] [place] [address] Social History Tobacco Use Types [...] AM CDT Lab [facility] [address] [address] Buddy Franz MD [address] [place] [phone] Gaby Ayala [facility] 11/24/2024 9:30 AM CDT Office Visit [facility] [address] [address] Buddy Franz MD [address] [place] [phone] documented as of this encounter Visit Diagnoses Not on filedocumented in this encounter Additional Health Concerns Assessment Noted Time PHQ-9 Depression Total Score: 0 09/26/19 21 2:05 PM CDT documented as of this encounter Care Teams Radiographer Technologist Relationship Specialty Start Date End Date Santos Montenegro [address] [place] [address] PCP - General Family Medicine 09/20/16 Bernadine Gill MD [address] [place] [address] Internal Medicine 09/20/16 Uriah Florentino MD [address] [place] [phone] Consulting Physician Oncology 12/05/23 07/27/24 Buddy Franz MD [address] [place] [phone] Consulting Physician Oncology 07/28/24 documented as of this encounter
--- OUTSIDE RECORDS SUMMARY | 2024-11-09 10:57 | XMS_ITS | Clinical Summary ---
Author Organization [facility] Address [address] [place] [address] Phone Care Team Providers Care Adult School Teacher Name Role Phone Lan Santos Primary Care Provider [phone] Bernadine Gill MD Unavailable [phone] Buddy Franz MD Unavailable [phone] Allergies Active Allergy Reactions Criticality Noted Date [...] (BENTYL) 10 MG Capsule 1 capsule Active Multivitamin-Min erals Tablet Take 2 Capsules by mouth. Active [...] 1 Tablet by mouth daily. 1 Active PEG-3350/Electro lytes (polyethylene glycol) 236 g Recon Soln TAKE [...] traZODone (DESYREL) 150 MG Tablet 5 Active Active Problems Problem Noted Date Diagnosed Date Nicotine dependence with nicotine-induced disord er 10/30/2022 Pulmonary nodules 10/30/2022 Vitamin D deficiency 10/21/2022 Screening mammogram, encounter for 10/21/2022 Weakness 10/21/2022 Iron deficiency anemia 08/10/2020 Polycythemia 09/20/2016 Hypertension Family History Medical History Relation Name Comments Cancer Brother lung Clotting Disorder Brother Cancer Father lung Diabetes Father Osteoarthritis Father Cancer Mother lung Tuberculosis Mother Cancer Sister uterine Clotting Disorder Sister Heart Disease Sister Osteoarthritis Sister Relation Name Status Comments Brother Father Mother Sister Social History Tobacco Use Types Packs/Day Years Used Date Smoking Tobacco: Former Cigarettes 1 43.4 S tarted: 1982 Smokeless Tobacco: Never Tobacco [...] Comments Blood Pressure 144/98 07/28/2024 9:28 AM CUTTER WET MACHINE Pulse 80 07/28/2024 9:28 AM CUTTER WET MACHINE Temperature 36.7 C (98 F) 07/28/2024 9:28 AM CUTTER WET MACHINE Respiratory Rate 18 07/28/2024 9:28 AM CUTTER WET MACHINE Oxygen Saturation 95% 07/28/2024 9:28 AM CUTTER WET MACHINE Inhaled Oxygen Concentration - - Weight 69.4 kg (153 lb) 07/28/2024 9:28 AM CUTTER WET MACHINE Height 157.5 cm (5' 2) 07/28/2024 9:28 AM CUTTER WET MACHINE Body Mass Index 27.98 07/28/2024 9:28 AM CUTTER WET MACHINE Plan of Treatment Upcoming Encounters Date Type Department Care Team (Late st Contact Info) Description 11/24/2024 9:15 AM CDT Lab [facility] [address] [phone] Buddy Franz MD [address] [place] [phone] Lab, [facility] 11/24/2024 9:30 AM CDT Office Visit [facility] [address] [phone] Buddy Franz MD [address] [place] [phone] Health Maintenance Due Date Last Done Comments Hepatitis C Virus (HCV) Screening 1965 Mammogram 1963 Pap Smear 1984 Cervical Cancer Screening (CCS) 1993 HPV/Cotest 1993 Cologuard 2008 Colonoscopy 2008 Colorectal Cancer Screening 2008 Immunochemical Fecal Occult Blood 2008 Pneumococcal Immunization (5 0+ years) (1 of 1 - PCV) 2013 Zoster Immunization (1 of 2) 2013 SARS-COV-2 Immunization (1 - 2023- season) 2024 Influenza Immunization (Seas on Ended) 2025 Respiratory Syncytial Virus (RSV) Immunization (Adult) (1 - 1-dose 75+ series) 2038 DTaP/Tdap/Td Immunization Discontinued 02/22/2016 TdaP Immunization Completed 02/22/2016 Hepatitis B Immunization Aged Out No longer eligible based on patient's age to complete this topic Human Papillomavirus (HPV) Immunization Aged Out No longer eligible b ased on patient's age to complete this topic Meningococcal Immunization (ACWY) Aged Out No longer eligible based on patient's age to complete this topic Rotavirus Immunization Aged Out No lo nger eligible based on patient's age to complete this topic Insurance MEDICAID [place] Care Teams Adult School Teacher Relationship Specialty Start Date End Date Lan Santos [address] [place] [address] PCP - General Family Medicine 09/20/16 Bernadine Gill MD [address] [place] [address] Internal Medicine 09/20/16 Buddy Franz MD [address] [place] [address] Consulting Physician Oncology 07/28/24
--- OUTSIDE RECORDS SUMMARY | 2024-11-09 10:57 | XMS_ITS | Data Portability ---
Author Organization [facility], Phil Campbell Address [address] [place] [address] Assessment Encounter Date Assessment Date Assessment LastModified [...] Orders Flagyl 500 mg tablet 2020 021 [id number], [address], [place], [id number], 3 09:26:16 Diflucan 200 mg tablet 2020 021 INTERFACE [id number], [address], [place], [id number], 1 11:57:33 Patient TargetsNo targets recorded. 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) (routine) w/o abn findings;R ecorded Elsewhere: No Locatio n: [facility] rce: EHR Chroni c: N Practice ID: 0001 Billa ble Time: 08:30:00 AM Not Available [facility] 0 21:32:56 Pelvic and perineal pain [id number] Active 2018 Pelvic and perineal pain;Recor ded Elsewhere: No Locatio n: [facility] rce: EHR Chroni c: N Practice ID: 0001 Billa ble Time: 03:30:00 PM Not Available [facility] 0 21:32:57 Micturiti on finding Active 2018 Unspecifie d urinary incontinen ce;Recorde d Elsewhere: No Locatio n: [facility] rce: EHR Chroni c: N Practice ID: 0001 Billa ble Time: 03:30:00 PM Not Available [facility] 0 21:32:57 Syphilis test finding 165604710 Active 2016 Encntr screen for infections w sexl mode of transmiss; Recorded Elsewhere: No Locatio n: [facility] rce: EHR Chroni c: N Practice ID: 0001 Billa ble Time: 08:30:00 AM Not Available [facility] 0 21:32:[address] Concept Active 2018 Encntr for general adult medical exam w/o abnormal findings;R ecorded Elsewhere: No Locatio n: [facility] rce: EHR Chroni c: N Practice ID: [id number] Billa ble Time: 10:45:00 AM Not Available [facility] 0 21:32:57 Infection screening Active 2016 Encounter for screening for oth infec/para stc diseases;R ecorded Elsewhere: No Locatio n: [facility] rce: EHR Chroni c: N Practice ID: 0001 Billa ble Time: 08:30:00 AM Not Available [facility] 0 21:32:57 Urinary tract infectiou s disease 99795364 Active 2016 Urinary tract infection, site not specified; Recorded Elsewhere: No Locatio n: [facility] rce: EHR Chroni c: N Practice ID: 0001 Billa ble Time: 08:30:00 AM Not Available [facility] 0 21:32:57 Screening for malignant neoplasm of rectum Active 2018 Screening for malignant neoplasms of the rectum;Rec orded Elsewhere: No Locatio n: [facility] rce: EHR Chroni c: N Practice ID: 0001 Billa ble Time: 10:45:00 AM Not Available [facility] 0 21:32:57 Finding of urine substance level Active 2018 Proteinuri a, unspecifie d;Practice ID: 0001 Not Available [facility] 0 21:32:[address] Concept Active 2018 Encounter for general adult medical exam w abnormal findings;P ractice ID: 0001 Not Available [facility] 0 21:32:58 Problem Notes None recorded. Procedures Surgical History Date Name Laterality Status Provider Name and Address Organization Details Recorded Time 07/28/19 21 Date of Last Pap Smear completed Aminata Altman [facility] 08/01/2022 09:25:47 Cholecystectomy completed Noa Perez [facility] 07/27/2020 17:32:19 Imaging Results None recorded. Procedure Notes None recorded. Medical Equipment None Reported. Allergies Allergen ID Allergen Name Allergen Category Reaction Reaction Severity Criticality Documentation Date Start Date Code Code System Note Provider Name and Address Organization Details Recorded Time 9713 Product containin g penicilli n (product) medicatio n Not available Not available Not available 05/19/2020 05485 8001 SNOMED Comme nt: [facility]; Not Available [facility] 0 14:14:43 9717 Substance with sulfonami de structure and antibacte rial mechanism of action (substanc e) medicatio n Not available Not available Not available 05/19/2020 20104 8003 SNOMED Comme nt: [facility]at [facility]; Not Available [facility] 0 14:14:43 Medications Name Sig Start Date Stop Date Status Note LastModified by Organization Details LastModified Time losartan 50 mg tablet take 1 tablet by oral route every day active Prescrib ed Elsewher e: Yes Loca tion: [facility]isa [facility] odify By: [email or web address] Encount er DateTime : 07/03/19 19 10:45:00 [...] Prescrib ed Elsewher e: Yes Loca tion: [facility] odify By: [email or web address] Encount er DateTime : 03/27/20 17 08:30:00 [...] Prescrib ed Elsewher e: Yes Loca tion: [facility] odify By: [email or web address] Encount er DateTime : 07/03/19 19 10:45:00 [...] Prescrib ed Elsewher e: Yes Loca tion: [facility] odify By: Encount er DateTime : 03/27/20 17 08:30:00 AM Not Available Not Available Not Available amlodipin e 2.5 mg tablet take 1 tablet by oral route every day 07/03 completed Prescrib ed Elsewher e: Yes Loca tion: [facility] odify By: Encount er DateTime : 03/27/20 17 08:30:00 [...] Prescrib ed Elsewher e: Yes Loca tion: [facility] odify By: [email or web address] Encount er DateTime : 03/27/20 17 08:30:00 AM Not Available Not Available Not Available pantopraz ole 20 mg tablet,de layed release take 2 tablet by oral route every day 07/28 completed Prescrib ed Elsewher e: Yes Loca tion: [facility] odify By: Encount er DateTime : 07/03/19 [...] Prescrib ed Elsewher e: Yes Loca tion: [facility] odify By: [email or web address] Encount er DateTime : 07/03/19 19 10:45:00 [...] Elsewher e: Yes Loca tion: All [facility] odify By: [email or web address] Encount er DateTime : 07/03/19 19 10:45:00 AM Not Available Not Available Not Available bupropion HCl 75 mg tablet take 1 tablet by oral route 3 times every day active Prescrib ed Elsewher e: Yes [facility]: Encount er DateTime : [...] Elsewher e: Yes Loca tion: [facility] odify By: Encount er DateTime : 03/27/20 17 08:30:00 AM Not Available Not Available Not Available Aspir-81 mg tablet,de layed release take 1 tablet by oral route every day active Prescrib ed Elsewher e: Yes Loca tion: [facility] odify By: [email or web address] Encoun ter DateTime : 03/27/20 17 08:30:00 AM Not Available Not Available Not Available oxybutyni n chloride 5 mg tablet take 1 tablet by oral route 2 times every day active Prescrib ed Elsewher e: Yes [facility] By: [email or web address] Encount er DateTime : 07/03/19 19 10:45:00 [...] Prescrib ed Elsewher e: Yes Loca tion: [facility] odify By: [email or web address] Encount er DateTime : 07/03/19 19 10:45:00 AM Not Available Not Available Not Available aripipraz ole 10 mg tablet active Not Available Not Available Not Available cyclobenz aprine 5 mg tablet take 1 tablet by oral route 3 times every day active Prescrib ed Elsewher e: Yes Loca tion: [facility] odify By: Encount er DateTime : 07/03/19 19 10:45:00 AM Not Available Not Available Not Available aripipraz ole 5 mg tablet take 1 tablet by oral route every day active Prescrib ed Elsewher e: Yes Loca tion: [facility] odify By: [email or web address] Encount er DateTime : 07/03/19 19 10:45:00 [...] Prescrib ed Elsewher e: Yes Loca tion: [facility] odify By: [email or web address] Encoun ter DateTime [...] Updated DateTime 07/28/2020 160.02 cm 24.6 kg/m2 09556.34 g 140 mm[Hg] 82 mm[Hg] Noa Perez [facility] 11:25:32 Social History None recorded. Functional [...] Medical History Condition Response Anxiety Disorder Y Hypertension Y Asthma Y Depression/ depression Y Gynecological History Statement/Question Response Date of Last Pap Smear 07/28/2020 Current Control Method None Desired Control Method Unknown Obstetrics History GPAL:G 2 P 2 0 0 0 Type Value Full Term 2 Total 2 Past Encounters Encounter ID Performer Location Encounter Start Date Encounter Closed Date Diagnosis/Indication Diagnosis SNOMED-CT Code Diagnosis ICD10 Code Diagnosis Note [id number] Josefa Snow , [facility] [address] [address] 07/28/2020 11:09:01 07/28/2020 12:47:22 Gynecologic examination 11300266 Z01.419 Take Calcium with Vitamin D 12-1500mg daily. Do monthly self breast exams. It is advised to get annual flu shot in the fall and she could obtain at [facility] or [facility] clinic. If you haven't received the Tdap [...] Colon PCP managed Menopause x 5yrs Vaginitis 75125118 N76.0 Suspect BV. Sent yeast prevention AGreed to flagyl/dif janie Elevated blood-pressure reading without diagnosis of hypertension 768256382 R03.0 going to see PCP next week [...] Toro Member ID Guarantor Name 07/28/2020 1 [facility] (MEDICAID HMO) [id number] Radha Latham [id number] Radha Latham Notes Date Note Type Note [...] screening Josefa Snow [place]- [address] [place], [address], [facility] 07/28/2020 11:59:34 OBGyn Episode Ob Episode Information Episode Created Date Number of Fetuses Patient Bloodtype Patient rh Status Prepregnancy Weight lbs Domestic Partner Domestic Partner Phone Father Name Digital Marketing Associate Status 07/27/19 21 1 CLOSED Fetus Data [...] Domestic Partner Domestic Partner Phone Father Name Digital Marketing Associate Status 07/27/19 21 1 CLOSED Fetus Data [...]
--- OUTSIDE RECORDS SUMMARY | 2024-11-09 10:57 | XMS_ITS | Clinical Summary ---
Author Organization [facility] Address [address] [place] [address] Care Team Providers Care Forest Management Professor Name Role Phone Santos Montenegro MD Primary Care Provider [phone] Source Comments [facility],non-owned Affiliates and Associated Physician Practices is amultiple site organization consisting of ambulatory clinics and hospital sitesin [place], [place], [place] and [place]. This disclosure is being madepursuant to the Care Everywhere program and may not contain all information available regarding this patient. Last updated 18.[facility] Allergies Active Allergy Reactions Criticality Noted Date Comments Penicillins Urticaria,Swelling,Unknown Medium 07/26/19 17 Sulfa Drugs Unknown 07/26/2016 Medications * Be aware that medications may not be up to date on this document. Alwaysverify current medications with the patient. WIXELA INHUB 250-50 MCG/DOSE inhaler Take 2 puffs by mouth 2 times daily 0 Active buPROPion XL 24hr (WELLBUTRIN-XL) 300 MG tablet Take 1 tablet by mouth once daily 7 Active ARIPiprazole (ABILIFY) 10 MG tablet Take 1 tablet by mouth once daily 0 Active aspirin EC (Ecotrin) 81 MG tablet Take 1 tablet by mouth once daily Active famotidine (PEPCID) 40 MG tablet Take 1 (one) tablet by mouth once daily 0 Active clonazePAM (KLONOPIN) 1 MG tablet Take 1 (one) tablet by mouth 2 times daily 7 Active mirtazapine (REMERON) 45 MG tablet Take 1 tablet by mouth once daily 7 Active DULERA 200-5 MCG/ACT inhaler Take 2 puffs by mouth once daily 0 Active Multiple Vitamins-Mineral s (WOMENS MULTIVITAMIN PLUS PO) Take 2 capsules by mouth once daily Active buPROPion XL 24hr (WELLBUTRIN-XL) 150 MG tablet 200 mg 0 Active albuterol HFA (PROVENTIL;ZAID SAMI;PROAIR) 108 (90 Base) MCG/ACT inhaler INL 2 PFS PO Q 4 TO 6 H PRN 0 Active hydrOXYzine HCl (Atarax) 25 MG tablet TAKE 1 TABLET BY MOUTH THREE TIMES DAILY 270 tablet 2 2 Active Spiriva HandiHaler 18 MCG inhalation capsule INHALE THE CONTENTS OF 1 CAPSULE VIA INHALATION DEVICE EVERY DAY DIRECTED 2 Active sertraline (Zoloft) 100 MG tablet 2 (two) tablets 3 Active Rexulti 3 MG tablet 4 mg 3 Active oxyBUTYnin CR 24hr (Ditropan XL) 15 MG tablet TAKE 1 TABLET BY MOUTH EVERY DAY 90 tablet 2 3 Active amitriptyline (Elavil) 25 MG tablet TAKE 1 TABLET BY MOUTH EVERY DAY FOR CHRONIC BLADDER WALL INFLAMMATION 90 tablet 5 4 Active Family History Medical History Relation Name [...] of Binge Drinking Not on file 11/30 Comments No Sex and Gender Information Value Date Recorded Sex Assigned at Not on file Legal Sex Female 8:40 AM CDT Gender Identity Not on file Sexual [...] A M CDT Height 160 cm (5' 3) 08/31/2020 9:22 AM CDT Body Mass Index [...] VACCINE (1 of 2) 2013 COVID-19 VACCINE (1 - 2023-2 5 season) 2024 DEPRESSION SCREENING 06/02/2024 INFLUENZA VACCINE (Season Ended) 2025 03/08/20 Respiratory Syncytial Virus (RSV) Vaccine Pt: or [...] to complete this topic MENINGOCOCCAL (Group B) VACC INE SHARED DECISION-MAKING Aged Out No longer eligibl e based on patient's age to complete this topic MENINGOCOCCAL GROUPS A/C/Y/W VACCINE Aged Out No longer eligible b ased on patient's age to complete this topic Insurance [facility] [employer] [facility] NO INSURANCE Member Subscriber Plan / Payer (Ef fective for All Dates) Name:Radha Fair Member ID:Not on file Relation to Subscriber:Not on file Name:RADHA FAIR Subscriber ID:Not on file (Home) Address: [address] [place] [id number] Payer ID:Not on file Group ID:Not on file Type:Self Pay Address: [place], [place] Care Teams Forest Management Professor Relationship Specialty Start Date End Date Santos Montenegro MD PCP - General 11/29/19
--- OUTSIDE RECORDS SUMMARY | 2024-11-09 10:57 | XMS_ITS | Data Portability ---
Author Organization [employer] , [facility] Address [address] [place] [address] Care Team Providers Care Audio/Video Technician Name Role Phone [facility] Advanced Practice Provider Assessment No assessment recorded. Plan of Treatment Reminders Order Date Submit Date Provider Last Modified By Organization Details Last Modified Time Details Appointments None recorded. Lab bacterial vaginosis + vaginitis panel, vaginal 2023 024 [facility], [address] [place], [address], 4 10:37:07 HPV E6+E7 mRNA, qualitative PCR, cervix 2023 024 [facility], [address] [place], [address], 4 17:25:03 pap, LB 2023 024 [facility], [address] [facility], [place], [address], 4 09:58:59 Referral urologist referral 2023 024 [facility] [place], [address], [place], [address], 4 15:16:[address] referral 2023 024 [facility], [address], [place], [address], 4 15:15:08 Procedures None recorded. Surgeries None recorded. Imaging None recorded. Medication Orders estradiol 0.01% (0.1 mg/gram) vaginal cream 2023 024 [email or web address] 8 [id number], [address], [place], [id number], 5 14:17:34 amitriptyli ne 50 mg tablet 2023 024 [id number], [address], [place], [id number], 4 14:35:09 oxybutynin chloride ER 15 mg tablet,exte nded release 24 hr 2023 024 [id number], [address], [place], [id number], 4 14:35:04 Patient TargetsNo targets recorded. Patient Instructions Encounter Date Encounter Id Patient Instructions Last Modified By Organization Details Last Modified Time 07/09/2023 [id number] Patient Health Questionnaire-9* [email or web address] Not available 07/11/2023 16:24:11 atrophic vaginitis: care instructions Not available 07/09/2023 14:34:56 Bladder Pain Syndrome (BPS): Care Instructions Not available 07/09/2023 14:34:56 mammogram: about this test Not available 07/09/2023 14:34:56 RTC in 1 year fo r WWE, sooner if problems, questions, or concerns Not available 07/10/2023 14:02:47 10/05/2024 [id number] A healthy lifestyle: care instructions [email or web address] Not available 10/05/2024 14:58:49 eating healthy foods: care instructions bnotzke Not available 10/05/2024 14:58:49 exercise program : getting started bnotzke Not available 10/05/2024 14:58:49 protect bone wit h calcium and vitamin D bnotzke Not available 10/05/2024 14:58:48 Reason for Referral Enrollment Consultant Referral for M elanocytic nevus of skin Referring Physician: Santana Flores, VACUUM CASTER, Encounter Date: 07/09/2023 Urologist Referral for Chron ic interstitial cystitis Referring Physician: Santana Flores VACUUM CASTER, Encounter Date: 07/09/2023 Results Created Date Observation [...] l cervi arleen cytol ogy. Not Available [facility] [address] [place] [address], [address], 07/10/2023 17:25:03 07/09/19 24 07/10/2023 VAGIN ITIS PANEL bacterial vaginosis BV neg negati ve normal Not Available [facility] [address] [place] [address], [address], 07/11/2023 10:37:07 07/09/19 24 07/10/2023 VAGIN ITIS PANEL kathy species C. spp neg negati ve normal Not Available [facility] [address] [place] [address], [address], 07/11/2023 10:37:07 07/09/19 24 07/10/2023 VAGIN ITIS PANEL kathy glabrata C. gla neg negati ve normal Not Available [facility] [place], [address], 07/11/2023 10:37:07 07/09/19 24 07/10/2023 VAGIN ITIS PANEL trichomonas vaginalis CV/TV TRICH neg negati ve normal Not Available [facility] [address] [place], [address], 07/11/2023 10:37:07 07/09/19 24 07/12/2023 THINP REP TIS PAP clinical information: normal None given Not Available [address] [address] [place], [address], 07/12/2023 09:58:59 07/09/19 24 07/12/2023 THINP REP TIS PAP LMP: normal NONE GIVEN Not Available [address] [address] [place], [address], 07/12/2023 09:58:59 07/09/19 24 07/12/2023 THINP REP TIS PAP prev. Pap: normal NONE GIVEN Not Available [address] [address] [place], [address], 07/12/2023 09:58:59 07/09/19 24 07/12/2023 THINP REP TIS PAP prev. BX: normal NONE GIVEN Not Available [address] [address] [place], [address], 07/12/2023 09:58:59 07/09/19 24 07/12/2023 THINP REP TIS PAP source: normal Cervi x ON BOTTL E Not Available [address] [address] [place], [address], 07/12/2023 09:58:59 07/09/19 24 07/12/2023 THINP REP TIS PAP statement of adequacy: normal Satis facto ry for evalu ation . Endoc ervic al/tr ansfo rmati on zone compo nent prese nt. Not Available [address] [address] [place], [address], 07/12/2023 09:58:59 07/09/19 24 07/12/2023 THINP REP TIS PAP interpretati on/result: normal Cytol ogy Resul ts: Negat reyes for intra epith elial lesio n or denispedro todd . Not Available [address] [address] [place], [address], 07/12/2023 09:58:59 07/09/19 24 07/12/2023 THINP REP TIS PAP comment: normal This Pap test has been evalu ated with compu ter patrice patrick techn ology . Not Available [address], [place], [address], 07/12/2023 09:58:59 07/09/19 24 07/12/2023 THINP REP TIS PAP cytotechnolo gist: normal LMT, CT( CP) CT scree chavo locat ion: [address] [address] [place] [address] Not Available [address], [place], [address], 07/12/2023 09:58:59 07/09/19 24 07/12/2023 THINP REP [...] clini arleen infor matio n. Not Available [address], [place], [address], 07/12/2023 09:58:59 09/09/19 25 09/07/2024 MAMMO , scree chavo, tomos ynthe sis, bilat eral No observ ation record ed. [id number] [facility], [place], [address], 09/09/2024 07:08:30 Result Notes None recorded. Problems Name Problem SNOMED Code Status Onset Date Resolution Date Notes Provider Name and Address Organization Details Recorded Time Vaginal odor 151829427 Active 2023 DAVIN Salazar [address] [place] [address], [phone], [place] [facility] 4 14:28:33 Mixed urinary incontinence 924863191 Active 2023 DAVIN Salazar [address] [place] [address], [address], [facility] 4 14:28:49 Atrophic vaginitis 23204827 Active 2023 Santana Flores [facility] [address] [place] [address], [address], [facility] 4 14:29:08 Chronic interstitial cystitis 533893698 Active 2023 DAVIN Salazar [address] [place] [address], [address], [facility] 4 14:30:38 Melanocytic nevus of skin 295304536 Active 2023 Santana Flores [facility] [address] [place] [address], [address], [facility] 4 13:57:40 History of hypertension 696510256 Active 2024 Asad Kelly null, [place] [facility] 5 14:21:31 History of metabolic disorder 336006062 Active 2024 Asad Kelly null, [facility] 5 14:21:46 Mixed anxiety and depressive disorder 762853046 Active 2024 Asad Kelly null, [facility] 5 14:21:56 Posttraumatic stress disorder 36052924 Active 2024 Asad Kelly null, [facility] 5 14:22:03 Fibromyalgia 984158036 [facility] 5 14:22:15 Gastroesophage al reflux disease without esophagitis 801574101 [facility] 5 14:22:37 History of anemia 641447794 Active 2024 [facility] 5 14:26:13 Problem Notes None recorded. Procedures Surgical History Date Name Laterality Status Provider Name and Address Organization Details Recorded Time 4 Most Recent Mammogram completed [facility] 10/05/2024 14:10:58 4 Date of Last Pap Smear completed [facility] 10/05/2024 14:11:26 4 Most Recent Bone Density completed [facility] 10/05/2024 14:10:58 1 Date of Last Colonoscopy completed Gabrielle [facility] 07/09/2023 13:33:45 Colonoscopy completed Gabrielle [facility] 07/09/2023 13:24:03 Gall bladder completed Gabrielle [facility] 07/09/2023 13:24:03 C Section completed [facility] 07/09/2023 13:24:03 Imaging Results None recorded. Procedure Notes None recorded. Medical Equipment None Reported. Allergies Allergen ID Allergen Name Allergen Category Reaction Reaction Severity Criticality Documentation Date Start Date Code Code System Note Provider Name and Address Organization Details Recorded Time 053095 Product containin g penicilli n (product) medicatio n Not available Not available Not available 07/09/2023 25079 8001 SNOMED [facility] [employer] [facility] 4 13:24:02 648365 Substance with sulfonami de structure and antibacte rial mechanism of action (substanc e) medicatio n Not available Not available Not available 07/09/2023 76995 8003 SNOMED [facility] [facility] 4 13:24:02 058326 house dust allergeni c extract environme nt,medica tion Not available Not available Not available 07/09/2023 93296 9 RxNorm Gabrielle Ghulam [facility], [facility] 4 13:24:02 211970 mold extract environme nt Not available Not available Not available 07/09/2023 13691 8 RxNorm Gabrielle Parmar [facility], [facility] 4 13:24:02 493005 cigarette smoke environme nt Not available Not available Not available 07/09/2023 92176 UNK Gabrielle Parmar [facility], [facility] 4 13:24:02 Medications Name Sig Start Date Stop Date [...] No t Available trazodone 50 mg tablet 10/05 completed Not Available Not Available Not Available oxybutynin chloride ER 10 mg tablet,exte nded release 24 hr 10/05 completed Not Available Not Available Not Available ibuprofen 800 mg tablet active Not Available Not Available Not Available tizanidine 4 mg tablet TAKE 1 TABLET BY MOUTH EVERY 6 TO 8 HOURS NEEDED. NOT TO EXCEED 3 DOSES IN 24 HOURS NEEDED active Not Available Not Available No t Available fluconazole 150 mg tablet TAKE 1 TABLET BY MOUTH EVERY DAY 10/05 completed Not Available Not Available Not Available hydrocodone 5 mg-acetamin ophen 325 mg tablet TAKE 1 TABLET BY MOUTH EVERY 6 HOURS NEEDED FOR PAIN 10/05 completed Not Available Not Available Not Available famotidine 40 mg tablet TAKE 1 TABLET BY MOUTH TWICE DAILY active Not Available Not Available No t Available sertraline 100 mg tablet active Not Available Not Available Not Available clonazepam 1 mg tablet active Not Available Not Available Not Available ciprofloxac in 500 mg tablet TAKE 1 TABLET BY MOUTH EVERY 12 HOURS 10/05 completed Not Available Not Available Not Available omeprazole 40 mg capsule,del ayed release TAKE 1 CAPSULE BY MOUTH TWICE DAILY active Not Available Not Available No t Available amitriptyli ne 50 mg tablet Take 1 tablet(s) every day by oral route for 90 days. active Not Available Not Available No t Available amoxicillin 500 mg tablet TAKE 1 TABLET BY MOUTH EVERY 8 HOURS 10/05 completed Not Available Not Available Not Available bupropion HCl 100 mg tablet 07/09 completed Not Available Not Available Not Available amitriptyli ne 25 mg tablet TAKE 1 TABLET BY MOUTH EVERY DAY FOR CHRONIC BLADDER WALL INFLAMMAT ION active Not Available Not Available No t Available methocarbam ol 750 mg tablet TAKE 1 TABLET BY MOUTH EVERY 6 HOURS NEEDED 10/05 completed Not Available Not Available Not Available pantoprazol e 40 mg tablet,paris yed release active Not Available Not Available Not Available hyoscyamine sulfate 0.125 mg tablet 10/05 completed Not Available Not Available Not Available trazodone [...] 1 TABLET BY MOUTH THREE TIMES DAILY 10/05 completed Not Available Not Available Not Available ibuprofen 600 mg tablet TAKE 1 TABLET BY MOUTH EVERY 8 HOURS 10/05 completed Not Available Not Available Not Available estradiol 0.01% (0.1 mg/gram) vaginal cream INSERT 1 GRAM VAGINALLY 2 TIMES A WEEK 10/05 completed Not Available Not Available Not Available ondansetron 4 mg disintegrat ing tablet active Not Available Not Available N ot Available dicyclomine 10 mg capsule TAKE 1 CAPSULE BY MOUTH ONCE OR TWICE DAILY IF NEEDED active Not Available Not Available No [...] Address Organization Details Last Updated DateTime 4 22376.1 1 g 26.3 kg/m2 160.02 cm 97.4 [degF] 136 mm[Hg] 86 mm[Hg] Gabrielle Parmar [employer] [facility] 4 13:38:16 Date Recorded Body height Body mass index (BMI) Body weight Body temperature Systolic blood pressure Diastolic blood pressure Provider Name and Address Organization Details Last Updated DateTime 5 160.02 cm 28.3 kg/m2 82131.7 8 g 97.1 [degF] 160 mm[Hg] 86 mm[Hg] Asad Kelly [employer] [facility] 5 14:27:54 Social History Question Answer Notes LastModified by Organizat ion Details LastModified Time Tobacco Smoking Status Current Some Day Smoker Asad Kelly [facility] [employer] [facility] 10/05/2024 14:10:58 If You Are , What Was Your Level Of Alcohol Consumption Prior To ? None [email or web address] Information not available 10/05/2024 Are You Blind Or Do You Have Difficulty Seeing? Yes Information not available 07/09/2023 Are You Deaf Or Do You Have Serious Difficulty Hearing? No Information not available 07/09/2023 What Type Of Diet Are You Following? REGULAR Information not available 07/09/2023 Which Illicit Or Recreational Drugs Have You Used? Cannabis [email or web address] Information not available 10/05/2024 What Is The Highest Grade Or Level Of School You Have Completed Or The Highest Degree You Have Received? [id number] Information not available 10/05/2024 How Many Children Do You Have? 2 Information not available 07/09/2023 What Is Your Relationship Status? Single Information not available 07/09/2023 Are You Sexually Active? No Information not available 07/09/2023 At What Age Did You Start Smoking Tobacco? 33 [email or web address] Information not available 10/05/2024 How Much Tobacco Do You Smoke? No [email or web address] Information not available 10/05/2024 How Many Years Have You Smoked Tobacco? 35 [email or web address] Information not available 10/05/2024 Sex: Unknown Functional Status Question Answer Note LastModified by Organizat ion Details LastModified Time Do you use any illicit or recreational drugs? Yes [email or web address] Information not available 10/05/2024 Do you or have you ever used any other forms of tobacco or nicotine? No Information not available 07/09/2023 What is your level of alcohol consumption? None [email or web address] Information not available 10/05/2024 Are you currently employed? No Information not available 07/09/2023 What is your exercise level? None [email or web address] Information not available 10/05/2024 Mental Status None recorded. Family History Relationship Description Onset Age of this Age Resolved Age Notes LastModified by Organization Details LastModified Time Mother Depressive disorder [email or web address] Not available 2023 13:24:02 Mother Malignant neoplastic disease [email or web address] Not available 2023 13:24:02 Brother Malignant neoplastic disease [email or web address] Not available 2023 13:24:02 Brother Malignant neoplasm of lung [email or web address] Not available 2023 13:24:02 Sister Malignant tumor of breast [email or web address] Not available 2023 13:24:02 Sister Depressive disorder [email or web address] Not available 2023 13:24:02 Sister Malignant neoplastic disease [email or web address] Not available 2023 13:24:02 Sister Hypertensive disorder [email or web address] Not available 2023 13:24:02 Sister Osteoporosis [email or web address] Not avail able 07/09/2023 13:24:02 Father Malignant neoplastic disease [email or web address] Not available 2023 13:24:02 Father Malignant neoplasm of lung [email or web address] Not available 2023 13:24:02 Father Hypertensive disorder [email or web address] Not available 2023 13:24:02 Father Osteoporosis [email or web address] Not avail able 07/09/2023 13:24:02 Medical History Condition Response High Blood Pressure Y Depression Y Anxiety Disorder Y Arthritis Y COPD/Emphysema Y IBS (Irritable Bowel Syndrome) Y Fibromyalgia Y Anemia Y Asthma Y Blood Clotting Disorder Y Bipolar Disorder Y Osteoporosis Y Gynecological History Statement/Question Response Flow Heavy Date of last HPV 07/09/2023 Date of LMP 2012 HPV Vaccine N Duration of Flow (days) 10 Most Recent Mammogram 2024 Current Control Method Withdrawal Age at Menarche 10 If Post Menopausal, Age at Menopause 40 Date of Last Colonoscopy 06/02/2020 Most Recent Bone Density 06/02/2023 Frequency of Cycle (Q days) 28 Date of Last Pap Smear 07/09/2023 Obstetrics History GPAL:G 3 P 2 0 1 2 Type Value Full Term 2 Spontaneous 1 Living 2 Total 3 Past Encounters Encounter ID Performer Location Encounter Start Date Encounter Closed Date Diagnosis/Indication Diagnosis SNOMED-CT Code Diagnosis ICD10 Code Diagnosis Note [id number] DAVIN Salazar [facility] [address] [place] [address] 07/09/2023 13:02:21 07/09/2023 19:05:29 Gynecologic examination 62002605 Z01.419 WWE completedP ap with HPV obtained. Cervical cancer screening guidelines reviewedCB E nml. Breast self-aware ness and screening guidelines reviewedCa rdiovascul ri health: discussed healthy diet and regular exercise. Routine labs by [facility]- recommend daily Ca++ with Vitamin D. Screening for malignant neoplasm of cervix 025646650 Z12.4 Cervical cancer screening is used to find abnormal changes in the cells of the cervix that could lead to cancer. Screening includes the Pap test and, for some women, testing for a virus called human papillomav irus (HPV). The main cause of cervical cancer is infection with HPV. Screening for malignant neoplasm of breast 755534813 Z12.31 Depression screening 171 587407 Z13.31 Score: 6 Vaginal odor 581650455 N 89.8 Mixed urin eli incontinence 186044306 N39.46 Discussed bulkamid for ARI; pamphlet givenincre asing oxybutynin to 30 mg Atrophic vaginitis 12565 000 N95.2 Discussed vaginal moisturize rs, lubricants during intercours e, and vaginal estrogen as most effectivet x.Explaine d minimal systemic absorption and available data shows no increased risks for uterine orbreast cancer, coronary heart disease, stroke, or DVT.decide d for vaginal estrogen therapy.Rx sent. Chronic in terstitial cystitis 621355422 N30.10 increasing dosage of amitriptyl ineBridget requests a referral to urology Melanocyti c nevus of skin 567118606 D22.9 [id number] MELLO GAMBOA, [facility] h [address] [place] [address] 10/05/2024 14:01:48 10/05/2024 14:59:55 Gynecologic examination 30687919 Z01.419 Patient is an establishe d patient who presents for a gynecologi arleen Annual Exam. The patient denies any changes in her medical history. The patient denies any changes in her family medical history. 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 Pap History:Gris porras is not due for a pap smear; 07/2023 HPV-, NILM. Breast History:Gris porras denies breast symptoms. Education on Breast Self Awareness given.Mamm ogram: Up to date; PCP manages. Patient is regularly seen by PCP for preventati ve care: YesCholest hari screening: Managed by [facility]Colorde[place] ow[facility] Cancer Screening: Colonoscop y- PCP manages, up to date Screening for malignant neoplasm of cervix 735750038 Z12.4 ASCCP guidelines reviewed with patient. Pap Hx: No pap collected today. Pt states understand ing and is amenable to POC. Depression screening 171 841113 Z13.31 Health Concerns Section Related Observation LastModified by Organization Detai ls LastModified Time None Recorded Concern Status LastModified by Organization Details LastModified Time None Recorded Advance Directives Directive None Recorded Payers Insurance Date Sequence Insurance Name Policy Number Policy Toro Covered Member ID Toro Member ID Guarantor Name 10/05/2024 1 [facility] (MEDICAID HMO) [id number] Radha [place] [id number] Radha [place] 07/09/2023 1 *SELF PAY* Vipul [place] Notes Date Note Type Note Provider [...] 2020 and normal per patient. DAVIN Salazar [address] [place], [address], [employer] [facility] 07/10/2023 14:03:30 10/05/2024 text/html Annual GYNReport ed bypatient.Menstrua l cycle:Normal menses Urinary symptoms:No hematuria; No incontinence Vulva:No genital lesion Vagina:Normal vaginal discharge Breast:No breast pain; No breast lump; No nipple discharge Sexual complaints:No sexual complaints; No pain during intercourse; Normal libido Menopausal Symptoms:No menopausal symptoms; Normal vaginal lubrication Psychological symptoms:No depression; No anxiety; No PMDD Radha is here for an annual exam. Pt no longer has cycles due to menopause. She had her last pap 07/2023. She is utd mammograms, last done 03/2024. She had a bone density scan in 06/2023. She is utd on colonoscopy, last done 06/2020. Pt states she was recently diagnosed with fibromyalgia, and a hernia. MELLO GAMBOA, DAVIN- [address] [facility], [place], [address], [employer] [facility] 10/05/2024 14:59:13 OBGyn Episode No OBEpisode recorded.
--- OUTSIDE RECORDS SUMMARY | 2024-11-09 10:57 | XMS_ITS | Encounter Summary ---
Author Organization [facility] Address [address] [place] [address] Phone Care Team Providers Care X Ray Technologist Name Role Phone Santos Montenegro Primary Care Provider Bernadine Gill MD Unavailable [phone] Uriah Florentino MD Unavailable Buddy Franz MD Unavailable [phone] Encounter Details Date Type Department Care Team (Late st Contact Info) Description 10/17/2020 Telephone [facility] [address] [place] [address] Buddy Franz MD [address] [place] [address] Social History Tobacco Use Types [...] AM CDT Lab [facility] [address] [phone] Buddy Franz MD [address] [place] [phone] Lab [facility] 11/24/2024 9:30 AM CDT Office Visit [facility] [address] [phone] Buddy Franz MD [address] [place] [phone] documented as of this encounter Visit Diagnoses Not on filedocumented in this encounter Additional Health Concerns Assessment Noted Time PHQ-9 Depression Total Score: 0 09/26/19 21 2:05 PM CDT documented as of this encounter Care Teams X Ray Technologist Relationship Specialty Start Date End Date Santos Montenegro [address] [address] PCP - General Family Medicine 09/20/16 Bernadine Gill MD [address] [address] Internal Medicine 09/20/16 Uriah Florentino MD [address] [place] [address] Consulting Physician Oncology 12/05/23 07/27/24 Buddy Franz MD [address] [place] [address] Consulting Physician Oncology 07/28/24 documented as of this encounter
--- OUTSIDE RECORDS SUMMARY | 2024-11-09 10:57 | XMS_ITS | CONTINUITY OF CARE DOCUMENT ---
Author Name candido rey Address Unknown Organization [facility] Address [address] [facility] [address] [place] [address] Phone [phone] Care Team Providers Care Clipper Machine Operator Name Role Phone michelle reyeucameron Unavailable Unavailable INSURANCE PROVIDERS Payer name Policy type / Coverage type [place] red republican ID [facility] PL[facility] Medicaid [id number]
--- OUTSIDE RECORDS SUMMARY | 2024-11-09 10:57 | XMS_ITS | Encounter Summary ---
Author Organization [facility] Address [address] [place] [address] Phone Care Team Providers Care Rn Training Name Role Phone Santos Montenegro Primary Care Provider Bernadine Gill MD Unavailable Uriah Florentino MD Unavailable [phone] Buddy Franz MD Unavailable Encounter Details Date Type Department Care Team (Late st Contact Info) Description 11/06/2020 Telephone [facility] [address] [place] [address] Buddy Franz MD [address] [place] [address] Social History Tobacco Use Types [...] included. Buddy Franz MD Fieker, Elizabeth A; [facility]c [facility] 16 hours ago (4:06 PM) MW Call [...] AM CDT Lab [facility] [address] [phone] Buddy Franz MD [address] [place] [phone] Gaby Ayala [facility] 11/24/2024 9:30 AM CDT Office Visit [facility] [address] [phone] Buddy Franz MD [address] [place] [phone] documented as of this encounter Visit Diagnoses Not on filedocumented in this encounter Additional Health Concerns Assessment Noted Time PHQ-9 Depression Total Score: 0 09/26/19 21 2:05 PM CDT documented as of this encounter Care Teams Rn Training Relationship Specialty Start Date End Date Santos Montenegro: [phone] [address] [place] [address] PCP - General Family Medicine 09/20/16 Bernadine Gill MD [address] [place] [address] Internal Medicine 09/20/16 Uriah Florentino MD [address] [place] [address] Consulting Physician Oncology 12/05/23 07/27/24 Buddy Franz MD [address] [place] [phone] Consulting Physician Oncology 07/28/24 documented as of this encounter
--- OUTSIDE RECORDS SUMMARY | 2024-11-09 10:58 | XMS_ITS ---
Author Organization [facility] Address [address] [place] [address] Care Team Providers Care Ring Maker Name Role Phone Jonas Tello Primary Care Provider [phone] Hortensia RUDOLPH Unavailable Unavailable REASON FOR VISIT 1 Month Psych F/U & Med Refill Social History Sex Assigned At : Social History Observation Description Sex Assigned At Female Encounters Encounter Location Date Provider Diagnosis [address] [address] 11/01/2024 Jonas Tello Plan Of Treatment No Information Progress Notes * Radha FAIRDOB: 3 (59 yo F)Acc No.[id number]:11/01/2024 UNLOCKED PROGRESS NOTE Patient: Radha OMER Provider: Hortensia Tello DNP, PMKESHIAP-BC :1965 A ge:59 Y S ex:Female Date:11/01/2024 Address:[address] [facility] [address] Subjective: * Chief Complaints: * 1 . 1 Month Psych F/U & Med Refill. * Medical History: Objective: * Vitals: Assessment: Plan: * Treatment: * * Electronic signature of Ramy Tello APRN, [id number] on 11/09/2024 at 10:58 AM CDT Sign off status: Pending * Provider: Hortensia Tello DNP, PMHNP-BC Date: 0 11/01/2024 Generated for Marquita garrido/Alicia/Berniceitting on: 0 11/09/2024 10:58 AM CDT
--- OUTSIDE RECORDS SUMMARY | 2024-11-09 10:58 | XMS_ITS ---
Author Organization [facility] Address [address] [place] [address] Care Team Providers Care Dye Range Tender Name Role Phone Jonas Tello Primary Care Provider Hortensia RUDOLPH Unavailable Unavailable Allergies Allergen (clinical drug ingredient) Drug/Non Drug Allergy documented on EMR Reaction Allergy Type Onset Date Status Penicillin Unknown Drug Allergy Active Substance with sulfonamide structure and antibacterial mechanism of action (substance) Sulfa Antibiotics Unknown Drug Allergy Active REASON FOR VISIT r/s from 11/01/24- 1 Month Psych F/U & Med Refill Medications Medication SIG (Take, Route, Frequency, Duration) Notes Start Date End Date Status Famotidine 40 MG TAKE 1 TABLET BY BALTAZAR TWICE DAILY Oral for 30 Days Active Cyclobenzaprine HCl 10 MG Oral for 30 Days Active Amitriptyline HCl 25 MG Oral for 30 Days Active Famotidine 40 MG 1 tablet at bedtime Orally Once a day for 30 day(s) Active Pregabalin 150 MG Oral for 30 Days Active oxyBUTYnin Chloride 15 MG 1 tablet Orall y Once a day Active Irbesartan 300 MG 1 tablet Orally Once a day Active Dicyclomine HCl 10 MG 1 capsule Orally F our times a day Active hydrOXYzine HCl 25 MG 1 tablet as needed Orally every 8 hrs for 30 day(s) Active Amitriptyline HCl 25 MG 1 tablet at bedt teagan Orally Once a day for 30 day(s) Active Pantoprazole Sodium 40 MG 1 tablet Orall y Once a day GI 04/02/2023 Active Spiriva HandiHaler 18 MCG 1 capsule by i nhaling the contents of the capsule using the HandiHaler device Inhalation Once a day Active Diphenoxylate-Atropine 2.5-0.025 MG 1 tablet as needed Orally Four times a day Active Ondansetron 4 MG 1 tablet on the tong ue and allow to dissolve Orally Once a day for 30 day(s) Active Hyoscyamine Sulfate 0.125 MG 1 tablet as needed Orally every 4 hrs GI Active Rexulti 4 MG 1 tablet Orally at night for 30 days Active KlonoPIN 1 MG 0.5 tablet Orally Th ree times a day as needed for severe anxiety. for 30 days 11/08/2024 Active traZODone HCl 300 MG 0.5 - 1 tablet at bedtime as needed Orally Once a day for 30 days 10/15/2023 Active buPROPion HCl ER (XL) 300 MG 1 tablet in the morning Orally Once a day for 30 days Active Zoloft 100 MG two tablets Orally a t night for 30 days Active Social History Sex Assigned At : Social History Observation Description Sex Assigned At Female Tobacco Control (Standard) Question Answer Notes Additional Findings: Tobacco user e-cigarette Encounters Encounter Location Date Provider Diagnosis [address] [address] 11/08/2024 Jonas Tello Major depression wit h psychotic features F32.3 ; Chronic post-traumatic stress disorder (PTSD) F43.12 ; Generalized anxiety disorder F41.1 and Benzodiazepine dependence F13.20 Assessments Encounter Date Diagnosis (ICD Code) Assessment Notes Treatment Notes Treatment Clinical Notes Section Notes 11/08/2024 Major depression with psychotic features (ICD-10 [...] if needed. She verbalizes understanding and agreeable. 11/08/2024 Chronic post-traumatic stress disorder (PTSD) (ICD-10 [...] if needed. She verbalizes understanding and agreeable. 11/08/2024 Generalized anxiety disorder (ICD-10 - F41.1) [...] if needed. She verbalizes understanding and agreeable. 11/08/2024 Benzodiazepine dependence (ICD-10 - F13.20) Client [...] if needed. She verbalizes understanding and agreeable. [place] [...] number to the 24-hour crisis line at [facility]. Questions addressed. Client verbalized understanding of all [...] if needed. She verbalizes understanding and agreeable. Plan Of Treatment Medication Medication Name Sig Start Date Stop Date Notes Rexulti 4 MG 1 tablet Orally at n ight for 30 days KlonoPIN 1 MG 0.5 tablet Orally Th ree times a day as needed for severe anxiety. for 30 days 11/08/2024 traZODone HCl 300 MG 0.5 - 1 tablet at b edtime as needed Orally Once a day for 30 days 10/15/2023 buPROPion HCl ER (XL) 300 MG 1 tablet in the morning Orally Once a day for 30 days Zoloft 100 MG two tablets Orally a t night for 30 days Treatment Notes Assessment Notes [...] number to the 24-hour crisis line at [facility]. Questions addressed. Client verbalized understanding of all information and is agreeable to treatment plan. Next Appt Details Follow Up: 4 Weeks,prn, Reas on: Psych F/U - In-Person or Telehealth Progress Notes * Radha FAIRDOB: 3 (59 yo F)Acc No.[id number]:11/08/2024 Patient: Davian OMERt Provider: Hortensia Tello DNP, PMHNP- :1965 A ge:59 Y S ex:Female Date:11/08/2024 Address:[facility] [place] [address] Subjective: * Chief Complaints: * r /s from 11/01/24- 1 Month Psych F/U & Med Refill * HPI: D epression Screening: PHQ-9 L ittle interest or pleasure in doing things M ore than half the days, F eeling down, depressed, or hopeless M ore than half the days, T rouble falling or staying asleep, or sleeping too much M ore than half the days, F eeling tired or having little energy N early every day, P oor appetite or overeating N early every day, F eeling bad about yourself or that you are a failure, or have let yourself or your family down N early every day, T rouble concentrating on things, such as reading the newspaper or watching television M ore than half the days, M oving or speaking so slowly that other people could have noticed; or the opposite, being so fidgety or restless that you have been moving around a lot more than usual S everal days, T houghts that you would be better off or of hurting yourself in some way S ever (Consider Suicide Assessment Risk), T otal Score?19, I nterpretation M oderately Severe Depression. I ntervention D epression Screening Findings P ositive, F ollow-Up for Depression N o Referral necessary, patient involved in behavioral health treatment .. C SSRS Interpretation and Follow Up Plan: CSSRS Interpretation and Follow Up Plan C SSRS Screen documented using SF Y es, R isk Disposition from SF M oderate - Follow Up Plan required, F ollow Up Plan M oderate/High: Warm hand off to Behavioral Health Client talked with this provider. Denies plan or intent. Denies crisis intervention. Verified that client has access to crisis phone numbers., T imeframe of Screening T evelin. S uicidal Assessment: [place] Screening H ave you wished you were or wished you could go to sleep and not wake up? Y es, H ave you actually had any thoughts of killing yourself? N o, H ave you ever done anything, started to do anything, or prepared to do anything to end your life? N o. S ummary: Session conducted telephonically with client's consent. Client is pleasant and conversational. HPI: I'm having a lot of health problems. Its been hard lately. Radha Fair is a 59-year-old female who reports ongoing issues with fibromyalgia, which has been exacerbated by swelling in her knees and feet. She describes significant pain in her joints, which has led to increased disability and difficulty in performing daily activities. Radha mentions that her fibromyalgia medication was recently increased due to worsening symptoms. She also reports urinary incontinence, which has been problematic since her insurance stopped covering her previous urologist in [place]. Radha is experiencing social isolation, having difficulties with both her son and daughter. She expresses feelings of helplessness and numbness, compounded by these family relationship challenges. Radha's sleep pattern is disrupted, as she tends to fall asleep early in the evening and wakes up around midnight, staying awake until intake man. She acknowledges using sleep as an escape and is encouraged to adjust her bedtime routine and to use half the trazodone dose (150 mg) when possible. Katie wheatley is considering therapy to address her mental health concerns but is unsure how to fit it into her schedule due to numerous doctor's appointments. She has lost over half of her [...] TSH showed some evidence of slight hyperthyroidism. Her PCP is monitoring her yearly lab work currently. Goals: Feel better and get my health problems taken care of. Coping strategies: Has emotional support dog. She is a feisty, non-stop barking dog and I have to use a special collar for her. I love her very much. She is rescue. She is part terrier and Occitan gunderson. 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 Takes Kaylee for walks all throughout the day. Likes to do crafts and used to do crafts with granddaughters. Likes to swim at [facility]. Has let membership lapse due to [...] with COPD then quit). LMP/BC: Menopausal Therapy: States she is thinking about it but feels she doesn't have time? Medications effective: Yes Medications adherence: Good per self-report Medication side effects: Denies Sleep: Good - improved after starting trazodone. Using as escape at times. Appetite: decreased lately due to swallowing issues Depression: Fair to poor Anxiety: Fair Anger/Irritability: Fair Hallucinations/Paranoia: In the past, not currently. I would see something move sometimes. Suicidal ideation: Denies (some thoughts of better off but no suicidal thoughts) Homicidal ideation: Denies Medical concerns or hospitalizations: Multiple ongoing chronic issues (see HPI) Any new medications from other providers: Denies Doctors: Santos Montenegro MD in [place]. I nterim History: Emergency room visit N o. W as hospitalized N o.? * ROS: A ll Other Systems: Review [...] Status E mployment Status: O n Disability. T obacco Use: T obacco Control (Standard) A dditional Findings: Tobacco user e -cigarette. M iscellaneous: M ethod of learning P referred method of learning: D emonstration. * Medications: T akingHyoscyamine Sulfate 0.125 MG [...] MG Tablet 1 tablet Orally at night Zoloft 100 MG Tablet two tablets Orally at night buPROPion HCl ER (XL) 300 MG Tablet Extended Release 24 Hour 1 tablet in the morning Orally Once a day traZODone HCl 300 MG Tablet 0.5 - 1 tablet at bedtime as needed Orally Once a day KlonoPIN 1 MG Tablet 0.5 tablet Orally Three times a day as needed for severe anxiety. Pregabalin 150 MG Capsule Oral Cyclobenzaprine HCl 10 MG Tablet Oral Famotidine 40 MG Tablet TAKE 1 TABLET BY MOUTH TWICE DAILY Oral Amitriptyline HCl 25 MG Tablet Oral Medication List reviewed and reconciled with the patientTaking Hyoscyamine Sulfate 0.125 MG Tablet 1 tablet [...] Tablet 1 tablet Orally at night Taking Zoloft 100 MG Tablet two tablets Orally at night Taking buPROPion HCl ER (XL) 300 MG Tablet Extended Release 24 Hour 1 tablet in the morning Orally Once a day Taking traZODone HCl 300 MG Tablet 0.5 - 1 tablet at bedtime as needed Orally Once a day Taking KlonoPIN 1 MG Tablet 0.5 tablet Orally Three times a day as needed for severe anxiety. Taking Pregabalin 150 MG Capsule Oral Taking Cyclobenzaprine HCl 10 MG Tablet Oral Taking Famotidine 40 MG Tablet TAKE 1 TABLET BY MOUTH TWICE DAILY Oral Taking Amitriptyline HCl 25 MG Tablet Oral Medication List reviewed and reconciled with the patient * Allergies: P enicillin: AllergySulfa Antibiotics: Allergyno[Allergies [...] high probability for bipolar disorder. 2 . C hronic post-traumatic stress disorder (PTSD) - F43.12 N otes :PCL-5 66 10/25/20 3 . G eneralized anxiety disorder - F41.1 4 . B enzodiazepine dependence - F13.20 Client continues to struggle with depression due to health issues and family dynamics/isolation.? Continue to encourage client to engage in therapy, she continues to lack follow up. She is already dealing with polypharmacy due to comorbid health issues and has been fairly stable on current tx plan. No changes at this time but encourage client to consider therapy, CRU stay if needed. She verbalizes understanding and agreeable. Plan: * Treatment: 2. C hronic post-traumatic stress disorder (PTSD) Refill KlonoPIN Tablet, 1 MG, 0.5 tablet, Orally, Three times a day as needed for severe anxiety., 30 days, 45, Refills 1. 3. G eneralized anxiety disorder Refill Zoloft Tablet, 100 MG, two tablets, Orally, at night, 30 days, 60, Refills 1. 4. [place]rs Notes: [place] number to the 24-hour crisis line at [facility]. Questions addressed. Client verbalized understanding of all information and is agreeable to treatment plan. * Procedure Codes: * Follow Up: 4 Weeks,prn (Reason: Psych F/U - In-Person or Telehealth) * * Sign off status: Completed true * Provider: Hortensia Tello DNP, PMP- Date: 0 11/08/2024 Generated for Marquita garrido/Alicia/eTransmitting on: 0 11/09/2024 10:57 AM CDT History and Physical Notes * HPI (History of Present Illness) Category Sub-Category Detail Notes Category Not es Interim History Was hospitalized No Emergency room visit No Suicidal Assessment [place] Screening Have you wished you were or wished you could go to sleep and not wake up?: Yes Have you actually had any thoughts of ki lling yourself?: No Have you ever done anything, started to do anything, or prepared to do anything to end your life?: No Strengths Depression Screening PHQ-9 Little inte rest or pleasure in doing things: More than half the days Feeling down, depressed, or hopeless: Mo re than half the days Trouble falling or staying a sleep, or sleeping too much: More than half the days Feeling tired or having little energy: N early every day Poor appetite or overeating: Nearly ever y day Feeling bad about yourself o r that you are a failure, or have let yourself or your family down: Nearly every day Trouble concentrating on thi ngs, such as reading the newspaper or watching television: More than half the days Moving or speaking so slowly that other people could have noticed; or the opposite, being so fidgety or restless that you have been moving around a lot more than usual: Several days Thoughts that you would be b aracely off or of hurting yourself in some way: Several days (Consider Suicide Assessment Risk) Total Score: 19 Interpretation: Moderately Severe Depres tom Intervention Depression Screening Findings: P ositive Follow-Up for Depression: No Referral necessary, patient involved in behavioral health treatment . CSSRS Interpretation and Follow Up Plan CSSRS Interpretation and Follow Up Plan CSSRS Screen documented using SF: Yes Risk Disposition from SF: Mo derate - Follow Up Plan required Follow Up Plan: Moderate/Hig h: Warm hand off to Behavioral Health Client talked with this provider. Denies plan or intent. Denies crisis intervention. Verified that client has access to crisis phone numbers. Timeframe of Screening: Today Examination Category Sub-Category Detail Notes Category Not [...]
--- OUTSIDE RECORDS SUMMARY | 2024-11-09 10:58 | XMS_ITS | Continuity of Care Document ---
Author Organization [facility] Address [address] [place] [address] [place] [address] Phone Care Team Providers Care Form Raiser Name Role Phone Santos Montenegro MD Unavailable Unavailable Allergies, Adverse Reactions, Alerts Substance Reaction Status Criticality Sulfa (Sulfonamide Antibiotics) Active No Information Penicillins Active No Information Medications Medication Instructions Dosage Effective Dates (start - stop) Status Comments cyclobenzaprine 10 mg tablet take 1 tablet by oral route 3 times every day as needed 10 MG - Active PRN for pain, avoid driving or operate machines Lyrica 150 mg capsule take 1 capsule by oral route 2 times every day 150 MG - Active avoid driving or operate machines irbesartan 300 mg tablet take 1 tablet by oral route every day 300 MG - Active Pepcid 40 mg tablet take 1 tablet [...] Providers Copied on Encounter OFFICE/OUTPA TIENT VISIT, [facility], [address], [place], [place], [address], [place] tel:[phone] [facility] IC (chief complaint) fibromyalg ia1 (chief complaint) HTN (chief complaint) FibromyalgiaEssenti al (primary) hypertensionInterst itial cystitis (chronic) with hematuria 5 Lan Graham. [address], [place], [place], [address] , [place]. [phone] OFFICE/OUTPA TIENT VISIT, [facility], [address] [place] [place], [address], [place] tel:[phone] [facility] fibromyalg ia1 (chief complaint) Fibromyalgia 5 Lan Graham. [address], [place], [place], [address] , [place]. tel:[phone] OFFICE/OUTPA TIENT VISIT, [facility], [address], [place], [place], [address], [place] tel:[phone] [facility] pain (chief complaint) GERD1 (chief complaint) foot pain1 (chief complaint) HTN (chief complaint) FibromyalgiaGERD w/o esophagitisEssentia l (primary) hypertensionBunion of right foot September- 5 Lan Graham. [address], [place], [place], [address] , [place]. tel:[phone] OFFICE/OUTPA TIENT VISIT, [facility], [address], [place], [place], [address], [place] tel:[phone] [facility] pain1 (chief complaint) GERD1 (chief complaint) GERD w/o esophagitisFibromya lgia 5 Lan Graham. [address], [place], [place], [address] , [place]. [phone] OFFICE/OUTPA TIENT VISIT, [facility], [address], [place], [place], [address], [place] tel:[phone] [facility] GERD1 (chief complaint) fibromyalg ia1 (chief complaint) HTN (chief complaint) FibromyalgiaEssenti al (primary) hypertensionGERD w/o esophagitis 4 Lan Rodriguez [address], [place], [place], [address] , [place]. [phone] OFFICE/OUTPA TIENT VISIT, [facility], [address], [place], [place], [address], [place] tel:[phone] [facility] fibromyalg ia` (chief complaint) cough1 (chief complaint) Acute bronchitisFibromyal jeffery 4 Lan Graham. [address], [address], [place], [place], [address] , [place]. tel:[phone] OFFICE/OUTPA TIENT VISIT, [facility], [address], [place], [place], [address], [place] tel:[phone] [facility] lung nodule1 (chief complaint) GERD1 (chief complaint) IC (chief complaint) pain (chief complaint) Solitary lung noduleFibromyalgiaG ERD w/o esophagitisIntersti tial cystitis (chronic) with hematuria 4 Lan Graham. [address], [place], [place], [address] , [place]. tel: [phone] OFFICE/OUTPA TIENT VISIT, [facility], [address], [place], [place], [address], [place] tel:[phone] [facility] osteopenia 1 (chief complaint) IC (chief complaint) iron deficiency 1 (chief complaint) pain (chief complaint) GERD1 (chief complaint) Encntr screen mammogram for malignant neoplasm of breastIron deficiency anemia, unspecifiedIntersti tial cystitis (chronic) with hematuriaOther specified disorder of bone densitySolitary lung noduleFibromyalgiaG ERD w/o esophagitis 4 Lan Graham. [address], [address], [place], [place], [address] , [place]. tel: [phone] OFFICE/OUTPA TIENT VISIT, [facility], [address], [place], [place], [address], [place] tel:[phone] [facility] pain (chief complaint) tobacco (chief complaint) bone1 (chief complaint) Solitary lung nodulePain in left kneeOther specified disorder of bone density 4 Lan Graham. [address], [place], [place], [address] , [place]. tel: [phone] OFFICE/OUTPA TIENT VISIT, [facility], [address], [place], [place], [address], [place] tel:[phone] [facility] toothache1 (chief complaint) Atypical facial painSolitary lung nodule 4 Lan Graham. [address], [place], [place], [address] , [place]. tel: [phone] OFFICE/OUTPA TIENT VISIT, [facility], [address], [place], [place], [address], [place] tel:[phone] [facility] pain (chief complaint) Chronic pain syndrome 4 Lan Rodriguez [address], [place], [place], [address] , [place]. [phone] OFFICE/OUTPA TIENT VISIT, EST [facility], [address], [place], [place], [address], [place] tel:[phone] [facility] pain (chief complaint) Chronic pain syndrome Jul- 4 Lan Graham. [address], [address], [place], [place], [address] , [place]. tel:[phone] OFFICE/OUTPA TIENT VISIT, EST [facility], [address], [place], [place], [address], [place] tel:[phone] [facility] pain (chief complaint) HTN (chief complaint) COPD1 (chief complaint) sleep apnea1 (chief complaint) Solitary lung noduleOther specified disorder of bone densityObstructive sleep apnea (adult) (pediatric)Centrilo bular emphysemaChronic pain syndromeEssential (primary) hypertension 4 Lan Graham. [address], [place], [place], [address] , [place]. tel:[phone] OFFICE/OUTPA TIENT VISIT, EST [facility], [address], [place], [place], [address], [place] tel:[phone] [facility] knee pain1 (chief complaint) Chronic pain syndrome 3 Lan Rodriguez [address], [place], [place], [address] , [place]. tel:[phone] PREV VISIT, EST, AGE 40-64 [facility], [address], [place], [place], [address], [place] tel:[phone] [facility] physical (chief complaint) Encounter for general adult medical examination without abnormal findings 3 Lan Graham. [address], [address], [place], [address] , [place]. tel:[phone] OFFICE/OUTPA TIENT VISIT, [facility], [address], [place], [place], [address], [place] tel:[phone] [facility] mammo (chief complaint) Inconclusive mammogram 3 Lan Graham. [address], [place], [place], [address] , [place]. tel:[phone] OFFICE/OUTPA TIENT VISIT, [facility], [address], [place], [place], [address], [place] tel:[phone] [facility] thyroid1 (chief complaint) knee pain1 (chief complaint) HTN (chief complaint) mammo (chief complaint) Disorder of thyroid, unspecifiedInconclu sive mammogramEssential (primary) hypertensionPain in left kneeOther specified disorder of bone density 3 Lan Graham. [address], [place], [place], [address] , [place]. tel:[phone] OFFICE/OUTPA TIENT VISIT, [facility], [address], [place], [place], [address], [place] tel:[phone] [facility] HLP (chief complaint) glucose1 (chief complaint) thyroid1 (chief complaint) low D1 (chief complaint) Other specified disorder of bone densityHyperglycemi aMixed hyperlipidemiaDisor melvin of thyroid, unspecifiedSolitary lung nodulePain in unspecified joint 3 Lan Graham. [address], [place], [place], [address] , [place]. tel:[phone] OFFICE/OUTPA TIENT VISIT, [facility], [address], [place], [place], [address], [place] tel:[phone] [facility] toothache1 (chief complaint) pain (chief complaint) Pain in unspecified jointAtypical facial pain 3 Lan Graham. [address], [place], [place], [address] , [place]. tel:[phone] OFFICE/OUTPA TIENT VISIT, EST [facility], [address], [place], [place], [address], [place] tel:[phone] [facility] HTN (chief complaint) joint pain1 (chief complaint) IBSD (chief complaint) Pain in jointIrritable bowel syndrome with diarrheaEssential (primary) hypertension 3 Lan Graham. [address], [place], [place], [address] , [place]. tel:[phone] OFFICE/OUTPA TIENT VISIT, [facility], [address], [place], [place], [address], tel:[phone] [facility] GI (chief complaint) HTN (chief complaint) OAB (chief complaint) Essential (primary) hypertensionIrritab le bowel syndrome with diarrheaOveractive bladder 3 Lan Graham. [address], [place], [place], [address] , [place]. tel:[phone] OFFICE/OUTPA TIENT VISIT, [facility], [address] [place], [address], [place] tel:[phone] [facility] HTN (chief complaint) left knee 1 (chief complaint) colon polyp1 (chief complaint) toothache1 (chief complaint) Essential (primary) hypertensionPain in left kneePolyp of colonAtypical facial pain 2 Lan Graham. [address], [place], [place], [address] , [place]. tel:[phone] OFFICE/OUTPA TIENT VISIT, [facility], [address] [place], [address], [place] tel:[phone] [facility] knee pain1 (chief complaint) lung nodule1 (chief complaint) iron deficiency 1 (chief complaint) HTN (chief complaint) Essential (primary) hypertensionIron deficiency anemiaPain in left kneeSolitary lung nodule 2 Lan Graham. [address], [place], [place], [address] , [place]. [phone] PREV VISIT, EST, AGE 40-64 [facility], [address], [place], [place], [address], [place] tel:[phone] [facility] physical (chief complaint) Encounter for general adult medical examination without abnormal findings 2 Lan Graham. [address], [place], [place], [address] , [place]. tel:[phone] OFFICE/OUTPA TIENT VISIT, EST [facility], [address], [place], [place], [address], [place] tel:[phone] [facility] HTN (chief complaint) IC (chief complaint) shoulder pain1 (chief complaint) anemia1 (chief complaint) Essential (primary) hypertensionPain in right shoulderIron deficiency anemiaInterstitial cystitis without hematuria 2 Lan Graham. [address], [place], [place], [address] , [place]. tel:[phone] OFFICE/OUTPA TIENT VISIT, EST [facility], [address], [place], [place], [address], [place] tel:[phone] [facility] GERD1 (chief complaint) anxitey1 (chief complaint) weight loss1 (chief complaint) Abnormal weight lossGERD w/o esophagitisGenerali zed Anxiety DisorderIron deficiency anemia 1 Lan Rodriguez [address], [place], [place], [address] , [place]. tel:[phone] OFFICE/OUTPA TIENT VISIT, EST [facility], [address], [place], [place], [address], [place] tel:[phone] [facility] HTN (chief complaint) anemia1 (chief complaint) weight loss1 (chief complaint) GERD w/o esophagitisEssentia l (primary) hypertensionAnemiaA bnormal weight loss 1 Lan Rodriguez [address], [place], [place], [address] , [place]. tel:[phone] OFFICE/OUTPA TIENT VISIT, [facility], [address], [place], [place], [address], [place] tel:[phone] [facility] GERD (chief complaint) GERD1 (chief complaint) HTN (chief complaint) OAB (chief complaint) anemia1 (chief complaint) Overactive bladderIron deficiency anemiaEssential (primary) hypertensionGERD w/o esophagitis 1 Lan Rodriguez [address], [place], [place], [address] , [place]. tel:[phone] OFFICE/OUTPA TIENT VISIT, [facility], [address], [place], [place], [address], [place] tel:[phone] [facility] HTN (chief complaint) anemia1 (chief complaint) OAB1 (chief complaint) Essential (primary) hypertensionIron deficiency anemiaOveractive bladder 1 Lan Rodriguez [address], [place], [place], [address] , [place]. [phone] OFFICE/OUTPA TIENT VISIT, [facility], [address], [place], [place], [address], [place] tel:[phone] [facility] anemia1 (chief complaint) Iron deficiency anemiaFatigue 1 Lan Rodriguez [address], [address], [place], [place], [address] , [place]. [phone] OFFICE/OUTPA TIENT VISIT, [facility], [address], [place], [place], [address], [place] tel:[phone] [facility] HLP (chief complaint) anemia1 (chief complaint) vitamin D1 (chief complaint) GERD1 (chief complaint) AnemiaHyperlipidemi aVitamin D deficiency, unspecifiedGERD w/o esophagitis 1 Lan Rodriguez [address], [address], [place], [place], [address] , [place]. tel:[phone] PREV VISIT, EST, AGE 40-64 [facility], [address], [place], [place], [address], [place] [phone] [facility] physical (chief complaint) Encounter for general adult medical examination without abnormal findings Oct-2 0-202 0 Lna Graham. [address], [place], [place], [address] , [place]. tel:[phone] OFFICE/OUTPA TIENT VISIT, EST [facility], [address], [place], [place], [address], [place] tel:[phone] [facility] IC1 (chief complaint) GERD1 (chief complaint) Interstitial cystitis without hematuriaGERD w/o esophagitis Apr-3 0-202 0 Lan Graham. [address], [place], [place], [address] , [place]. tel:[phone] OFFICE/OUTPA TIENT VISIT, [facility], [address], [place], [place], [address], [place] [phone] [facility] chest pain1 (chief complaint) IC (chief complaint) anemia1 (chief complaint) Chest painGERD w/o esophagitisAnemiaIn terstitial cystitis without hematuria Apr-0 9-202 0 Lan Graham. [address], [place], [place], [address] , [place]. tel:[phone] PREV VISIT, EST, AGE 40-64 [facility], [address], [place], [place], [address], [place] [phone] [facility] physical (chief complaint) Encntr for general adult medical exam w/o abnormal findings Sep-1 0-201 9 Lan Graham. [address], [place], [place], [address] , [place]. tel:[phone] Referring Provider: Santos Montenegro [address], [place], [place], [address]. tel:[phone] OFFICE/OUTPA TIENT VISIT, [facility], [address], [place], [place], [address], [place] tel:[phone] [facility] hematuria1 (chief complaint) weight loss1 (chief complaint) neck pain1 (chief complaint) HTN (chief complaint) HematuriaOveractive bladderEmphysemaEss ential (primary) hypertensionOther spondylosis, cervical regionAbnormal weight loss 9 Lan Graham. [address], [place], [place], [address] , [place]. tel:[phone] Referring Provider: Haider [address], [place], [place], [address]. tel:[phone] OFFICE/OUTPA TIENT VISIT, [facility], [address], [place], [place], [address], [place] tel:[phone] [facility] HTN (chief complaint) OAB (chief complaint) neck pain1 (chief complaint) Essential (primary) hypertensionOther spondylosis, cervical regionOveractive bladderEmphysema 8 Lan Graham. [address], [place], [place], [address] , [place]. tel:[phone] OFFICE/OUTPA TIENT VISIT, [facility], [address], [place], [place], [address], [place] tel:[phone] [facility] UTI1 (chief complaint) neck pain1 (chief complaint) HTn (chief complaint) Essential (primary) hypertensionOveract reyes bladderOther spondylosis, cervical region 8 Lan Graham. [address], [place], [place], [address] , [place]. tel:[phone] Referring Provider: Haider Leslie [address], [place], [place], [address]. tel:[phone] OFFICE/OUTPA TIENT VISIT, [facility], [address], [place], [place], [address], [place] tel:[phone] [facility] GERD1 (chief complaint) neck pain1 (chief complaint) emphysema1 (chief complaint) UTI1 (chief complaint) knee pain1 (chief complaint) Other spondylosis, cervical regionEmphysemaGERD w/o esophagitisUrinary tract infectionPain in right knee 8 Lan Graham. [address], [place], [place], [address] , [place]. [phone] Referring Provider: Haider Leslie [address], [place], [place], [address]. tel:[phone] OFFICE/OUTPA TIENT VISIT, [facility], [address], [place], [place], [address], [place] tel:[phone] [facility] neck pain1 (chief complaint) knee pain1 (chief complaint) COPD1 (chief complaint) GERD1 (chief complaint) EmphysemaOther spondylosis, cervical regionPain in right kneeGERD w/o esophagitis 8 Lan Rodriguez [address], [place], [place], [address] , [place]. [phone] Referring Provider: Haider Leslie [address], [place], [place], [address]. tel:[phone] OFFICE/OUTPA TIENT VISIT, [facility], [address], [place], [place], [address], [place] tel:[phone] [facility] Hep c (chief complaint) bone1 (chief complaint) pain1 (chief complaint) nausea1 (chief complaint) Hepatitis CChronic pain syndromeGERD w/o esophagitisUnspecif ied lump in right breast, subareolar 8 Lan Rodriguez [address], [place], [place], [address] , [place]. tel:[phone] Referring Provider: Haider Leslie [address], [place], [place], [address]. tel:[phone] OFFICE/OUTPA TIENT VISIT, [facility], [address], [place], [place], [address], [place] tel:[phone] [facility] chronic pain1 (chief complaint) hep C (chief complaint) Chronic pain syndromeHepatitis C 8 Lan Graham. [address], [place], [place], [address] , [place]. [phone] Referring Provider: Haider Leslie [address], [place], [place], [address]. tel:[phone] PREV VISIT, EST, AGE 40-64 [facility], [address], [place], [place], [address], [place] [phone] [facility] PHysical (chief complaint) Encntr for general adult medical exam w/o abnormal findings 8 Lan Graham. [address], [place], [place], [address] , [place]. [phone] Referring Provider: Haider Leslie [address], [place], [place], [address]. tel:[phone] OFFICE/OUTPA TIENT VISIT, [facility], [address], [place], [place], [address], [place] tel:[phone] [facility] joint pain1 (chief complaint) UTi1 (chief complaint) COPD1 (chief complaint) HTN (chief complaint) Urinary tract infectionHepatitis CEmphysemaEssential (primary) hypertension 8 Lan Graham. [address], [place], [place], [address] , [place]. [phone] Referring Provider: Haider Leslie [address], [place], [place], [address]. tel:[phone] [facility], [address], [place], [place], [address], [place] tel:[phone] [facility] Mastodynia 8 Lan Graham. [address], [place], [place], [address] , [place]. [phone] OFFICE/OUTPA TIENT VISIT, EST [facility], [address], [place], [place], [address], [place] tel:[phone] [facility] joint pain1 (chief complaint) low D (chief complaint) low iron1 (chief complaint) hep C (chief complaint) Vitamin D deficiency, unspecifiedDisorder of iron metabolism, unspecifiedHepatiti s CPain in unspecified joint 7 Lan Rodriguez [address], [place], [place], [address] , [place]. tel:[phone] OFFICE/OUTPA TIENT VISIT, [facility], [address], [place], [place], [address], [place] tel:[phone] [facility] emphysema1 (chief complaint) breast nodule1 (chief complaint) diffuse pain1 (chief complaint) EmphysemaChronic pain syndromeUnspecified lump in right breast, subareolar 7 Lan Rodriguez [address], [place], [place], [address] , [place]. tel:[phone] Referring Provider: Haider [address], [place], [place], [address]. tel:[phone] OFFICE/OUTPA TIENT VISIT, [facility], [address], [place], [place], [address], [place] tel:[phone] [facility] HTN (chief complaint) COPD1 (chief complaint) polycyther mia1 (chief complaint) breast pain1 (chief complaint) EmphysemaEssential (primary) hypertensionUnspeci fied lump in right breast, subareolarSecondary polycythemia 7 Lan Rodriguez [address], [place], [place], [address] , [place]. [phone] Referring Provider: Ha[address], [place], [place], [address]. tel:[phone] OFFICE/OUTPA TIENT VISIT, [facility], [address], [place], [place], [address], [place] tel:[phone] [facility] HTN (chief complaint) polycyther mia1 (chief complaint) chronic pain1 (chief complaint) COPD1 (chief complaint) Essential (primary) hypertensionSeconda ry polycythemiaCOPDChr onic pain syndrome Lan Graham. [address], [facility] [place], [address] , . tel:[phone] Referring Provider: Haider Leslie [address], [place], [place], [address]. tel:[phone] PREV VISIT, NEW, AGE 40-64 [facility], [address], [place], [place], [address], [place] tel:[phone] [facility] PHysical (chief complaint) Encntr for general adult medical exam w/o abnormal findings Lan Graham. [address], [place], [place], [address] , [place]. [phone] Referring Provider: Haider Leslie [place], [address]. tel:[phone] Family History Family Member Type Diagnosis Age At Onset Mother Problem (finding) lung CA Brother Problem (finding) Alive and well Problem (finding) Family history of of unknown CA of age 70 Mother Problem (finding) Father Problem (finding) Payers Payer name Insurance type Covered republican ID Latasha urban(s) [facility] [id number] Social History Type Description Quantity Date Captured Comments Alcohol Use Details No Caffeine Use Details Unknown Tobacco Use Status Ex-cigarette smoker 025 Smoking Status Former smoker Sex Female Vital Signs Date / Time: Height Weight BMI Pulse Rate Blood Pressure Temperature Respiratory Rate Body Surface Area Head Circumference BMI percentile Pulse Ox Inhaled Ox 2:46 PM 63.00 in 162.80 lbs 28.8 4 kg/m eter (2) 64 /min 130/72 mm[Hg] 97.6 F 16 /min Chief Complaint And Reason For Visit From encounter dated '11/01/2024 14:41'. IC (chief complaint). Description: Pt has IC Pt sees urology. pt states that she was told by urology that she needs to change doctors due to jalloh fibromyalgia1 (chief complaint). Description: Pt has fibromyalgia Pt takes Lyrica and zanaflex is not helping. pt wants to go back flexeril. Pt wants to go higher dose of lyrica HTN (chief complaint). Description: Pt has HTN Pt takes irbesartan and her bp is ok today Plan Of Treatment Date Type Action Status Goal Tobacco cessation counseling completed Referral Ordered: Urology (related to Interstitial cystitis (chronic) with hematuria) ordered Referral Ordered: Referrals: Urology. Evaluate and treat ordered Referral Ordered: Carmen Kemp -Podiatric Medicine & Surgery Service Providers : Payroll Clerk (related to Bunion of right foot) ordered Referral Referred To: Carmen Kemp [address]
[place], [place], [phone] Ordered: Referrals: Podiatric Medicine & Surgery Service Providers : Payroll Clerk. Carmen Kemp. Evaluate and treat ordered Referral Ordered: Naeem Ray -Allopathic & Osteopathic Physicians : Internal Medicine : Gastroenterology (related to GERD w/o esophagitis) ordered Referral Ordered: MATT MERAZ -[facility]opathic Physicians : Obstetrics & Gynecology (related to Encounter for general adult medical examination without abnormal findings) ordered Referral Ordered: CT THORAX W/O DYE ordered Referral Referred To: MATT MERAZ [address] [place], [place], [id number] Ordered: Referrals: Allopathic & Osteopathic Physicians : Obstetrics & Gynecology. MATT MERAZ. Evaluate and treat ordered Referral Ordered: Naeem Ray -[facility]opathic [facility] Osteopathic Physicians : Internal Medicine : Gastroenterology (related to Irritable bowel syndrome with diarrhea) ordered Referral Referred To: Naeem Ray [address] [place], [place], [phone] Ordered: Referrals: Allopathic & Osteopathic Physicians : Internal Medicine : Gastroenterology. Naeem Ray. Evaluate and treat ordered Referral Referred To: Parisa GARCIA, Dung Dillard [address]
[place] [address] [place], [place], [id number] Ordered: Referrals: Parisa GARCIA, Dung Dillard. Evaluate and treat ordered Referral Ordered: UPPER GI AIR CONTRASTW/ SMALL BOWEL SERIES ordered Referral Ordered: Hematology (related to Iron deficiency anemia) ordered Referral Ordered: Referrals: Hematology. Evaluate and treat ordered Referral Ordered: Desmond De Paz -[facility]opathic [facility]opathic Physicians : Urology (related to Interstitial cystitis without hematuria) ordered Referral Referred To: Desmond De Paz [address] [facility]
[address] [place], [place], [phone] Ordered: Referrals: Allopathic & Osteopathic Physicians : [...] NICHOLSON [address] [place], [place], [phone] Ordered: Referrals: Allopathic & Osteopathic Physicians : Surgery. ROSETTE NICHOLSON. Evaluate and treat ordered Referral Ordered: SENSE NERVE CONDUCTION TEST ordered Referral Ordered: Roque Rose -[facility]opathic [facility] Osteopathic Physicians : Neurological Surgery (related to Other spondylosis, cervical region) ordered Referral Referred To: Roque Rose [address] [place], [phone] Ordered: Referrals: Allopathic & Osteopathic Physicians : Neurological Surgery. Roque Rose. Evaluate and treat ordered Referral Ordered: Emil Gutierrez -[facility]opathic Physicians : Orthopaedic Surgery (related to Pain in right knee) ordered Referral Ordered: Pulmonology (related to Emphysema) ordered Referral Referred To: Emil Gutierrez [address] [facility] [address] [place], [place] [phone] Ordered: Referrals: Allopathic & Osteopathic Physicians : Orthopaedic Surgery. Emil Gutierrez. Evaluate and treat ordered Referral Referred To: [address] [place] [address] [address] [place], [place] [phone] Ordered: Referrals: Pulmonology. Evaluate and treat ordered [...] Referred To: Sondra York MD [address] [facility]
[address] [place], [place], [phone] Ordered: Referrals: Sondra York MD. Evaluate and treat ordered Referral Ordered: LUMBAR XRAY AP AND LAT ONLY ordered Referral Ordered: Cindy Traylor (related to Emphysema) ordered Referral Referred To: Cindy Traylor [address] [place], [place], [phone] Ordered: Referrals: Cindy Traylor. Evaluate and treat ordered Referral Ordered: MAMMOGRAM, ONE BREAST ordered History Of Present Illness Encounter Date Complaint History Of Prese nt Illness IC Pt has IC Pt see s urology. pt states that she was told by urology that she needs to change doctors due to jalloh fibromyalgia1 Pt has fibromyal jeffery Pt takes Lyrica and zanaflex is not helping. pt wants to go back flexeril. Pt wants to go higher dose of lyrica HTN Pt has HTN Pt ta kes irbesartan and her bp is ok today fibromyalgia1 pt has fibromyal jeffery and chronic pain .Pt takes lyrica and robaxin but robaxin is not helping with her pain Pt also failed flexeril foot pain1 Pt has large bun ion right foot chronically with pain. HTN Pt has HTN. Pt t akes irbesartan and her bp is high today Pt states that she is in pain. Pt denies any chest pain or headache pain Pt has diffuse j oint pain and back pain due to fibromyalgia. Pt takes flexeril and lyrica and doing ok. Pt states that flexeril does not work anymore for her pain Pt denies any sciatica or any loss of bowel or bladder control or saddle area paresthesia GERD1 Pt has chronic G ERD Pt is seeing GI Pt had EGD done recently which showed HH. Pt had multiple EGD in the past. Pt is on omeprazole and pepcid and doing ok pain1 Pt has diffuse j oint pain [...] with hematuria. Pt is seeing urology at [facility] and she will do cystoscope soon. 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 mammo Pt denies any br east issue Pt told me she had mammo done and she think it is abnormal thyroid1 Pt has history o f high [...] Pt states that she is in pain thyroid1 Pt has slightly suppressed TSH. her T4 is normal. Pt denies any dysphagia or neck pain. low D1 Pt has low D Pt denies any fracture glucose1 Pt has mildly hi gh glucose Pt denies any polyuria, polydipsia . HLP Pt has HLP, Pt i s working on diet pain Pt has diffuse j oint pain including knee and hip Pt is seeing ortho She wants flexeril refilled . toothache1 Pt c/o recurrent wisdom teeth infection and pain Pt has yodit with dentist soon. she started to have toothache since one month ago Pt denies any facial swelling, redness or warmth. Pt currently has left side lower wisdom tooth pain for several days Pt denies any fever, or headache. IBSD Pt has IBS-D Pt was referred to Dr. Jacobs but he does not take patient for 2nd opinion Pt denies any abd pain joint pain1 Pt has diffuse j oint pain including knee, hip, shoulder, elbow, etc. Pt sees ortho for knee pain. Pt HTN Pt has HTN pt ta kes irbesartan 300 mg and her bp is ok Pt denies any chest pain or headache OAB Pt has OAB ,Pt i s [...] doctor but when she followed up with HYDRATE THICKENER OPERATOR, she was told no polyps. pt is very concerned about it. Pt denies any GI bleeding. Pt has chronic IBS_D toothache1 Pt has right upp er molar toothache with broken tooth for several weeks. Pt has yodit with dentist next week Pt c/o pain and mild swelling around the tooth Pt denies any fever, chill. iron deficiency1 Pt has iron def iciency anemia. Pt denies any GI bleeding Pt denies any vaginal bleeding .Pt denies any dizziness, sob or chest pain .Pt had benign EGD and she will do colonoscopy next week HTN Pt has HTN. Pt t akes irbesartan and her bp is stable. knee pain1 Pt c/o chronic l eft [...] normal per patient. Pt no longer smoking physical Pt needs annual physical. Pt has [...] or dizziness Pt denies any GI or SENIOR PROPERTY ACCOUNTANT bleeding HTN Pt has HTN, Pt t [...] denies any visible bleeding Pt denies any SENIOR PROPERTY ACCOUNTANT bleeding Pt is seeing hematology and she [...] in general. Pt denies any worsening sob GERD1 Pt has mild GERD . Pt had benign EGD. pt takes pepcid and doing ok vitamin D1 Pt has low vitam in D Pt takes multivitamins / anemia1 Pt has mild anem ia with low MCV. Pt denies any blood loss Pt denies any fatigue HLP Pt has borderlin e HLP Pt is not on any diet physical Pt needs annual physical, Pt has COPD. Pt takes Wixela and dulera and albuterol PRN ,Pt sees pulmonary PT denies any hemoptysis ,Pt has chronic GERD. Pt takes pepcid and doing ok Pt denies any abd pain. Pt has OAB with IC ,Pt is seeing urology at [facility] Pt is on oxybutynin. Pt will do cysto soon PT denies any active urinary symptoms. Pt has anxiety and depression Pt sees psychiatrist ,Pt takes remeron and wellbutrin and Klonopin PRN. Pt denies any suicidal or homicidal thought, PT denies any other complaints GERD1 Pt has chronic G ERD Pt takes pepcid an doing ok. pt denies any nausea, vomiting IC1 Pt has chronic I C. Pt states that she feels like chronic UTI with dysuria, urgency and frequency. Pt denies any flank pain Pt notices mild low pelvic pain sometimes Pt takes amitriptyline, hydroxyzine and oxybutynin and doing ok, Pt never had cystoscope pt denies any blood in urine. Her urologist quit chest pain1 Pt went to ER re [...] mg daily. Her BP is ok today neck pain1 Pt has chronic n cohco pain Pt has bilateral radiculopathy and some hand weakness, [facility] neurosurgery will not see her unless she has NCS done. Pt does have neck pain daily HTN Pt has HTN. Pt s tates [...] content with oxybutynin. Pt denies any incontinence. HTn Pt takes norvasc for HTN and her BP is stable. neck pain1 Pt has chronic n choco [...] injury Pt takes flexeril PRN for pain UTI1 Pt c/o urinary b urning, bladder pain, frequency and urgency for several months. Pt denies any flank pain pt denies any fever, chill Pt took abx last month but did not help Pt actually had UA done before abx which was negative for any UTI emphysema1 Pt has COPD Pt i s on advair and proair PRn. Pt has yodit with pulmonary next week. Pt denies any acute sob neck pain1 Pt has chronic n choco pain with bilateral radiculopathy and she feels bilateral arm weakness sometimes. Pt feels some numbness on both hand as well chronically. Her MRi showed disc disease with stenosis. GERD1 Pt has GERD. Pt has EGD done which showed mild gastritis Pt was told to continue omeprazole Pt does have GERD daily. Pt denies any GERD symptoms while on omeprazole UTI1 Pt c/o burning, dysuria, frequency, urgency for 2 weeks. Pt denies any acute flank pain. Pt denies any fever, chill. Pt has some low pelvic pressure knee pain1 PT has chronic r ight knee pain. Pt seen ortho recently and was told she has arthritis and told to take glucosamine. GERD1 Pt has GERD. Pt just had EGD. result pending. Pt is on omeprazole and doing ok COPD1 Pt has COPD. Pt uses oxygen at night Pt uses advair and albuterol PRN Pt uses albuterol multiple times per day. pt denies any acute sob. Pt still smoking knee pain1 Pt c/o chronic b ilateral knee pain, which is getting worse Pt c/o right knee pain with swelling. Pt denies any injury. Pt took some OTC NSAID but not helping. Pt denies any redness or warmth. Pt c/o 7/10 pain right knee neck pain1 Pt has chronic n choco pain with radiculopathy to both arm. Pt has above symptoms for years Pt had MRi done which showed C5-6 herniation and also DDD. Pt does not want physical therapy. Pt states that she suffers from daily pain her MRI just got approved from insurance pain1 Pt has chronic n choco and back and knee pain. Pt has arthritis Pt states that her pain is severe and she is applying disability now nausea1 pt has frequent nausea and she feels GERD sometimes. Pt denies any abd pain bone1 Pt has normal [place] ne density. Pt denies any history of fracture Hep c Pt has history o f hep c but is not active. pt had benign ultrasound. pt denies any abd pain chronic pain1 Pt [...] pain, fever, chilll COPD1 Pt is seeing erik herr. Pt told me she just had another [...] Pt had benign breast exam. Ptalso seen SENIOR PROPERTY ACCOUNTANT and had normal manual breast exam last [...] years. HTN Pt has HTn. Pt t lauren membreno and her BP is stable COPD1 Pt [...] Pt uses venotlin daily polycythermia1 Pt has polycalex scott. Pt is seeing hematology and was told [...] has HTN. Pt i s out of norvasc for a while. Pt states that she has been having chornic tension headache from posteior neck radiating to rest of scalp Pt denies any worsening hedache. Pt denies any head injury Pt denies waking up at night with headache polycythermia1 Pt has maribel scott. Pt just seen pumonary. Pt told me she had sleep study done but she does not know the result Pt is on adviair and venotlin for COPD. Pt also had chest CT done [facility]. pt states that she has chronic coughing and she just had a round of levaquin but she ist still coughing up phlegm, etc PHysical Pt needs annual physical. Pt has COPD and she is on 2 L oxygen at night and she takes advair and proair Pt sees lung specialist in [place]. PT has HTN. Pt takes norvasc and her BP is stable. Pt has manic depressive and she takes klonpin, lamictal, wellbutrin, trazodone and remeron and she sees psychiatrist. Pt also told me she has polycythermia?? Pt takes ASA daily. 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 Instructions Date Instruction Additional Infor magali Perform monthly self breast examinations. Related to Encntr for general adult medical exam w/o abnormal findings Increase activity. Related to En cntr for general adult medical exam w/o abnormal findings Stop smoking. Related to Essen tial (primary) hypertension Stop smoking. Related to Essen tial (primary) hypertension Follow a low sodium diet. Relate d to Essential (primary) hypertension Increase activity. Related to Es [...] Emphy sema Assessments Type Assessment Date assessment Fibromyalgia assessment Essential (primary) hypertension assessment Interstitial cystitis (chronic) with hematuria Mental Status Date Cognitive Assessment Orientation - [place] ed to time, place, person, situation.
--- NOTE | 2024-11-10 07:38 | REHSTMBS ---
Assessment and note entered by Rafia Finney, WELT CUTTER Modified Barium Swallow Evaluation Feeding Type Recommended Oral Food Consistency Regular, Easy to Chew (7) Liquid Consistency Thin (0) ST Clinical Summary The above pleasant and cooperative pt was seen for an outpatient modified barium swallow. She was alert, oriented, and able to follow commands, but seemed to have difficulty describing her swallowing issues in great detail requiring prompts. She is on a regular diet and reports that if she eats too much it'll get stuck then come back up. She states she therefore can't eat too much at one time and has to watch what she eats. She reports nausea and that she is beginning to lose weight. Oral mucosa is normal; natural dentition is in fair/good condition with some missing back teeth; informal oral peripheral exam revealed lingual and labial structures to be normal. She exhibited clear vocal quality prior to testing. The patient was seated for a lateral view and presented with 5 ml of thin liquid barium via a spoon, pudding consistency barium via a spoon, a cracker coated with barium pudding via a spoon, and uncontrolled thin liquid barium. This was presented via a cup & straw. Oral preparatory and oral phase symptoms: none. Pharyngeal/ esophageal phases symptoms: within functional limits but protruding cervical osteophytes were noted at C 4-6; Trace residual was exhibited at the upper esophagus but it was cleared with dry swallows and appeared without effect. No laryngeal penetration or aspiration occurred. No backflow noted. Impressions: Functional swallow ability No further ST is warranted at this time.
== END 2024-11-09 10:02 | disposition home or self-care (01) ==
PROVIDERS: PCP Emergency Medicine; Visit Provider Nurse Practitioner Family
DX: R13.19 Other dysphagia (principal)
CPT/HCPCS: 92611

== ENCOUNTER 2024-11-25 06:46 | Outpatient (CLI) | payer OTHER, SELFPAY ==
--- NOTE | ~2024-11-25 | CT_ITS ---
Clinical Indication: Change in bowel habit CT Scan of the Chest, Abdomen, and Pelvis with Contrast: Technique: Contiguous sections were acquired throughout the chest, abdomen, and pelvis after intraven ous administration of 100 cc of Omnipaque 350. Dose reduction technique was used on this scan by uti lizing automated exposure control and iterative reconstruction technique. The dose-length product (DL P) was 690.68 mGy-cm. Comparison: 02/21/2024, 03/23/2021 Findings: There is no evidence of any significant mediastinal, hilar or axillary lymphadenopathy. The mediastin al soft tissues and vascular structures appear normal. There is no evidence of pleural or pericardial effusion. The lungs are clear, aside from mild dependent atelectatic changes. There is diffuse hepatic steatosis. Gallbladder absent. The spleen, pancreas, adrenals and kidneys ar e within normal limits. There are atherosclerotic calcifications of the aorta. No lymphadenopathy. No bowel obstruction or bowel wall thickening. There is no evidence to suggest acute appendicitis. Urinary bladder is unremarkable. No pelvic mass seen. No ascites. Impression: No acute abnormalities seen. Diffuse hepatic steatosis. Reviewed, dictated and finalized at location . Impression: No acute abnormalities seen. Diffuse hepatic steatosis.
[2024-11-25 07:13] LABS: Estimated Glomerular Filt Rate > 60
== END 2024-11-25 06:47 | disposition home or self-care (01) ==
PROVIDERS: PCP Emergency Medicine; Visit Provider Nurse Practitioner Family
DX: K59.04 Chronic idiopathic constipation (principal); R10.13 Epigastric pain; R10.84 Generalized abdominal pain; R13.19 Other dysphagia; K76.0 Fatty (change of) liver, not elsewhere classified
CPT/HCPCS: 71260; 74177; Q9967

== ENCOUNTER 2025-01-26 11:46 | Outpatient (CLI) | payer OTHER, SELFPAY ==
--- NOTE | ~2025-01-26 | XR_ITS ---
XR_CERV2-3V_CR Indication: BACK AND NECK PAIN Comparison: None Findings: Grade 1 anterolisthesis of C3 on C4, grade 1 retrolisthesis C4 C5 C5 on C6. Moderate loss of disc height C4-5 C5-6 and C6-7. Soft tissues unremarkable Impression: No acute abnormality. Reviewed, dictated and finalized at location A. Impression: No acute abnormality.
--- NOTE | ~2025-01-26 | XR_ITS ---
XR lumbar spine 2-3V Indication: BACK AND NECK PAIN Comparison: None Findings: The vertebral heights are intact. No fracture or subluxation. Moderate loss of disc at L1-2 and L2-3. Soft tissues unremarkable Impression: No acute abnormality. Reviewed, dictated and finalized at location A. Impression: No acute abnormality.
--- NOTE | ~2025-01-26 | XR_ITS ---
XR thoracic spine 3V Indication: BACK AND NECK PAIN Comparison: None Findings: The vertebral heights are intact. No fracture or subluxation. The disc heights are intact. Soft tissues unremarkable Impression: No acute abnormality. Reviewed, dictated and finalized at location A. Impression: No acute abnormality.
--- OUTSIDE RECORDS SUMMARY | 2025-01-26 06:14 | XMS_ITS | Continuity of Care Document ---
Author Organization [facility] Address [address] [place] [address] [place] [address] Phone Care Team Providers Care Business Development Representative Name Role Phone Santos Montenegro MD Unavailable Unavailable Allergies, Adverse Reactions, Alerts Substance Reaction Status Criticality Sulfa (Sulfonamide Antibiotics) Active No Information Penicillins Active No Information Medications Medication Instructions Dosage Effective Dates (start - stop) Status Comments Lyrica 150 mg capsule take 1 capsule by oral route 3 times every day 150 MG - Active avoid driving or operate machines cyclobenzaprine 10 mg tablet take 1 tablet by oral route 3 times every day as needed 10 MG - Active PRN for pain, avoid driving or operate machines Pepcid 40 mg tablet take 1 tablet by oral route every day 40 MG - Active irbesartan 300 mg tablet take 1 tablet by oral route every day 300 MG - Active omeprazole 20 mg capsule,delayed release take 1 capsule by oral route every day before a meal 20 MG - Active oxybutynin chloride ER 15 mg tablet,extended release 24 hr take 1 tablet by oral route every day 15 MG - Active amitriptyline 25 mg tablet take 1 tablet by oral route every day at bedtime 25 MG - Active hydroxyzine HCl 25 mg tablet take 1 tablet by oral route 3 times every day 25 MG - Active aspirin 81 mg chewable tablet chew 1 tablet by oral route every day 81 MG - Active Abilify 5 mg tablet take 1 tablet by oral route every day 5 MG - Active Ventolin HFA 90 mcg/actuation aerosol inhaler inhale 2 puff by inhalation route every 4 - 6 hours as needed - Active Klonopin 1 mg tablet take 1 tablet by oral route 3 times every day 1 MG - Active Wellbutrin XL 300 mg 24 hr tablet, extended release take 1 tablet by oral route every morning 300 MG - Active Remeron 45 mg tablet take 1 tablet by oral route every day before bedtime - Active Procedures Procedure Date OFFICE/OUTPATIENT VISIT, [...] Diagnoses Date Provider Providers Copied on Encounter [facility], [place], [address] [place], [address], tel:[phone] [facility] [place] pain (chief complaint) Fibromyalgia 5 Lan Rodriguez [address], [address] [place], [address] , [place]. [phone] OFFICE/OUTPA TIENT VISIT, [facility], [place], [facility], [address] [place], [address], [place] tel:[phone] [facility] [place] fibromyalg ia1 (chief complaint) iron (chief complaint) GERD1 (chief complaint) FibromyalgiaGERD w/o esophagitisIron deficiency anemia Lan Rodriguez [address], [address], [place], [place], [address] , [place]. tel:[phone] OFFICE/OUTPA TIENT VISIT, EST [facility], [place], [address], [place], [place], [address], [place] tel:[phone] [facility] [place] IC (chief complaint) fibromyalg ia1 (chief complaint) HTN (chief complaint) FibromyalgiaEssenti al (primary) hypertensionInterst itial cystitis (chronic) with hematuria 5 Lan Graham. [address], [place], [place], [address] , [place]. tel: [phone] OFFICE/OUTPA TIENT VISIT, [facility], [place], [facility], [address], [place], [place], [address], [place] tel:[phone] [facility] [place] fibromyalg ia1 (chief complaint) Fibromyalgia 5 Lan Rodriguez [address], [address], [place], [place], [address] , [place]. tel: [phone] OFFICE/OUTPA TIENT VISIT, [facility], [place], [facility], [address], [place], [place], [address], [place] tel:[phone] [facility] [place] pain (chief complaint) GERD1 (chief complaint) foot pain1 (chief complaint) HTN (chief complaint) FibromyalgiaGERD w/o esophagitisEssentia l (primary) hypertensionBunion of right foot 5 Lan Graham. [address], [place], [place], [address] , [place]. tel: [phone] OFFICE/OUTPA TIENT VISIT, [facility], [place], [facility], [address], [place], [place], [address], [place] tel:[phone] [facility] [place] pain1 (chief complaint) GERD1 (chief complaint) GERD w/o esophagitisFibromya lgia 5 Lan Graham. [address], [address], [place], [place], [address] , [place]. tel: [phone] OFFICE/OUTPA TIENT VISIT, [facility], [place], [facility], [address], [place], [place], [address], [place] tel:[phone] [facility] [place] GERD1 (chief complaint) fibromyalg ia1 (chief complaint) HTN (chief complaint) FibromyalgiaEssenti al (primary) hypertensionGERD w/o esophagitis 4 Montenegro Santos. [address], [place], [place], [address] , [place]. tel:[phone] OFFICE/OUTPA TIENT VISIT, [facility], [place], [facility], [address], [place], [place], [address], [place] tel:[phone] [facility] [place] fibromyalg ia` (chief complaint) cough1 (chief complaint) Acute bronchitisFibromyal jeffery 4 Montenegro Santos. [address], [place], [place], [address] , [place]. tel:[phone] OFFICE/OUTPA TIENT VISIT, [facility], [place], [facility], [address], [place], [place], [address], [place] tel:[phone] [facility] [place] lung nodule1 (chief complaint) GERD1 (chief complaint) IC (chief complaint) pain (chief complaint) Solitary lung noduleFibromyalgiaG ERD w/o esophagitisIntersti tial cystitis (chronic) with hematuria 4 Montenegro Santos. [address], [place], [place], [address] , [place]. tel:[phone] OFFICE/OUTPA TIENT VISIT, [facility], [place], [facility], [address], [place], [place], [address], [place] tel:[phone] [facility] [place] osteopenia 1 (chief complaint) IC (chief complaint) iron deficiency 1 (chief complaint) pain (chief complaint) GERD1 (chief complaint) Encntr screen mammogram for malignant neoplasm of breastIron deficiency anemia, unspecifiedIntersti tial cystitis (chronic) with hematuriaOther specified disorder of bone densitySolitary lung noduleFibromyalgiaG ERD w/o esophagitis 4 Montenegro Santos. [address], [place], [place], [address] , [place]. tel:[phone] OFFICE/OUTPA TIENT VISIT, [facility], [place], [facility], [address], [place], [place], [address], [place] tel:[phone] [facility] [place] pain (chief complaint) tobacco (chief complaint) bone1 (chief complaint) Solitary lung nodulePain in left kneeOther specified disorder of bone density 4 Lan Graham. [address], [place], [place], [address] , [place]. tel:[phone] OFFICE/OUTPA TIENT VISIT, [facility], [place], [facility], [address], [place], [place], [address], [place] tel:[phone] [facility] [place] toothache1 (chief complaint) Atypical facial painSolitary lung nodule 4 Lan Graham. [address], [place], [place], [address] , [place]. tel:[phone] OFFICE/OUTPA TIENT VISIT, [facility], [place], [facility], [address], [place], [place], [address], [place] tel:[phone] [facility] [place] pain (chief complaint) Chronic pain syndrome 4 Lan Graham. [address], [place], [place], [address] , [place]. tel:[phone] OFFICE/OUTPA TIENT VISIT, [facility] [place], [facility], [address], [place], [place], [address], [place] tel:[phone] [facility] [place] pain (chief complaint) Chronic pain syndrome 4 Lan Graham. [address], [place], [place], [address] , [place]. tel:[phone] OFFICE/OUTPA TIENT VISIT, [facility], [place], [facility], [address], [place], [place], [address], [place] tel:[phone] [facility] [place] pain (chief complaint) HTN (chief complaint) COPD1 (chief complaint) sleep apnea1 (chief complaint) Solitary lung noduleOther specified disorder of bone densityObstructive sleep apnea (adult) (pediatric)Centrilo bular emphysemaChronic pain syndromeEssential (primary) hypertension 4 Lan Graham. [address], [place], [place], [address] , [place]. tel:[phone] OFFICE/OUTPA TIENT VISIT, [facility] [place], [facility], [address], [place], [place], [address], [place] tel:[phone] [facility] [place] knee pain1 (chief complaint) Chronic pain syndrome 3 Lan Graham. [address], [place], [place], [address] , [place]. tel:[phone] PREV VISIT, EST, AGE 40-64 [facility], [place], [address], [place], [place], [address], [place] tel:[phone] [facility] [place] physical (chief complaint) Encounter for general adult medical examination without abnormal findings 3 Lan Graham. [address], [place], [place], [address] , [place]. tel:[phone] OFFICE/OUTPA TIENT VISIT, [facility], [place], [facility], [address], [place], [place], [address], [place] tel:[phone] [facility] [place] mammo (chief complaint) Inconclusive mammogram 3 Lan Graham. [address], [place], [place], [address] , [place]. tel:[phone] OFFICE/OUTPA TIENT VISIT, [facility], [place], [facility], [address], [place], [place], [address], [place] tel:[phone] [facility] [place] thyroid1 (chief complaint) knee pain1 (chief complaint) HTN (chief complaint) mammo (chief complaint) Disorder of thyroid, unspecifiedInconclu sive mammogramEssential (primary) hypertensionPain in left kneeOther specified disorder of bone density 3 Lan Graham. [address], [place], [place], [address] , [place]. tel:[phone] OFFICE/OUTPA TIENT VISIT, [facility] [place], [facility], [address], [place], [place], [address], [place] tel:[phone] [facility] [place] HLP (chief complaint) glucose1 (chief complaint) thyroid1 (chief complaint) low D1 (chief complaint) Other specified disorder of bone densityHyperglycemi aMixed hyperlipidemiaDisor melvin of thyroid, unspecifiedSolitary lung nodulePain in unspecified joint 3 Lan Graham. [address], [place], [place], [address] , [place]. tel:[phone] OFFICE/OUTPA TIENT VISIT, [facility], [place], [facility], [address], [place], [place], [address], [place] tel:[phone] [facility] [place] toothache1 (chief complaint) pain (chief complaint) Pain in unspecified jointAtypical facial pain 3 Lan Graham. [address], [place], [address] , [place]. tel:[phone] OFFICE/OUTPA TIENT VISIT, [facility] [place], [facility], [address], [place], [place], [address], [place] tel:[phone] [facility] [place] HTN (chief complaint) joint pain1 (chief complaint) IBSD (chief complaint) Pain in jointIrritable bowel syndrome with diarrheaEssential (primary) hypertension 3 Lan Graham. [address], [place], [place], [address] , [place]. tel:[phone] OFFICE/OUTPA TIENT VISIT, [facility], [place], [facility], [address], [place], [place], [address], [place] tel:[phone] [facility] [place] GI (chief complaint) HTN (chief complaint) OAB (chief complaint) Essential (primary) hypertensionIrritab le bowel syndrome with diarrheaOveractive bladder 3 Lan Graham. [address], [place], [place], [address] , [place]. tel:[phone] OFFICE/OUTPA TIENT VISIT, [facility], [place], [facility], [address], [place], [place], [address], [place] tel:[phone] [facility] HTN (chief complaint) left knee 1 (chief complaint) colon polyp1 (chief complaint) toothache1 (chief complaint) Essential (primary) hypertensionPain in left kneePolyp of colonAtypical facial pain 2 Lan Graham. [address], [place], [place], [address] , [place]. tel:[phone] OFFICE/OUTPA TIENT VISIT, [facility], [address], [place], [place], [address], [place] tel:[phone] [facility] [place] knee pain1 (chief complaint) lung nodule1 (chief complaint) iron deficiency 1 (chief complaint) HTN (chief complaint) Essential (primary) hypertensionIron deficiency anemiaPain in left kneeSolitary lung nodule 2 Lan Graham. [address], [place], [place], [address] , [place]. tel:[phone] PREV VISIT, EST, AGE 40-64 [facility], [place], [address], [place], [place], [address], [place] tel:[phone] [facility] physical (chief complaint) Encounter for general adult medical examination without abnormal findings 2 Lan Graham. [address], [place], [place], [address] , [place]. tel:[phone] OFFICE/OUTPA TIENT VISIT, [facility] [place], [facility], [address], [place], [place], [address], [place] tel:[phone] [facility] HTN (chief complaint) IC (chief complaint) shoulder pain1 (chief complaint) anemia1 (chief complaint) Essential (primary) hypertensionPain in right shoulderIron deficiency anemiaInterstitial cystitis without hematuria 2 Lan Graham. [address], [place], [place], [address] , [place]. tel:[phone] OFFICE/OUTPA TIENT VISIT, [facility], [place], [facility], [address], [place], [place], [address], [place] tel:[phone] [facility] [place] GERD1 (chief complaint) anxitey1 (chief complaint) weight loss1 (chief complaint) Abnormal weight lossGERD w/o esophagitisGenerali zed Anxiety DisorderIron deficiency anemia May- 1 Lan Rodriguez [address], [place], [place], [address] , [place]. tel:[phone] OFFICE/OUTPA TIENT VISIT, [facility] [place], [facility], [address], [place], [place], [address], [place] tel:[phone] [facility] [place] HTN (chief complaint) anemia1 (chief complaint) weight loss1 (chief complaint) GERD w/o esophagitisEssentia l (primary) hypertensionAnemiaA bnormal weight loss Jan- 1 Lan Rodriguez [address], [address], [place], [place], [address] , [place]. tel:[phone] OFFICE/OUTPA TIENT VISIT, [facility] [place], [facility], [address], [place], [place], [address], [place] tel:[phone] [facility] [place] GERD (chief complaint) GERD1 (chief complaint) HTN (chief complaint) OAB (chief complaint) anemia1 (chief complaint) Overactive bladderIron deficiency anemiaEssential (primary) hypertensionGERD w/o esophagitis Nov- 1 Lan Rodriguez [address], [place], [place], [address] , [place]. tel:[phone] OFFICE/OUTPA TIENT VISIT, [facility] [place], [facility], [address], [place], [place], [address], [place] tel:[phone] [facility] [place] HTN (chief complaint) anemia1 (chief complaint) OAB1 (chief complaint) Essential (primary) hypertensionIron deficiency anemiaOveractive bladder Aug- 1 Lan Rodriguez [address], [place], [place], [address] , [place]. tel:[phone] OFFICE/OUTPA TIENT VISIT, [facility] [place], [facility], [address], [place], [place], [address], [place] tel:[phone] [facility] [place] anemia1 (chief complaint) Iron deficiency anemiaFatigue 1 Lan Rodriguez [address], [place], [place], [address] , [place]. tel:[phone] OFFICE/OUTPA TIENT VISIT, [facility] [place], [facility], [address], [place], [place], [address], [place] tel:[phone] [facility] [place] HLP (chief complaint) anemia1 (chief complaint) vitamin D1 (chief complaint) GERD1 (chief complaint) AnemiaHyperlipidemi aVitamin D deficiency, unspecifiedGERD w/o esophagitis 1 Lan Rodriguez [address], [place], [place], [address] , [place]. [phone] PREV VISIT, [facility], AGE 40-64 [facility] [place], [address], [place], [place], [address], [place] [phone] [facility] [place] physical (chief complaint) Encounter for general adult medical examination without abnormal findings 0 Lan Rodriguez [address], [place], [place], [address] , [place]. tel:[phone] OFFICE/OUTPA TIENT VISIT, [facility] [place], [facility], [address], [place], [place], [address], [place] tel:[phone] [facility] [place] IC1 (chief complaint) GERD1 (chief complaint) Interstitial cystitis without hematuriaGERD w/o esophagitis Aug-3 0 0 Lan Rodriguez [address], [place], [place], [address] , [place]. tel:[phone] OFFICE/OUTPA TIENT VISIT, [facility] [place], [facility], [address], [place], [place], [address], [place] tel:[phone] [facility] [place] chest pain1 (chief complaint) IC (chief complaint) anemia1 (chief complaint) Chest painGERD w/o esophagitisAnemiaIn terstitial cystitis without hematuria Apr-0 9-202 0 Lan Graham. [address], [place], [place], [address] , [place]. tel:[phone] PREV VISIT, EST, AGE 40-64 [facility] [place], [address], [place], [place], [address], [place] [phone] [facility] [place] physical (chief complaint) Encntr for general adult medical exam w/o abnormal findings Sep-1 0- 9 Lan Graham. [address], [place], [place], [address] , [place]. tel:[phone] Referring Provider: Haider [address], [place], [place], [address]. tel:[phone] OFFICE/OUTPA TIENT VISIT, [facility] [place], [facility], [address], [place], [place], [address], [place] [phone] [facility] [place] hematuria1 (chief complaint) weight loss1 (chief complaint) neck pain1 (chief complaint) HTN (chief complaint) HematuriaOveractive bladderEmphysemaEss ential (primary) hypertensionOther spondylosis, cervical regionAbnormal weight loss 9 Lan Rodriguez [address], [place], [place], [address] , [place]. tel: [phone] Referring Provider: Haider [address], [place], [place], [address]. tel:[phone] OFFICE/OUTPA TIENT VISIT, EST [facility], [place], [address], [place], [place], [address], [place] [phone] [facility] [place] HTN (chief complaint) OAB (chief complaint) neck pain1 (chief complaint) Essential (primary) hypertensionOther spondylosis, cervical regionOveractive bladderEmphysema Jan- 8 Lan Rodriguez [address], [place], [place], [address] , [place]. tel:[phone] OFFICE/OUTPA TIENT VISIT, [facility] [place], [facility], [address], [place], [place], [address], [place] tel:[phone] [facility] UTI1 (chief complaint) neck pain1 (chief complaint) HTn (chief complaint) Essential (primary) hypertensionOveract reyes bladderOther spondylosis, cervical region 8 Lan Graham. [address], [place], [place], [address] , [place]. [phone] Referring Provider: Santos Montenegro, [address], [place], [place], [address]. tel:[phone] OFFICE/OUTPA TIENT VISIT, [facility] [place], [address], [place], [place], [address], [place] tel:[phone] [facility] [place] GERD1 (chief complaint) neck pain1 (chief complaint) emphysema1 (chief complaint) UTI1 (chief complaint) knee pain1 (chief complaint) Other spondylosis, cervical regionEmphysemaGERD w/o esophagitisUrinary tract infectionPain in right knee 8 Lan Graham. [address], [place], [place], [address] , [place]. [phone] Referring Provider: Haider Leslie [address], [place], [place], [address]. tel:[phone] OFFICE/OUTPA TIENT VISIT, [facility] [place], [facility], [address], [place], [place], [address], [place] [phone] [facility] [place] neck pain1 (chief complaint) knee pain1 (chief complaint) COPD1 (chief complaint) GERD1 (chief complaint) EmphysemaOther spondylosis, cervical regionPain in right kneeGERD w/o esophagitis 8 Lan Graham. [address], [place], [place], [address] , [place]. [phone] Referring Provider: Haider [address], [place], [place], [address]. tel:[phone] OFFICE/OUTPA TIENT VISIT, [facility] [place], [address], [place], [place], [address], [place] tel:[phone] [facility] Hep c (chief complaint) bone1 (chief complaint) pain1 (chief complaint) nausea1 (chief complaint) Hepatitis CChronic pain syndromeGERD w/o esophagitisUnspecif ied lump in right breast, subareolar 8 Lan Graham. [address], [place], [place], [address] , [place]. tel:[phone] Referring Provider: Haider Leslie [address], [place], [place], [address]. tel:[phone] OFFICE/OUTPA TIENT VISIT, [facility] [place], [address], [place], [place], [address], [place] tel:[phone] [facility] [place] chronic pain1 (chief complaint) hep C (chief complaint) Chronic pain syndromeHepatitis C Aug- 8 Lan Graham. [address], [place], [place], [address] , [place]. tel:[phone] Referring Provider: Haider Leslie [address], [place], [place], [address]. tel:[phone] PREV VISIT, EST, AGE 40-64 [facility] [place], [address], [place], [place], [address], [place] tel:[phone] [facility] [place] PHysical (chief complaint) Encntr for general adult medical exam w/o abnormal findings Aug- 8 Lan Graham. [address], [place], [place], [address] , [place]. tel:[phone] Referring Provider: Hiader Leslie [address], [place], [place], [address]. tel:[phone] OFFICE/OUTPA TIENT VISIT, [facility] [place], [address], [place], [place], [address], [place] tel:[phone] [facility] [place] joint pain1 (chief complaint) UTi1 (chief complaint) COPD1 (chief complaint) HTN (chief complaint) Urinary tract infectionHepatitis CEmphysemaEssential (primary) hypertension 8 Lan Graham. [address], [place], [place], [address] , [place]. [phone] Referring Provider: Haider Leslie [address], [place], [place], [address]. tel:[phone] [facility] [place], [address], [place], [place], [address], [place] [phone] [facility] [place] Mastodynia 8 Lan Graham. [address], [place], [place], [address] , [place]. tel:[phone] OFFICE/OUTPA TIENT VISIT, [facility] [place], [address], [place], [place], [address], [place] [phone] [facility] [place] joint pain1 (chief complaint) low D (chief complaint) low iron1 (chief complaint) hep C (chief complaint) Vitamin D deficiency, unspecifiedDisorder of iron metabolism, unspecifiedHepatiti s CPain in unspecified joint Lan Graham. [address], [address], [place], [place], [address] , [place]. tel:[phone] OFFICE/OUTPA TIENT VISIT, [facility], [place], operated [facility], [address], [place], [place], [address], [place] [phone] [facility], [place] emphysema1 (chief complaint) breast nodule1 (chief complaint) diffuse pain1 (chief complaint) EmphysemaChronic pain syndromeUnspecified lump in right breast, subareolar 7 Lan Graham. [address], [place], [place], [address] , [place]. [phone] Referring Provider: Haider Leslie [address], [place], [place], [address]. tel:[phone] OFFICE/OUTPA TIENT VISIT, [facility], [place], operated [facility], [address], [place], [place], [address], [place] tel:[phone] [facility] [place] HTN (chief complaint) COPD1 (chief complaint) polycyther mia1 (chief complaint) breast pain1 (chief complaint) EmphysemaEssential (primary) hypertensionUnspeci fied lump in right breast, subareolarSecondary polycythemia 7 Lan Graham. [address], [place], [place], [address] , [place]. tel:[phone] Referring Provider: Haider [address], [place], [place], [address]. tel:[phone] OFFICE/OUTPA TIENT VISIT, [facility], [place], operated [facility], [address], [place], [place], [address], [place] tel:[phone] [facility], [place] HTN (chief complaint) polycyther mia1 (chief complaint) chronic pain1 (chief complaint) COPD1 (chief complaint) Essential (primary) hypertensionSeconda ry polycythemiaCOPDChr onic pain syndrome 7 Lan Graham. [address], [place], [place], [address] , [place]. tel:[phone] Referring Provider: Haider [address], [place], [place], [address]. tel:[phone] PREV VISIT, NEW, AGE 40-64 [facility], [place], [address], [place], [place], [address], [place] tel:[phone] [facility] [place] PHysical (chief complaint) Encntr for general adult medical exam w/o abnormal findings 7 Lan Graham. [address], [place], [place], [address] , [place]. tel:[phone] Referring Provider: Haider [address], [place], [place], [address]. tel:[phone] Family History Family Member Type Diagnosis Age At Onset Mother Problem (finding) lung CA Brother Problem (finding) Alive and well Problem (finding) Family history of of unknown CA of age 70 Mother Problem (finding) Father Problem (finding) Payers Payer name Insurance type Covered alliance party ID Latasha urban(s) [facility] [id number] Social History Type Description Quantity Date Captured Comments Alcohol Use Details No Caffeine Use Details Unknown Tobacco Use Status Ex-cigarette smoker 025 Smoking Status Former smoker Sex Female Vital Signs Date / Time: Height Weight BMI Pulse Rate Blood Pressure Temperature Respiratory Rate Body Surface Area Head Circumference BMI percentile Pulse Ox Inhaled Ox 11:23 AM 63.00 in 169.00 lbs 29.9 4 kg/m eter (2) 74 /min 190/110 mm[Hg] 97.0 F 16 /min Chief Complaint And Reason For Visit From encounter dated '01/26/2025 11:14'. pain (chief complaint). Description: Pt c/o chronic neck and back pain Pt has some radiculopathy and also sciatica .Pt states that she has pain everywhere .Pt states that lyrica and flexeril dose notwork as well as in the past Plan Of Treatment Date Type Action Status Goal Tobacco cessation counseling completed Referral Ordered: CERVICAL SPINE XRAY 7 VIEWS ordered Referral Ordered: Urology (related to Interstitial cystitis (chronic) with hematuria) ordered Referral Ordered: Referrals: Urology. Evaluate and treat ordered Referral Ordered: Carmen Kemp -Podiatric Medicine & Surgery Service Providers : [employer] (related to Bunion of right foot) ordered Referral Referred To: Carmen Kemp [address] [facility]
[place], [place], [phone] Ordered: Referrals: Podiatric Medicine & Surgery Service Providers : [employer]. Carmen Kemp. Evaluate and treat ordered Referral Ordered: Naeem Ray -Allopathic & Osteopathic Physicians : Internal Medicine : Gastroenterology (related to GERD w/o esophagitis) ordered Referral Ordered: MATT MERAZ -Allopathic & Osteopathic Physicians : Obstetrics & Gynecology (related to Encounter for general adult medical examination without abnormal findings) ordered Referral Ordered: CT THORAX W/O DYE ordered Referral Referred To: MATT MERAZ [address] [place], [place], [id number] Ordered: Referrals: Allopathic & Osteopathic Physicians : Obstetrics & Gynecology. MATT MERAZ. Evaluate and treat ordered Referral Ordered: Naeem Ray -Allopathic & Osteopathic Physicians : Internal Medicine : Gastroenterology (related to Irritable bowel syndrome with diarrhea) ordered Referral Referred To: Naeem Ray [address] [place], [place], [phone] Ordered: Referrals: Allopathic & Osteopathic Physicians : Internal Medicine : Gastroenterology. Naeem Ray. Evaluate and treat ordered Referral Referred To: Parisa GARCIA, Dung Dillard [address] [place] [address] Dept
[address] [place], [place], [id number] Ordered: Referrals: Parisa GARCIA, Dung Dillard. Evaluate and treat ordered Referral Ordered: UPPER GI AIR CONTRASTW/ SMALL BOWEL SERIES ordered Referral Ordered: Hematology (related to Iron deficiency anemia) ordered Referral Ordered: Referrals: Hematology. Evaluate and treat ordered Referral Ordered: Desmond De Paz -Allopathic & Osteopathic Physicians : Urology (related to Interstitial cystitis without hematuria) ordered Referral Referred To: Desmond De Paz [address] [facility]
[address], [phone] Ordered: Referrals: Allopathic & Osteopathic Physicians : Urology. Desmond De Pza. Evaluate and treat ordered Referral Ordered: Cardiology [...] NICHOLSON [address] [place], [place], [phone] Ordered: Referrals: Allopathic & Osteopathic Physicians : Surgery. ROSETTE NICHOLSON. Evaluate and treat ordered Referral Ordered: SENSE NERVE CONDUCTION TEST ordered Referral Ordered: Roque Rose -Allopathic & Osteopathic Physicians : Neurological Surgery (related to Other spondylosis, cervical region) ordered Referral Referred To: Roque Rose [address] [facility]
[address] [place], [phone] Ordered: Referrals: Allopathic & Osteopathic Physicians : Neurological Surgery. Roque Rose. Evaluate and treat ordered Referral Ordered: Emil Gutierrez -Allopathic & Osteopathic Physicians : Orthopaedic Surgery (related to Pain in right knee) ordered Referral Ordered: Pulmonology (related to Emphysema) ordered Referral Referred To: Emil Gutierrez [address] [facility] [address] [facility] [address] [place], [place] [phone] Ordered: Referrals: Allopathic & Osteopathic Physicians : Orthopaedic Surgery. Emil Gutierrez. Evaluate and treat ordered Referral Referred To: [address] [place] [address] [address] [facility] [address] [place], [place] [phone] Ordered: Referrals: Pulmonology. Evaluate and treat ordered [...] Referred To: Sondra York MD [address] [place], [place], [address] Ordered: Referrals: Sondra York MD. Evaluate and treat ordered Referral Ordered: LUMBAR XRAY AP AND LAT ONLY ordered Referral Ordered: Cindy Traylor (related to Emphysema) ordered Referral Referred To: Cindy Traylor [address] [place], [place], [phone] Ordered: Referrals: Cindy Traylor. Evaluate and treat ordered Referral Ordered: MAMMOGRAM, ONE BREAST ordered History Of Present Illness Encounter Date Complaint History Of Prese nt Illness pain Pt c/o chronic n choco and back pain Pt has some radiculopathy and also sciatica .Pt states that she has pain everywhere .Pt states that lyrica and flexeril dose not work as well as in the past fibromyalgia1 Pt has fibromyal jeffery Pt takes Lyrica and flexeril PRn and doing ok Pt denies any worsening pain Pt tolerating it ok GERD1 Pt has chronic G ERD Pt had EGD done recently which showed HH. Pt is on omeprazole iron Pt has history o f iron deficiency anemia. Pt never did lab work from me. Pt does see hematology and she just had lab done last week Pt wants to find a new finance administrator. pt states that currently finance administrator does not listen to her and will not give her iron infusion. IC Pt has IC Pt see s urology. pt states that she was told by urology that she needs to change doctors due to jalloh HTN Pt has HTN Pt ta kes irbesartan and her bp is ok today fibromyalgia1 Pt has fibromyal jeffery Pt takes Lyrica and zanaflex is not helping. pt wants to go back flexeril. Pt wants to go higher dose of lyrica fibromyalgia1 pt has fibromyal jeffery and chronic pain .Pt takes lyrica and robaxin but robaxin is not helping with her pain Pt also failed flexeril pain Pt has diffuse j oint pain [...] on omeprazole and pepcid and doing ok foot pain1 Pt has large bun ion right foot chronically with pain. HTN Pt has HTN. Pt t akes irbesartan and her bp is high today Pt states that she is in pain. Pt denies any chest pain or headache pain1 Pt has diffuse j oint pain [...] with hematuria. Pt is seeing urology at [facility] and she will do cystoscope soon. 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 pt is [...] or dizziness Pt denies any GI or BUSINESS PROCESS COORDINATOR bleeding HTN Pt has HTN, Pt t [...] denies any visible bleeding Pt denies any BUSINESS PROCESS COORDINATOR bleeding Pt is seeing hematology and she [...] with IC ,Pt is seeing urology at [facility] Pt is on oxybutynin. Pt will do [...] she uses oxygen at night only Pt currenlty doing ok HTN Pt has HTN. Pt t lauren annajessi. Her BP is borderline today. Pt denies [...] Pt had benign breast exam. Ptalso seen BUSINESS PROCESS COORDINATOR and had normal manual breast exam last [...] years. HTN Pt has HTn. Pt t suzerolando annajessi and her BP is stable COPD1 Pt [...] at night with headache polycythermia1 Pt has pocytyercassius sonia. Pt just seen [facility]. Pt told me she had sleep study done but she does not know the result Pt is on adviair and venotlin for COPD. Pt also had chest CT done recenlty per [facility]. pt states that she has chronic coughing and she just had a round of levaquin but she ist still coughing up phlegm, etc PHysical Pt needs annual physical. Pt has COPD and she is on 2 L oxygen at night and she takes advair and proair Pt sees lung specialist in [place]. PT has HTN. Pt takes norvasc and her BP is stable. Pt has manic depressive and she takes klonpin, lamictal, wellbutrin, trazodone and remeron and she sees psychiatrist. Pt also told me she has polycythermia?? Pt takes ASA daily. Pt was told she was diagnosed with hemochromotosis back in [place] last year but she never seen a finance administrator here. Instructions Date Instruction Additional Infor magali [...]
--- OUTSIDE RECORDS SUMMARY | 2025-01-26 11:57 | XMS_ITS | Encounter Summary ---
Author Organization [facility] Address [address] [place] [address] Phone Care Team Providers Care President Finance Company Name Role Phone Santos Montenegro Primary Care Provider [phone] Bernadine Gill MD Unavailable Uriah Florentino MD Unavailable Buddy Franz MD Unavailable Encounter Details Date Type Department Care Team (Late st Contact Info) Description 11/06/2020 Telephone [facility] [address] [place] [address] Buddy Franz MD [address] [place] [address] Social History Tobacco Use Types Packs/Day Years Used Date Smoking Tobacco: Every Day Cigarettes 0.5 33.4 Started: 09/21/1991 Smokeless Tobacco: Never Alcohol Use [...] included. Buddy Franz MD Fieker, Elizabeth A; [facility] 16 hours ago (4:06 PM) MW [...] Care Team (Late st Contact Info) Description 03/23/2025 9:00 AM CDT Lab [facility] [address] [phone] Lab, [facility] 03/23/2025 9:15 AM CDT Office Visit [facility] [address] [phone] Buddy Franz MD [address] [place] [phone] documented as of this encounter Visit Diagnoses Not on filedocumented in this encounter Additional Health Concerns Assessment Noted Time PHQ-9 Depression Total Score: 0 09/26/19 2:05 PM CDT documented as of this encounter Care Teams President Finance Company Relationship Specialty Start Date End Date Santos Montenegro [address] [place] [address] PCP - General Family Medicine 09/20/16 Bernadine Gill MD [address] [facility] [facility] [address] Internal Medicine 09/20/16 Uriah Florentino MD [address] [place] [address] Consulting Physician Oncology 12/05/23 07/27/24 Buddy Franz MD [address] [place] [address] Consulting Physician Oncology 07/28/24 documented as of this encounter
--- OUTSIDE RECORDS SUMMARY | 2025-01-26 11:57 | XMS_ITS | Encounter Summary ---
Author Organization [facility] Address [address] [place] [address] Phone Care Team Providers Care Stone Polisher Hand Name Role Phone Santos Montenegro Primary Care Provider [phone] Bernadine Gill MD Unavailable Uriah Florentino MD Unavailable Buddy Franz MD Unavailable Encounter Details Date Type Department Care Team (Late st Contact Info) Description 10/17/2020 Telephone [facility] [address] [place] [address] Buddy Franz MD [address] [place] [address] Social History Tobacco Use Types [...] 9:00 AM CDT Lab [facility] [address] [phone] Lab, [facility] 03/23/2025 9:15 AM CDT Office Visit [facility] [address] [phone] Buddy Franz MD [address] [place] [phone] documented as of this encounter Visit Diagnoses Not on filedocumented in this encounter Additional Health Concerns Assessment Noted Time PHQ-9 Depression Total Score: 0 09/26/19 21 2:05 PM CDT documented as of this encounter Care Teams Stone Polisher Hand Relationship Specialty Start Date End Date Santos Monetnegro [address] [place] [address] PCP - General Family Medicine 09/20/16 Bernadine Gill MD [address] [place] [address] Internal Medicine 09/20/16 Uriah Florentino MD [address] [place] [phone] Consulting Physician Oncology 12/05/23 07/27/24 Buddy Franz MD [address] [place] [address] [place] [phone] Consulting Physician Oncology 07/28/24 documented as of this encounter
--- OUTSIDE RECORDS SUMMARY | 2025-01-26 11:57 | XMS_ITS | Clinical Summary ---
Author Organization [facility] Address [address] [place] [address] Care Team Providers Care Rnp Name Role Phone Aimnta Sorto MD Unavailable [phone] Santos Montenegro MD Primary Care Provider [phone] Social History Tobacco Use Types Packs/Day Years [...] 10:24 AM CDT Height 165.1 cm (5' 5) 11/03/2017 10:24 AM CDT Body Mass Index [...] Cancer Screening Colonoscopy (10 Years) 04/07/2012 04/07/2002 Pneumococcal Vaccine: 50+ Years (1 of 1 - PCV) 2013 Zoster Vaccines (1 of 2) 2013 COVID-19 Vaccine (2023-2 5 season) 2024 RSV Immunization or 60+ Years (1 [...] Most Recently Relevant to Health Maintenance Insurance [facility] Care Teams Rnp Relationship Specialty Start Date End Date Santos Montenegro MD [address] [place] [address] PCP - General 10/07/23 Aminta Sorto MD [facility]. [address] [address] [employer] Operations Manager CARDIOVASCULAR DISEASE 03/20/17
--- OUTSIDE RECORDS SUMMARY | 2025-01-26 11:57 | XMS_ITS | Encounter Summary ---
Author Organization [facility] Address [address] [place] [address] Phone Care Team Providers Care Care Specialist Name Role Phone Santos Montenegro Primary Care Provider Bernadine Gill MD Unavailable [phone] Uriah Florentino MD Unavailable [phone] Buddy Franz MD Unavailable Encounter Details Date Type Department Care Team (Late st Contact Info) Description 11/13/2020 Telephone [facility] [address] [place] [address] Buddy Franz MD [address] [place] [address] Social History Tobacco Use Types [...] 9:00 AM CDT Lab [facility] [address] [phone] Lab, [facility] 03/23/2025 9:15 AM CDT Office Visit [facility] [address] [phone] Buddy Franz MD [address] [place] [phone] documented as of this encounter Visit Diagnoses Not on filedocumented in this encounter Additional Health Concerns Assessment Noted Time PHQ-9 Depression Total Score: 0 09/26/19 21 2:05 PM CDT documented as of this encounter Care Teams Care Specialist Relationship Specialty Start Date End Date Santos Montenegro [address] [place] [address] PCP - General Family Medicine 09/20/16 Bernadine Gill MD [address] [place] [address] Internal Medicine 09/20/16 Uriah Florentino MD [address] [place] [phone] Consulting Physician Oncology 12/05/23 07/27/24 Buddy Franz MD [address] [place] [phone] Consulting Physician Oncology 07/28/24 documented as of this encounter
--- OUTSIDE RECORDS SUMMARY | 2025-01-26 11:57 | XMS_ITS | Clinical Summary ---
Author Organization [facility] Address [address], [address] [place] [address] Phone Care Team Providers Care Podiatrist Orthopedic Name Role Phone Lan Santos Primary Care Provider [phone] Bernadine Gill MD Unavailable [phone] Buddy Franz MD Unavailable [phone] Allergies Active Allergy Reactions Criticality Noted Date [...] traZODone (DESYREL) 150 MG Tablet 5 Active Lyrica 150 MG Capsule Take 1 Capsule by mouth every 12 hours. 5 Active Active Problems Problem Noted Date Diagnosed Date Nicotine dependence with nicotine-induced disord er 10/30/2022 Pulmonary nodules 10/30/2022 Vitamin D deficiency 10/21/2022 Screening mammogram, encounter for 10/21/2022 Weakness 10/21/2022 Iron deficiency anemia 08/10/2020 Polycythemia 09/20/2016 Hypertension Encounters Date Type Department Care Team Description 11/30/2024 Telephone [facility] [address] [address] Rosa Miranda, ROLL OVER PRESS OPERATOR, ON CALL 11/29/2024 Telephone [facility] [address] [address] Buddy Franz MD Results 11/24/2024 9:30 AM CDT Office Visit [facility] [address] [phone] Chayo Loza APRN, GRACE Iron deficiency anemia, unspecified iron deficiency anemia type (Primary Dx); Secondary polycythemia; Weakness; Other fatigue 11/24/2024 9:15 AM CDT Lab [facility] [address] [address] Buddy Franz MD Lab[facility] Iron deficiency anemia, unspecified iron deficiency anemia type; Secondary polycythemia; Weakness 11/24/2024 Travel from Last 3 Months Family History Medical History Relation Name Comments Cancer Brother lung Clotting Disorder Brother Cancer Father lung Diabetes Father Osteoarthritis Father Cancer Mother lung Tuberculosis Mother Cancer Sister uterine Clotting Disorder Sister Heart Disease Sister Osteoarthritis Sister Relation Name Status Comments Brother Father Mother Sister Social History Tobacco Use Types Packs/Day Years Used Date Smoking Tobacco: Former Cigarettes 1 43.7 S tarted: 1982 Smokeless Tobacco: Never Tobacco [...] Sign Reading Time Taken Comments Blood Pressure 152/98 11/24/2024 9:22 AM CDT Pulse 77 11/24/2024 9:22 AM CDT Temperature 36.7 C (98.1 F) 11/24/2024 9:22 AM CDT Respiratory Rate 18 11/24/2024 9:22 AM CDT Oxygen Saturation 92% 11/24/2024 9:22 AM CDT Inhaled Oxygen Concentration - - Weight 74.9 kg (165 lb 1.6 oz) 11/24/2024 9:22 A M CDT Height 157.5 cm (5' 2) 11/24/2024 9:22 AM CDT Body Mass Index 30.2 11/24/2024 9:22 AM CDT Plan of Treatment Upcoming Encounters Date Type Department Care Team (Late st Contact Info) Description 03/23/2025 9:00 AM CDT Lab [facility] [address] [address] Lab, Cc [facility] 03/23/2025 9:15 AM CDT Office Visit [facility] [address] [address] Buddy Franz MD [address] [place] [phone] Health Maintenance Due Date Last Done Comments Hepatitis C Virus (HCV) Screening 1965 Mammogram 1963 Pap Smear 1984 Cervical Cancer Screening (CCS) 1993 HPV/Cotest 1993 Cologuard 2008 Colonoscopy 2008 Colorectal Cancer Screening 2008 Immunochemical Fecal Occult Blood 2008 Pneumococcal Immunization (5 0+ years) (1 of 1 - PCV) 2013 Zoster Immunization (1 of 2) 2013 SARS-COV-2 Immunization (1 - season) 2024 Influenza Immunization (#1) 2025 Respiratory Syncytial Virus (RSV) Immunization (Adult) [...] Comments CBC WITH AUTO DIFF [place] Routine 11/24/2024 9:13 AM CDT VITAMIN B12 [id number] [place] Routine 11/24/2024 9:13 AM CDT IRON AND TIBC [id number] [place] Routine 11/24/2024 9:13 AM CDT FOLATE [id number] [place] Routine 11/24/2024 9:13 AM CDT FERRITIN [id number] [place] Routine 11/24/2024 9: 13 AM CDT CMP (COMPREHENSIVE METABOLIC PANEL) Routine 11/24/2024 9:13 AM CDT Iron deficiency anemia, unspecified iron deficiency anemia type Secondary polycythemia Weakness from Last 3 Months Results * VITAMIN B12 [id number] [place] (11/24/2024 9:13 AM CDT) VITAMIN B12 405 232 - 1,245 PG/ML CANCER GED PREPARATION TEACHER [facility] 11/24/2024 9:13 AM CDT Kam [facility] - 11/25/2024 7:35 AM CDT TESTING PERFORMED AT: [] [facility], [address] [place] [address], [place], [address], PHONE: [phone], CASH MANAGEMENT COORDINATOR: TATIANA PEREZ, PHD Rosa Miranda APRN, ON CALL LAB SEND OUTS Final Result CANC[facility] GED PREPARATION TEACHER [facility] [place] [address], * IRON AND TIBC [id number] [place] (11/24/2024 9:13 AM CDT) Iron Bind.Cap.(TIBC) 302 250 - 450 UG/DL CANCER GED PREPARATION TEACHER [facility] UIBC 254 118 - 369 UG/DL CANCER GED PREPARATION TEACHER [facility] Iron, Serum 48 27 - 139 UG/DL CANCER GED PREPARATION TEACHER [facility] Iron Saturation 16 15 - 55 % [facility] 11/24/2024 9:13 AM CDT Narrative [facility] - 11/25/2024 9:07 AM CDT TESTING PERFORMED AT: [] [facility], [address] [place] [address], [address], PHONE: [phone], CASH MANAGEMENT COORDINATOR: TATIANA PEREZ, PHD Rosa Miranda APRN, ON CALL LAB SEND OUTS Final Result Performing Organization Address [facility] Co de Phone Number CANCER GED PREPARATION TEACHER [facility] [place] [address], * FOLATE [id number] [place] (11/24/2024 9:13 AM CDT) Folate (Folic Acid), Serum >20.0 >3.0 NG/ML [facility] Comment: A SERUM FOLATE CONCENTRATION OF LESS THAN 3.1 NG/ML IS CONSIDERED TO REPRESENT CLINICAL DEFICIENCY. 11/24/2024 9:13 AM CDT Narrative [facility] - 11/25/2024 8:08 AM CDT TESTING PERFORMED AT: [] [facility] [place], [address] [place] [address], [address], PHONE: [phone], CASH MANAGEMENT COORDINATOR: TATIANA PEREZ, PHD Rosa Miranda APRN, ON CALL LAB SEND OUTS Final Result Performing Organization Address [facility] Co de Phone Number CANCER GED PREPARATION TEACHER [facility] [place] [address], * FERRITIN [id number] [place] (11/24/2024 9:13 AM CDT) Ferritin, Serum 27 15 - 150 NG/ML [facility] 11/24/2024 9:13 AM CDT Narrative [facility] - 11/25/2024 11:07 AM CDT TESTING PERFORMED AT: [CB] [facility] [facility] [address], [place], [address], PHONE: [phone], CASH MANAGEMENT COORDINATOR: TATIANA PEREZ, PHD Rosa Miranda APRN, ON CALL LAB SEND OUTS Final Result CANCER GED PREPARATION TEACHER [facility] [place] [address], * (ABNORMAL) CBC WITH AUTO DIFF [place] (11/24/2024 9:13 AM CDT) WBC 4.5 4.0 - 10.0 10*3/uL CANCER GED PREPARATION TEACHER [facility] HGB 13.4 11.2 - 15.7 g/dL CANCER GED PREPARATION TEACHER [facility] HCT 40.6 34.1 - 44.9 % CANCER GED PREPARATION TEACHER [facility] PLT 167 163 - 369 10*3/uL CANCER GED PREPARATION TEACHER [facility] MPV 10.0 9.4 - 12.4 fL CANCER GED PREPARATION TEACHER [facility] RBC 4.59 3.93 - 5.22 10*6/uL CANCER GED PREPARATION TEACHER [facility] MCV 89 79 - 95 fL [facility] MCH 29.2 25.6 - 32.2 pg CANCER GED PREPARATION TEACHER [facility] MCHC 33.0 32.2 - 36.5 g/dL CANCER GED PREPARATION TEACHER [facility] RDW 13.4 11.6 - 14.4 % CANCER GED PREPARATION TEACHER [facility] Neutrophils % 58.9 36.0 - 66.0 % CANCER GED PREPARATION TEACHER [facility] Lymphocytes % 28.9 19.0 - 40.0 % CANCER GED PREPARATION TEACHER [facility] Monocytes % 8.1 4.1 - 12.1 % CANCER GED PREPARATION TEACHER [facility] Eosinophils % 2.4 0.0 - 3.5 % CANCER GED PREPARATION TEACHER [facility] Basophils % 1.3(H) 0.0 - 1.0 % CANCER GED PREPARATION TEACHER [facility] Absolute Neutrophils 2.7 1.4 - 6.6 10*3/uL CANCER GED PREPARATION TEACHER [facility] Absolute Lymphocytes 1.3 0.8 - 4.0 10*3/uL CANCER GED PREPARATION TEACHER [facility] Absolute Monocytes 0.4 0.2 - 1.2 10*3/uL CANCER GED PREPARATION TEACHER [facility] Absolute Eosinophils 0.1 0.0 - 0.4 10*3/uL CANCER GED PREPARATION TEACHER [facility] Absolute Basophils 0.1 0.0 - 0.1 10*3/ CANCER GED PREPARATION TEACHER [facility] 11/24/2024 9:13 AM CDT Rosa Miranda ROLL OVER PRESS OPERATOR, ON CALL LAB SEND OUTS Final Result CANCER GED PREPARATION TEACHER [facility] [place] [address], * (ABNORMAL) CMP (COMPREHENSIVE METABOLIC PANEL) (11/24/2024 9:13 AM CDT) Glucose 112(H) 70 - 105 mg/dL [facility] GED PREPARATION TEACHER [facility] Blood Urea Nitrogen 10 7 - 25 mg/dL [facility] Creatinine 0.8 0.6 - 1.2 mg/dL [facility]ED [facility]PARATION [facility] Sodium 142 136 - 145 mEq/L [facility] GED [facility]PARATION [facility] Potassium 3.8 3.5 - 5.1 mEq/L [facility] Chloride 105 98 - 107 mEq/L [facility] Bicarbonate 28 21 - 31 mEq/L [facility] Total Bilirubin 0.4 0.3 - 1.0 mg/dL [facility] GED PREPARATION TEACHER [facility] Alk. Phosphatase 67 34 - 104 U/L [facility]ED [facility]ATION [facility] Aspartate Aminotransferase 16 13 - 39 U/L [facility] GED [facility]PARATION [facility] Alanine Aminotransferase 18 7 - 52 U/L [facility] GED [facility]PARATION [facility] Total Protein 6.7 6.4 - 8.9 g/dL [facility] GED [facility]PARATION [facility] Albumin 4.6 3.5 - 5.7 g/dL [facility] GED PREPARATION [facility] Calcium 9.1 8.6 - 10.3 mg/dL [facility] GED PREPARATION TEACHER [facility] Anion Gap 12.8 7.0 - 15.0 mEq/L [facility] GED [facility]PARATION [facility] Globulin 2.1 2.0 - 3.5 g/dL [facility] GED PREPARATION TEACHER [facility] EGFR 83 >60 ml/min/1. 73m2 CANCER GED PREPARATION TEACHER [facility] Comment: This eGFR is calculated using 2020 CKD-EPI Creatinine equation without race modifier based on the NKF-ASN task force recommendations Equation: bAHO=537*min(SCr/k,1)a*max(SCr/k,1)-1.200*0.9938Age*1.012 (if female), where SCr is serum creatinine, k is 0.7 for females and 0.9 for males, and a is -0.241 for females and -0.302 for males Blood 11/24/2024 9:13 AM CDT Narrative CANCER GED PREPARATION TEACHER [facility] - 11/24/2024 10:33 AM CDT Release to patient->Immediate IS THE PATIENT REQUIRED TO BE FASTING FOR 8 HOURS?->No Rosa Miranda APRN, ON CALL CHEMISTRY ORDERABLES Final Result CANCER GED PREPARATION TEACHER [facility] [address] [place] [address], from Last 3 Months Insurance MEDICAID [place] Care Teams Podiatrist Orthopedic Relationship Specialty Start Date End Date Santos Montenegro [address] [place] [address] PCP - General Family Medicine 09/20/16 Bernadine Gill MD [address] [address] Internal Medicine 09/20/16 Buddy Franz MD [address] [place] [phone] Consulting Physician Oncology 07/28/24
--- OUTSIDE RECORDS SUMMARY | 2025-01-26 11:57 | XMS_ITS | Clinical Summary ---
Author Organization [facility] Address [address] [place] [address] Care Team Providers Care Combatant Diver Qualified Name Role Phone Santos Montenegro MD Primary Care Provider [phone] Source Comments [facility],non-owned Affiliates and Associated Physician Practices is amultiple site organization consisting of ambulatory clinics and hospital sitesin [place], [place], [place] and [place]. This disclosure is being madepursuant to the Care Everywhere program and may not contain all information available regarding this patient. Last updated 18.[facility] Allergies Active Allergy Reactions Criticality Noted Date Comments Penicillins Urticaria,Swelling,Unknown Medium 07/26/19 17 Sulfa Drugs Unknown 07/26/2016 Medications * Be aware that medications may not be up to date on this document. Alwaysverify current medications with the patient. famotidine (PEPCID) 40 MG tablet Take 1 (one) tablet by mouth once daily 09/09/19 20 Active clonazePAM (KLONOPIN) 1 MG tablet Take 1 (one) tablet by mouth 2 times daily 07/26/19 17 Active Multiple Vitamins-Mineral s (WOMENS MULTIVITAMIN PLUS PO) Take 2 capsules by mouth once daily Active buPROPion XL 24hr (WELLBUTRIN-XL) 150 MG tablet 200 mg 01/03/20 20 Active Spiriva HandiHaler 18 MCG inhalation capsule INHALE THE CONTENTS OF 1 CAPSULE VIA INHALATION DEVICE EVERY DAY DIRECTED 01/01/20 22 Active sertraline (Zoloft) 100 MG tablet 2 (two) tablets 07/04/19 23 Active Rexulti 3 MG tablet 4 mg 07/04/19 23 Active omeprazole (PriLOSEC) 40 MG capsule Take 1 (one) capsule by mouth daily before breakfast 07/27/19 25 Active cyclobenzaprine (Flexeril) 10 MG tablet Take 1 (one) tablet by mouth 3 times daily as needed 12/01/19 25 Active pregabalin (Lyrica) 150 MG capsule Take 1 (one) capsule by mouth 2 times daily Active promethazine (Phenergan) 25 MG tablet 02/13/20 23 Active traZODone (Desyrel) 300 MG 12/08/19 25 Active methocarbamol (Robaxin) 750 MG tablet Take 1 (one) tablet by mouth every 6 hours as needed 10/01/19 25 Active hyoscyamine (Levsin) 0.125 MG IR tablet 1 tablet as needed Orally every 4 hrs 01/24/20 24 Active estradiol (Estrace) 0.1 MG/GM vaginal cream Insert 1 g into the vagina once daily 42.5 g 11 12/30/19 25 Active amitriptyline (Elavil) 25 MG tablet Take 1 (one) tablet by mouth every evening 90 tablet 4 12/30/19 25 Active WIXELA INHUB 250-50 MCG/DOSE inhaler Take 2 puffs by mouth 2 times daily 08/07/19 20 025 Discontin ued(List Clean-Up) buPROPion XL 24hr (WELLBUTRIN-XL) 300 MG tablet Take 1 (one) tablet by mouth once daily 07/26/19 17 025 Discontin ued(List Clean-Up) ARIPiprazole (ABILIFY) 10 MG tablet Take 1 tablet by mouth once daily 12/01/19 20 025 Discontin ued(List Clean-Up) aspirin EC (Ecotrin) 81 MG tablet Take 1 tablet by mouth once daily 025 Discontin ued(List Clean-Up) mirtazapine (REMERON) 45 MG tablet Take 1 tablet by mouth once daily 07/26/19 17 025 Discontin ued(List Clean-Up) DULERA 200-5 MCG/ACT inhaler Take 2 puffs by mouth once daily 12/05/19 20 025 Discontin ued(List Clean-Up) albuterol HFA (PROVENTIL;ZAID SAMI;PROAIR) 108 (90 Base) MCG/ACT inhaler INL 2 PFS PO Q 4 TO 6 H PRN 03/24/20 20 025 Discontin ued(List Clean-Up) hydrOXYzine HCl (Atarax) 25 MG tablet TAKE 1 TABLET BY MOUTH THREE TIMES DAILY 270 tablet 2 01/10/20 22 025 Discontin ued(List Clean-Up) oxyBUTYnin CR 24hr (Ditropan XL) 15 MG tablet TAKE 1 TABLET BY MOUTH EVERY DAY 90 tablet 2 01/14/20 23 025 Discontin ued(Tx Complete) amitriptyline (Elavil) 25 MG tablet TAKE 1 TABLET BY MOUTH EVERY DAY FOR CHRONIC BLADDER WALL INFLAMMATION 90 tablet 5 12/05/19 24 025 Discontin ued(List Clean-Up) dicyclomine (Bentyl) 10 MG capsule TAKE 1 CAPSULE BY MOUTH ONCE OR TWICE DAILY IF NEEDED 025 Discontin ued(List Clean-Up) Encounters Date Type Department Care Team Description 01/12/2025 Telephone [facility] [address] [place] [address] Racheal Hatch DO Future Appointment 12/29/2024 9:15 AM CDT Office Visit [facility] - Urology [address] [place] [phone] Racheal Hatch DO Interstitial cystitis (Primary Dx); Urge incontinence; Left lower quadrant abdominal pain; Pelvic pain; Genitourinary syndrome of menopause 12/29/2024 Travel from Last 3 Months Family History [...] Sign Reading Time Taken Comments Blood Pressure 132/80 12/29/2024 9:09 AM CDT Pulse 69 12/29/2024 9:09 AM CDT Temperature 36.8 C (98.2 F) 12/29/2024 9:09 AM CDT Respiratory Rate 18 12/29/2024 9:09 AM CDT Oxygen Saturation 96% 12/29/2024 9:09 AM CDT Inhaled Oxygen Concentration - - Weight 75.2 kg (165 lb 12.8 oz) 12/29/2024 9:09 AM CDT Height 157.5 cm (5' 2) 12/29/2024 9:09 AM CDT Body Mass Index 30.33 12/29/2024 9:09 AM CDT Plan of Treatment Upcoming Encounters Date Type Department Care Team (Late st Contact Info) Description 05/11/2025 11:30 AM RIP SAWYER [facility] [address] [place] [address], [place] [address] Racheal Hatch M, DO [address] [place] [address] [address] [place] [id number] Health Maintenance Due Date Last Done Comments COLOGUARD (AGES 45-75) - COLON CA SCREENING 1963 COLON MONITORING 1963 COLONOSCOPY - COLON CA SCREENING 1963 CT COLONOGRAPHY - COLON CA SCREENING 1963 Colorectal Cancer Screening 1963 FIT - COLON CA SCREENING 1963 FLEX SIG - COLON CA SCREENING 1963 LIPID TESTING 1963 MAMMOGRAM 1963 HIV SCREENING 1978 HEPATITIS C SCREENING 03/15/1981 DTAP/TDAP/TD VACCINES (1 - Tdap) 1982 PAP SMEAR 1984 PNEUMOCOCCAL VACCINE 50+ (1 of 1 - PCV) 2013 ZOSTER VACCINE (1 of 2) 2013 COVID-19 VACCINE ( season) 2024 DEPRESSION SCREENING 06/02/2024 INFLUENZA VACCINE (#1) 2025 SCREENING FOR DIABETES 11/25/2027 , 07/04/2022, 04/29/2022, Additional history exists Respiratory Syncytial Virus (RSV) Vaccine Pt: or [...] complete this topic MENINGOCOCCAL (Group B) VACCINE SHARED DECISION-MAKING Aged Out No longer eligible based on patient's age to complete this topic MENINGOCOCCAL GROUPS A/C/Y/W VACCINE Aged Out No longer eligible based on patient's age to complete this topic Procedures Procedure Name Priority Date/Time Associated Diagnosis Comments URINALYSIS AUTO - POINT OF CARE (AMB) [facility] Routine 12/29/2024 9:19 AM CDT Interstitial cystitis from Last 3 Months Results * URINALYSIS AUTO - POINT OF CARE (AMB) [facility] (12/29/2024 9:19 AM CDT) Glucose UA - [facility] [address] Bilirubin UA POCT - [facility] [address] Ketones UA POCT - [facility] [address] Specific [place] UA 1.[address] [facility] [address] Blood Urine POCT - [facility] [address] pH UA 6.0 [facility] [address] Protein UA - [facility] [address] Urobilinogen UA - [facility] [address] Nitrite UA - [facility] [address] WBC UA - [facility] [address] Urine URINE / Unknown 12/29/2024 9 :19 AM CDT Racheal Hatch DO LAB - POINT OF CARE ORDERA BLES Final Result Performing Organization Address [facility]/State/ZIP Co de Phone Number LEI Woodward5 [facility] [address] [facility], [place] [address], [facility] [phone] from Last 3 Months Insurance [facility] Care Teams Combatant Diver Qualified Relationship Specialty Start Date End Date Santos Montenegro MD PCP - General 11/29/19
--- OUTSIDE RECORDS SUMMARY | 2025-01-26 11:57 | XMS_ITS | Encounter Summary ---
Author Organization [facility] Address [address] [place] [address] Phone Care Team Providers Care Item Processor Name Role Phone Santos Montenegro Primary Care Provider [phone] Bernadine Gill MD Unavailable Uriah Florentino MD Unavailable [phone] Buddy Franz MD Unavailable Encounter Details Date Type Department Care Team (Late st Contact Info) Description 02/19/2021 Telephone [facility] [address] [place] [address] Buddy Franz MD [address] [place] [address] Social History Tobacco Use Types [...] 9:00 AM CDT Lab [facility] [address] [phone] Lab, [facility] 03/23/2025 9:15 AM CDT Office Visit [facility] [address] [phone] Buddy Franz MD [address] [place] [phone] documented as of this encounter Visit Diagnoses Not on filedocumented in this encounter Additional Health Concerns Assessment Noted Time PHQ-9 Depression Total Score: 1 11/18/19 21 8:32 AM CDT documented as of this encounter Care Teams Item Processor Relationship Specialty Start Date End Date Santos Montenegro [address] [employer] [facility] [place] [address] PCP - General Family Medicine 09/20/16 Bernadine Gill MD [address] [employer] [facility] [place] [address] Internal Medicine 09/20/16 Uriah Florentino MD [address] [place] [phone] Consulting Physician Oncology 12/05/23 07/27/24 Buddy Franz MD [address] [place] [phone] Consulting Physician Oncology 07/28/24 documented as of this encounter
--- OUTSIDE RECORDS SUMMARY | 2025-01-26 11:57 | XMS_ITS | Patient Health Record ---
Author Organization [facility] Address [address] [place] [address] Care Team Providers Care Wine Merchant Name Role Phone Jonas Tello Primary Care Provider Hortensia RUDOLPH Unavailable Unavailable Cheri Mroris Unavailable [phone] Allergies Allergen (clinical drug ingredient) Drug/Non Drug [...] ic stress disorder (PTSD) (F43.12) Referral Organization [facility] Referring Provider First Name Jonas Referring Provider Last Name Omer Referring Provider Speciality Psychiatry Referred Provider Specialty Behavioral [facility] Clinical Notes Cheri Morris 01:11:34 PM >Referral addressed. PN included. Referral Priority Routine Medications Medication SIG (Take, Route, Frequency, Duration) Notes Start Date End Date Status Diphenoxylate-Atropine 2.5-0.025 MG 1 tablet as needed Orally Four times a day Active Famotidine 40 MG TAKE 1 TABLET BY MOUTH TWICE DAILY Oral; Duration: 30 Days Active Spiriva HandiHaler 18 MCG 1 capsule by inhaling the contents of the capsule using the HandiHaler device Inhalation Once a day Active Amitriptyline HCl 25 MG Oral; Duration: 30 Days Active Ondansetron 4 MG 1 tablet on the tongue and allow to dissolve Orally Once a day; Duration: 30 day(s) Active traZODone HCl 100 MG 0.5 - 1 tablet at bedtime as needed Orally Once a day; Duration: 30 days Please note decrease from 300 mg to 100 mg. 10/15/2023 Active Dicyclomine HCl 10 MG 1 capsule Orally Four times a day Active hydrOXYzine HCl 25 MG 1 tablet as needed Orally every 8 hrs; Duration: 30 day(s) Active Famotidine 40 MG 1 tablet at bedtime Orally Once a day; Duration: 30 day(s) Active Hyoscyamine Sulfate 0.125 MG 1 tablet as needed Orally every 4 hrs GI Active Pregabalin 150 MG Oral; Duration: 30 Days Active Pantoprazole Sodium 40 MG 1 tablet Orally Once a day GI 04/02/2023 Active Cyclobenzaprine HCl 10 MG Oral; Duration: 30 Days Active Rexulti 4 MG 1 tablet Orally at night; Duration: 30 days Active buPROPion HCl ER (XL) 300 MG 1 tablet in the morning Orally Once a day; Duration: 30 days Active Irbesartan 300 MG 1 tablet Orally Once a day Active KlonoPIN 1 MG 0.5 tablet Orally Three times a day as needed for severe anxiety.; Duration: 30 days 01/03/2025 Active oxyBUTYnin Chloride 15 MG 1 tablet Orally Once a day Active Zoloft 100 MG two tablets Orally at night; Duration: 30 days Active Amitriptyline HCl 25 MG 1 tablet at bedtime Orally Once a day; Duration: 30 day(s) Active Social History Sex Assigned At : Social History Observation Description Sex Assigned At Female Dont use, Tobacco Use/Smoking Question Answer Notes Are you a former smoker How long has it been since you last smoked? 1-5 years Tobacco Control (Standard) Question Answer Notes Additional Findings: Tobacco user e-cigarette Additional Findings: Tobacco non-user Nonsmoker for medical reasons Section Notes: [id number] 03/07/2021 02/13/2021 clonazePAM 45 30 1 MG NA Amrita Rudolph L, Msn, [employer] - [id number] [employer], [facility] 1 [id number] 02/07/2021 01/16/2021 clonazePAM 45 30 1 MG NA Amrita Rudolph L, Msn, [facility] - [id number] [place] 1 [id number] 01/10/2021 12/19/2020 clonazePAM 50 30 1 MG NA Amrita Rudolph L, Msn, [facility] [id number] [employer] [place], [place] [id number] 12/11/2020 11/21/2020 clonazePAM 50 30 1 MG NA Amrita Rudolph L, Msn, [facility] [id number] [employer] [place], [place] 1 [id number] 11/13/2020 10/25/2020 clonazePAM 50 30 1 MG NA Amrita Rudolph L, Msn, [facility] [id number] [employer] [place], [place] [id number] 10/16/2020 09/28/2020 clonazePAM 50 30 1 MG NA Amrita Rudolph L, Msn, [facility] [id number] [employer] [place], [place] [address] [id number] 09/18/2020 09/06/2020 clonazePAM 60 30 1 MG NA Amrita Rudolph L, Msn, [facility] [id number] [place], [place] 1 [id number] 08/21/2020 08/21/2020 clonazePAM 60 30 1 MG NA Amrita Rudolph L, Msn, [facility] [id number] [employer] [place], [place] 1 [id number] 07/24/2020 07/24/2020 clonazePAM 60 30 1 MG NA Amrita Rudolph L, Msn, [facility] [id number] [place] 1 [id number] 06/26/2020 06/26/2020 clonazePAM 60 30 1 MG NA Halle Problems Problem Type SNOMED Code ICD Code Onset Dates Problem Status W/U Status Risk Notes Problem Generalized anxiety disorder (08969835) Generalized anxiety disorder (F41.1) Active confirmed Problem Tobacco user (609766455) Tobacco dependency (F17.200) Active confirmed Problem Moderate recurrent major depression (36122839) Major depressive disorder, recurrent episode, moderate (F33.1) Active confirmed MDD with pyschotic features Problem Posttraumatic stress disorder (69680196) Chronic post-traumatic stress disorder (PTSD) (F43.12) 021 Active confirmed PCL-5 66 10/25/20 Problem Benzodiazepine dependence (682270223) Benzodiazepine dependence (F13.20) Active confirmed Problem Major depression with psychotic features (626284390) Major depression with psychotic features (F32.3) Active confirmed r/o dysthymic disorder versus bipolar disorder with psychotic features. Past history of visual hallucinatio ns BSDS score 23 correlating with high probability for bipolar disorder. Encounters Encounter Location Date Provider Diagnosis [address] [address] 03/11/20[address] eTllo [address] [address] 10/22/2024 Jonas Tello [address] [address] 01/28/2024 Jonas Tello Major depression wit h psychotic features F32.3 ; Chronic post-traumatic stress disorder (PTSD) F43.12 and Generalized anxiety disorder F41.[address] [address] 02/16/2024 Jonas Tello Major depression wit h psychotic features F32.3 ; Chronic post-traumatic stress disorder (PTSD) F43.12 and Generalized anxiety disorder F41.[address] [address] 03/17/2024 Jonas Tello Major depression wit h psychotic features F32.3 ; Generalized anxiety disorder F41.1 ; Chronic post-traumatic stress disorder (PTSD) F43.12 and Benzodiazepine dependence F13.[address] [address] 04/12/2024 Jonas Tello Major depression wit h psychotic features F32.3 ; Chronic post-traumatic stress disorder (PTSD) F43.12 and Generalized anxiety disorder F41.[address] [address] 05/12/2024 Jonas Tello Major depression wit h psychotic features F32.3 ; Generalized anxiety disorder F41.1 and Chronic post-traumatic stress disorder (PTSD) F43.[address] [address] 06/09/2024 Jonas Tello Major depression wit h psychotic features F32.3 ; Generalized anxiety disorder F41.1 and Chronic post-traumatic stress disorder (PTSD) F43.[address] [address] 07/13/2024 Jonas Tello Major depression wit h psychotic features F32.3 ; Generalized anxiety disorder F41.1 and Chronic post-traumatic stress disorder (PTSD) F43.[address] [address] 08/09/2024 Jonas Tello Major depression wit h psychotic features F32.3 ; Generalized anxiety disorder F41.1 and Chronic post-traumatic stress disorder (PTSD) F43.[address] [address] 09/07/2024 Jonas Tello Major depression wit h psychotic features F32.3 ; Chronic post-traumatic stress disorder (PTSD) F43.12 ; Generalized anxiety disorder F41.1 and Benzodiazepine dependence F13.[address] [address] 10/05/2024 Jonas Tello Major depression wit h psychotic features F32.3 ; Generalized anxiety disorder F41.1 ; Chronic post-traumatic stress disorder (PTSD) F43.12 and Benzodiazepine dependence F13.[address] [address] 11/08/2024 Jonas Tello Major depression wit h psychotic features F32.3 ; Chronic post-traumatic stress disorder (PTSD) F43.12 ; Generalized anxiety disorder F41.1 and Benzodiazepine dependence F13.[address] [address] 12/06/2024 Jonas Tello Major depression wit h psychotic features F32.3 ; Generalized anxiety disorder F41.1 ; Benzodiazepine dependence F13.20 and Chronic post-traumatic stress disorder (PTSD) F43.[address] [address] 01/03/2025 Jonas Tello Major depression wit h psychotic features F32.3 ; Generalized anxiety disorder F41.1 ; Chronic post-traumatic stress disorder (PTSD) F43.12 and Benzodiazepine dependence F13.[address] [address] 10/20/2024 Cheri Morris Generalized anxiety disorder F41.1 Assessments Encounter Date Diagnosis (ICD Code) Assessment Notes Treatment Notes Treatment Clinical Notes Section Notes 06/09/2024 Major depression with psychotic features (ICD-10 - F32.3) r/o dysthymic disorder versus bipolar disorder with psychotic features. Past history of visual hallucination s BSDS score 23 correlating with high probability for bipolar disorder. 09/07/2024 Major depression with psychotic features (ICD-10 [...] 10/20/2024 Generalized anxiety disorder (ICD-10 - F41.1) 11/08/2024 Major depression with psychotic features (ICD-10 [...] if needed. She verbalizes understanding and agreeable. 01/03/2025 Major depression with psychotic features (ICD-10 - F32.3) r/o dysthymic disorder versus bipolar disorder with psychotic features. Past history of visual hallucination s BSDS score 23 correlating with high probability for bipolar disorder. 08/09/2024 Major depression with psychotic features (ICD-10 [...] correlating with high probability for bipolar disorder. 04/12/2024 Major depression with psychotic features (ICD-10 [...] to treatment plan at this time. 03/17/2024 Major depression with psychotic features (ICD-10 [...] client continue with treatment. Client currently agreeable. 02/16/2024 Major depression with psychotic features (ICD-10 [...] Therapy has been offered, but client declines. 12/06/2024 Major depression with psychotic features (ICD-10 - F32.3) r/o dysthymic disorder versus bipolar disorder with psychotic features. Past history of visual hallucination s BSDS score 23 correlating with high probability for bipolar disorder. 12/06/2024 Generalized anxiety disorder (ICD-10 - F41.1) 02/16/2024 Chronic post-traumatic stress disorder (PTSD) (ICD-10 - F43.12) PCL-5 66 10/25/20 Client more hopeful and less depressed from last session. No changes to treatment plan at this time. 01/28/2024 Chronic post-traumatic stress disorder (PTSD) (ICD-10 - F43.12) PCL-5 66 10/25/20 Encourage client to increase social interaction and limit isolation. Therapy has been offered, but client declines. 03/17/2024 Generalized anxiety disorder (ICD-10 - F41.1) [...] continue with treatment. Client currently agreeable. 04/12/2024 Chronic post-traumatic stress disorder (PTSD) (ICD-10 [...] 05/12/2024 Generalized anxiety disorder (ICD-10 - F41.1) 07/13/2024 Generalized anxiety disorder (ICD-10 - F41.1) 08/09/2024 Generalized anxiety disorder (ICD-10 - F41.1) 11/08/2024 Chronic post-traumatic stress disorder (PTSD) (ICD-10 [...] if needed. She verbalizes understanding and agreeable. 01/03/2025 Generalized anxiety disorder (ICD-10 - F41.1) 09/07/2024 Chronic post-traumatic stress disorder (PTSD) (ICD-10 - F43.12) PCL-5 66 10/25/20 10/05/2024 Generalized anxiety disorder (ICD-10 - F41.1) Client struggling due to isolation from her son and daughter who both struggle with mental illness/addicti on. Discussed group therapy as an idea for more support. Client is open to this idea. Referral to [facility] behavorial sent. No medication changes to tx this month. Client has comorbid health issues she struggles with. 06/09/2024 Generalized anxiety disorder (ICD-10 - F41.1) 06/09/2024 Chronic post-traumatic stress disorder (PTSD) (ICD-10 - F43.12) PCL-5 66 10/25/20 09/07/2024 Generalized anxiety disorder (ICD-10 - F41.1) 10/05/2024 Chronic post-traumatic stress disorder (PTSD) (ICD-10 [...] has comorbid health issues she struggles with. 11/08/2024 Generalized anxiety disorder (ICD-10 - F41.1) [...] if needed. She verbalizes understanding and agreeable. 01/03/2025 Chronic post-traumatic stress disorder (PTSD) (ICD-10 - F43.12) PCL-5 66 10/25/20 08/09/2024 Chronic post-traumatic stress disorder (PTSD) (ICD-10 - F43.12) PCL-5 66 10/25/20 07/13/2024 Chronic post-traumatic stress disorder (PTSD) (ICD-10 - F43.12) PCL-5 66 10/25/20 05/12/2024 Chronic post-traumatic stress disorder (PTSD) (ICD-10 - F43.12) PCL-5 66 10/25/20 04/12/2024 Generalized anxiety disorder (ICD-10 - F41.1) Encouraged client to take 0.5 tablet of trazodone to limit excessive sleep and will look at cutting dose at next appointment (client getting 10 + hours a night) likely using sleep as escape from grief. Encouraged client to limit isolation. No changes to treatment plan at this time. 03/17/2024 Chronic post-traumatic stress disorder (PTSD) (ICD-10 [...] continue with treatment. Client currently agreeable. 01/28/2024 Generalized anxiety disorder (ICD-10 - F41.1) Encourage client to increase social interaction and limit isolation. Therapy has been offered, but client declines. 02/16/2024 Generalized anxiety disorder (ICD-10 - F41.1) Client more hopeful and less depressed from last session. No changes to treatment plan at this time. 12/06/2024 Benzodiazepine dependence (ICD-10 - F13.20) 12/06/2024 Chronic post-traumatic stress disorder (PTSD) (ICD-10 - F43.12) PCL-5 66 10/25/20 03/17/2024 Benzodiazepine dependence (ICD-10 - F13.20) Client [...] client continue with treatment. Client currently agreeable. 11/08/2024 Benzodiazepine dependence (ICD-10 - F13.20) [...] if needed. She verbalizes understanding and agreeable. 01/03/2025 Benzodiazepine dependence (ICD-10 - F13.20) 09/07/2024 Benzodiazepine dependence (ICD-10 - F13.20) 10/05/2024 Benzodiazepine dependence (ICD-10 - F13.20) Client struggling due to isolation from her son and daughter who both struggle with mental illness/addicti on. Discussed group therapy as an idea for more support. Client is open to this idea. Referral to [facility] behavorial sent. No medication changes to tx this month. Client has comorbid health issues she struggles with. [place] number to the 24-hour crisis line at [facility]. Questions addressed. Client verbalized understanding of all information and is agreeable to treatment plan. 12/06/[place]24 [place]. [...] number to the 24-hour crisis line at [facility]. Questions addressed. Client verbalized understanding of [...] number to the 24-hour crisis line at [facility]. Questions addressed. Client verbalized understanding of [...] number to the 24-hour crisis line at [facility]. Questions addressed. Client verbalized understanding of [...] number to the 24-hour crisis line at [facility]. Questions addressed. Client verbalized understanding of [...] number to the 24-hour crisis line at [facility]. Questions addressed. Client verbalized understanding of [...] number to the 24-hour crisis line at [facility]. Questions addressed. Client verbalized understanding of [...] day call in therapy, traditional therapy and field hockey and lacrosse coach services. Referrals for preferred methods will be sent following appointment. 03/17/2024 [place] [...] number to the 24-hour crisis line at [facility]. Questions addressed. Client verbalized understanding of [...] number to the 24-hour crisis line at [facility]. Questions addressed. Client verbalized understanding of [...] number to the 24-hour crisis line at [facility]. Questions addressed. Client verbalized understanding of [...] number to the 24-hour crisis line at [facility]. Questions addressed. Client verbalized understanding of [...] number to the 24-hour crisis line at [facility]. Questions addressed. Client verbalized understanding of all information and is agreeable to treatment plan. 01/03/2025 [place]. [...] number to the 24-hour crisis line at [facility]. Questions addressed. Client verbalized understanding of all information and is agreeable to treatment plan. Plan Of Treatment Pending Test Test Name Order Date Urinalysis, Routine 05/06/2016 Vitamin D, 25-Hydroxy* 05/06/2016 CMP14+LP+CBC/D/Plt+T4+TSH 05/06/2016 Next Appt Details Provider Name:Jonas Inez Damon , 02/01/2025 10:20:00 AM, [address], [place], [address], Insurance Providers Payer Name Payer Address Payer Phone Subscriber Number Group Number Insured Name Patient Relationship to Insured Coverage Start Date Coverage End Date [employer] [address] [place] [address] [id number] Radha Latham Self - patient is the insured 0 [employer] [address] [place] [address] [id number] Radha Latham Self - patient is the insured 0 [employer] [facility] Telehealth [address] [place] [address] [id number] Radha Latham Self - patient is the insured 5 Medical (General) History Medical History History ICD Code Anxiety disorder chronic interstial cystitis polycythemia Surgical History Surgery Date(Month/Year) cholecystectomy 01/2016 Hospitalization History Reason Date(Month/Year) SI and depression 2015
--- OUTSIDE RECORDS SUMMARY | 2025-01-26 11:57 | XMS_ITS | Encounter Summary ---
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 encounter Plan of Treatment Upcoming Encounters Date Type Department Care Team (Late st Contact Info) Description 03/23/2025 9:00 AM CDT Lab [facility] [address] [address] Lab, [facility] 03/23/2025 9:15 AM CDT Office Visit [facility] [address] [address] Buddy Franz MD [address] [place] [phone] documented as of this encounter Visit Diagnoses Not on filedocumented in this encounter Additional Health Concerns Assessment Noted Time PHQ-9 Depression Total Score: 1 02/27/20 21 1:19 PM CDT documented as of this encounter Care Teams Clinical Psychologist Private Practice Relationship Specialty Start Date End Date Santos Montenegro [address] [facility] [place] [address] PCP - General Family Medicine 09/20/16 Bernadine Gill MD [address] [facility] [place] [address] Internal Medicine 09/20/16 Uriah Florentino MD [address] [place] [phone] Consulting Physician Oncology 12/05/23 07/27/24 Buddy Franz MD [address] [place] [phone] Consulting Physician Oncology 07/28/24 documented as of this encounter
--- OUTSIDE RECORDS SUMMARY | 2025-01-26 11:57 | XMS_ITS | Clinical Summary ---
Author Organization [facility] Medical Office Building [address] Address [address] [place] [address] Care Team Providers Care Insulating Machine Operator Name Role Phone Santos Montenegro MD Primary [...] mouth nightly 30 tablet 2 09/04/19 25 Active Active Problems Problem Noted Date Diagnosed [...] caffeine intake. Follow up: tomorrow 04/04/22 w/ SENIOR SOFTWARE DEVELOPMENT MANAGER as scheduled Left knee pain 04/03/2022 10/15/2022 [...] encouraging member to wean). 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 No Resources reviewed: Provider Online Directory - counseling/rehab/mental health Follow up Provider: Other Follow up: tomorrow 04/04/22 w/ SENIOR SOFTWARE DEVELOPMENT MANAGER as scheduled GERD (gastroesophageal reflux disease) 10/15/2022 Overview (10/15/2022): Last Assessment & Plan: Condition: stable Reviewed use of antacid medication and/or diet modifications of decreasing caffeine, spicy foods, chocolate, and avoiding alcohol, tobacco, NSAIDs, and reducing citrus acids. Follow up in: three months PTSD (post-traumatic stress disorder) 10/05/2020 10/15/2022 Overview (10/15/2022): Last Assessment & Plan: Condition: stable Follow up: tomorrow 04/04/22 w/ SENIOR SOFTWARE DEVELOPMENT MANAGER as scheduled Hypertension 10/05/2020 10/15/2022 Overview (10/15/2022): [...] seek urgent/emergent care including calling Suicide Hotline (602 or ) or 610. Follow up: tomorrow 04/04/22 w/ SENIOR SOFTWARE DEVELOPMENT MANAGER as scheduled Iron deficiency anemia 08/10/2020 Overview [...] Encounters Date Type Department Care Team Description 12/14/2024 Telephone [facility] Medicine Surgery [address] [place] [address] Edward León 11/03/2024 Telephone [facility] Medicine Surgery [address] [place] [address] Bettina Garcia CMA 11/01/2024 Telephone [facility] [address] [place] [address] Office [facility] [address] [place] [address] Cheri Ibarra LPN 10/29/2024 Telephone [facility] [address] [place] [address] Office [facility] [address] [place] [address] Cheri Ibarra LPN from Last 3 Months Surgical History Surgery Date Site/Laterality Comments CHOLECYSTECTOMY 01/02/2016 Medical History Medical History Date Comments Hypertension Poor circulation Asthma Emphysema of lung Osteoporosis Infectious viral hepatitis Bleeding disorder Depression [...] (1 of 2) 2013 Influenza Vaccine (#1) 2025 DTaP/Tdap/Td Vaccine (2 - Td or Tdap) 02/21/2026 Hepatitis C Screening Completed 10/15/2022 Insurance [facility] MEDICAID [facility] Care Teams Insulating Machine Operator Relationship Specialty Start Date End Date Santos Montenegro MD [address] [place] [address] PCP - General Family Medicine 04/23/22
== END 2025-01-26 11:47 | disposition home or self-care (01) ==
PROVIDERS: PCP Emergency Medicine; Visit Provider Emergency Medicine
DX: M54.2 Cervicalgia (principal); M54.9 Dorsalgia, unspecified
CPT/HCPCS: 72040; 72072; 72100

== ENCOUNTER 2025-03-17 01:00 | Day surgery (SDC) | payer OTHER, SELFPAY ==
--- OUTSIDE RECORDS SUMMARY | 2024-11-01 05:00 | XMS_ITS ---
Author Organization [facility] Address [address] [place] [address] Care Team Providers Care Reproduction Machine Loader Name Role Phone Jonas Tello Primary Care Provider [phone] Hortensia RUDOLPH Unavailable Unavailable REASON FOR VISIT 1 Month Psych F/U & Med Refill Social History Sex Assigned At : Social History Observation Description Sex Assigned At Female Encounters Encounter Location Date Provider Diagnosis [address] [phone] 11/01/2024 Jonas Tello Plan Of Treatment Next Appt Details Provider Name:Jonas Damon , 02/22/2025 10:20:00 AM, [address] [place] [address], [id number], Progress Notes * MARV RadhaDOB: 3 (59 yo F)Acc No.[id number]:11/01/2024 UNLOCKED PROGRESS NOTE Patient: Radha OMER Provider: Hortensia Tello DNP, PMHNP-BC :1965 A ge:59 Y S ex:Female Date:11/01/2024 Address:[address] [place] [address] [address] Subjective: * Chief Complaints: * 1 . 1 Month Psych F/U & Med Refill. * Medical History: Objective: * Vitals: Assessment: Plan: * Treatment: * * Electronic signature of Ramy Tello , DIRECTOR OF [employer]PORATE [employer]ATEGY, [id number] on 02/07/2025 at 01:10 AM CDT Sign off status: Pending * Provider: Hortensia Tello DNP, PMHNP-BC Date: 0 11/01/2024 Generated for Marquita garrido/Alicia/Carmel on: 0 02/07/2025 01:10 AM CDT
[2025-01-27 12:11] VITALS: BMI 30.2
--- OUTSIDE RECORDS SUMMARY | 2025-02-07 01:10 | XMS_ITS | Encounter Summary ---
Author Organization [facility] Address [address] [place] [address] Phone Care Team Providers Care Operator Coating Furnace Name Role Phone Santos Montenegro Primary Care Provider [phone] Bernadine Gill MD Unavailable [phone] Uriah Florentino MD Unavailable [phone] Buddy Franz MD Unavailable Encounter Details Date Type Department Care Team (Late st Contact Info) Description 11/13/2020 Telephone [facility] [address] [place] [address] Buddy Franz MD [address] [place] [address] Social History Tobacco Use Types [...] 9:00 AM CDT Lab [facility] [address] [address] Lab, [facility] 03/23/2025 9:15 AM CDT Office Visit [facility] [address] [address] Buddy Franz MD [address] [place] [phone] documented as of this encounter Visit Diagnoses Not on filedocumented in this encounter Additional Health Concerns Assessment Noted Time PHQ-9 Depression Total Score: 0 09/26/19 21 2:05 PM CDT documented as of this encounter Care Teams Operator Coating Furnace Relationship Specialty Start Date End Date Santos Montenegro [address] [place] [address] PCP - General Family Medicine 09/20/16 Bernadine Gill MD [address] [place] [place] [address] Internal Medicine 09/20/16 Uriah Florentino MD [address] [place] [phone] Consulting Physician Oncology 12/05/23 07/27/24 Buddy Franz MD [address] [place] [phone] Consulting Physician Oncology 07/28/24 documented as of this encounter
--- OUTSIDE RECORDS SUMMARY | 2025-02-07 01:10 | XMS_ITS | Clinical Summary ---
Author Organization [facility] Address [address], [address] [place] [address] Phone Care Team Providers Care Delicatessen Department Manager Name Role Phone Lan Santos Primary Care Provider [phone] Bernadine Gill MD Unavailable [phone] Buddy Franz MD Unavailable Allergies Active Allergy Reactions Criticality Noted Date [...] Description 11/30/2024 Telephone [facility] [address] [address] Rosa Miranda, CHARACTER IMPERSONATOR, INSET CUTTER 11/29/2024 Telephone [facility] [address] [address] Buddy Franz MD Results 11/24/2024 9:30 AM CDT Office Visit [facility] [address] [phone] Chayo Loza APRN, GRACE Iron deficiency anemia, unspecified iron deficiency anemia type (Primary Dx); Secondary polycythemia; Weakness; Other fatigue 11/24/2024 9:15 AM CDT Lab [facility] [address] [address] Buddy Franz MD Lab, [facility] Iron deficiency anemia, unspecified iron deficiency [...] AM CDT Lab [facility] [address] [address] Lab, [facility] 03/23/2025 9:15 AM CDT Office Visit [facility] [address] [address] Buddy Franz MD [address] [place] [phone] Health Maintenance Due Date Last Done Comments Hepatitis C Virus (HCV) Screening 1963 Mammogram 1963 Pap Smear 1984 Cervical Cancer Screening (CCS) 1993 HPV/Cotest 1993 Cologuard 2008 Colonoscopy 2008 Colorectal Cancer Screening 2008 Immunochemical Fecal Occult Blood 2008 Pneumococcal Immunization (5 0+ years) (1 of 1 - PCV) 2013 Zoster Immunization (1 of 2) 2013 Influenza Immunization (#1) 2025 SARS-COV-2 Immunization ( - season) 2025 Respiratory Syncytial Virus (RSV) Immunization (Adult) [...] Routine 11/24/2024 9:13 AM CDT VITAMIN B12 [id number] [place] Routine 11/24/2024 9:13 AM CDT IRON AND TIBC [id number] [place] Routine 11/24/2024 9:13 AM CDT FOLATE [id number] [place] Routine 11/24/2024 9:13 AM CDT FERRITIN [id number] [place] Routine 11/24/2024 9: 13 AM CDT CMP (COMPREHENSIVE METABOLIC PANEL) Routine 11/24/2024 9:13 AM CDT Iron deficiency anemia, unspecified iron deficiency anemia type Secondary polycythemia Weakness from Last 3 Months Results * VITAMIN B12 [id number] [place] (11/24/2024 9:13 AM CDT) VITAMIN B12 405 232 - 1,245 PG/ML CANCER COMPUTER TECHNOLOGY TRAINER [facility] 11/24/2024 9:13 AM CDT Kam [facility]ER [facility] - 11/25/2024 7:35 AM CDT TESTING PERFORMED AT: [] [facility], [address] [place] [address], [place], [address], PHONE: [phone], AUTOMOBILE SALES CONSULTANT: TATIANA PEREZ, PHD Rosa Miranda APRN, INSET CUTTER LAB SEND OUTS Final Result CANCER COMPUTER TECHNOLOGY TRAINER [facility] [place] [address], * IRON AND TIBC [id number] [place] (11/24/2024 9:13 AM CDT) Iron Bind.Cap.(TIBC) 302 250 - 450 UG/DL CANCER COMPUTER TECHNOLOGY TRAINER [facility] UIBC 254 118 - 369 UG/DL CANCER COMPUTER TECHNOLOGY TRAINER [facility] Iron, Serum 48 27 - 139 UG/DL CANCER COMPUTER TECHNOLOGY TRAINER [facility] Iron Saturation 16 15 - 55 % [facility] COMPUTER TECHNOLOGY TRAINER [facility] 11/24/2024 9:13 AM CDT Narrative [facility]CER COMPUT[facility]Y [facility] - 11/25/2024 9:07 AM CDT TESTING PERFORMED AT: [] [facility], [address] [place] [address], [address], PHONE: [phone], AUTOMOBILE SALES CONSULTANT: TATIANA PEREZ, PHD Rosa Miranda APRN, INSET CUTTER LAB SEND OUTS Final Result Performing Organization Address [facility] Co de Phone Number CANCER COMPUTER TECHNOLOGY TRAINER [facility] [place] [address], * FOLATE [id number] [place] (11/24/2024 9:13 AM CDT) Folate (Folic Acid), Serum >20.0 >3.0 NG/ML CANCER COMPUTER [facility]CHNOLOGY [facility] Comment: A SERUM FOLATE CONCENTRATION OF LESS THAN 3.1 NG/ML IS CONSIDERED TO REPRESENT CLINICAL DEFICIENCY. 11/24/2024 9:13 AM CDT Narrative CANCER COMPUTER [facility]CHNOLOGY [facility] - 11/25/2024 8:08 AM CDT TESTING PERFORMED AT: [] [facility] [place], [address] [place] [address], [address], PHONE: [phone], AUTOMOBILE SALES CONSULTANT: TATIANA PEREZ, PHD Rosa Miranda APRN, INSET CUTTER LAB SEND OUTS Final Result Performing Organization Address [facility] Co de Phone Number CANCER COMPUTER TECHNOLOGY TRAINER [facility] [place] [address], * FERRITIN [id number] [place] (11/24/2024 9:13 AM CDT) Ferritin, Serum 27 15 - 150 NG/ML CANCER COMPUTER [facility]CHN[facility] 11/24/2024 9:13 AM CDT Narrative [facility]CER COMPUT[facility] - 11/25/2024 11:07 AM CDT TESTING PERFORMED AT: [CB] [facility] [address], [place], [address], PHONE: [phone], AUTOMOBILE SALES CONSULTANT: TATIANA PEREZ, PHD Rosa Miranda APRN, INSET CUTTER LAB SEND OUTS Final Result CANCER COMPUTER TECHNOLOGY TRAINER [facility] [place] [address], * (ABNORMAL) CBC WITH AUTO DIFF [place] (11/24/2024 9:13 AM CDT) WBC 4.5 4.0 - 10.0 10*3/uL CANCER COMPUTER TECHNOLOGY TRAINER [facility] HGB 13.4 11.2 - 15.7 g/dL CANCER COMPUTER TECHNOLOGY TRAINER [facility] HCT 40.6 34.1 - 44.9 % CANCER COMPUTER TECHNOLOGY TRAINER [facility] PLT 167 163 - 369 10*3/uL CANCER COMPUTER TECHNOLOGY TRAINER [facility] MPV 10.0 9.4 - 12.4 fL CANCER COMPUTER TECHNOLOGY TRAINER [facility] RBC 4.59 3.93 - 5.22 10*6/uL CANCER COMPUTER TECHNOLOGY TRAINER [facility] MCV 89 79 - 95 fL [facility] MCH 29.2 25.6 - 32.2 pg CANCER COMPUTER TECHNOLOGY TRAINER [facility] MCHC 33.0 32.2 - 36.5 g/dL CANCER COMPUTER TECHNOLOGY TRAINER [facility] RDW 13.4 11.6 - 14.4 % CANCER COMPUTER TECHNOLOGY TRAINER [facility] Neutrophils % 58.9 36.0 - 66.0 % CANCER COMPUTER TECHNOLOGY TRAINER [facility] Lymphocytes % 28.9 19.0 - 40.0 % CANCER COMPUTER TECHNOLOGY TRAINER [facility] Monocytes % 8.1 4.1 - 12.1 % CANCER COMPUTER TECHNOLOGY TRAINER [facility] Eosinophils % 2.4 0.0 - 3.5 % CANCER COMPUTER TECHNOLOGY TRAINER [facility] Basophils % 1.3(H) 0.0 - 1.0 % CANCER COMPUTER TECHNOLOGY TRAINER [facility] Absolute Neutrophils 2.7 1.4 - 6.6 10*3/uL CANCER COMPUTER TECHNOLOGY TRAINER [facility] Absolute Lymphocytes 1.3 0.8 - 4.0 10*3/uL CANCER COMPUTER TECHNOLOGY TRAINER [facility] Absolute Monocytes 0.4 0.2 - 1.2 10*3/uL CANCER COMPUTER TECHNOLOGY TRAINER [facility] Absolute Eosinophils 0.1 0.0 - 0.4 10*3/uL CANCER COMPUTER TECHNOLOGY TRAINER [facility] Absolute Basophils 0.1 0.0 - 0.1 10*3/ CANCER COMPUTER TECHNOLOGY TRAINER [facility] 11/24/2024 9:13 AM CDT Rosa Miranda CHARACTER IMPERSONATOR, INSET CUTTER LAB SEND OUTS Final Result CANCER COMPUTER TECHNOLOGY TRAINER [facility] [place] [address], * (ABNORMAL) CMP (COMPREHENSIVE METABOLIC PANEL) (11/24/2024 9:13 AM CDT) Glucose 112(H) 70 - 105 mg/dL [facility] COMPUTER TECHNOLOGY TRAINER [facility] Blood Urea Nitrogen 10 7 - 25 mg/dL [facility] Creatinine 0.8 0.6 - 1.2 mg/dL [facility] COMPUTER [facility]Y [facility] Sodium 142 136 - 145 mEq/L [facility] COMPUTER TECHNOLOGY [facility] Potassium 3.8 3.5 - 5.1 mEq/L [facility] Chloride 105 98 - 107 mEq/L [facility] Bicarbonate 28 21 - 31 mEq/L [facility] Total Bilirubin 0.4 0.3 - 1.0 mg/dL [facility] COMPUTER TECHNOLOGY TRAINER [facility] Alk. Phosphatase 67 34 - 104 U/L [facility] COMPUTER [facility]NOLOGY [facility] Aspartate Aminotransferase 16 13 - 39 U/L [facility] COMPUTER TECHNOLOGY [facility] Alanine Aminotransferase 18 7 - 52 U/L [facility] COMPUTER TECHNOLOGY [facility] Total Protein 6.7 6.4 - 8.9 g/dL [facility] COMPUTER [facility]CHNOLOGY [facility] Albumin 4.6 3.5 - 5.7 g/dL [facility] COMPUTER [facility]CHNOLOGY [facility] Calcium 9.1 8.6 - 10.3 mg/dL [facility] COMPUTER TECHNOLOGY TRAINER [facility] Anion Gap 12.8 7.0 - 15.0 mEq/L [facility] COMPUTER [facility]CHN[facility]Y [facility] Globulin 2.1 2.0 - 3.5 g/dL [facility] COMPUTER TECHNOLOGY TRAINER [facility] EGFR 83 >60 ml/min/1. 73m2 CANCER COMPUTER TECHNOLOGY TRAINER [facility] Comment: This eGFR is calculated using 2020 CKD-EPI Creatinine equation without race modifier based on the NKF-ASN task force recommendations Equation: vIVQ=769*min(SCr/k,1)a*max(SCr/k,1)-1.200*0.9938Age*1.012 (if female), where SCr is serum creatinine, k is 0.7 for females and 0.9 for males, and a is -0.241 for females and -0.302 for males Blood 11/24/2024 9:13 AM CDT Narrative CANCER COMPUTER TECHNOLOGY TRAINER [facility] - 11/24/2024 10:33 AM CDT Release to patient->Immediate IS THE PATIENT REQUIRED TO BE FASTING FOR 8 HOURS?->No Rosa Miranda APRN, INSET CUTTER CHEMISTRY ORDERABLES Final Result CANCER COMPUTER TECHNOLOGY TRAINER [facility] [address] [place] [address], from Last 3 Months Insurance MEDICAID MOLINA Care Teams Delicatessen Department Manager Relationship Specialty Start Date End Date Santos Montenegro [address] [place] [address] PCP - General Family Medicine 09/20/16 Bernadine Gill MD [address] [address] Internal Medicine 09/20/16 Buddy Franz MD [address] [place] [phone] Consulting Physician Oncology 07/28/24
--- OUTSIDE RECORDS SUMMARY | 2025-02-07 01:10 | XMS_ITS | Encounter Summary ---
Author Organization [facility] Address [address] [place] [address] Phone Care Team Providers Care Kiosk Sales Representative Name Role Phone Santos Montenegro Primary Care Provider Bernadine Gill MD Unavailable Uriah Florentino MD Unavailable Buddy Franz MD Unavailable Encounter Details Date Type Department Care Team (Late st Contact Info) Description 11/06/2020 Telephone [facility] [address] [place] [address] Buddy Franz MD [address] [place] [address] Social History Tobacco Use Types [...] included. Buddy Franz MD Fieker, Elizabeth A; [facility] 16 hours ago (4:06 PM) [...] AM CDT Lab [facility] [address] [phone] Lab, [facility] 03/23/2025 9:15 AM CDT Office Visit [facility] [address] [phone] Buddy Franz MD [address] [place] [phone] documented as of this encounter Visit Diagnoses Not on filedocumented in this encounter Additional Health Concerns Assessment Noted Time PHQ-9 Depression Total Score: 0 09/26/19 2:05 PM CDT documented as of this encounter Care Teams Kiosk Sales Representative Relationship Specialty Start Date End Date Santos Montenegro [address] [place] [address] PCP - General Family Medicine 09/20/16 Bernadine Gill MD [address] [facility] [place] [address] Internal Medicine 09/20/16 Uriah Florentino MD [address] [place] [address] Consulting Physician Oncology 12/05/23 07/27/24 Buddy Franz MD [address] [place] [address] Consulting Physician Oncology 07/28/24 documented as of this encounter
--- OUTSIDE RECORDS SUMMARY | 2025-02-07 01:10 | XMS_ITS | Clinical Summary ---
Author Organization [facility] Address [address] [place] [address] Care Team Providers Care Veterinary Toxicologist Name Role Phone Santos Montenegro MD Primary Care Provider [phone] Source Comments [facility],non-owned Affiliates and Associated Physician Practices is amultiple site organization consisting of ambulatory clinics and hospital sitesin [place], [place], [place] and [place]. This disclosure is being madepursuant to the Care Everywhere program and may not contain all information available regarding this patient. Last updated 18.[facility] Allergies Active Allergy Reactions Criticality Noted Date [...] by mouth 2 times daily 7 Active Multiple Vitamins-Minerals (WOMENS MULTIVITAMIN PLUS PO) Take 2 capsules by mouth once daily Active buPROPion XL 24hr (WELLBUTRIN-XL) 150 MG tablet 200 mg 0 Active Spiriva HandiHaler 18 MCG inhalation capsule INHALE THE CONTENTS OF 1 CAPSULE VIA INHALATION DEVICE EVERY DAY DIRECTED 2 Active sertraline (Zoloft) 100 MG tablet 2 (two) tablets 3 Active Rexulti 3 MG tablet 4 mg 3 Active omeprazole (PriLOSEC) 40 MG capsule Take 1 (one) capsule by mouth daily before breakfast 5 Active cyclobenzaprine (Flexeril) 10 MG tablet Take 1 (one) tablet by mouth 3 times daily as needed 5 Active pregabalin (Lyrica) 150 MG capsule Take 1 (one) capsule by mouth 2 times daily Active promethazine (Phenergan) 25 MG tablet 3 Active traZODone (Desyrel) 300 MG 5 Active methocarbamol (Robaxin) 750 MG tablet Take 1 (one) tablet by mouth every 6 hours as needed 5 Active hyoscyamine (Levsin) 0.125 MG IR tablet 1 tablet as needed Orally every 4 hrs 4 Active estradiol (Estrace) 0.1 MG/GM vaginal cream Insert 1 g into the vagina once daily 42.5 g 11 5 Active amitriptyline (Elavil) 25 MG tablet Take 1 (one) tablet by mouth every evening 90 tablet 4 5 Active Encounters Date Type Department Care Team Description 01/12/2025 Telephone [facility] [address] [place] [phone] Racheal Hatch DO Future Appointment 12/29/2024 9:15 AM CDT Office Visit [facility] [address] [place] [phone] Racheal Hatch DO Interstitial cystitis (Primary Dx); [...] st Contact Info) Description 05/11/2025 11:30 AM SITE CONTROLLER Office Visit [facility] [address] [place] [address], [place] [phone] Racheal Hatch M, DO [address] [place] [address] [place] [phone] Health Maintenance Due Date Last Done Comments [...] 2013 ZOSTER VACCINE (1 of 2) 2013 DEPRESSION SCREENING 06/02/2024 SCREENING FOR DIABETES 12/29/2024 COVID-19 VACCINE (1 - 2023-2 5 season) 2025 INFLUENZA VACCINE (#1) 2025 Respiratory Syncytial Virus (RSV) Vaccine Pt: or [...] - [facility] [address] Specific [place] UA 1.[address] [facility] [address] Blood [...] POINT OF CARE ORDERA BLES Final Result DILLON Irby [facility] [address] [facility], [place] [address], [facility] [phone] from Last 3 Months Insurance [facility] Care Teams Veterinary Toxicologist Relationship Specialty Start Date End Date Santos Montenegro MD PCP - General 11/29/19
--- OUTSIDE RECORDS SUMMARY | 2025-02-07 01:10 | XMS_ITS | Encounter Summary ---
Author Organization [facility] Address [address] [place] [address] Phone Care Team Providers Care Teletypewriter Installer Name Role Phone Santos Montenegro Primary Care Provider Bernadine Gill MD Unavailable [phone] Uriah Florentino MD Unavailable Buddy Franz MD Unavailable Encounter Details Date Type Department Care Team (Late st Contact Info) Description 10/17/2020 Telephone [facility] [address] [place] [address] Buddy Franz MD [address] [place] [address] Social History Tobacco Use Types [...] 9:00 AM CDT Lab [facility] [address] [phone] Lab, [facility] 03/23/2025 9:15 AM CDT Office Visit [facility] OF [address] [phone] Buddy Franz MD [address] [place] [phone] documented as of this encounter Visit Diagnoses Not on filedocumented in this encounter Additional Health Concerns Assessment Noted Time PHQ-9 Depression Total Score: 0 09/26/19 21 2:05 PM CDT documented as of this encounter Care Teams Teletypewriter Installer Relationship Specialty Start Date End Date Santos Montenegro [address] [place] [address] PCP - General Family Medicine 09/20/16 Bernadine Gill MD [address] [place] [address] Internal Medicine 09/20/16 Uriah Florentino MD [address] [place] [phone] Consulting Physician Oncology 12/05/23 07/27/24 Buddy Franz MD [address] [place] [address] [place] [phone] Consulting Physician Oncology 07/28/24 documented as of this encounter
--- OUTSIDE RECORDS SUMMARY | 2025-02-07 01:10 | XMS_ITS | Encounter Summary ---
Author Organization [facility] Address [address] [place] [address] Phone Care Team Providers Care Hydraulic Oil Tool Operator Name Role Phone Santos Montenegro Primary Care Provider Bernadine Gill MD Unavailable Uriah Florentino MD Unavailable Buddy Franz MD Unavailable Encounter Details Date Type Department Care Team (Late st Contact Info) Description 02/19/2021 Telephone [facility] [address] [place] [address] Buddy Franz MD [address] [place] [address] Social History Tobacco Use Types [...] 9:00 AM CDT Lab [facility] [address] [address] Lab, [facility] 03/23/2025 9:15 AM CDT Office Visit [facility] [address] [address] Buddy Franz MD [address] [place] [phone] documented as of this encounter Visit Diagnoses Not on filedocumented in this encounter Additional Health Concerns Assessment Noted Time PHQ-9 Depression Total Score: 1 11/18/19 21 8:32 AM CDT documented as of this encounter Care Teams Hydraulic Oil Tool Operator Relationship Specialty Start Date End Date Santos Montenegro [address] [facility] [place] [address] PCP - General Family Medicine 09/20/16 Bernadine Gill MD [address] [facility] [place] [address] Internal Medicine 09/20/16 Uriah Florentino MD [address] [place] [phone] Consulting Physician Oncology 12/05/23 07/27/24 Buddy Franz MD [address] [place] [phone] Consulting Physician Oncology 07/28/24 documented as of this encounter
--- OUTSIDE RECORDS SUMMARY | 2025-02-07 01:10 | XMS_ITS | Clinical Summary ---
Author Organization [facility] Address [address] [place] [address] Care Team Providers Care Art Manager Name Role Phone Aminta Sorto MD Unavailable [phone] Santos Montenegro MD Primary Care Provider [phone] Social History Tobacco Use Types Packs/Day Years [...] 2) 2013 COVID-19 Vaccine (2023-2 5 season) 2025 RSV Immunization or 60+ Years (1 - [...] Most Recently Relevant to Health Maintenance Insurance [facility] Care Teams Art Manager Relationship Specialty Start Date End Date Santos Montenegro MD [address] [place] [address] PCP - General 10/07/23 Aminta Sorto MD [facility]. [address] [address] [place] [employer] Processor CARDIOVASCULAR DISEASE 03/20/17
--- OUTSIDE RECORDS SUMMARY | 2025-02-07 01:10 | XMS_ITS | Clinical Summary ---
Author Organization [facility] Medical Office Building B Address [address] [place] [address] Care Team Providers Care Operations Accountant Name Role Phone Santos Montenegro MD Primary [...] caffeine intake. Follow up: tomorrow 04/04/22 w/ DIRECTOR [employer] DEVELOPMENT as scheduled Left knee pain 04/03/2022 10/15/2022 [...] encouraging member to wean). Duration of use: superintendent container terminal Narcan Available: Narcan Yes/No: N/A (non-opioid use) Previous interventions: Interventions: None Are you ready to quit? No Resources reviewed: Provider Online Directory - counseling/rehab/mental health Follow up Provider: Other Follow up: tomorrow 04/04/22 w/ DIRECTOR [employer]ELOPMENT as scheduled GERD (gastroesophageal reflux disease) 10/15/2022 Overview (10/15/2022): Last Assessment & Plan: Condition: stable Reviewed use of antacid medication and/or diet modifications of decreasing caffeine, spicy foods, chocolate, and avoiding alcohol, tobacco, NSAIDs, and reducing citrus acids. Follow up in: three months PTSD (post-traumatic stress disorder) 10/05/2020 10/15/2022 Overview (10/15/2022): Last Assessment & Plan: Condition: stable Follow up: tomorrow 04/04/22 w/ DIRECTOR [employer] DEVELOPMENT as scheduled Hypertension 10/05/2020 10/15/2022 Overview (10/15/2022): [...] seek urgent/emergent care including calling Suicide Hotline (732 or ) or 855. Follow up: tomorrow 04/04/22 w/ DIRECTOR [employer] DEVELOPMENT as scheduled Iron deficiency anemia 08/10/2020 Overview [...] Type Department Care Team Description 12/14/2024 Telephone Health system Medicine Surgery [id number] [phone] Edward León from Last 3 Months Surgical History Surgery [...] 02/21/2026 Hepatitis C Screening Completed 10/15/2022 Insurance [facility] Care Teams Operations Accountant Relationship Specialty Start Date End Date Santos Montenegro MD [address] [place] [address] PCP - General Family Medicine 04/23/22
--- OUTSIDE RECORDS SUMMARY | 2025-02-07 01:10 | XMS_ITS | Patient Health Record ---
Author Organization [facility] Address [address] [place] [address] Care Team Providers Care Housing Liaison Name Role Phone Jonas Tello Primary Care Provider [phone] Hort[address] RUDOLPH Unavailable Unavailable Cheri Morris Unavailable [phone] Allergies Allergen (clinical drug ingredient) Drug/Non Drug [...] ic stress disorder (PTSD) (F43.12) Referral Organization [facility] Referring Provider First Name Jonas Referring Provider Last Name Omer Referring Provider Speciality Psychiatry Referred Provider Specialty Behavioral [facility] Clinical Notes Cheri Morris 01:11:34 PM >Referral addressed. PN included. Referral Priority Routine Medications Medication SIG (Take, Route, Frequency, Duration) Notes Start Date End Date Status KlonoPIN 1 MG 0.5 tablet Orally Three times a day as needed for severe anxiety.; Duration: 30 days 02/01/2025 Active oxyBUTYnin Chloride 15 MG 1 tablet Orally Once a day Active Irbesartan 300 MG 1 tablet Orally Once a day Active Zoloft 100 MG two tablets Orally at night; Duration: 30 days Active hydrOXYzine HCl 25 MG 1 tablet as needed Orally every 8 hrs; Duration: 30 day(s) Active buPROPion HCl ER (XL) 300 MG 1 tablet in the morning Orally Once a day; Duration: 30 days Active Amitriptyline HCl 25 MG 1 tablet at bedtime Orally Once a day; Duration: 30 day(s) Active Rexulti 4 MG 1 tablet Orally at night; Duration: 30 days Active Spiriva HandiHaler 18 MCG 1 capsule by inhaling the contents of the capsule using the HandiHaler device Inhalation Once a day Active Amitriptyline HCl 25 MG Oral; Duration: 30 Days Active traZODone HCl 100 MG 0.5 - 1 tablet at bedtime as needed Orally Once a day; Duration: 30 days Please note decrease from 300 mg to 100 mg. 10/15/2023 Active Famotidine 40 MG TAKE 1 TABLET BY MOUTH TWICE DAILY Oral; Duration: 30 Days Active Dicyclomine HCl 10 MG 1 capsule Orally Four times a day Active Ondansetron 4 MG 1 tablet on the tongue and allow to dissolve Orally Once a day; Duration: 30 day(s) Active Hyoscyamine Sulfate 0.125 MG 1 tablet as needed Orally every 4 hrs GI Active Pregabalin 150 MG Oral; Duration: 30 Days Active Famotidine 40 MG 1 tablet at bedtime Orally Once a day; Duration: 30 day(s) Active Diphenoxylate-Atropine 2.5-0.025 MG 1 tablet as needed Orally Four times a day Active Pantoprazole Sodium 40 MG 1 tablet Orally Once a day GI 04/02/2023 Active Cyclobenzaprine HCl 10 MG Oral; Duration: 30 Days Active Social History Sex Assigned At : Social History Observation Description Sex Assigned At Female Dont use, Tobacco Use/Smoking Question Answer Notes Are you a former smoker How long has it been since you last smoked? 1-5 years Tobacco Control (Standard) Question Answer Notes Additional Findings: Tobacco user e-cigarette Additional Findings: Tobacco non-user Nonsmoker for medical reasons Section Notes: [id number] 03/07/2021 02/13/2021 clonazePAM 45 30 1 MG NA Amrita Rudolph L, Msn, [employer] - [id number] [employer] [facility] 1 [id number] 02/07/2021 01/16/2021 clonazePAM 45 30 1 MG NA Amrita Rudolph L, Msn, [facility] - [id number] [place], [place] [id number] 01/10/2021 12/19/2020 clonazePAM 50 30 1 MG NA Amrita Rudolph L, Msn, [facility] [id number] [employer] [place], [place] [id number] 12/11/2020 11/21/2020 clonazePAM 50 30 1 MG NA Amrita Rudolph L, Msn, [facility] [id number] [employer] [place], [place] [id number] 11/13/2020 10/25/2020 clonazePAM 50 30 1 MG NA Amrita Rudolph L, Msn, [facility] [id number] [employer] [place], [place] [id number] 10/16/2020 09/28/2020 clonazePAM 50 30 1 MG NA Amrita Rudolph L, Msn, [facility] [id number] [employer] [place], [place] [id number] 09/18/2020 09/06/2020 clonazePAM 60 30 1 MG NA Amrita Rudolph L, Msn, [facility] [id number] [employer], [place] [id number] 08/21/2020 08/21/2020 clonazePAM 60 30 1 MG NA Amrita Rudolph L, Msn, [facility] [id number] [employer] [place], [place] [id number] 07/24/2020 07/24/2020 clonazePAM 60 30 1 MG NA Amrita Rudolph L, Msn, [facility] [id number] [employer], [place] [id number] 06/26/2020 06/26/2020 clonazePAM 60 30 1 MG NA Halle Problems Problem Type SNOMED Code ICD Code Onset Dates Problem Status W/U Status Risk Notes Problem Generalized anxiety disorder (91108373) Generalized anxiety disorder (F41.1) Active confirmed Problem Tobacco user (888896478) Tobacco dependency (F17.200) Active confirmed Problem Moderate recurrent major depression (63934613) Major depressive disorder, recurrent episode, moderate (F33.1) Active confirmed MDD with pyschotic features Problem Posttraumatic stress disorder (09798106) Chronic post-traumatic stress disorder (PTSD) (F43.12) 021 Active confirmed PCL-5 66 10/25/20 Problem Benzodiazepine dependence (745581878) Benzodiazepine dependence (F13.20) Active confirmed Problem Major depression with psychotic features (637644183) Major depression with psychotic features (F32.3) Active confirmed r/o dysthymic disorder versus bipolar disorder with psychotic features. Past history of visual hallucinatio ns BSDS score 23 correlating with high probability for bipolar disorder. Encounters Encounter Location Date Provider Diagnosis [address] [address] 02/16/2024 Jonas Tello Major depression wit h psychotic features F32.3 ; Chronic post-traumatic stress disorder (PTSD) F43.12 and Generalized anxiety disorder F41.[address] [address] 03/17/2024 Jonas Tello Major depression wit h psychotic features F32.3 ; Generalized anxiety disorder F41.1 ; Chronic post-traumatic stress disorder (PTSD) F43.12 and Benzodiazepine dependence F13.[address] [address] 04/12/2024 Jonas Tello Major depression wit h psychotic features F32.3 ; Chronic post-traumatic stress disorder (PTSD) F43.12 and Generalized anxiety disorder F41.[address] [address] 05/12/2024 Jonas Tello Major depression wit h psychotic features F32.3 ; Generalized anxiety disorder F41.1 and Chronic post-traumatic stress disorder (PTSD) F43.[address] [address] 06/09/2024 Jonas Tello Major depression wit h psychotic features F32.3 ; Generalized anxiety disorder F41.1 and Chronic post-traumatic stress disorder (PTSD) F43.[address] [address] 07/13/2024 Jonas Tello Major depression wit h psychotic features F32.3 ; Generalized anxiety disorder F41.1 and Chronic post-traumatic stress disorder (PTSD) F43.[address] [address] 08/09/2024 Jonas Tello Major depression wit h psychotic features F32.3 ; Generalized anxiety disorder F41.1 and Chronic post-traumatic stress disorder (PTSD) F43.[address] [address] 09/07/2024 Jonas Tello Major depression wit h psychotic features F32.3 ; Chronic post-traumatic stress disorder (PTSD) F43.12 ; Generalized anxiety disorder F41.1 and Benzodiazepine dependence F13.[address] [address] 10/05/2024 Jonas Tello Major depression wit h psychotic features F32.3 ; Generalized anxiety disorder F41.1 ; Chronic post-traumatic stress disorder (PTSD) F43.12 and Benzodiazepine dependence F13.[address] [address] 10/20/2024 Cheri Morris Generalized anxiety disorder F41.[address] [address] 11/08/2024 Jonas Tello Major depression wit h psychotic features F32.3 ; Chronic post-traumatic stress disorder (PTSD) F43.12 ; Generalized anxiety disorder F41.1 and Benzodiazepine dependence F13.[address] [address] 12/06/2024 Jonas Tello Major depression wit h psychotic features F32.3 ; Generalized anxiety disorder F41.1 ; Benzodiazepine dependence F13.20 and Chronic post-traumatic stress disorder (PTSD) F43.[address] [address] 01/03/2025 Jonas Tello Major depression wit h psychotic features F32.3 ; Generalized anxiety disorder F41.1 ; Chronic post-traumatic stress disorder (PTSD) F43.12 and Benzodiazepine dependence F13.[address] [place] [address] 02/01/2025 Jonas Tello Major depression wit h psychotic features F32.3 ; Generalized anxiety disorder F41.1 ; Chronic post-traumatic stress disorder (PTSD) F43.12 and Benzodiazepine dependence F13.[address] [place] [address] 03/11/2024 Jonas Tello [facility] [address] [place] [address] 10/22/2024 Jonas Tello Assessments Encounter Date Diagnosis (ICD Code) Assessment Notes Treatment Notes Treatment Clinical Notes Section Notes 02/16/2024 Major depression with psychotic features (ICD-10 [...] continue with treatment. Client currently agreeable. 04/12/2024 Major depression with psychotic features (ICD-10 [...] to treatment plan at this time. 05/12/2024 Major depression with psychotic features (ICD-10 [...] if needed. She verbalizes understanding and agreeable. 12/06/2024 Major depression with psychotic features (ICD-10 - F32.3) r/o dysthymic disorder versus bipolar disorder with psychotic features. Past history of visual hallucination s BSDS score 23 correlating with high probability for bipolar disorder. 01/03/2025 Major depression with psychotic features (ICD-10 - F32.3) r/o dysthymic disorder versus bipolar disorder with psychotic features. Past history of visual hallucination s BSDS score 23 correlating with high probability for bipolar disorder. 02/01/2025 Major depression with psychotic features (ICD-10 - F32.3) r/o dysthymic disorder versus bipolar disorder with psychotic features. Past history of visual hallucination s BSDS score 23 correlating with high probability for bipolar disorder. Client encouraged to engage in therapy or support groups for more social interaction. Have explored ways to have client to have more support emotionally however, client has struggles acting on these due to her depression. She does not want to stay on CRU or complete an IOP however. Discussed for client to call if she decided to start therapy. Medication changes have been minimally effective in past as mostly related to her social dynamics. 04/12/2024 Chronic post-traumatic stress disorder (PTSD) (ICD-10 - F43.12) PCL-5 66 10/25/20 Encouraged client to take 0.5 tablet of trazodone to limit excessive sleep and will look at cutting dose at next appointment (client getting 10 + hours a night) likely using sleep as escape from grief. Encouraged client to limit isolation. No changes to treatment plan at this time. 02/01/2025 Generalized anxiety disorder (ICD-10 - F41.1) Client encouraged to engage in therapy or support groups for more social interaction. Have explored ways to have client to have more support emotionally however, client has struggles acting on these due to her depression. She does not want to stay on CRU or complete an IOP however. Discussed for client to call if she decided to start therapy. Medication changes have been minimally effective in past as mostly related to her social dynamics. 01/03/2025 Generalized anxiety disorder (ICD-10 - F41.1) 12/06/2024 Generalized anxiety disorder (ICD-10 - F41.1) 11/08/2024 [...] needed. She verbalizes understanding and agreeable. 09/07/2024 Chronic post-traumatic stress disorder (PTSD) (ICD-10 [...] comorbid health issues she struggles with. 08/09/2024 Generalized anxiety disorder (ICD-10 - F41.1) 07/13/2024 Generalized anxiety disorder (ICD-10 - F41.1) 06/09/2024 Generalized anxiety disorder (ICD-10 - F41.1) 05/12/2024 Generalized anxiety disorder (ICD-10 - F41.1) 03/17/2024 Generalized anxiety disorder (ICD-10 - F41.1) [...] continue with treatment. Client currently agreeable. 02/16/2024 Chronic post-traumatic stress disorder (PTSD) (ICD-10 - F43.12) PCL-5 66 10/25/20 Client more hopeful and less depressed from last session. No changes to treatment plan at this time. 02/16/2024 Generalized anxiety disorder (ICD-10 - F41.1) [...] client continue with treatment. Client currently agreeable. 05/12/2024 Chronic post-traumatic stress disorder (PTSD) (ICD-10 [...] to treatment plan at this time. 06/09/2024 Chronic post-traumatic stress disorder (PTSD) (ICD-10 [...] (PTSD) (ICD-10 - F43.12) PCL-5 66 10/25/20 02/01/2025 Chronic post-traumatic stress disorder (PTSD) (ICD-10 - F43.12) PCL-5 66 10/25/20 Client encouraged to engage in therapy or support groups for more social interaction. Have explored ways to have client to have more support emotionally however, client has struggles acting on these due to her depression. She does not want to stay on CRU or complete an IOP however. Discussed for client to call if she decided to start therapy. Medication changes have been minimally effective in past as mostly related to her social dynamics. 12/06/2024 Benzodiazepine dependence (ICD-10 - F13.20) 02/01/2025 Benzodiazepine dependence (ICD-10 - F13.20) Client encouraged to engage in therapy or support groups for more social interaction. Have explored ways to have client to have more support emotionally however, client has struggles acting on these due to her depression. She does not want to stay on CRU or complete an IOP however. Discussed for client to call if she decided to start therapy. Medication changes have been minimally effective in past as mostly related to her social dynamics. 01/03/2025 Benzodiazepine dependence (ICD-10 - F13.20) 11/08/2024 Benzodiazepine [...] if needed. She verbalizes understanding and agreeable. 12/06/2024 Chronic post-traumatic stress disorder (PTSD) (ICD-10 - F43.12) PCL-5 66 10/25/20 09/07/2024 Benzodiazepine dependence (ICD-10 - F13.20) 10/05/2024 [...] continue with treatment. Client currently agreeable. [place] [...] number to the 24-hour crisis line at [facility]. Questions addressed. Client verbalized understanding of all information and is agreeable to treatment plan. Client more hopeful and less depressed from last session. No changes to treatment plan at this time. 03/17/[place]24 [place] [...] number to the 24-hour crisis line at [facility]. Questions addressed. Client verbalized understanding of [...] continue with treatment. Client currently agreeable. 04/12/2024 Other Discussed sleep hygiene and caffeine [...] number to the 24-hour crisis line at [facility]. Questions addressed. Client verbalized understanding of [...] to treatment plan at this time. 05/12/2024 [place] [...] number to the 24-hour crisis line at [facility]. Questions addressed. Client verbalized understanding of all information and is agreeable to treatment plan. 06/09/2024 [place] [...] number to the 24-hour crisis line at [facility]. Questions addressed. Client verbalized understanding of [...] number to the 24-hour crisis line at [facility]. Questions addressed. Client verbalized understanding of all information and is agreeable to treatment plan. 08/09/2024 Other Discussed sleep hygiene and caffeine [...] number to the 24-hour crisis line at [facility]. Questions addressed. Client verbalized understanding of all information and is agreeable to treatment plan. 09/07/2024 [place] [...] number to the 24-hour crisis line at [facility]. Questions addressed. Client verbalized understanding of [...] number to the 24-hour crisis line at [facility]. Questions addressed. Client verbalized understanding of [...] comorbid health issues she struggles with. 10/20/2024 Other Clinician met with client to assess needs and preferences for services. Clinician explored therapy goals, history of engagement, psychiatric history and diagnosis. Clinician provided education on same day call in therapy, traditional therapy and speech coach services. Referrals for preferred methods will be sent following appointment. 11/08/[place]24 [place] [...] number to the 24-hour crisis line at [facility]. Questions addressed. Client verbalized understanding of [...] if needed. She verbalizes understanding and agreeable. 12/06/2024 [place] [...] number to the 24-hour crisis line at [facility]. Questions addressed. Client verbalized understanding of [...] number to the 24-hour crisis line at [facility]. Questions addressed. Client verbalized understanding of all information and is agreeable to treatment plan. 02/01/2025 [place]. [...] number to the 24-hour crisis line at [facility]. Questions addressed. Client verbalized understanding of all information and is agreeable to treatment plan. Client encouraged to engage in therapy or support groups for more social interaction. Have explored ways to have client to have more support emotionally however, client has struggles acting on these due to her depression. She does not want to stay on CRU or complete an IOP however. Discussed for client to call if she decided to start therapy. Medication changes have been minimally effective in past as mostly related to her social dynamics. Plan Of Treatment Pending Test Test Name Order Date Urinalysis, Routine 05/06/2016 Vitamin D, 25-Hydroxy* 05/06/2016 CMP14+LP+CBC/D/Plt+T4+TSH 05/06/2016 Next Appt Details Provider Name:Jonas montes, 02/22/2025 10:20:00 AM, [address], [place], [address], Insurance Providers Payer Name Payer Address Payer Phone Subscriber Number Group Number Insured Name Patient Relationship to Insured Coverage Start Date Coverage End Date [address] [phone] [id number] Radha Latham Self - patient is the insured 0 [employer] [address] [place] [address] [id number] Radha Latham Self - patient is the insured 0 [employer] [address] [place] [address] [id number] Radha Latham Self - patient is the insured 5 Medical (General) History Medical History History ICD Code Anxiety disorder chronic interstial cystitis polycythemia Surgical History Surgery Date(Month/Year) cholecystectomy 01/2016 Hospitalization History Reason Date(Month/Year) SI and depression 2015
--- OUTSIDE RECORDS SUMMARY | 2025-02-07 01:10 | XMS_ITS | Encounter Summary ---
Author Organization [facility] Address [address] [place] [address] Phone Care Team Providers Care Graphics Intern Name Role Phone Santos Montenegro Primary Care Provider Bernadine Gill MD Unavailable [phone] Uriah Florentino MD Unavailable [phone] Buddy Franz MD Unavailable [phone] Encounter Details Date Type Department Care Team (Late st Contact Info) Description 04/16/2022 Telephone [facility] [address] [place] [address] Buddy Franz MD [address] [place] [address] Social History Tobacco Use [...] 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, 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 documented in this encounter Plan of Treatment Upcoming Encounters Date Type Department Care Team (Late st Contact Info) Description 03/23/2025 9:00 AM CDT Lab [facility] [address] [address] Lab, [facility] 03/23/2025 9:15 AM CDT Office Visit [facility] [address] [address] Buddy Franz MD [address] [place] [phone] documented as of this encounter Visit Diagnoses Not on filedocumented in this encounter Additional Health Concerns Assessment Noted Time PHQ-9 Depression Total Score: 1 02/27/20 21 1:19 PM CDT documented as of this encounter Care Teams Graphics Intern Relationship Specialty Start Date End Date Santos Montenegro [address] [facility] [place] [address] PCP - General Family Medicine 09/20/16 Bernadine Gill MD [address] [facility] [place] [address] Internal Medicine 09/20/16 Uriah Florentino MD [address] [place] [address] Consulting Physician Oncology 12/05/23 07/27/24 Buddy Franz MD [address] [place] [phone] Consulting Physician Oncology 07/28/24 documented as of this encounter
--- NOTE | 2025-02-07 06:28 | SUR.PREOP ---
Pt left 2 messages over the weekend on our voicemail stating she would not be in today. No reason given. We called patient back this am and left a message for her to call the office when she is ready to reschedule. Pt removed from the schedule.
[2025-03-11 14:05] VITALS: BMI 31.1
[2025-03-17 12:39] VITALS: BP 147/88; PULSE 80; RESP 16; TEMP 36.3; O2SAT 95
[2025-03-17] MEDS: LACTATED RINGERS 1,000 ML 150 ML IV CONT (12:47)
--- NOTE | 2025-03-17 13:31 | WPDANESEPPF ---
Anes - Initial Pre Proc Eval Procedure: Operation Date: 03/17/25 14:00 Proposed Procedures p Diagnostic Colonoscopy - Naeem Ray MD Date/Time: 03/17/25 13:31 Surgeon: Naeem Ray MD Pre Op Diagnosis: Chronic idiopathic constipation Patient Data Age: 59 Gender: F Height: 1.57 m Weight: 78.1 kg Last Vital Signs Temp 97.3 F L 03/17/25 12:39 Pulse 80 03/17/25 12:39 Resp 16 03/17/25 12:39 BP 147/88 H 03/17/25 12:39 Pulse Ox 95 03/17/25 12:39 O2 Del Method Room Air 03/17/25 12:39 Allergies Allergy/AdvReac Type Severity Reaction Status Date / Time Penicillins Allergy Itching Verified 03/17/25 12:38 Sulfa (Sulfonamide Allergy Hives Verified 03/17/25 12:38 Antibiotics) Home Medications ?Medication ?Instructions ?Recorded ?Confirmed ?Type bupropion HCl 300 mg 24 hr tablet, 300 mg PO QAM 07/21/19 03/17/25 History extended release (Wellbutrin XL) clonazepam 1 mg tablet 0.5 mg PO TID 07/27/20 03/17/25 History amitriptyline 50 mg tablet 75 mg PO DAILY 03/26/24 03/17/25 History brexpiprazole 4 mg tablet (Rexulti) 4 mg PO DAILY 03/26/24 03/17/25 History irbesartan 300 mg tablet 300 mg PO DAILY 03/26/24 03/17/25 History ondansetron 4 mg disintegrating 4 mg translingual PRN PRN Nausea 03/26/24 01/27/25 History tablet And Vomiting pregabalin 75 mg capsule 75 mg PO DAILY 03/26/24 03/17/25 History trazodone 150 mg tablet 150 mg PO DAILY 03/26/24 03/17/25 History famotidine 40 mg tablet See Rx Instructions .Route 10/19/24 03/17/25 Rx .COMPLEX #60 tabs pregabalin 150 mg capsule 150 mg PO Q12H 01/27/25 03/17/25 History omeprazole 40 mg capsule,delayed See Rx Instructions .Route 02/08/25 03/17/25 Rx release .COMPLEX #60 caps cyclobenzaprine 10 mg tablet 10 mg PO Q8H 03/11/25 03/17/25 History Patient hx anesthesia problems: none Family hx anesthesia problems: none Results Review: All pre-operative results and documents have been reviewed as part of the pre-operative evaluation. [facility] Past Medical History Medical History Anxiety Surgical History Surgical History Hx of cholecystectomy Social History Social History Smoking packs per day: 0.5 Smoking cigarettes per day: 10.0 Years smoked: 30 Smoking pack-years: 15.00 Smoking status: Former smoker Tobacco type: cigarettes Additional smoking assessment comments: occasionally vapes Alcohol intake: never Substance use: current Substance use type: marijuana Other substance usage details: smokes MJ 5x week Last use: 03/02/2025 Living arrangements: with family Spiritual care concerns: No Anes - Eval Final PreProcedure Day of Procedure 03/17/25 13:31 Patient weight: obese Heart: regular rate and rhythm Lungs: clear to auscultation Airway: Mallampati scale class II Neurological: alert and oriented Last oral intake: >/= 8 hours ASA classification: III Emergent: no Anesthetic plan: proceed Anesthesia type and monitoring: general GIVS and standard monitoring Results Review: All pre-operative results and documents have been reviewed as part of the pre-operative evaluation. Informed Consent: The patient's anesthetic plan and its attendant risks and benefits were discussed with the patient/family/POA. Questions were solicited and answers provided to the satisfaction of the patient/family/POA.
--- NOTE | 2025-03-17 13:38 | PM.HPGS ---
History of Present Illness History of Present Illness Consent: Risks, benefits, and alternatives have been discussed and questions answered. Patient agrees to proceed with procedure. Chief complaint: Chronic idiopathic constipation Narrative: Radha Latham is a 59 year old female here with intermittent abdominal pain, last colonoscopy 2022 Review of Systems Review of Systems: All systems reviewed & are unremarkable except as noted in HPI and below PMFSH Past Medical History Medical History Anxiety Surgical History Surgical History Hx of cholecystectomy Social History Social History Smoking packs per day: 0.5 Smoking cigarettes per day: 10.0 Years smoked: 30 Smoking pack-years: 15.00 Smoking status: Former smoker Tobacco type: cigarettes Additional smoking assessment comments: occasionally vapes Alcohol intake: never Substance use: current Substance use type: marijuana Other substance usage details: smokes MJ 5x week Last use: 03/02/2025 Living arrangements: with family Spiritual care concerns: No Meds Home Medications and Allergies Home Medications ?Medication ?Instructions ?Recorded ?Confirmed ?Type bupropion HCl 300 mg 24 hr tablet, 300 mg PO QAM 07/21/19 03/17/25 History extended release (Wellbutrin XL) clonazepam 1 mg tablet 0.5 mg PO TID 07/27/20 03/17/25 History amitriptyline 50 mg tablet 75 mg PO DAILY 03/26/24 03/17/25 History brexpiprazole 4 mg tablet (Rexulti) 4 mg PO DAILY 03/26/24 03/17/25 History irbesartan 300 mg tablet 300 mg PO DAILY 03/26/24 03/17/25 History ondansetron 4 mg disintegrating 4 mg translingual PRN PRN Nausea 03/26/24 01/27/25 History tablet And Vomiting pregabalin 75 mg capsule 75 mg PO DAILY 03/26/24 03/17/25 History trazodone 150 mg tablet 150 mg PO DAILY 03/26/24 03/17/25 History famotidine 40 mg tablet See Rx Instructions .Route 10/19/24 03/17/25 Rx .COMPLEX #60 tabs pregabalin 150 mg capsule 150 mg PO Q12H 01/27/25 03/17/25 History omeprazole 40 mg capsule,delayed See Rx Instructions .Route 02/08/25 03/17/25 Rx release .COMPLEX #60 caps cyclobenzaprine 10 mg tablet 10 mg PO Q8H 03/11/25 03/17/25 History Allergies Allergy/AdvReac Type Severity Reaction Status Date / Time Penicillins Allergy Itching Verified 03/17/25 12:38 Sulfa (Sulfonamide Allergy Hives Verified 03/17/25 12:38 Antibiotics) Vital Signs Vital Signs - 24 hr 03/17/25 12:39 Temperature 97.3 F L Pulse Rate 80 Respiratory Rate 16 Blood Pressure 147/88 H Pulse Oximetry 95 Oxygen Delivery Room Air Exam Const: General: comfortable and no acute distress HENMT: Face/Nose/Sinus: Normal nares present Eyes: General: appearance normal, both eyes and all related structures Neck: Neck: no JVD Resp: Auscultation: clear to auscultation bilaterally Cardio: Rate: regular rate Rhythm: regular rhythm GI: Inspection: non-distended GI Palp: Yes Soft to palpation Skin: General skin exam: normal color Extrem: General: normal to inspection Psych: Mental Status: mental status grossly normal Assessment and Plan Assessment and plan (1) Generalized abdominal pain: Code(s): R10.84 - Generalized abdominal pain Status: Acute Assessment and Plan: colonoscopy (2) Constipation: Qualifiers: Constipation type: chronic idiopathic constipation Qualified Code(s): K59.04 - Chronic idiopathic constipation Code(s): K59.00 - Constipation, unspecified Status: Acute
--- NOTE | 2025-03-17 13:47 | S_PTH ---
PATIENT: Radha Latham LOC: [facility]#:[id number] AGE/SX: 59/F ROOM: RE03/17/[address]: Naeem Ray MD : 1965 BED: DIS: 03/17/2025 SPEC #: [id number] RECD: 03/17/25 14:38 STATUS: MADI REQ #: [id number] APRIL: 03/17/25 13:[address]: Naeem Ray DEPT: [facility] Surgical RECD BY: Crissy George ENTERED: 03/17/25 14:38 SP TYPE: Surgical OTHR DR: Santos Montenegro MD Tissues: A - Colon Polypectomy Procedures: Hematoxylin and Eosin Stain Gross and Microscopic Level 4
[2025-03-17 13:49] VITALS: BP 122/70; PULSE 74; RESP 30; O2SAT 94
[2025-03-17 13:59] VITALS: BP 122/71; PULSE 69; RESP 30; O2SAT 94
[2025-03-17 14:09] VITALS: BP 141/79; PULSE 70; RESP 18; O2SAT 96
== END 2025-03-17 14:27 | disposition home or self-care (01) ==
PROVIDERS: PCP Emergency Medicine; Referring Provider Nurse Practitioner Family; Visit Provider Internal Medicine Gastroenterology
PROC: 0DJD8ZZ Inspection of Lower Intestinal Tract, Via Natural or Artificial Opening Endoscopic (ICD-10-PCS; CPT 45378; principal; 2025-03-17 14:00)
DX: D12.4 Benign neoplasm of descending colon (principal); K64.8 Other hemorrhoids; K57.30 Diverticulosis of large intestine without perforation or abscess without bleeding; K59.04 Chronic idiopathic constipation; F41.9 Anxiety disorder, unspecified; F17.290 Nicotine dependence, other tobacco product, uncomplicated; F12.90 Cannabis use, unspecified, uncomplicated; E66.9 Obesity, unspecified; Z68.31 Body mass index [BMI] 31.0-31.9, adult; Z90.49 Acquired absence of other specified parts of digestive tract
CPT/HCPCS: 45385; 88305; J2704; J7120